=== PATIENT | female | born 1955 | race Hispanic/Latino ===

== ENCOUNTER 2019-04-27 14:15 | Emergency (ER) | payer MEDICARE, OTHER ==
--- OUTSIDE RECORDS SUMMARY | 2019-04-27 14:19 | XMS REPORT ---
:1955 Author Organization [employer] Care Team Providers Name Role Phone Yessy Parmar Provider Role Unavailable Allergies No Known Allergies Problems Problem Type Condition Code Onset Dates Condition Status Problem Stress incontinence of urine N39.3 Active Problem Vagina itching N89.8 Active Problem Other urinary incontinence N39.498 Active Problem Hypercholesterolemia E78.00 Active Problem Other chronic pain G89.29 Active Problem Essential hypertension I10 Active Problem Chronic kidney disease, unspecified N18.9 Active CKD stage Problem Depression screening Z13.31 Active Problem Type 2 diabetes mellitus with E11.21 Active diabetic nephropathy Problem Type 2 diabetes mellitus with E11.65 Active hyperglycemia Problem Diabetes mellitus type 2, E11.9 Active controlled Problem Chronic kidney disease, stage 3 N18.3 Active Problem Anxiety disorder F41.9 Active Problem Vascular dementia F01.50 Active Problem Hypertension I10 Active Problem Osteoarthritis of knees, bilateral M17.0 Active Medications No Known Medications Results No Known Results Summary Purpose [employer] Submission
--- OUTSIDE RECORDS SUMMARY | 2019-04-27 14:19 | XMS REPORT ---
[...] Osteoarthritis of knees, bilateral M17.0 Active Medications Medication Code Code Instructions Start End Date Status Dosage System Date Contour Next [facility] [id number] w/Device Apr 03, Active as directed Monitor 2018 Results No Known Results Summary Purpose [employer]ClinicalWorks Submission
[2019-04-27] MEDS ORDERED: DIPHENHYDRAMINE 25 MG TAB/CAP ONE (15:26)
[2019-04-27] MEDS ORDERED: FAMOTIDINE 20 MG TAB ONE (15:26)
--- NOTE | 2019-04-27 15:27 | ER ---
Nurse's Notes [facility] Name: Dyan Guevara Age: 63 yrs Sex: Female : 1955 Arrival Date: 04/27/2019 Time: 14:18 Bed 10 Private MD: Diagnosis: Urticaria Presentation: 04/27 14:34 Presenting complaint: Patient states: I noticed an itchy rash on my arms and legs this la1 morning. Transition of care: patient was not received from another setting of care. Onset: The symptoms/episode began/occurred this morning. Anaphylaxis evaluation, the patient reports or I have noted the following symptoms which indicate a significant risk of anaphylaxis: no signs or symptoms of anaphylaxis were noted. Onset of symptoms was April 27, 2019. Risk Assessment: Do you want to hurt yourself or someone else? Patient reports no desire to harm self or others. Initial Sepsis Screen: Does the patient meet any 2 criteria? No. Patient's initial sepsis screen is negative. Does the patient have a suspected source of infection? No. Patient's initial sepsis screen is negative. Care prior to arrival: None. 14:34 Method Of Arrival: Ambulatory la1 14:34 Acuity: DAVID 5 la1 Historical: - Allergies: 14:34 No Known Allergies; la1 - PMHx: 14:34 Arthritis; Diabetes - IDDM; GERD; High Cholesterol; Hypertension; la1 - Immunization history:: Adult Immunizations up to date. - Social history:: Smoking status: Patient uses tobacco products, denies chronic smoking, but will smoke occasionally. - Ebola Screening: : Patient denies travel to an Ebola-affected area in the 21 days before illness onset. Screenin:14 Abuse screen: Denies threats or abuse. Denies injuries from another. Nutritional ss screening: No deficits noted. Tuberculosis screening: Never had TB. Fall Risk None identified. Assessment: 15:14 General: Appears in no apparent distress. comfortable, Behavior is calm, cooperative. ss Pain: Denies pain. Neuro: Level of Consciousness is awake, alert, obeys commands, Oriented to person, place, time, situation. Cardiovascular: Capillary refill < 3 seconds is brisk in bilateral fingers. Respiratory: Airway is patent Respiratory effort is even, unlabored, Respiratory pattern is regular, symmetrical, Breath sounds are clear bilaterally. GI: Patient currently denies nausea. EENT: Oral mucosa is moist. Throat is clear. Derm: Skin is intact, is fragile, Skin is pink, warm \T\ dry. normal, Reports rash to bilateral arms that began this morning. Musculoskeletal: Circulation, motion, and sensation intact. Range of motion: intact in all extremities, Swelling absent. Vital Signs: 14:33 Pulse 85; Resp 16; Temp 97.3; Pulse Ox 96% on R/A; Weight 68.04 kg; Height 5 ft. 4 in. la1 (162.56 cm); 14:34 BP 104 / 58; la1 14:33 Body Mass Index 25.75 (68.04 kg, 162.56 cm) la1 ED Course: 14:18 Patient arrived in ED. as 14:34 Arm band placed on left wrist. la1 14:35 Triage completed. la1 15:14 [facility] Spring [facility]C [facility] kb 15:14 Nahid Rich MD is Attending Physician. kb 15:14 Patient has correct armband on for positive identification. Bed in low position. Call ss light in reach. 15:23 Ana Paula Mae, RN is Primary Nurse. ss 15:50 No provider procedures requiring assistance completed. Patient did not have IV access ss during this emergency room visit. Administered Medications: 15:27 Drug: Benadryl 25 mg Route: PO; ss 15:30 Follow up: Response: Medication administered at discharge. ss 15:27 Drug: Pepcid 20 mg Route: PO; ss 15:30 Follow up: Response: Medication administered at discharge. ss Outcome: 15:27 Discharge ordered by MD. kb 15:30 Patient left the ED. eb 15:30 Discharged to home ambulatory. ss 15:30 Condition: good 15:30 Discharge instructions given to patient, Instructed on discharge instructions, follow up and referral plans. medication usage, Demonstrated understanding of instructions, follow-up care, medications, Prescriptions given X 1. Signatures: Fina Spring FNP-C [employer]ATING [employer]OSSING UNIT OPERATOR-Mariana Naqvi as Ana Paula Mae, SIMI BELCHER Mirza Palomares RN RN [facility] Jolie Lopez
--- NOTE | 2019-04-27 15:28 | EDPHYS ---
Physician Documentation [facility] Name: Dyan Guevara Age: 63 yrs Sex: Female : 1955 Arrival Date: 04/27/2019 Time: 14:18 Bed 10 Private MD: ED Physician Nahid Rich HPI: 04/27 15:25 This 63 yrs old Female presents to ER via Ambulatory with complaints of Rash, kb Itching. 15:25 The patient's rash thought to be caused by an unknown cause. The rash is located on the kb right arm, left arm, right leg and left leg. The rash can be described as urticarial. Onset: The symptoms/episode began/occurred yesterday. Associated signs and symptoms: Pertinent positives: itching. Severity of symptoms: At their worst the symptoms were very mild mild in the emergency department the symptoms are unchanged. The patient has not experienced similar symptoms in the past. The patient has not recently seen a physician. Pt reports she was at someone's house last night and her arms started itching. This morning she had a rash to both forearms and her legs were itching as well. Did not take anything otc.. Historical: - Allergies: 14:34 No Known Allergies; la1 - PMHx: 14:34 Arthritis; Diabetes - IDDM; GERD; High Cholesterol; Hypertension; la1 - Immunization history:: Adult Immunizations up to date. - Social history:: Smoking status: Patient uses tobacco products, denies chronic smoking, but will smoke occasionally. - Ebola Screening: : Patient denies travel to an Ebola-affected area in the 21 days before illness onset. ROS: 15:22 Constitutional: Negative for fever, chills, and weight loss, ENT: Negative for injury, kb pain, and discharge, Neck: Negative for injury, pain, and swelling, Cardiovascular: Negative for chest pain, palpitations, and edema, Respiratory: Negative for shortness of breath, cough, wheezing, and pleuritic chest pain, Abdomen/GI: Negative for abdominal pain, nausea, vomiting, diarrhea, and constipation, Back: Negative for injury and pain, : Negative for injury, bleeding, discharge, and swelling, MS/Extremity: Negative for injury and deformity, Neuro: Negative for headache, weakness, numbness, tingling, and seizure. 15:22 Skin: Positive for rash, of the right arm, left arm, right leg and left leg. Exam: 15:22 Constitutional: This is a well developed, well nourished patient who is awake, alert, kb and in no acute distress. Head/Face: Normocephalic, atraumatic. Neck: Trachea midline, no thyromegaly or masses palpated, and no cervical lymphadenopathy. Supple, full range of motion without nuchal rigidity, or vertebral point tenderness. No Meningismus. Chest/axilla: Normal chest wall appearance and motion. Nontender with no deformity. No lesions are appreciated. Cardiovascular: Regular rate and rhythm with a normal S1 and S2. No gallops, murmurs, or rubs. Normal PMI, no JVD. No pulse deficits. Respiratory: Lungs have equal breath sounds bilaterally, clear to auscultation and percussion. No rales, rhonchi or wheezes noted. No increased work of breathing, no retractions or nasal flaring. Abdomen/GI: Soft, non-tender, with normal bowel sounds. No distension or tympany. No guarding or rebound. No evidence of tenderness throughout. Back: No spinal tenderness. No costovertebral tenderness. Full range of motion. MS/ Extremity: Pulses equal, no cyanosis. Neurovascular intact. Full, normal range of motion. Neuro: Awake and alert, GCS 15, oriented to person, place, time, and situation. Cranial nerves II-XII grossly intact. Motor strength 5/5 in all extremities. Sensory grossly intact. Cerebellar exam normal. Normal gait. 15:22 Skin: rash can be described as urticarial, consistent with urticaria, on the right arm, left arm, right leg and left leg. Vital Signs: 14:33 Pulse 85; Resp 16; Temp 97.3; Pulse Ox 96% on R/A; Weight 68.04 kg; Height 5 ft. 4 in. la1 (162.56 cm); 14:34 BP 104 / 58; la1 14:33 Body Mass Index 25.75 (68.04 kg, 162.56 cm) la1 MDM: 15:14 Patient medically screened. kb 15:21 Data reviewed: vital signs, nurses notes. Data interpreted: Pulse oximetry: on room air kb is 96 %. Interpretation: normal. Counseling: I had a detailed discussion with the patient and/or guardian regarding: the historical points, exam findings, and any diagnostic results supporting the discharge/admit diagnosis, the need for outpatient follow up, a family practitioner, to return to the emergency department if symptoms worsen or persist or if there are any questions or concerns that arise at home. Administered Medications: 15:27 Drug: Benadryl 25 mg Route: PO; 15:30 Follow up: Response: Medication administered at discharge. 15:27 Drug: Pepcid 20 mg Route: PO; 15:30 Follow up: Response: Medication administered at discharge. Disposition: 16:07 Co-signature as Attending Physician, Nahid Rich MD. rn Disposition: 04/27/19 15:27 Discharged to Home. Impression: Urticaria. - Condition is Stable. - Discharge Instructions: Hives, [id number]. - Prescriptions for Pepcid 20 mg Oral Tablet - take 1 tablet by ORAL route every 12 hours for 5 days; 10 tablet. - Medication Reconciliation Form, Thank You Letter, Antibiotic Education, Prescription Opioid Use form. - Follow up: Emergency Department; When: As needed; Reason: Worsening of condition. Follow up: Private Physician; When: 2 - 3 days; Reason: Recheck today's complaints, Continuance of care, Re-evaluation by your physician. Signatures: Fina Spring, BRAND AMBASSADOR-C BRAND AMBASSADOR-Ckb Nahid Rich MD MD rn Smirch, Shelby, RN RN ss Attema, Lee, RN RN la1 Botello, Elizabeth eb Corrections: (The following items were deleted from the chart) 15:30 15:27 04/27/2019 15:27 Discharged to Home. Impression: Urticaria. Condition is Stable. eb Forms are Medication Reconciliation Form, Thank You Letter, Antibiotic Education, Prescription Opioid Use. Follow up: Emergency Department; When: As needed; Reason: Worsening of condition. Follow up: Private Physician; When: 2 - 3 days; Reason: Recheck today's complaints, Continuance of care, Re-evaluation by your physician. kb
[2019-04-27 16:14] VITALS: TEMP 97.3; O2SAT 96
[2019-04-27 16:15] VITALS: BP 104/58
== END 2019-04-27 15:30 | disposition home or self-care (01) ==
LOC: ER 14:15
DX: L50.9 Urticaria, unspecified (principal); I10 Essential (primary) hypertension; Z72.0 Tobacco use
CPT/HCPCS: 99283

== ENCOUNTER 2021-09-04 20:26 | Emergency (ER) | payer OTHER ==
--- OUTSIDE RECORDS SUMMARY | 2021-09-04 20:30 | XMS REPORT | Continuity of Care Document ---
:1955 Author Organization [facility] t Address [address] [place] [address] Care Team Providers Name Role Phone Tiffanie Christine Attending Clinician Unavailable Claude Attending Clinician Unavailable Agata Attending Clinician Unavailable Problems This patient has no known problems. Allergies, Adverse Reactions, Alerts This patient has no known allergies or adverse reactions. Medications Ordered Filled Start Stop Current Ordering Indication Dosage Frequency Signature Comments Components Source Medication Medication Date Date Medication? Clinician (SIG) Name Name Augmentin Augmentin 2020- No Yessy [address] [facility] 01-16-19 [facility] Clinics Ketoconazol Ketoconazol 2020- No Yessy [address] [facility] e e 11-22-17 Millender applicatio Miranda es - 00:00: 00:00 n to [facility]oria 00 :00 affected l area(s) Outpati ent Clinics Penlac Penlac 2020- No Yessy [address] [facility] -18 08-17 Millender applicatio Miranda es - 00:00: 00:00 n to 1st [facility] 00 :00 toes of l both feet Outpati ent Clinics Contour Contour 2018- Yes Yessy as [facility] Next Next 0-28 Millender directed [facility] - Monitor Monitor 00:00: [facility] 00 l Outpati ent Clinics [place] 2018- Yes Yessy as [facility] 0-22 Millender directed [facility] - [facility]: [facility] Clinics Lancets Lancets 2018-06 Yes Yessy as [facility] 0-22 Millender directed [facility] - 00:00: (dispense [facility] 00 l[facility]ets [facility] l [facility] Blood Blood 2018-06 Yes Yessy as [facility] Glucose Glucose 0-22 Millender directed [facility] - Test Strip Test Strip 00:00: (DISPENSE [facility] 00 BLOOD l GLUCOSE [facility] TEST [facility] STRIPS OF Clinics RECORD) BD Pen BD Pen Yes Yessy USE [facility] Needle Needle 8-08 Millender DIRECTED Gail kes - Short U/F Short U/F 00:00: Mem oria 00 l [facility] ent Clinics Simvastatin Simvastatin Yes Yessy [address] [facility] Millender in the [facility] - evening Memoria l [facility] ent Clinics Hydrochloro Hydrochloro Yes Yessy [address] [facility] thiazide thiazide Millender Gail kes - Memoria l [facility] ent Clinics Namenda Namenda Yes Yessy 1 tab(s) [facility] Millender once a day Luke [facility] - [facility] l [facility] Clinics Lotrel Lotrel Yes Yessy 1 [facility] Clinics Toujeo Toujeo Yes Yessy as [facility] SoloStar SoloStar [facility] Jardiance Jardiance Yes Yessy [address] [facility]ics Memantine Memantine Yes Yessy TAKE [address] HCl HCl Millender TABLET BY [facility] - MOUTH ONCE Memoria A DAY l [facility] ent [facility] Myrbetriq Myrbetriq 2020- No Yessy [address] [facility] 03-15 Millender [facility] - 00:00 Memoria :00 l [facility] ent Clinics Procedures This patient has no known procedures. Encounters Start End Encounter Admission Attending Care Care Encounter Source Date/Time Date/Time Type Type Clinicians Facility Department ID 2021-07-02 Outpatient Christine, [facility] 13:[facility]:30 [place] [id number] [facility] 2021-07-02 Outpatient Christine, [facility] 13:14:11 [place] [id number] [facility] 2021-07-02 Outpatient [facility] 12:58:58 [place] [id number] [facility] 2021-07-02 Outpatient Christine, [facility] 12:57:18 [place] [id number] [facility] 2021-07-02 Outpatient Christine, [facility] 12:[facility]:10 [place] [id number] [facility] 2021-07-02 Outpatient Christine, [facility] 12:22:45 [place] [id number] [facility] 2021-07-02 Outpatient Sidney Arce [facility] [id number] [facility] 12:00:36 [id number] [facility] 2021-07-02 Outpatient Agata, [facility] 11:45:58 Yessy [id number] [facility] 2021-07-02 Outpatient Agata, [facility] 11:37:13 Yessy [id number] [facility] 2021-07-02 Outpatient Agata, [facility] 11:08:11 Yessy [id number] [facility] 2021-07-02 Outpatient Agata, [facility] 11:06:16 Yessy [id number] [facility] 2021-07-02 Outpatient Agata, [facility] 11:02:15 Yessy [id number] [facility] 2021-07-02 Outpatient Agata, [facility] [id number] [facility] 11:01:30 Yessy [id number] [facility] 2021-05-27 2021-05-27 ambulatory [facility] [id number] [facility] 2021-03-18 2021-03-18 Outpatient [facility] [id number] [facility] 2021-01-13 2021-01-13 Outpatient [facility] [id number] [facility] 2020-10-04 2020-10-04 Outpatient [facility] [id number] [facility] 2020-10-02 2020-10-02 Outpatient [facility] [id number] [facility] 2020-06-25 2020-06-25 Outpatient [facility] [id number] [facility] 2020-01-17 2020-01-17 [facility] [id number] [facility] 16:40:00 16:40:00 [facility] Medicine Medicine Outpati ent Clinics 2019-11-23 2019-11-23 [facility] [id number] [facility] 13:20:00 13:20:00 [facility] Medicine Medicine Outpati ent Clinics 2019-11-14 2019-11-14 [facility] [id number] [facility] 09:32:00 09:32:00 [facility] Medicine Medicine Outpati ent Clinics 2019-08-16 2019-08-16 [facility] [id number] [facility] 10:03:00 10:03:00 [facility] Medicine l Medicine Outpati ent Clinics 2019-07-24 2019-07-24 [facility] [id number] 11:45:00 11:45:00 [facility] Medicine Outpati ent Clinics 2019-07-18 2019-07-18 [facility] [id number] [facility] 08:18:00 08:18:00 [facility] Medicine Medicine Outpati ent Clinics 2019-07-13 2019-07-13 Outpatient Ana Best [id number] 15:55:00 15:55:00 t [facility] Medicine Outpati ent Clinics 2019-04-04 2019-04-04 Outpatient Ana Perezt [id number] 14:55:00 14:55:00 t [facility] Medicine Outpati ent Clinics 2019-04-03 2019-04-03 Outpatient Ana Best [id number] [facility] 11:30:00 11:30:00 t [facility] Medicine Outpati ent Clinics 2019-03-28 2019-03-28 Outpatient Ana Best [id number] [facility] 09:00:00 09:00:00 [facility] Results This patient has no known results.
--- NOTE | 2021-09-04 22:49 | ER ---
Nurse's Notes [facility] Name: Dyan Guevara Age: 66 yrs Sex: Female : 1955 Arrival Date: 09/04/2021 Time: 20:52 Bed 13 Private MD: Diagnosis: Presentation: 09/04 21:13 Chief complaint: Patient states: "All of the sudden around 6pm my stomach started ab2 hurting." Pt denies n/v/d. Pt c/o LLQ abdominal pain. Pt c/o urinary frequency. Coronavirus screen: Vaccine status:. 21:13 Method Of Arrival: Ambulatory ab2 21:14 Coronavirus screen: Vaccine status: Patient reports receiving the 2nd dose of the covid ab2 vaccine. Client denies travel out of the [place] in the last 14 days. At this time, the client does not indicate any symptoms associated with coronavirus-19. Ebola Screen: Patient negative for fever greater than or equal to 101.5 degrees Fahrenheit, and additional compatible Ebola Virus Disease symptoms Patient denies exposure to infectious person. Patient denies travel to an Ebola-affected area in the 21 days before illness onset. No symptoms or risks identified at this time. Initial Sepsis Screen: Does the patient meet any 2 criteria? No. Patient's initial sepsis screen is negative. Does the patient have a suspected source of infection? No. Patient's initial sepsis screen is negative. Risk Assessment: Do you want to hurt yourself or someone else? Patient reports no desire to harm self or others. Onset of symptoms is unknown. 21:14 Acuity: DAVID 3 ab2 Triage Assessment: 21:15 General: Appears in no apparent distress. uncomfortable, Behavior is calm, cooperative, ab2 appropriate for age. Pain: Complains of pain in left lower quadrant. Neuro: Level of Consciousness is awake, alert, obeys commands, Oriented to person, place, time, situation, Appropriate for age. Cardiovascular: No deficits noted. Denies chest pain, shortness of breath. Respiratory: No deficits noted. Airway is patent Respiratory effort is even, unlabored, Respiratory pattern is regular, symmetrical. GI: Reports upper abdominal pain, Patient currently denies diarrhea, nausea, vomiting. Historical: - Allergies: 21:14 No Known Allergies; ab2 - PMHx: 21:14 Arthritis; Diabetes - IDDM; GERD; High Cholesterol; Hypertension; ab2 - Immunization history:: Adult Immunizations up to date. - Social history:: Smoking status: Patient reports the use of cigarette tobacco products, smokes one-half pack cigarettes per day. Vital Signs: 21:14 BP 128 / 87; Pulse 81; Resp 18; Temp 98.3; Pulse Ox 98% on R/A; Weight 81.65 kg; Height ab2 5 ft. 4 in. (162.56 cm); Pain 10/10; 21:14 Body Mass Index 30.90 (81.65 kg, 162.56 cm) ab2 ED Course: 20:52 Patient arrived in ED. kc5 21:14 Triage completed. ab2 21:15 Arm band placed on left wrist. ab2 Administered Medications: No medications were administered Outcome: 22:48 Patient left the ED. tw5 Signatures: Alejandrina Diaz tw5 Bibi Vega kc5 Moshe Robles ab2
[2021-09-05 01:03] VITALS: BP 128/87; TEMP 98.3; O2SAT 98
== END 2021-09-04 22:48 | disposition left against medical advice (07) ==
LOC: ER 20:26
DX: Z53.21 Procedure and treatment not carried out due to patient leaving prior to being seen by health care provider (principal)
CPT/HCPCS: 99281

== ENCOUNTER 2022-02-05 15:37 | Inpatient (IN) | payer OTHER ==
--- OUTSIDE RECORDS SUMMARY | 2022-02-05 15:40 | XMS REPORT | Continuity of Care Document ---
:1955 Author Organization [facility] t Address [address] [place] [address] Care Team Providers Name Role Phone Celso Christine Attending Clinician Unavailable Sidney Arce Attending Clinician Unavailable Yessy Parmar Attending Clinician Unavailable Problems This patient has no known problems. Allergies, Adverse Reactions, Alerts This patient has no known allergies or adverse reactions. Medications Ordered Filled Start Stop Current Ordering Indication Dosage Frequency Signature Comments Components Source Medication Medication Date Date Medication? Clinician (SIG) Name Name Augmentin Augmentin 2020- No Yessy 1 tablet Common 01-16 [facility] 00:00: 00:00 - [facility] 00 :00 [facility] Ketoconazol Ketoconazol 2020- No Yessy 1 Common e e 11-22 Millender applicatio Spi rit 00:00: 00:00 n to - [facility] 00 :[address] area(s) [facility] Penlac Penlac 0 2020- No Yessy 1 Common 11-22-17 Millender applicatio Spi rit 00:00: 00:00 n to 1st - [facility] 00 :[address] both feet [facility] Contour Contour 2019- Yes Yessy as Common Next Next 0-28 Millender directed Spirit Monitor Monitor 00:00: - [facility] 00 [facility] Pen Newington Pen Newington 2019- Yes Yessy as Common 0-22 Millender directed [facility] 00:00: - [facility] 00 [facility] Lancets Lancets 2019- Yes Yessy as Common 0-22 Millender directed [facility] 00:00: (dispense - [facility] [address] record) [facility] Blood Blood 2018-06 Yes Yessy as Common Glucose Glucose 0-22 Millender directed [facility] Test Strip Test Strip 00:00: (DISPENSE - [facility] [address] GLUCOSE [facility] TEST Medical STRIPS OF Center RECORD) BD Pen BD Pen Yes Yessy USE Common Needle Needle 8-08 Millender DIRECTED Sp lis Short U/F Short U/F 00:00: - C HI 00 [facility] Simvastatin Simvastatin Yes Yessy 1 tablet Common [facility]ender in the Spirit evening [facility] Hydrochloro Hydrochloro Yes Yessy 1 tablet Common thiazide thiazide [facility] Sp lis [facility] Namenda Namenda Yes Yessy 1 tab(s) Comm on Millender once a day [facility] it [facility] Lotrel Lotrel Yes Yessy 1 capsule Commo n Millender [facility] Toujeo Toujeo Yes Yessy as Common SoloStar SoloStar Millender directed [facility] Jardiance Jardiance Yes Yessy 1 tablet Common Millender [facility] Memantine Memantine Yes Yessy TAKE 1 Co mmon HCl HCl Millender TABLET BY Spiri t MOUTH ONCE - [facility] A DAY [facility] Myrbetriq Myrbetriq 2020- No Yessy 1 tablet Common 03-15 [facility] 00:00 - [facility] :00 [facility] Procedures This patient has no known procedures. Encounters Start End Encounter Admission Attending Care Care Encounter Source Date/Time Date/Time Type Type Clinicians Facility Department ID 2021-07-02 Outpatient Christine, [facility] [id number] Common 13:35:30 Celso [id number] [facility] 2021-07-02 Outpatient Christine, [facility] [id number] Common 13:14:11 Celso [id number] [facility] 2021-07-02 Outpatient Christine, [facility] [id number] Common 12:58:58 Celso [id number] [facility] 2021-07-02 Outpatient Christine, STLMLC STLMLC [id number] Common 12:57:18 [facility] [id number] [facility] 2021-07-02 Outpatient Christine, STLMLC STLMLC [id number] Common 12:36:10 Celso [id number] [facility] 2021-07-02 Outpatient Christine, STLMLC STLMLC [id number] Common 12:22:45 [facility] [id number] [facility] 2021-07-02 Outpatient Arce, Kin STLMLC STLMLC [id number] Common 12:00:36 [id number] [facility] 2021-07-02 Outpatient Millender, STLMLC STLMLC [id number] Common 11:45:58 Yessy [id number] [facility] 2021-07-02 Outpatient Millender, STLMLC STLMLC [id number] Common 11:37:13 Yessy [id number] [facility] 2021-07-02 Outpatient Millender, STLMLC STLMLC [id number] Common 11:08:11 Yessy [id number] [facility] 2021-07-02 Outpatient Millender, STLMLC STLMLC [id number] Common 11:06:16 Yessy [id number] [facility] 2021-07-02 Outpatient Millender, STLMLC STLMLC [id number] Common 11:02:15 Yessy [id number] [facility] 2021-07-02 Outpatient Millender, STLMLC STLMLC [id number] Common 11:01:30 Yessy [id number] [facility] 2021-05-27 2021-05-27 ambulatory STLMLC STLMLC [id number] Common 00:00:00 00:00:00 [facility] 2021-03-18 2021-03-18 Outpatient STLMLC STLMLC [id number] Common 00:00:00 00:00:00 [facility] 2021-01-13 2021-01-13 Outpatient STLMLC STLMLC [id number] Common 00:00:00 00:00:00 [facility] 2020-10-04 2020-10-04 Outpatient STLMLC STLMLC [id number] Common 00:00:00 00:00:00 [facility] 2020-10-02 2020-10-02 Outpatient STLMLC STLMLC [id number] Common 00:00:00 00:00:00 [facility] 2020-06-25 2020-06-25 Outpatient STLMLC STLMLC [id number] Common 00:00:00 00:00:00 [facility] 2020-01-17 2020-01-17 [facility] [id number] Common 16:40:00 16:40:00 t [facility] [address] Road [facility] 2019-11-23 2019-11-23 [facility] [id number] Common 13:20:00 13:20:[address] [facility] 2019-11-14 2019-11-14 [facility] [id number] Common 09:32:00 09:32:[address] [facility] 2019-08-16 2019-08-16 [facility] [id number] Common 10:03:00 10:03:[address] [facility] 2019-07-24 2019-07-24 [facility] [id number] Common 11:45:00 11:45:[address] [facility] 2019-07-18 2019-07-18 [facility] [id number] Common 08:18:00 08:18:[address] [facility] 2019-07-13 2019-07-13 [facility] [id number] Common 15:55:00 15:55:[address] [facility] 2019-04-04 2019-04-04 [facility] [id number] Common 14:55:00 14:55:[address] [facility] 2019-04-03 2019-04-03 Outpatient Ana Best [id number] Common 11:30:00 11:30:00 [facility] it [facility] 2019-03-28 2019-03-28 Outpatient Ana Best [id number] Common 09:00:00 09:00:00 [facility] it [facility] Results This patient has no known results.
[2022-02-05 17:15] LABS: Hematocrit 42.5 % (36.0-45.0); MCV 81.5 fL (80-100); MPV 9.2 fL (7.6-11.3); RBC Red Blood Cell Count 5.21 M/uL (3.86-4.86)
[2022-02-05 17:16] LABS: Urine Mucus Slight /HPF (None Seen); Urine RBC <5 /HPF (None Seen)
[2022-02-05 17:24] LABS: Urine Blood Negative (Negative); Urine Glucose 3+ (Negative); Urine Protein Negative (Negative); Urine Specific Gravity 1.015 (1.005-1.030); Urine pH 5.5 (5.0-7.0)
[2022-02-05] MEDS ORDERED: FENTANYL CITR 100 MCG/2 ML ONE (17:26)
[2022-02-05 17:35] LABS: Albumin 3.7 g/dL (3.4-5.0); Bilirubin Total 0.3 mg/dL (0.2-1.0); Potassium 3.3 mmol/L (3.5-5.1); Protein, Total 7.9 g/dL (6.4-8.2)
[2022-02-05] MEDS ORDERED: INSULIN -REGULAR HUMAN 50 UNIT/0.5 ML ML ONE (18:36)
[2022-02-05] MEDS ORDERED: NA CHLORIDE 0.9% 500 ML ONE (18:36)
[2022-02-05] MEDS ORDERED: MORPHINE 4 MG/ML SYR ONE (18:36)
[2022-02-05] MEDS ORDERED: ONDANSETRON 4 MG/2 ML VIAL ONE (18:52)
--- NOTE | 2022-02-05 20:18 | RAD REPORT ---
EXAM DESCRIPTION: CT - Abdomen Pelvis Wo Contrast - 02/05/2022 8:06 pm CLINICAL HISTORY: Abdominal pain. periumbilical pain COMPARISON: No comparisons TECHNIQUE: CT imaging of the abdomen and pelvis was performed without contrast. Solid organ, bowel a nd vascular assessment is limited due to lack of IV and oral contrast. All CT scans are performed using dose optimization technique as appropriate and may include automated exposure control or mA/KV adjustment according to patient size. FINDINGS: The lower lung miranda are clear.Fluid is present distending the inferior esophagus with a moderate hiatal hernia. Cholecystectomy clips. The liver, spleen, pancreas, adrenal glands and kidneys are within normal limits for a limited non-co ntrast examination. Multiple mildly dilated small bowel loops are present in the central abdomen. This likely represents partial mechanical bowel obstruction. This appears to be related to a moderate sized incarcerated umb ilical hernia. No free air seen. The appendix is normal. 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 The mass measures approximately 12 x 9 cm. 6 cm solid-appearing mass in the left adnexa probably the pedunculated uterine fibroid.Trace pelvic f ree fluid. IMPRESSION: [id number] developing mechanical small-bowel obstruction suspected. This may be re lated to incarcerated umbilical hernia which contains small bowel loops. 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 A limited non-contrast examination was performed as detailed.
[2022-02-05] MEDS ORDERED: NA CHLORIDE 0.9% 100 ML ONE (21:07)
[2022-02-05] MEDS ORDERED: PIPERACIL/TAZO 3.375 GM VIAL IV ONE (21:08)
--- NOTE | 2022-02-05 21:27 | EDPHYS ---
Physician Documentation [facility] Name: Dyan Guevara Age: 66 yrs Sex: Female : 1955 Arrival Date: 02/05/2022 Time: 15:40 Bed 17 Private MD: ED Physician Darci Guan HPI: 02/05 16:05 This 66 yrs old Female presents to ER via Ambulatory with complaints of cp Abdominal Pain. 16:05 The patient presents with abdominal pain in the periumbilical area. Onset: The cp symptoms/episode began/occurred today, about 1000. The symptoms do not radiate. Associated signs and symptoms: Pertinent positives: nausea, Pertinent negatives: chest pain, constipation, diarrhea, fever, shortness of breath, vomiting. The symptoms are described as constant. Severity of pain: in the emergency department the pain is actually worse moderately. The patient has experienced similar episodes in the past, a few times, but today's symptoms are worse, lasting longer. Historical: - Allergies: 17:19 No Known Allergies; hb - PMHx: 16:01 Arthritis; Diabetes - IDDM; GERD; High Cholesterol; Hypertension; ph - Immunization history:: Adult Immunizations unknown. - Social history:: Smoking status: Patient reports the use of cigarette tobacco products, denies chronic smoking, but will smoke occasionally. ROS: 16:10 Constitutional: Negative for body aches, chills, fever, poor PO intake. cp 16:10 Eyes: Negative for injury, pain, redness, and discharge. cp 16:10 ENT: Negative for drainage from ear(s), ear pain, sore throat, difficulty swallowing, difficulty handling secretions. 16:10 Cardiovascular: Negative for chest pain, edema, palpitations. 16:10 Respiratory: Negative for cough, shortness of breath, wheezing. 16:10 Abdomen/GI: Positive for abdominal pain, nausea, Negative for vomiting, diarrhea, constipation, anorexia, black/tarry stool, rectal bleeding. 16:10 Back: Negative for radiated pain. 16:10 : Negative for urinary symptoms, vaginal bleeding, vaginal discharge. 16:10 Skin: Negative for cellulitis, rash. 16:10 Neuro: Negative for altered mental status, dizziness, headache, weakness. 16:10 All other systems are negative. Exam: 16:15 Constitutional: The patient appears in no acute distress, alert, awake, non-toxic, well cp developed, well nourished, in obvious pain, uncomfortable. 16:15 Head/Face: Normocephalic, atraumatic. cp 16:15 Eyes: Periorbital structures: appear normal, Conjunctiva: normal, no exudate, no injection, Sclera: no appreciated abnormality, Lids and lashes: appear normal, bilaterally. 16:15 ENT: External ear(s): are unremarkable, Nose: is normal, Mouth: Lips: moist, Oral mucosa: pink and intact, moist, Posterior pharynx: Airway: no evidence of obstruction, patent. 16:15 Neck: ROM/movement: is normal, is supple, without pain, no range of motions limitations. 16:15 Chest/axilla: Inspection: normal. 16:15 Cardiovascular: Rate: normal, Rhythm: regular. 16:15 Respiratory: the patient does not display signs of respiratory distress, Respirations: normal, no use of accessory muscles, no retractions, labored breathing, is not present. 16:15 Abdomen/GI: Inspection: abdomen appears normal, Bowel sounds: active, all quadrants, Palpation: soft, in all quadrants, moderate abdominal tenderness, in the umbilical area, rebound tenderness, is not appreciated, voluntary guarding, is elicited in the umbilical area, Hernia: noted in the umbilical area, tenderness, that is moderate, bowel sounds are appreciated on auscultation. 16:15 Back: CVA tenderness, is absent. 16:15 Skin: cellulitis, is not appreciated, no rash present. 16:15 Neuro: Orientation: to person, place \T\ time. Mentation: is normal, Motor: moves all fours, strength is normal, Sensation: is normal. Vital Signs: 15:58 BP 116 / 88; Pulse 85; Resp 24; Temp 98; Pulse Ox 99% ; Weight 72.57 kg; Height 5 ft. 3 ph in. (160.02 cm); Pain 10/10; 17:20 BP 128 / 88; Pulse 81; Resp 16; Pulse Ox 99% on R/A; Pain 8/10; hb 18:33 BP 124 / 80; Pulse 74; Resp 15; Pulse Ox 99% on R/A; Pain 7/10; hb 20:34 BP 117 / 54; Pulse 81; Resp 18; Pulse Ox 98% on R/A; Pain 2/10; tw5 15:58 Body Mass Index 28.34 (72.57 kg, 160.02 cm) ph MDM: 17:14 Patient medically screened. cp 20:45 Data reviewed: vital signs, nurses notes, lab test result(s), radiologic studies, CT cp scan, I have discussed the patient's presentation/case with the attending Emergency Department Physician;. 20:45 Response to treatment: the patient's symptoms have markedly improved after treatment. cp 20:53 Physician consultation: Cornelius Santizo MD was called at 20:53, was contacted at 20:53, regarding consult, patient's condition, recommends admission to hospitalist for continued monitoring, IV Zosyn and npo after midnight. Recheck labs in morning. 02/05 16:02 Order name: CBC with Diff; Complete Time: 17:45 02/05 16:02 Order name: CMP; Complete Time: 17:45 02/05 19:54 Interpretation: Normal except: NA 134; K 3.3; CL 97; GLUC 386; BUN 23; CRE 1.66; GFR cp 34; AST 13; GLOB 4.2; A/G 0.9. 02/05 16:02 Order name: Lipase; Complete Time: 17:45 02/05 16:02 Order name: Urine Microscopic Only; Complete Time: 17:23 02/05 17:23 Interpretation: Normal except: BYST Trace. 02/05 17:24 Order name: Urine Dipstick-Ancillary; Complete Time: 17:45 [facility] 02/06 00:26 Order name: SARS RAPID 02/06 02:09 Order name: Glucose, Ancillary Testing [facility] 02/06 02:34 Order name: SARS-COV-2 Antigen Rapid [facility] 02/06 03:31 Order name: CBC with Automated Diff [facility] 02/06 03:58 Order name: Comprehensive Metabolic Panel [facility] 02/06 03:58 Order name: Magnesium [facility] 02/06 07:58 Order name: Glucose, Ancillary Testing [facility] 02/06 12:28 Order name: Glucose, Ancillary Testing [facility] 02/05 16:02 Order name: IV Saline Lock; Complete Time: 17:07 02/05 16:02 Order name: Labs collected and sent; Complete Time: 17:07 02/05 16:02 Order name: Urine Dipstick-Ancillary (obtain specimen); Complete Time: 17:07 02/05 19:41 Order name: Misc. Order: abdominal binder; Complete Time: 20:17 cp 02/05 19:57 Order name: Abdomen ; Complete Time: 20:40 EDMS 02/06 07:55 Order name: EDMS Administered Medications: 17:19 Drug: fentaNYL (PF) 25 mcg Route: IVP; Site: left antecubital; 18:00 Follow up: Response: No adverse reaction 18:32 Drug: Insulin Regular Human 10 units {Co-Signature: ph (Silvana Avery RN).} Route: IVP; hb Site: left antecubital; 02/06 01:16 Follow up: Response: No adverse reaction [facility] 02/05 18:32 Drug: NS 0.9% 500 ml Route: IV; Rate: bolus; Site: left antecubital; 02/06 01:17 Follow up: Response: No adverse reaction; IV Status: Completed infusion; IV Intake: lg3 500ml 02/05 18:32 Drug: morphine 4 mg Route: IVP; Infused Over: 4 mins; Site: left antecubital; 02/06 01:16 Follow up: Response: No adverse reaction; Marked relief of symptoms [facility] 02/05 18:45 Drug: Zofran (Ondansetron) 4 mg Route: IVP; Site: left antecubital; 02/06 01:16 Follow up: Response: No adverse reaction; Marked relief of symptoms [facility] 02/05 21:06 Drug: Zosyn (piperacillin-tazobactam) 3.375 grams Route: IVPB; Infused Over: 60 mins; tw5 Site: left antecubital; 02/06 01:16 Follow up: Response: No adverse reaction; IV Status: Completed infusion; IV Intake: lg3 100ml Disposition Summary: 02/05/22 21:27 Hospitalization Ordered Hospitalization Status: Inpatient Admission cp Provider: Manuel Dyer cp Condition: Stable cp Problem: new cp Symptoms: have improved cp Bed/Room Type: Standard cp Location: Telemetry/MedSurg (Inpatient)(02/06/22 14:56) eb Room Assignment: 429(02/06/22 14:56) eb Diagnosis - Umbilical hernia without obstruction or gangrene cp Forms: - Medication Reconciliation Form cp - SBAR form cp Signatures: Dispatcher [employer] EDMS Ana Paula Mae RN RN Silvana Avery RN RN ph Michele Williamson PA PA Kristyn Brooks, SIMI RN Lisa Kendall, RN RN Jolie Lopez Tiffany tw5 Sheeba Lopez RN lg3 Silvana Avery RN ph Corrections: (The following items were deleted from the chart) 02/05 17:19 17:19 Allergies: Aspirin; hb hb 19:57 19:43 Abdomen Pelvis W Con+CT.RAD.BRZ ordered. EDMS EDMS 22:18 21:27 Telemetry/MedSurg (Inpatient) cp 22:18 21:27 cp 02/06 14:56 02/05 22:18 [facility] ER HOLD [facility] 02/06 14:56 02/05 22:18 ERHOLD- [facility] 02/06 14:56 14:56 Telemetry/MedSurg (Inpatient) eb 14:56 14:56 429 [facility]
--- NOTE | 2022-02-05 21:27 | ER ---
Nurse's Notes [facility] Name: Dyan Guevara Age: 66 yrs Sex: Female : 1955 Arrival Date: 02/05/2022 Time: 15:40 Bed 17 Private MD: Diagnosis: Umbilical hernia without obstruction or gangrene Presentation: 02/05 15:58 Chief complaint: Patient states: Having abdominal pain since around 1000 this morning, ph seems to travel around lower abdomen. Has had it before and used pepto bismol but that didn't work before. Coronavirus screen: Client denies travel out of the [place] in the last 14 days. At this time, the client does not indicate any symptoms associated with coronavirus-19. Ebola Screen: No symptoms or risks identified at this time. Initial Sepsis Screen: Does the patient meet any 2 criteria? No. Patient's initial sepsis screen is negative. Does the patient have a suspected source of infection? No. Patient's initial sepsis screen is negative. Risk Assessment: Do you want to hurt yourself or someone else? Patient reports no desire to harm self or others. Onset of symptoms was February 05, 2022. 15:58 Method Of Arrival: Ambulatory ph 15:58 Acuity: DAVID 3 ph Triage Assessment: 16:01 General: Appears uncomfortable, Behavior is calm, cooperative, appropriate for age. ph Pain: Complains of pain in right lower quadrant and left lower quadrant. GI: No deficits noted. Historical: - Allergies: 17:19 No Known Allergies; hb - PMHx: 16:01 Arthritis; Diabetes - IDDM; GERD; High Cholesterol; Hypertension; ph - Immunization history:: Adult Immunizations unknown. - Social history:: Smoking status: Patient reports the use of cigarette tobacco products, denies chronic smoking, but will smoke occasionally. Screenin:20 Abuse screen: Denies threats or abuse. Denies injuries from another. Nutritional hb screening: No deficits noted. Tuberculosis screening: No symptoms or risk factors identified. Fall Risk None identified. Assessment: 17:19 General: Appears in no apparent distress. uncomfortable, Behavior is calm, cooperative. hb Pain: Pain currently is 8 out of 10 on a pain scale. Neuro: Level of Consciousness is awake, alert, obeys commands, Oriented to person, place, time, situation. Cardiovascular: Patient's skin is warm and dry. Respiratory: Respiratory effort is even, unlabored, Respiratory pattern is regular, symmetrical. GI: Reports upper abdominal pain. : No signs and/or symptoms were reported regarding the genitourinary system. EENT: No signs and/or symptoms were reported regarding the EENT system. Derm: Skin is pink, warm \T\ dry. Musculoskeletal: No signs and/or symptoms reported regarding the musculoskeletal system. 18:33 Reassessment: Patient appears in no apparent distress at this time. Patient and/or hb family updated on plan of care and expected duration. Pain level reassessed. Patient is alert, oriented x 3, equal unlabored respirations, skin warm/dry/pink. 20:34 Reassessment: Patient appears in no apparent distress at this time. Reassessment: tw5 Patient states feeling better. Patient states symptoms have improved. Pain: Pain currently is 2 out of 10 on a pain scale. Vital Signs: 15:58 BP 116 / 88; Pulse 85; Resp 24; Temp 98; Pulse Ox 99% ; Weight 72.57 kg; Height 5 ft. 3 ph in. (160.02 cm); Pain 10/10; 17:20 BP 128 / 88; Pulse 81; Resp 16; Pulse Ox 99% on R/A; Pain 8/10; hb 18:33 BP 124 / 80; Pulse 74; Resp 15; Pulse Ox 99% on R/A; Pain 7/10; hb 20:34 BP 117 / 54; Pulse 81; Resp 18; Pulse Ox 98% on R/A; Pain 2/10; tw5 15:58 Body Mass Index 28.34 (72.57 kg, 160.02 cm) ph ED Course: 15:40 Patient arrived in ED. rg4 15:52 Michele Williamson PA is PHCP. cp 15:52 Darci Guan DO is Attending Physician. cp 16:01 Triage completed. ph 16:01 Arm band placed on right wrist. Patient placed in waiting room, Patient notified of ph wait time. 17:07 Initial lab(s) drawn, by me, sent to lab. Inserted saline lock: 20 gauge in left kj1 antecubital area, using aseptic technique. Blood collected. 17:21 Patient has correct armband on for positive identification. hb 18:33 Lisa Kendall, RN is Primary Nurse. hb 20:07 Abdomen In Process Unspecified. EDMS 20:17 Applied abdominal binder, PT tolerated well. ds4 20:34 Pulse ox on. NIBP on. Door closed. Noise minimized. Moved to private room. tw5 20:59 Primary Nurse role handed off by Lisa Kendall RN tw5 20:59 Alejandrina Diaz is Primary Nurse. tw5 21:25 Manuel Dyer MD is Hospitalizing Provider. 02/06 02:14 No provider procedures requiring assistance completed. Patient admitted, IV remains in lg3 place. intact, No redness/swelling at site. 02:16 SARS RAPID Sent. lg3 Administered Medications: 02/05 17:19 Drug: fentaNYL (PF) 25 mcg Route: IVP; Site: left antecubital; hb 18:00 Follow up: Response: No adverse reaction hb 18:32 Drug: Insulin Regular Human 10 units {Co-Signature: ph (Silvana Avery RN).} Route: IVP; Site: left antecubital; 02/06 01:16 Follow up: Response: No adverse reaction [facility] 02/05 18:32 Drug: NS 0.9% 500 ml Route: IV; Rate: bolus; Site: left antecubital; hb 02/06 01:17 Follow up: Response: No adverse reaction; IV Status: Completed infusion; IV Intake: lg3 500ml 02/05 18:32 Drug: morphine 4 mg Route: IVP; Infused Over: 4 mins; Site: left antecubital; hb 02/06 01:16 Follow up: Response: No adverse reaction; Marked relief of symptoms [facility] 02/05 18:45 Drug: Zofran (Ondansetron) 4 mg Route: IVP; Site: left antecubital; hb 02/06 01:16 Follow up: Response: No adverse reaction; Marked relief of symptoms [facility] 02/05 21:06 Drug: Zosyn (piperacillin-tazobactam) 3.375 grams Route: IVPB; Infused Over: 60 mins; 5 Site: left antecubital; 02/06 01:16 Follow up: Response: No adverse reaction; IV Status: Completed infusion; IV Intake: lg3 100ml Medication: 02/05 17:20 VIS not applicable for this client. hb Intake: 02/06 01:16 IV: 100ml; Total: 100ml. lg3 01:17 IV: 500ml; Total: 600ml. lg3 Outcome: 02/05 21:27 Decision to Hospitalize by Provider. cp 02/06 02:14 Admitted to ER Hold. Please see [facility] for further documentation. lg3 Condition: stable Instructed on the need for admit, Demonstrated understanding of instructions. 15:43 Patient left the ED. mb8 Signatures: Dispatcher [employer] EDMS Neel Sy ds4 Silvana Avery, RN RN ph Michele Williamson PA PA cp Lisa Kendall, RN RN hb Bettye Brooks rg4 Celeste Spring kj1 Sheeba Lopez RN RN lg3 Alejandrina Diaz tw5 Yazan Morel RN RN mb8 Silvana Avery RN ph Corrections: (The following items were deleted from the chart) 02/05 17:19 17:19 Allergies: Aspirin; hb hb
--- NOTE | 2022-02-05 22:18 | P.HP ---
Certification for Inpatient Patient admitted to: Inpatient With expected LOS: >2 Midnights Patient will require the following post-hospital care: None Practitioner: I am a practitioner with admitting privileges, knowledge of patient current condition, hospital course, and medical plan of care. Services: Services provided to patient in accordance with Admission requirements found in Title 42 Section 412.3 of the Code of Federal Regulations <Mirza Palomares - Last Filed: 02/05/22 22:09> Patient History Date of Service: 02/05/22 Reason for admission: SBO, hernia History of Present Illness: 66-year-old female with history of insulin-dependent diabetes, hypertension, hyperlipidemia, GERD presents emergency department for 1 day of abdominal pain. She was noted to have a umbilical hernia in the emergency department which was attempted to be reduced. Her labs were significant for white blood cell 11.8 sodium 134 potassium 3.3 creatinine 1.66 GFR 34 glucose 286 baseline creatinine around 1. 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 ED provider discussed case with general surgery who recommends patient be admitted, kept n.p.o. on antibiotics. - Past Medical/Surgical History -: DMII -: HTN -: HLD -: GERD -: appy Psychosocial/ Personal History: Pt is retired, lives at home with a friend - Family History Mother -: Diabetes - Social History Smoking Status: Current every day smoker Counseled patient to stop smoking for: less than [address]: Home <Mirza Palomares - Last Filed: 02/05/22 22:09> Date of Service: 02/06/22 <Manuel Dyer - Last Filed: 02/06/22 17:06> Allergies No Known Allergies Allergy (Verified 02/06/22 07:08) Review of Systems 10-point ROS is otherwise unremarkable Gastrointestinal: Nausea, Abdominal Pain <Mirza Palomares - Last Filed: 02/05/22 22:09> Physical Examination - Physical Exam General: Alert, In no apparent distress, Oriented x3 HEENT: Atraumatic, PERRLA, Mucous membr. moist/pink, EOMI, Sclerae nonicteric Neck: Supple, 2+ carotid pulse no bruit, No LAD, Without JVD or thyroid abnormality Respiratory: Clear to auscultation bilaterally, Normal air movement Cardiovascular: Regular rate/rhythm, Normal S1 S2 Gastrointestinal: Normal bowel sounds, No masses, No rebound, No guarding, Tenderness (mild epigastric tenderness) Musculoskeletal: No tenderness Integumentary: No rashes Neurological: Normal speech, Normal strength at 5/5 x4 extr, Normal tone, Normal affect - Studies Laboratory Data (last 24 hrs) 02/05/22 17:04: Sodium 134 L, Potassium 3.3 L, BUN 23 H, Creatinine 1.66 H, Glucose 386 H, Total Bilirubin 0.3, AST 13 L, ALT 18, Alkaline Phosphatase 97, Lipase 64 L 02/05/22 17:04: WBC 11.80 H, Hgb 13.8, Hct 42.5, Plt Count 339 <Mirza Palomares - Last Filed: 02/05/22 22:09> - Studies Laboratory Data (last 24 hrs) 02/05/22 17:04: Sodium 134 L, Potassium 3.3 L, BUN 23 H, Creatinine 1.66 H, Glucose 386 H, Total Bilirubin 0.3, AST 13 L, ALT 18, Alkaline Phosphatase 97, Lipase 64 L 02/05/22 17:04: WBC 11.80 H, Hgb 13.8, Hct 42.5, Plt Count 339 <Manuel Dyer - Last Filed: 02/06/22 17:06> Assessment and Plan - Plan Assessment: Small bowel obstruction likely secondary to incarcerated umbilical hernia Diabetes mellitus type 2insulin-dependent with hyperglycemia Large right adnexal mass 4 x 9 cm 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 NGT if patient has worsening N/V/distension. 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 No pelvic pain. Hypertension: Continue home meds when appropriate. Hyperlipidemia: Continue home meds when appropriate. GERD: IV PPI Discharge Plan: Home Plan to discharge in: 48 Hours - Advance Directives Does patient have a Living Will: No Does patient have a Durable POA for Healthcare: No - Code Status/Comfort Care Code Status Assessed: Yes (Full) Critical Care: No Time Spent Managing Pts Care (In Minutes): 70 <Mirza Palomares - Last Filed: 02/05/22 22:09> Physician Review: Patient Assessed, Agree with Above Assessment and Plan <Manuel Dyer - Last Filed: 02/06/22 17:06>
[2022-02-06] MEDS: Ringers Lactate 1,000 ML IV SCH ×3 (01:01→21:01)
[2022-02-06] MEDS ORDERED: PIPER TAZO 3.375 GM in NA CHLORIDE 0.9% 100 ML IV SCH (01:01)
[2022-02-06] MEDS ORDERED: SODIUM CHLORIDE 0.9% 10ML INJ IV PRN (01:01)
[2022-02-06] MEDS ORDERED: ONDANSETRON 4 MG/2 ML VIAL IV PRN (01:01)
[2022-02-06] MEDS ORDERED: Ringers Lactate 1,000 ML IV ONE ×2 (01:17→11:26)
[2022-02-06 01:26] VITALS: BMI 28.3
[2022-02-06 02:34] LABS: SARS-CoV-2 Antigen Rapid Res Negative (Negative)
[2022-02-06 03:27] LABS: Absolute Lymphocytes (CBC) 2.4 K/uL (0.7-4.9); Hematocrit 36.3 % (36.0-45.0); Lymphocytes % 18.7 % (15.3-44.8); MCV 79.9 fL (80-100); MPV 9.3 fL (7.6-11.3); RBC Red Blood Cell Count 4.54 M/uL (3.86-4.86)
[2022-02-06 03:43] LABS: Bilirubin Total 0.4 mg/dL (0.2-1.0); Magnesium 2.4 mg/dL (1.8-2.4); Potassium 3.2 mmol/L (3.5-5.1); Protein, Total 6.5 g/dL (6.4-8.2)
[2022-02-06] MEDS ORDERED: PIPERACIL/TAZO 3.375 GM VIAL IV ONE ×2 (04:52→13:00)
[2022-02-06] MEDS ORDERED: NA CHLORIDE 0.9% 100 ML ONE ×2 (04:52→13:00)
[2022-02-06] MEDS: PIPER TAZO 3.375 GM in NA CHLORIDE 0.9% 100 ML IV SCH ×3 (04:55→21:07)
[2022-02-06] MEDS: INSULIN -REGULAR HUMAN 50 UNIT/0.5 ML ML SQ SCH ×4 (07:30→21:00)
--- NOTE | 2022-02-06 07:54 | RAD REPORT ---
EXAM DESCRIPTION: US - Pelvis Complete - 02/06/2022 1:48 am CLINICAL HISTORY: Pelvic pain COMPARISON: CT abdomen February 05, 2022 FINDINGS: 13 centimeter right adnexal mass contains fat and fluid compatible with a dermoid. There i s blood flow within periphery. Left ovary normal in size and echotexture Left adnexal unremarkable Uterus measures 8.5 x 4 by 4 centimeters. Normal endometrial stripe IMPRESSION: 13 centimeter right adnexal dermoid
[2022-02-06] MEDS ORDERED: PANTOPRAZOLE 40 MG INJ ONE (07:59)
[2022-02-06] MEDS ORDERED: KCL 20 MEQ/100 mL IVPB 100 ML IV ONE ×2 (07:59→11:23)
[2022-02-06] MEDS: KCL 20 MEQ/100 mL IVPB 20 MEQ/100 ML BAG IV SCH ×2 (08:00→10:00)
[2022-02-06] MEDS: PANTOPRAZOLE 40 MG INJ IVP SCH (08:04)
[2022-02-06] MEDS ORDERED: MORPHINE 2 MG/ML SYR IV PRN (16:55)
--- NOTE | 2022-02-06 17:02 | P.PN ---
Subjective Date of Service: 02/06/22 Chief Complaint: SBO, hernia No acute events since admission. She reports persistent abdominal pain. She denies any nausea, vomiting. She denies flatus or bowel movement since admission. Review of Systems 10-point ROS is otherwise unremarkable Gastrointestinal: Abdominal Pain, Constipation Physical Examination - Vital Signs Temperature: 97.1 F Blood Pressure: 152/71 Pulse: 86 Respirations: 18 Pulse Ox (%): 93 - Physical Exam General: Alert, Oriented x3, Mild distress HEENT: Atraumatic, PERRLA, Mucous membr. moist/pink, EOMI, Sclerae nonicteric Neck: Supple, JVD not distended Respiratory: Clear to auscultation bilaterally, Normal air movement Cardiovascular: No edema, Regular rate/rhythm, Normal S1 S2, No gallops, No ru bs, No murmurs Gastrointestinal: Hypoactive, Non-distended, No rebound, No guarding, Other (reducible umbilical hernia noted), Tenderness (generalized) Musculoskeletal: No clubbing Integumentary: No rashes Neurological: Normal speech, Cranial nerves 3-12 intact, Normal affect - Studies Laboratory Data (last 24 hrs) 02/05/22 17:04: Sodium 134 L, Potassium 3.3 L, BUN 23 H, Creatinine 1.66 H, Glucose 386 H, Total Bilirubin 0.3, AST 13 L, ALT 18, Alkaline Phosphatase 97, Lipase 64 L 02/05/22 17:04: WBC 11.80 H, Hgb 13.8, Hct 42.5, Plt Count 339 Assessment And Plan - Plan # Mild-Moderate Mechanical Partial Small Bowel Obstruction secondary to Incarcerated Umbilical Hernia - General Surgery consulted and spoke with Dr. 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 Discharge Plan: Home Plan to discharge in: Greater than 2 days
--- NOTE | 2022-02-06 19:36 | CON ---
Date of Consultation: 02/06/2022 Brief History Of Present Illness: Patient is a 66-year-old female with history of diabetes, hyperten terri, hyperlipidemia, GERD, who presents to the hospital with 1 day worsening abdominal pain. She is noted to have an umbilical hernia for several years she states in the past for at least 1-2 years. She cannot recall the details exactly when it first emerged. However, over the course of the past da y or so, she notes worsening abdominal pain. As such, she came to the emergency room with the above- stated complaints. I spoke with Dr. Walsh, who states he was able to reduce the hernia and it was tender to palpation, but after reduction, they got a CT scan, which showed concern for possible deve loping mechanical small-bowel obstruction. As such, she is admitted to the hospitalist and I am aske d to see the patient regarding this. Patient states since being in the hospital, she still has some abdominal pain, but it improved from where it was initially, but continues to have some abdominal adrianne n. No nausea. No vomiting. She has not had a bowel movement for approximately 2 days and passed ve ry minimal amounts of gas today. She states that her pain continues to feel as if it is getting bett er. She feels rumbling in her abdomen, but no significant bowel function yet at this time. Past Medical History: Diabetes, hypertension, hyperlipidemia, GERD. Past Surgical History: Includes appendectomy. Social History: She is retired, lives at home. She has a positive 20+ pack-year history of tobacco use. She denies recreational drug use and states she rarely drinks. Review of Systems: 10-point review of systems other than HPI, she currently denies. Allergies: NO KNOWN DRUG ALLERGIES. Physical Examination: At the time of my examination. General: She is awake, alert, and oriented. Psychiatric: She is appropriate, conversive. HEENT: She is normocephalic. Her sclerae are anicteric. Mucous membranes are moist. Oropharynx is clear. Neck: Supple without JVD. Chest: Normal expansion and excursion. Cardiovascular: Regular rate and rhythm. Pulmonary: Congestion bilaterally. Abdomen: Soft with mild global tenderness to palpation. She has an umbilical hernia, which feels so mewhat reducible at this time without entrapment. No peritoneal signs at this time. No rebound. No guarding. Extremities: No clubbing, cyanosis, edema. Skin: Warm and dry. Laboratory Data: Revealed a white blood cell count of 12.8, hemoglobin is 12.2, hematocrit of 36.3, platelet count was 298. Her sodium 140, potassium 3.2, chloride 106, carbon dioxide 29, BUN 21, crea tinine 1.2, glucose was 170. Her magnesium was 2.4. Total bilirubin 0.4, AST 12, ALT 16, alkaline p hosphatase is 80. She had imaging performed, which included a CT of the abdomen and pelvis, which is officially read as [id number] developing mechanical small-bowel obstruction is suspected, may be related to incarcerated umbilical hernia, which contains small bowel loops, large right adnexal ma ss measuring 12 x 9 cm, likely representing an ovarian dermoid tumor. Assessment And Plan: This is a 66-year-old female who comes in with signs and symptoms of an umbilic al hernia causing a small-bowel obstruction. The hernia has been reduced by the ER staff and is curr ently not present during my examination. The patient has symptomatic improvement. As such, I recomm end serial abdominal exams. If the patient's symptoms do not improve, I have recommended a laparosco pic possible open ventral hernia repair during this admission; however, if she resolves without this, we will plan for surgical intervention as an outpatient based on the patient's recommendations and p references. I have explained the risks, benefits, and alternatives of the above stated plan includin g, but not limited to bleeding, infection, damage to surrounding tissue, need for further operative p rocedures, trouble with mesh, trouble with implanted device. We will also have her follow up with a professor criminal justice. I have explained that she needs to follow up with a professor criminal justice regarding her dermoid tumor and she has agreed to follow up with a professor criminal justice regarding this as an outpatient. Patient agrees to proceed as indicated. Thank you for this interesting consult. OSCAR/BRYSON Voice ID: [id number] Report ID: [id number]
[2022-02-06] MEDS ORDERED: KCL 20 MEQ/100 mL IVPB 20 MEQ/100 ML BAG IV SCH (21:00)
[2022-02-07] MEDS: Ringers Lactate 1,000 ML IV SCH ×2 (01:00→13:49)
[2022-02-07] MEDS: PIPER TAZO 3.375 GM in NA CHLORIDE 0.9% 100 ML IV SCH ×2 (05:43→13:49)
[2022-02-07 05:44] LABS: Absolute Lymphocytes (CBC) 2.3 K/uL (0.7-4.9); Hematocrit 37.4 % (36.0-45.0); Lymphocytes % 19.1 % (15.3-44.8); MCV 80.9 fL (80-100); MPV 9.9 fL (7.6-11.3); RBC Red Blood Cell Count 4.62 M/uL (3.86-4.86)
[2022-02-07 05:55] LABS: Albumin 2.7 g/dL (3.4-5.0); Bilirubin Total 0.5 mg/dL (0.2-1.0); Magnesium 2.2 mg/dL (1.8-2.4); Potassium 4.1 mmol/L (3.5-5.1); Protein, Total 6.2 g/dL (6.4-8.2)
[2022-02-07] MEDS: INSULIN -REGULAR HUMAN 50 UNIT/0.5 ML ML SQ SCH (07:30)
[2022-02-07] MEDS: PANTOPRAZOLE 40 MG INJ IVP SCH (09:03)
[2022-02-07 09:20] LABS: Platelet Estimate ADEQ; White Blood Cell Scan OK (OK)
[2022-02-07 09:21] LABS: Blood Morphology Comment NOT SEEN (NOT SEEN)
[2022-02-07 11:28] VITALS: O2SAT 96
[2022-02-07] MEDS ORDERED: INSULIN -REGULAR HUMAN 50 UNIT/0.5 ML ML SQ SCH ×2 (12:00→16:30)
[2022-02-07 12:42] VITALS: BP 122/66; TEMP 97.3
--- NOTE | 2022-02-07 16:31 | P.PN ---
Subjective Date of Service: 02/07/22 Chief Complaint: SBO, hernia Subjective: Improving (pain much improved, passing gas.) Physical Examination - Vital Signs Temperature: 97.3 F Blood Pressure: 122/66 Pulse: 77 Respirations: 16 Pulse Ox (%): 97 - Physical Exam General: Alert, In no apparent distress, Cooperative Gastrointestinal: Soft and benign, No tenderness, No masses, No rebound, No guarding Assessment And Plan - Current Problems (Diagnosis) (1) Small bowel obstruction Current Visit: Yes Status: Acute Plan: - continue medical management - serial exams - start clears today - ambulate with assist - will need umbilical hernia repair after discharge if non-operative management successful Physician Review: Patient Assessed, Agree with Above Assessment and Plan
--- NOTE | 2022-02-07 19:58 | P.DS ---
Admission Date: 02/05/22 Discharge Date: 02/07/22 Disposition: ROUTINE DISCHARGE Discharge Condition: GOOD Reason for Admission: SBO, hernia Consultations: General surgery-Dr. Santizo Procedures: CT abdomen pelvis without contrast 02/06/2020 FINDINGS: The lower lung miranda are clear.Fluid is present distending the inferior esophagus with a moderate hiatal hernia. Cholecystectomy clips. The liver, spleen, pancreas, adrenal glands and kidneys are within normal limits for a limited non-contrast examination. Multiple mildly dilated small bowel loops are present in the central abdomen. This likely represents partial mechanical bowel obstruction. This appears to be related to a moderate sized incarcerated umbilical hernia. No free air seen. The appendix is normal. There is a large fat, calcification and soft tissue containing mass in the right lower quadrant adnexal region probably representing a large right ovarian dermoid tumor. The mass measures approximately 12 x 9 cm. 6 cm solid-appearing mass in the left adnexa probably the pedunculated uterine fibroid.Trace pelvic free fluid. IMPRESSION: [id number] developing mechanical small-bowel obstruction suspected. This may be related to incarcerated umbilical hernia which contains small bowel loops. 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 A limited non-contrast examination was performed as detailed. Dictated By: Saran Tabares MD 02/05/222017 Signed By: Saran Tabares MD 02/05/222017 Pelvic ultrasound 02/07/2020 FINDINGS: 13 centimeter right adnexal mass contains fat and fluid compatible with a dermoid. There is blood flow within periphery. Left ovary normal in size and echotexture Left adnexal unremarkable Uterus measures 8.5 x 4 by 4 centimeters. 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 She was noted to have a umbilical hernia in the emergency department which was attempted to be reduced. Her labs were significant for white blood cell 11.8 sodium 134 potassium 3.3 creatinine 1.66 GFR 34 glucose 286 baseline creatinine around 1. 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 ED provider discussed case with general surgery who recommends patient be admitted, kept n.p.o. on antibiotics. Hospital Course: Patient was treated with conservative management for small bowel traction with suspected incarcerated umbilical hernia. She had improvement of her symptoms with decreased pain, no nausea or vomiting and began passing flatus. Patient tolerated a GI soft diet this evening she is ambulating without difficulty/assistance states she is feeling much better and deemed medically stable for discharge at this time. Case was discussed with general surgery prior to discharge who is comfortable with patient going home with close follow- up in his clinic in the next 2 to 3 days for further evaluation and management of her umbilical hernia. Patient given strict return precautions instructed on GI soft diet and holding her long-acting insulin until she returns to her normal diet. Patient and family verbalized understanding of plan of care. Vital Signs/Physical Exam: Temp Pulse Resp BP Pulse Ox 97.3 F 77 16 122/66 97 02/07/22 16:31 02/07/22 16:31 02/07/22 16:31 02/07/22 16:31 02/07/22 16:31 General: Alert, In no apparent distress, Oriented x3 HEENT: Atraumatic, PERRLA, EOMI Neck: Supple, JVD not distended Respiratory: Clear to auscultation bilaterally, Normal air movement Cardiovascular: Regular rate/rhythm, Normal S1 S2 Capillary refill: <2 Seconds Gastrointestinal: Normal bowel sounds, No tenderness, No masses, No rebound, No guarding Musculoskeletal: No tenderness Integumentary: No rashes Neurological: Normal speech, Normal tone, Normal affect Lymphatics: No axilla or inguinal lymphadenopathy Laboratory Data at Discharge: WBC 12.20 K/uL (4.3-10.9) H 02/07/22 04:56 Hgb 12.3 g/dL (12.0-15.0) 02/07/22 04:56 Hct 37.4 % (36.0-45.0) 02/07/22 04:56 Plt Count 293 K/uL (152-406) 02/07/22 04:56 Sodium 144 mmol/L (136-145) 02/07/22 04:56 Potassium 4.1 mmol/L (3.5-5.1) 02/07/22 04:56 BUN 13 mg/dL (7-18) 02/07/22 04:56 Creatinine 1.01 mg/dL (0.55-1.3) 02/07/22 04:56 Glucose 129 mg/dL (74-106) H 02/07/22 04:56 Magnesium 2.2 mg/dL (1.8-2.4) 02/07/22 04:56 Total Bilirubin 0.5 mg/dL (0.2-1.0) 02/07/22 04:56 AST 21 U/L (15-37) 02/07/22 04:56 ALT 14 U/L (12-78) 02/07/22 04:56 Alkaline Phosphatase 74 U/L (45-117) 02/07/22 04:56 Lipase 64 U/L (73-393) L 02/05/22 17:04 Physician Discharge Instructions: Please follow-up with Dr. Santizo in his office in the next 2 to 3 days for further evaluation of your hernia, return to emergency department if you develop worsening abdominal pain, nausea, vomiting or swelling. Diet: GI SOFT Activity: Ad dulce Followup: Freda Schreiber [Primary Care Provider] - Cornelius Santizo MD [ACTIVE - CAN ADMIT] - 2-3 Days Time spent managing pt's care (in minutes): 25
== END 2022-02-07 21:00 | disposition home or self-care (01) | DRG 395 ==
LOC: ER 15:37 → ERHOLD 21:50 → 4TH 02-06 15:31
PROVIDERS: ADMIT Internal Medicine; ATTEND Internal Medicine
DX: K42.0 Umbilical hernia with obstruction, without gangrene (principal); D11.9 Benign neoplasm of major salivary gland, unspecified; I10 Essential (primary) hypertension; E78.5 Hyperlipidemia, unspecified; D27.0 Benign neoplasm of right ovary; K21.9 Gastro-esophageal reflux disease without esophagitis; M19.90 Unspecified osteoarthritis, unspecified site; E11.65 Type 2 diabetes mellitus with hyperglycemia; F17.210 Nicotine dependence, cigarettes, uncomplicated; Z79.4 Long term (current) use of insulin; Z79.899 Other long term (current) drug therapy; Z20.822 Contact with and (suspected) exposure to COVID-19
CPT/HCPCS: 36415; 74176; 76856; 80053; 81003; 81015; 82947; 83036; 83690; 83735; 84132; 85025; 87811; 96361; 96365; 96366; 96375; 99285; C9113; J1815; J2270; J2405; J2543; J3010; J3480; J7040; J7120

== ENCOUNTER 2022-03-28 11:17 | Observation (INO) | payer OTHER ==
--- OUTSIDE RECORDS SUMMARY | 2022-03-28 11:22 | XMS REPORT | Continuity of Care Document ---
:1955 Author Organization [facility] t Address [address] [place] [address] Care Team Providers Name Role Phone Celso Christine Attending Clinician Unavailable Sidney Arce Attending Clinician Unavailable Yessy Parmar Attending Clinician Unavailable DARIEL PALACIOS Attending Clinician Unavailable Payers Payer Name Policy Type Policy Number Effective Date Expiration Date S teodoro JOE DUAL [id number] COMPLETE SNP [facility]-MEDICAID - [id number] MEDICAID [employer] MEDICARE 53 [id number] 2020 Common Sp lis 00:00:00 - [facility] MEDICARE MB [id number] [facility] NOVITAS [facility] MEDICARE MB [id number] [facility] NOVITAS [facility] HU[employer]NA MEDICARE C1 [id number] Common Sp lis - [facility] MEDICARE C1 [id number] Common Sp lis - [facility] Cigna-HealthSpr C1 [id number] Common Sp lis ing Medicare [facility] Problems Condition Condition Condition Status Onset Resolution Last Treating Co mments Source Name Details Category Date Date Treatment Clinician Date Chronic Stage 3a Problem Active Common kidney chronic Spirit disease kidney - [facility] stage 3A disease [facility] [id number] GERD Problem Active Common without Spirit esophagiti - CHI s [facility] Osteoarthr Osteoarthr Problem Active C ommon itis of itis of Spirit knee knees, - CHI bilateral [facility] Vascular Vascular Problem Active Commo n dementia dementia [facility] SI - Stress Problem Active Common Stress incontinen Spirit incontinen ce of - CHI ce urine [facility] Type II Diabetes Problem Active Common diabetes mellitus Spirit mellitus type 2, - [facility] well controlled [facility] [id number] Other Problem Active Common urinary Spirit incontinen - CHI ce [facility] [id number] Vaginal Problem Active Common itching [facility] [id number] Hyperchole Problem Active Com mon sterolemia [facility] [id number] Other Problem Active Common chronic Spirit pain - [facility] [id number] Type 2 Problem [place] [id number] diabetes Spirit mellitus - [facility] with [facility] [id number] Type 2 Problem Active Common diabetes Spirit mellitus - [facility] with [facility] nephropath [facility] [id number] Pain in Problem Active Common left knee [facility] [id number] Anal Problem Active Common itching [facility] [id number] Chronic Problem Active Commo n kidney Spirit disease, - [facility] unspecifie [facility] Anxiety Anxiety Problem Active Common disorder disorder [facility] [id number] OAB Problem Active Common (overactiv Spirit e bladder) [facility] [id number] Depression Problem Active Co mmon screening [facility] Chronic +5th digit Problem Active Comm on kidney eff Spirit disease 03/07/20* - [facility] stage 3 ronic kidney [facility] disease, Medical stage 3 Center [id number] Onychomyco Problem Active Co mmon sis [facility] [id number] Essential Problem Active Comm on hypertensi Spirit on [facility] Allergies, Adverse Reactions, Alerts This patient has no known allergies or adverse reactions. Social History Social Habit Start Date Stop Date Quantity Comments Source History of Tobacco Current Smoker Co mmon Spirit - CHI Use [facility] Sex Assigned At Com mon Spirit - [facility] Smoking Status Start Date Stop Date Source Current Smoker 2021-03-14 00:00:00 Common Spiri t - [facility] Medications Ordered Filled Start Stop Current Ordering Indication Dosage Frequency Signature Comments Components Source Medication Medication Date Date Medication? Clinician (SIG) Name Name Meloxicam Meloxicam 2020- No 1{table QD Meloxicam 7.5 MG 7.5 MG 10-02 t} 7.5 MG 00:00: 00:00 00 :00 Meloxicam Meloxicam 2020- No 1{table QD Meloxicam 7.5 MG 7.5 MG 10-02 t} 7.5 MG 00:00: 00:00 00 :00 Augmentin Augmentin 2020- No Yessy 1 tablet Common 01-16 Millender Spirit 00:00: 00:00 - CHI 00 :00 [facility] Ketoconazol Ketoconazol 2020- No Yessy 1 Common e e 11-22 Millender applicatio Spi rit 00:00: 00:00 n to - CHI 00 :[address] area(s) [facility] Penlac Penlac 2019- No Yessy 1 Common 11-22 Millender applicatio Spi rit 00:00: 00:00 n to 1st - CHI 00 :[address] both feet [facility] Contour Contour 2018- Yes Yessy as Common Next Next 0-28 Millender directed Spirit Monitor Monitor 00:00: - CHI 00 [facility] Contour Contour 2018- No Contour Next Next 0-28 Next Monitor Monitor 00:00: Monitor w/Device w/Device 00 w/Device Contour Contour 2018-06 No Contour Next Next 0-28 Next Monitor Monitor 00:00: Monitor w/Device w/Device 00 w/Device Contour Contour 2018- No Contour Next Next 0-28 Next Monitor Monitor 00:00: Monitor w/Device w/Device 00 w/Device Contour Contour 2018- No Contour Next Next 0-28 Next Monitor Monitor 00:00: Monitor w/Device w/Device 00 w/Device Contour Contour 2018- No Contour Next Next 0-28 Next Monitor Monitor 00:00: Monitor w/Device w/Device 00 w/Device Contour Contour 2018- No Contour Next Next 0-28 Next Monitor Monitor 00:00: Monitor w/Device w/Device 00 w/Device Pen Albion Pen Albion 2018- Yes Yessy as Common 0-22 Millender directed Spirit 00:00: - CHI [facility] Lancets Lancets 2019-1 Yes Yessy as Common 0-22 Millender directed Spirit 00:00: (dispense - CHI 00 lancets of record) [facility] Blood Blood 2018-06 Yes Yessy as Common Glucose Glucose 0-22 Millender directed Spirit Test Strip Test Strip 00:00: (DISPENSE - CHI [address] GLUCOSE [facility] TEST Medical STRIPS OF Center RECORD) Blood Blood 2018-06 No Blood Glucose Glucose 0-22 Glucose Test Strip Test Strip 00:00: Test Strip 00 Pen Albion Pen Albion 2018-06 No Pen 32G X 5 MM 32G X 5 MM 0-22 Albion 00:00: 32G X 5 MM 00 Lancets - Lancets - 2018-06 No Lancets - 0-22 00:00: 00 Lancets - Lancets - 2018-06 No Lancets - 0-22 00:00: 00 Blood Blood 2018-06 No Blood Glucose Glucose 0-22 Glucose Test Strip Test Strip 00:00: Test Strip 00 Pen Albion Pen Albion 2018-06 No Pen 32G X 5 MM 32G X 5 MM 0-22 Albion 00:00: 32G X 5 MM Lancets - Lancets 2018-06 No Lancets - 0-22 00:00: 00 Pen Albion Pen Albion 2018-06 No Pen 32G X 5 MM 32G X 5 MM 0-22 Albion 00:00: 32G X 5 MM 00 Blood Blood 2018-06 No Blood Glucose Glucose 0-22 Glucose Test Strip Test Strip 00:00: Test Strip 00 Blood Blood 2018-06 No Blood Glucose Glucose 0-22 Glucose Test Strip Test Strip 00:00: Test Strip Lancets - Lancets - 2018-06 No Lancets - 0-22 00:00: 00 Pen Albion Pen Albion 2018-06 No Pen 32G X 5 MM 32G X 5 MM 0-22 [place] 00:00: 32G X 5 MM 00 Pen Albion Pen Albion 2018-06 No Pen 32G X 5 MM 32G X 5 MM 0-22 [place] 00:00: 32G X 5 MM 00 Blood Blood 2018-06 No Blood Glucose Glucose 0-22 Glucose Test Strip Test Strip 00:00: Test Strip 00 Lancets - Lancets - 2018-06 No Lancets - 0-22 00:00: 00 Pen Albion Pen Albion 2018-06 No Pen 32G X 5 MM 32G X 5 MM 0-22 [place]ion 00:00: 32G X 5 MM 00 Blood Blood 2018- No Blood Glucose Glucose 0-22 Glucose Test Strip Test Strip 00:00: Test Strip 00 Lancets - Lancets - 2018- No Lancets - 0-22 00:00: 00 BD Pen BD Pen 2018- Yes Yessy USE Common Needle Needle 01-12 Millender DIRECTED Sp lis Short U/F Short U/F 00:00: - C HI 00 [facility] Simvastatin Simvastatin Yes Yessy 1 tablet Common Millender in the [facility] evening [facility] Hydrochloro Hydrochloro Yes Yessy 1 tablet Common thiazide thiazide Millender Sp lis [facility] Namenda Namenda Yes Yessy 1 tab(s) Comm on Millender once a day Spir it [facility] Lotrel Lotrel Yes Yessy 1 capsule Commo n Millender [facility] Toujeo Toujeo Yes Yessy as Common SoloStar SoloStar Millender directed [facility] Jardiance Jardiance Yes Yessy 1 tablet Common Millender [facility] Memantine Memantine Yes Yessy TAKE 1 Co mmon HCl HCl Millender TABLET BY Spiri t MOUTH ONCE - CHI A DAY [facility] BD Pen BD Pen No BD Pen Needle Needle Needle Short U/F Short U/F Short U/F 31G X 8 MM 31G X 8 MM 31G X 8 MM Lotrel Lotrel No 1{capsu QD Lotrel 10-40 MG 10-40 MG le} 10-40 MG Myrbetriq Myrbetriq No 1{table QD Myrbetriq 50 mg 50 mg t} 50 mg Lotrel Lotrel No 1{capsu QD Lotrel 10-40 MG 10-40 MG le} 10-40 MG hydroCHLORO hydroCHLORO No 1{table QD hydroCHLOR thiazide 25 thiazide 25 t} Othiazide MG MG 25 MG Meloxicam Meloxicam No 1{table QD Meloxicam 7.5 MG 7.5 MG t} 7.5 MG Simvastatin Simvastatin No 1{table QD Simvastati 10 MG 10 MG t_in_th n 10 MG e_eveni ng} BD Pen BD Pen No BD Pen Needle Needle Needle Short U/F Short U/F Short U/F 31G X 8 MM 31G X 8 MM 31G X 8 MM amLODIPine amLODIPine No amLODIPine Besy-Benaze Besy-Benaze Besy-Benaz pril HCl pril HCl epril HCl 10-40 MG 10-40 MG 10-40 MG Toujeo Toujeo No Touo SoloStar SoloStar SoloStar 300 UNIT/ML 300 UNIT/ML 300 UNIT/ML Jardiance Jardiance No 1{table QD Jardiance 25 MG 25 MG t} 25 MG Namenda 10 Namenda 10 No QD Namenda 10 Myrbetriq Myrbetriq No Myrbetriq 50 MG 50 MG 50 MG Myrbetriq Myrbetriq No 1{table QD Myrbetriq 50 mg 50 mg t} 50 mg Memantine Memantine No Memantine HCl 10 HCl 10 HCl 10 Lotrel Lotrel No Lotrel 10-40 MG 10-40 MG 10-40 MG Namenda 10 Namenda 10 No QD Namenda 10 Myrbetriq Myrbetriq No Myrbetriq 50 MG 50 MG 50 MG hydroCHLORO hydroCHLORO No 1{table QD hydroCHLOR thiazide 25 thiazide 25 t} Othiazide MG MG 25 MG Jardiance Jardiance No 1{table QD Jardiance 25 MG 25 MG t} 25 MG Toujeo Toujeo No SoloStar SoloStar SoloStar 300 UNIT/ML 300 UNIT/ML 300 UNIT/ML Pantoprazol Pantoprazol No Pantoprazo e Sodium 40 e Sodium 40 le Sodium MG MG 40 MG Memantine Memantine No Memantine HCl 10 HCl 10 HCl 10 Lotrel Lotrel No 1{capsu QD Lotrel 10-40 MG 10-40 MG le} 10-40 MG amLODIPine amLODIPine No amLODIPine Besy-Benaze Besy-Benaze Besy-Benaz pril HCl pril HCl epril HCl 10-40 MG 10-40 MG 10-40 MG Lotrel Lotrel No Lotrel 10-40 MG 10-40 MG 10-40 MG BD Pen BD Pen No BD Pen Needle Needle Needle Short U/F Short U/F Short U/F 31G X 8 MM 31G X 8 MM 31G X 8 MM Myrbetriq Myrbetriq No 1{table QD Myrbetriq 50 mg 50 mg t} 50 mg Simvastatin Simvastatin No 1{table QD Simvastati 10 MG 10 MG t_in_th n 10 MG e_eveni ng} Meloxicam Meloxicam No 1{table QD Meloxicam 7.5 MG 7.5 MG t} 7.5 MG amLODIPine amLODIPine No amLODIPine Besy-Benaze Besy-Benaze Besy-Benaz pril HCl pril HCl epril HCl 10-40 MG 10-40 MG 10-40 MG Namenda 10 Namenda 10 No QD Namenda 10 Toujeo Toujeo No Toujeo SoloStar SoloStar SoloStar 300 UNIT/ML 300 UNIT/ML 300 UNIT/ML Pantoprazol Pantoprazol No Pantoprazo e Sodium 40 e Sodium 40 le Sodium MG MG 40 MG hydroCHLORO hydroCHLORO No 1{table QD hydroCHLOR thiazide 25 thiazide 25 t} Othiazide MG MG 25 MG Myrbetriq Myrbetriq No Myrbetriq 50 MG 50 MG 50 MG Meloxicam Meloxicam No 1{table QD Meloxicam 7.5 MG 7.5 MG t} 7.5 MG Lotrel Lotrel No Lotrel 10-40 MG 10-40 MG 10-40 MG Memantine Memantine No Memantine HCl 10 HCl 10 HCl 10 BD Pen BD Pen No BD Pen Needle Needle Needle Short U/F Short U/F Short U/F 31G X 8 MM 31G X 8 MM 31G X 8 MM Simvastatin Simvastatin No 1{table QD Simvastati 10 MG 10 MG t_in_th n 10 MG e_eveni ng} Memantine Memantine No Memantine HCl 10 HCl 10 HCl 10 Lotrel Lotrel No 1{capsu QD Lotrel 10-40 MG 10-40 MG le} 10-40 MG Jardiance Jardiance No 1{table QD Jardiance 25 MG 25 MG t} 25 MG Hydrochloro Hydrochloro No 1{table QD Hydrochlor thiazide 25 thiazide 25 t} othiazide MG MG 25 MG Toujeo Toujeo No Toujeo SoloStar SoloStar SoloStar 300 UNIT/ML 300 UNIT/ML 300 UNIT/ML BD Pen BD Pen No BD Pen Needle Needle Needle Short U/F Short U/F Short U/F 31G X 8 MM 31G X 8 MM 31G X 8 MM Simvastatin Simvastatin No 1{table QD Simvastati 10 MG 10 MG t_in_th n 10 MG e_eveni ng} Namenda 10 Namenda 10 No QD Namenda 10 Memantine Memantine No Memantine HCl 10 HCl 10 HCl 10 Toujeo Toujeo No Too SoloStar SoloStar SoloStar 300 UNIT/ML 300 UNIT/ML 300 UNIT/ML Amlodipine Amlodipine No Amlodipine Besy-Benaze Besy-Benaze Besy-Benaz pril HCl pril HCl epril HCl 10-40 MG 10-40 MG 10-40 MG Hydrochloro Hydrochloro No 1{table QD Hydrochlor thiazide 25 thiazide 25 t} othiazide MG MG 25 MG Namenda 10 Namenda 10 No QD Namenda 10 Jardiance Jardiance No 1{table QD Jardiance 25 MG 25 MG t} 25 MG Simvastatin Simvastatin No 1{table QD Simvastati 10 MG 10 MG t_in_th n 10 MG e_eveni ng} BD Pen BD Pen No BD Pen Needle Needle Needle Short U/F Short U/F Short U/F 31G X 8 MM 31G X 8 MM 31G X 8 MM Lotrel Lotrel No 1{capsu QD Lotrel 10-40 MG 10-40 MG le} 10-40 MG Myrbetriq Myrbetriq No 1{table QD Myrbetriq 50 mg 50 mg t} 50 mg Memantine Memantine No Memantine HCl 10 HCl 10 HCl 10 No SoloStar SoloStar SoloStar 300 UNIT/ML 300 UNIT/ML 300 UNIT/ML Amlodipine Amlodipine No Amlodipine Besy-Benaze Besy-Benaze Besy-Benaz pril HCl pril HCl epril HCl 10-40 MG 10-40 MG 10-40 MG Hydrochloro Hydrochloro No 1{table QD Hydrochlor thiazide 25 thiazide 25 t} othiazide MG MG 25 MG Namenda 10 Namenda 10 No QD Namenda 10 Jardiance Jardiance No 1{table QD Jardiance 25 MG 25 MG t} 25 MG Simvastatin Simvastatin No 1{table QD Simvastati 10 MG 10 MG t_in_th n 10 MG e_eveni ng} Myrbetriq Myrbetriq No 1{table QD Myrbetriq 50 mg 50 mg 08-26 t} 50 mg 00:00 :00 Jardiance Jardiance 2021- No 1{table QD Jardiance 25 MG 25 MG 08-26 t} 25 MG 00:00 :00 Myrbetriq Myrbetriq 2020- No Yessy 1 tablet Common 08-19 Millender Spirit 00:00 - CHI :00 [facility] Myrbetriq Myrbetriq No 1{table QD Myrbetriq 50 mg 50 mg 08-19 t} 50 mg 00:00 :00 Immunizations Ordered Immunization Filled Immunization Date Status Commen ts Source Name Name [facility] 2021-03-18 Completed [facility]09: [facility] 2021-03-18 Completed [facility]:09:00 [facility] Vital Signs Vital Name Observation Time Observation Value Comments Source height 2021-03-18 10:20:00 62.50 [in_i] [facility] weight 2021-03-18 10:20:00 177.1 [lb_av] [facility] temperature 2021-03-18 10:20:00 97.3 [degF] [facility] bmi 2021-03-18 10:20:00 31.87 kg/m2 [facility] oximetry 2021-03-18 10:20:00 97 % [facility] respiratory rate 2021-03-18 10:20:00 18 /min Comm on [facility] blood pressure 2021-03-18 10:20:00 111 mm[Hg] Common [facility] - systolic [facility] blood pressure 2021-03-18 10:20:00 63 mm[Hg] [facility] - diastolic [facility] height 2021-01-13 11:40:00 62.50 [in_i] [facility] weight 2021-01-13 11:40:00 183.1 [lb_av] [facility] temperature 2021-01-13 11:40:00 97.6 [degF] Common S [facility] bmi 2021-01-13 11:40:00 32.95 kg/m2 Common S [facility] oximetry 2021-01-13 11:40:00 98 % [facility] respiratory rate 2021-01-13 11:40:00 17 /min Comm on [facility] blood pressure 2021-01-13 11:40:00 132 mm[Hg] Common [facility] - systolic [facility] blood pressure 2021-01-13 11:40:00 65 mm[Hg] Common [facility] - diastolic [facility] height 2020-10-02 15:00:00 62.50 [in_i] [facility] weight 2020-10-02 15:00:00 181.9 [lb_av] [facility] temperature 2020-10-02 15:00:00 97.2 [degF] Common [facility] bmi 2020-10-02 15:00:00 32.74 kg/m2 [facility] oximetry 2020-10-02 15:00:00 97 % [facility] respiratory rate 2020-10-02 15:00:00 17 /min Comm on [facility] blood pressure 2020-10-02 15:00:00 138 mm[Hg] Common [facility] systolic [facility] blood pressure 2020-10-02 15:00:00 70 mm[Hg] Common [facility] diastolic [facility] Procedures Procedure Date / Time Performing Clinician Source Performed AMB REF TO GEN INT 2022-03-25 09:22:12 [facility] PAP SMEAR - IMAGE GUIDED 2022-03-25 08:28:44 [employer] - NON MEDICARE Medicine HEMOGLOBIN A1C 2022-03-25 08:28:44 [facility] CBC W/AUTO DIFF WITH 2022-03-25 08:28:44 [facility] COMPREHENSIVE METABOLIC 2022-03-25 08:28:44 [facility] CANCER ANTIGEN 19-9 2022-03-25 08:28:44 [facility] Brittany baldwin [facility] CEA 2022-03-25 08:28:44 [facility] Medicine HPV HIGH RISK W 2022-03-25 08:08:00 [facility] GENOTYPE,TP Medicine Encounters Start End Encounter Admission Attending Care Care Encounter Source Date/Time Date/Time Type Type Clinicians Facility Department ID 2021-07-02 Outpatient Christine, STLMLC STLMLC [id number] Common 13:35:30 Celso [id number] [facility] 2021-07-02 Outpatient Christine, STLMLC STLMLC [id number] Common 13:14:11 Celso [id number] [facility] 2021-07-02 Outpatient Christine, STLMLC STLMLC [id number] Common 12:58:58 Celso [id number] [facility] 2021-07-02 Outpatient Christine, STLMLC STLMLC [id number] Common 12:57:18 Celso [id number] [facility] 2021-07-02 Outpatient Christine, STLMLC STLMLC [id number] Common 12:36:10 Celso [id number] [facility] 2021-07-02 Outpatient Christine, STLMLC STLMLC [id number] Common 12:22:45 Celso [id number] [facility] 2021-07-02 Outpatient Claude, Kin STLMLC STLMLC [id number] Common 12:00:36 [id number] [facility] 2021-07-02 Outpatient Millender, STLMLC STLMLC [id number] Common 11:45:58 Yessy [id number] [facility] 2021-07-02 Outpatient Millender, STLMLC STLMLC [id number] Common 11:37:13 Yessy [id number] [facility] 2021-07-02 Outpatient Millender, STLMLC STLMLC [id number] Common 11:08:11 Yessy [id number] [facility] 2021-07-02 Outpatient Millender, STLMLC STLMLC [id number] Common 11:06:16 Yessy [id number] [facility] 2021-07-02 Outpatient Agata, STLMLC STLMLC [id number] Common 11:02:15 Yessy [id number] [facility] 2021-07-02 Outpatient Agata, STLMLC STLMLC [id number] Common 11:01:30 Yessy [id number] [facility] 2022-03-25 2022-03-25 Outpatient MYRIAM PALACIOS [facility] [id number] [facility] 07:19:18 12:26:44 DARIEL Jean Medicin e 2021-05-27 2021-05-27 (TEL) STLMLC STLMLC [id number] Co mmon 00:00:00 00:00:00 [facility] 2021-03-18 2021-03-18 OFFICE STLMLC STLMLC [id number] Co mmon 00:00:00 00:00:00 VISIT Spirit ESTAB PT - CHI LEVEL 4 [facility] 2021-01-13 2021-01-13 OFFICE STLMLC STLMLC [id number] Co mmon 00:00:00 00:00:00 VISIT Spirit ESTAB PT - CHI LEVEL 4 [facility] 2020-10-04 2020-10-04 (TEL) STLMLC STLMLC [id number] Co mmon 00:00:00 00:00:00 [facility] 2020-10-02 2020-10-02 OFFICE STLMLC STLMLC [id number] Co mmon 00:00:00 00:00:00 VISIT Spirit ESTAB PT - CHI LEVEL 4 [facility] 2020-06-25 2020-06-25 (TEL) STLMLC STLMLC [id number] Co mmon 00:00:00 00:00:00 [facility] 2020-01-17 2020-01-17 [facility] [id number] Common 16:40:00 16:40:00 [facility] 2019-11-23 2019-11-23 [facility] [id number] Common 13:20:00 13:20:[address] [facility] 2019-11-14 2019-11-14 [facility] [id number] Common 09:32:00 09:32:[address] [facility] 2019-08-16 2019-08-16 [facility] [id number] Common 10:03:00 10:03:[address] [facility] 2019-07-24 2019-07-24 [facility] [id number] Common 11:45:00 11:45:[address] [facility] 2019-07-18 2019-07-18 [facility] [id number] Common 08:18:00 08:18:[address] [facility] 2019-07-13 2019-07-13 [facility] [id number] Common 15:55:00 15:55:[address] [facility] 2019-04-04 2019-04-04 [facility] [id number] Common 14:55:00 14:55:[address] [facility] 2019-04-03 2019-04-03 [facility] [id number] Common 11:30:00 11:30:[address] [facility] 2019-03-28 2019-03-28 [facility] [id number] Common 09:00:00 09:00:[address] [facility] Results This patient has no known results.
[2022-03-28] MEDS ORDERED: MORPHINE 4 MG/ML SYR ONE ×2 (11:52→13:17)
[2022-03-28] MEDS ORDERED: ONDANSETRON 4 MG/2 ML VIAL ONE (11:52)
[2022-03-28 12:16] LABS: Absolute Lymphocytes (CBC) 1.8 K/uL (0.7-4.9); Hematocrit 34.2 % (36.0-45.0); Lymphocytes % 12.4 % (15.3-44.8); MCV 79.3 fL (80-100); MPV 9.1 fL (7.6-11.3); RBC Red Blood Cell Count 4.31 M/uL (3.86-4.86)
[2022-03-28 12:33] LABS: Albumin 3.3 g/dL (3.4-5.0); Bilirubin Total 0.4 mg/dL (0.2-1.0); Potassium 3.8 mmol/L (3.5-5.1); Protein, Total 7.1 g/dL (6.4-8.2)
--- NOTE | 2022-03-28 12:51 | RAD REPORT ---
EXAM DESCRIPTION: CT - Abdomen Pelvis W Contrast - 03/28/2022 12:28 pm CLINICAL HISTORY: Abdominal pain COMPARISON: February 2022 TECHNIQUE: Computed axial tomography of the abdomen pelvis was obtained. 100 cc Isovue-300 was admin istered intravenously. Oral contrast was not requested which limits evaluation of bowel and appendix All CT scans are performed using dose optimization technique as appropriate and may include automated exposure control or mA/KV adjustment according to patient size. FINDINGS: The liver, spleen, pancreas, adrenal and kidneys appear unremarkable. An umbilical hernia contains fat a dilated loop of small bowel. Fluid is present within the herniated sac. The small bowel is narrowed as it enters and exits the hernia. This has the appearance of a johan sed loop obstruction. Mild dilatation of several proximal loops of jejunum 11.8 centimeter dermoid cyst right adnexa. 6.8 centimeter left adnexal mass Calcified uterine fibroids. No evidence of diverticulitis IMPRESSION: Closed-loop small bowel obstruction within an umbilical hernia 11.8 centimeter right adnexal dermoid cyst 6.8 centimeter left adnexal mass could represent an ovarian mass or subserosal fibroid
--- NOTE | 2022-03-28 13:23 | EDPHYS ---
Physician Documentation [facility] Name: Dyan Guevara Age: 66 yrs Sex: Female : 1955 Arrival Date: 03/28/2022 Time: 11:20 Bed 7 Private MD: ED Physician Nahid Rich HPI: 03/28 11:43 This 66 yrs old Female presents to ER via Ambulatory with complaints of rn Abdominal Pain - hernia. 11:43 The patient presents with abdominal pain in the periumbilical area. in the left lower rn quadrant. Onset: The symptoms/episode began/occurred 2 day(s) ago. The symptoms do not radiate. Associated signs and symptoms: Pertinent negatives: nausea and vomiting, blood in stools, chest pain, constipation, diarrhea, dysuria, fever, hematuria. The symptoms are described as achy, crampy. Modifying factors: The symptoms are alleviated by nothing, the symptoms are aggravated by touching the area. Severity of pain: At its worst the pain was moderate in the emergency department the pain is unchanged. The patient has experienced similar episodes in the past. The patient has not recently seen a physician. Pt reports abd pain, periumbilical pain and LLQ pain, no fever/vomiting/diarrhea. No blood in stool. No trauma. Has been having months of abd pain, worse over last 2 days. Reports schedule for hernia surgery in [place] in 2 weeks. . Historical: - Allergies: 11:38 No Known Allergies; ph - PMHx: 11:38 Arthritis; Diabetes - IDDM; GERD; High Cholesterol; Hypertension; ph - Immunization history:: Adult Immunizations up to date. - Social history:: Smoking status: Patient reports the use of cigarette tobacco products, denies chronic smoking, but will smoke occasionally. - Family history:: not pertinent. - Hospitalizations: : No recent hospitalization is reported. ROS: 11:43 Constitutional: Negative for fever, chills, and weight loss, Eyes: Negative for injury, rn pain, redness, and discharge, Neck: Negative for injury, pain, and swelling, Cardiovascular: Negative for chest pain, palpitations, and edema, Respiratory: Negative for shortness of breath, cough, wheezing, and pleuritic chest pain, Abdomen/GI: + abd pain Back: Negative for injury and pain, MS/Extremity: Negative for injury and deformity, Skin: Negative for injury, rash, and discoloration, Neuro: Negative for headache, weakness, numbness, tingling, and seizure. Exam: 11:43 Constitutional: This is a well developed, well nourished patient who is awake, alert, rn appears in pain Head/Face: Normocephalic, atraumatic. Cardiovascular: Regular rate and rhythm. No pulse deficits. Respiratory: No increased work of breathing, no retractions or nasal flaring. Abdomen/GI: soft, + umbilical hernia with mild tenderness, no peritoneal signs, non-distended Skin: Warm, dry MS/ Extremity: Pulses equal, no cyanosis. Neuro: Awake and alert, GCS 15 Vital Signs: 11:36 BP 143 / 112; Pulse 81; Resp 18; Temp 97.3; Pulse Ox 98% on R/A; Weight 77.11 kg; ph Height 5 ft. 5 in. (165.10 cm); 12:32 BP 145 / 71; Pulse 78; Resp 18; Pulse Ox 98% on R/A; ph 14:35 BP 145 / 78; Pulse 81; Resp 19; Pulse Ox 98% on R/A; ph 16:47 BP 139 / 78; Pulse 77; Resp 18; Temp 98.2; Pulse Ox 99% on R/A; ph 11:36 Body Mass Index 28.29 (77.11 kg, 165.10 cm) ph Procedures: 14:44 Performed umbilical hernia reduction. Placed in Trendelenburg position after 2 doses of rn morphine, constant upward pressure of herniated contents, with successful reduction of hernia and immediate improvement in pain/symptoms. . MDM: 11:21 Patient medically screened. rn 13:19 Differential diagnosis: non-specific abd pain, umbilical hernia, bowel obstruction. rn Data reviewed: vital signs, nurses notes, lab test result(s), radiologic studies, CT scan, and as a result, I will admit patient. Counseling: I had a detailed discussion with the patient and/or guardian regarding: the historical points, exam findings, and any diagnostic results supporting the discharge/admit diagnosis, lab results, radiology results, the need to transfer to another facility, for higher level of care. 03/28 11:25 Order name: CBC with Diff; Complete Time: 12:40 rn 03/28 11:25 Order name: CMP; Complete Time: 12:40 rn 03/28 11:25 Order name: Lipase; Complete Time: 12:40 rn 03/28 11:25 Order name: CT Abd/Pelvis - IV Contrast Only; Complete Time: 12:52 rn 03/28 13:30 Order name: SARS RAPID; Complete Time: 15:08 eb 03/28 11:25 Order name: IV Saline Lock; Complete Time: 11:33 rn 03/28 11:25 Order name: Labs collected and sent; Complete Time: 11:33 rn 03/28 12:01 Order name: Labs - recollect needed: recollect the blood hemolyzed; Complete Time: 12:11eb Administered Medications: 11:58 Drug: morphine 4 mg Route: IVP; Infused Over: 4 mins; Site: right antecubital; kc6 16:48 Follow up: Response: No adverse reaction ph 11:59 Drug: Zofran (Ondansetron) 4 mg Route: IVP; Site: right antecubital; kc6 16:48 Follow up: Response: No adverse reaction ph 13:20 Drug: morphine 4 mg Route: IVP; Infused Over: 4 mins; Site: right antecubital; ph 16:48 Follow up: Response: No adverse reaction ph Disposition Summary: 03/28/22 14:04 Hospitalization Ordered Hospitalization Status: Inpatient Admission rn Provider: Frederick De Guzman rn [facility] rn Condition: Stable(03/28/22 14:04) rn Problem: new(03/28/22 14:04) rn Symptoms: are unchanged(03/28/22 14:04) rn Bed/Room Type: Standard rn Room Assignment: 209(03/28/22 15:49) dw Diagnosis - Other and unspecified intestinal obstruction(03/28/22 14:04) rn - Incarcerated umbilical hernia rn Forms: - Medication Reconciliation Form rn - SBAR form rn Signatures: Dispatcher [employer] Maricarmen Yusuf RN RN dw Nieto, Roman, MD MD rn Hall, Patricia, RN RN ph Botello, Elizabeth eb Campbell, Kaitlyn, RN RN kc6 Corrections: (The following items were deleted from the chart) 14:03 13:22 rn rn 14:03 13:22 [facility] rn rn 14:03 13:22 Higher level of care rn rn 14:03 13:22 Stable rn rn 14:03 13:22 new rn rn 14:03 13:22 have improved rn rn 14: 13:22 Other and unspecified intestinal obstruction rn rn 14: 13:22 Umbilical Hernia rn rn 15:49 14:04 rn dw
--- NOTE | 2022-03-28 13:23 | ER ---
Nurse's Notes [facility] Name: Dyan Guevara Age: 66 yrs Sex: Female : 1955 Arrival Date: 03/28/2022 Time: 11:20 Bed 7 Private MD: Diagnosis: Other and unspecified intestinal obstruction;Incarcerated umbilical hernia Presentation: 03/28 11:36 Chief complaint: Patient states: Lower abdominal pain, reports hx of multiple hernias, ph has sx scheduled 04/13, states that pain has been bad for the last 2 days. Coronavirus screen: Vaccine status: Patient reports receiving the 2nd dose of the covid vaccine. Ebola Screen: No symptoms or risks identified at this time. Initial Sepsis Screen: Does the patient meet any 2 criteria? No. Patient's initial sepsis screen is negative. Does the patient have a suspected source of infection? No. Patient's initial sepsis screen is negative. Risk Assessment: Do you want to hurt yourself or someone else? Patient reports no desire to harm self or others. Onset of symptoms was March 28, 2022. 11:36 Method Of Arrival: Ambulatory ph 11:36 Acuity: DAVID 3 ph Triage Assessment: 11:39 General: Appears in no apparent distress. uncomfortable, Behavior is cooperative, ph appropriate for age, anxious. Pain: Complains of pain in umbilical area, right lower quadrant and left lower quadrant. Neuro: Level of Consciousness is awake, alert, obeys commands, Oriented to person, place, time, situation. Cardiovascular: Capillary refill < 3 seconds in bilateral fingers Patient's skin is warm and dry. Respiratory: Airway is patent Respiratory effort is even, unlabored. GI: Abdomen is round umbilical hernia noted. Musculoskeletal: Circulation, motion, and sensation intact. Range of motion: intact in all extremities. Historical: - Allergies: 11:38 No Known Allergies; ph - PMHx: 11:38 Arthritis; Diabetes - IDDM; GERD; High Cholesterol; Hypertension; ph - Immunization history:: Adult Immunizations up to date. - Social history:: Smoking status: Patient reports the use of cigarette tobacco products, denies chronic smoking, but will smoke occasionally. - Family history:: not pertinent. - Hospitalizations: : No recent hospitalization is reported. Screenin:38 Abuse screen: Denies threats or abuse. Denies injuries from another. Nutritional ph screening: No deficits noted. Tuberculosis screening: No symptoms or risk factors identified. Fall Risk None identified. Assessment: 12:32 Reassessment: Patient appears in no apparent distress at this time. Patient and/or ph family updated on plan of care and expected duration. Pain level reassessed. Patient is alert, oriented x 3, equal unlabored respirations, skin warm/dry/pink. Pt states that IV pain medication did not help and requesting additional pain meds. 14:34 Reassessment: Patient appears in no apparent distress at this time. Patient and/or ph family updated on plan of care and expected duration. Pain level reassessed. Patient is alert, oriented x 3, equal unlabored respirations, skin warm/dry/pink. Dr De Guzman at bedside to speak w/ pt. 16:47 Reassessment: Patient appears in no apparent distress at this time. Patient and/or ph family updated on plan of care and expected duration. Pain level reassessed. Patient is alert, oriented x 3, equal unlabored respirations, skin warm/dry/pink. Vital Signs: 11:36 BP 143 / 112; Pulse 81; Resp 18; Temp 97.3; Pulse Ox 98% on R/A; Weight 77.11 kg; ph Height 5 ft. 5 in. (165.10 cm); 12:32 BP 145 / 71; Pulse 78; Resp 18; Pulse Ox 98% on R/A; ph 14:35 BP 145 / 78; Pulse 81; Resp 19; Pulse Ox 98% on R/A; ph 16:47 BP 139 / 78; Pulse 77; Resp 18; Temp 98.2; Pulse Ox 99% on R/A; ph 11:36 Body Mass Index 28.29 (77.11 kg, 165.10 cm) ph ED Course: 11:20 Patient arrived in ED. as 11:21 Nahid Rich MD is Attending Physician. rn 11:36 Silvana Avery RN is Primary Nurse. ph 11:38 Triage completed. ph 11:39 Arm band placed on Patient placed in an exam room, on a stretcher. ph 11:40 Patient has correct armband on for positive identification. Bed in low position. Call ph light in reach. Side rails up X 1. Pulse ox on. NIBP on. Door closed. Noise minimized. 12:11 CBC with Diff Sent. zm 12:11 CMP Sent. zm 12:11 Lipase Sent. zm 12:29 CT Abd/Pelvis - IV Contrast Only In Process Unspecified. EDMS 13:31 initiated a transfer with KALPESH Hurt from the [facility]. eb 14:03 Frederick De Guzman is Hospitalizing Provider. rn 15:57 No provider procedures requiring assistance completed. Patient admitted, IV remains in ph place. Administered Medications: 11:58 Drug: morphine 4 mg Route: IVP; Infused Over: 4 mins; Site: right antecubital; kc6 16:48 Follow up: Response: No adverse reaction ph 11:59 Drug: Zofran (Ondansetron) 4 mg Route: IVP; Site: right antecubital; kc6 16:48 Follow up: Response: No adverse reaction ph 13:20 Drug: morphine 4 mg Route: IVP; Infused Over: 4 mins; Site: right antecubital; ph 16:48 Follow up: Response: No adverse reaction ph Medication: 11:39 VIS not applicable for this client. ph Outcome: 13:22 ER care complete, transfer ordered by . rn 14:04 Decision to Hospitalize by Provider. rn 16:47 Admitted to Med/surg accompanied by tech, family with patient, via wheelchair, Report ph called to SIMI Parra 16:47 Condition: good 16:48 Patient left the ED. ph Signatures: Dispatcher [employer] Mariana Ceron Roman, MD MD rn Hall, Patricia, RN RN ph Botello, Elizabeth eb Martinez, Zaina zm Campbell, Kaitlyn, RN RN kc6
[2022-03-28 13:55] LABS: SARS-CoV-2 Antigen Rapid Res Negative (Negative)
--- NOTE | 2022-03-28 16:50 | P.HP ---
Certification for Inpatient Patient admitted to: Observation With expected LOS: <2 Midnights Practitioner: I am a practitioner with admitting privileges, knowledge of patient current condition, hospital course, and medical plan of care. Services: Services provided to patient in accordance with Admission requirements found in Title 42 Section 412.3 of the Code of Federal Regulations Patient History Date of Service: 03/28/22 Reason for admission: Abdominal pain History of Present Illness: 66-year-old woman with a history of umbilical hernia presented to the emergency department due to sudden onset abdominal pain. No reported nausea or vomiting. CT abdomen and pelvis done in the ED demonstrated Closed-loop small bowel obstruction within an umbilical hernia, 11.8 centimeter right adnexal dermoid cyst, 6.8 centimeter left adnexal mass could represent an ovarian mass or subserosal fibroid. Patient is scheduled to have gynecological surgery plus repair of umbilical hernia at [facility] on April 12, 2022. Surgery-Dr. Santizo was informed who recommended manual reduction as possible, and emergent surgery if manual reduction fails. ED provider was able to manually reduce the hernia successfully. Patient's symptoms have improved. She is placed under observation for monitoring. Allergies No Known Allergies Allergy (Verified 02/06/22 07:08) - Past Medical/Surgical History -: DMII -: HTN -: HLD -: GERD -: appy Psychosocial/ Personal History: Pt is retired, lives at home with a friend - Family History Mother -: Diabetes - Social History Alcohol use: No CD- Drugs: No Caffeine use: Yes Review of Systems Other: She denied any constipation or diarrhea. She denied any fever. Except as documented, all other systems reviewed and negative. Physical Examination - Physical Exam General: Alert, In no apparent distress, Oriented x3 HEENT: Mucous membr. moist/pink Neck: Supple, JVD not distended Respiratory: Clear to auscultation bilaterally, Normal air movement Cardiovascular: No edema, Regular rate/rhythm, Normal S1 S2 Gastrointestinal: Normal bowel sounds, Soft and benign, Non-distended, No tenderness Musculoskeletal: No swelling, No tenderness Integumentary: No rashes, No cyanosis Neurological: Normal strength at 5/5 x4 extr, Cranial nerves 3-12 intact Lymphatics: No axilla or inguinal lymphadenopathy - Studies Laboratory Data (last 24 hrs) 03/28/22 12:09: Sodium 137, Potassium 3.8, BUN 15, Creatinine 1.09, Glucose 189 H, Total Bilirubin 0.4, AST 9 L, ALT 18, Alkaline Phosphatase 79, Lipase 61 L 03/28/22 12:09: WBC 14.20 H, Hgb 11.5 L, Hct 34.2 L, Plt Count 307 Assessment and Plan - Problems (Diagnosis) (1) Umbilical hernia Current Visit: Yes Status: Acute (2) Pelvic neoplasm Current Visit: Yes Status: Acute (3) Small bowel obstruction Current Visit: No Status: Acute - Plan Placed under observation on the medical floor. Supportive measures with IV hydration. Serial abdominal examination. Keep n.p.o. Surgery consult-Dr. Santizo already saw patient. Repeat KUB in a.m. Dr. Santizo recommend discharge in a.m. if KUB shows normal bowel pattern. - Advance Directives Does patient have a Living Will: No Does patient have a Durable POA for Healthcare: No
[2022-03-28] MEDS ORDERED: ONDANSETRON 4 MG/2 ML VIAL IV PRN (16:58)
[2022-03-28] MEDS ORDERED: MORPHINE 2 MG/ML SYR IV PRN (17:11)
[2022-03-28] MEDS: D5.45NS W/KCL 20MEQ 1,000 ML IV SCH (17:16)
[2022-03-28 17:30] VITALS: BMI 28.5
[2022-03-28] MEDS ORDERED: GLUCAGON 1 MG/VIAL IM PRN (17:36)
[2022-03-28] MEDS ORDERED: D50W 25 GM/50 ML SYRINGE IV PRN (17:36)
[2022-03-28] MEDS ORDERED: PANTOPRAZOLE 40 MG INJ IVP ONE (19:28)
[2022-03-28] MEDS: INSULIN -REGULAR HUMAN 50 UNIT/0.5 ML ML SQ SCH (22:02)
[2022-03-29 03:09] LABS: Absolute Lymphocytes (CBC) 1.6 K/uL (0.7-4.9); Hematocrit 31.7 % (36.0-45.0); Lymphocytes % 16.9 % (15.3-44.8); MCV 79.9 fL (80-100); MPV 9.1 fL (7.6-11.3); RBC Red Blood Cell Count 3.97 M/uL (3.86-4.86)
[2022-03-29 03:23] LABS: Magnesium 2.5 mg/dL (1.8-2.4); Phosphorus 3.8 mg/dL (2.5-4.9); Potassium 3.5 mmol/L (3.5-5.1)
[2022-03-29] MEDS: D5.45NS W/KCL 20MEQ 1,000 ML IV SCH (03:42)
[2022-03-29] MEDS ORDERED: NA CHLORIDE 0.9% 250 ML ONE (05:38)
[2022-03-29] MEDS ORDERED: KCL 20 MEQ/100 mL IVPB 20 MEQ/100 ML BAG IV SCH (06:30)
[2022-03-29] MEDS: INSULIN -REGULAR HUMAN 50 UNIT/0.5 ML ML SQ SCH (07:30)
--- NOTE | 2022-03-29 07:40 | RAD REPORT ---
EXAM DESCRIPTION: RAD - Abdomen 1 View (KUB) - 03/29/2022 6:33 am CLINICAL HISTORY: Follow up bowel obstruction COMPARISON: Abdomen Pelvis W Contrast dated 03/28/2022; Abdomen Pelvis Wo Contrast dated ; Pelvis Complete dated 02/06/2022 FINDINGS: Nonobstructive bowel gas pattern. No acute osseous abnormality.Visualized lungs are unrema rkable.No abnormal calcifications. Ovoid structure in the right lower quadrant consistent with the pa tient's suspected dermoid. IMPRESSION: Nonobstructive bowel gas pattern.
[2022-03-29 08:12] VITALS: O2SAT 98
[2022-03-29 08:30] VITALS: TEMP 96.8
[2022-03-29] MEDS ORDERED: HOME MED 1 EA UNK (Simvastatin [Zocor] 10 MG Tablet) PO SCH (09:00)
[2022-03-29] MEDS ORDERED: hydroCHLOROthiazide 25 MG TAB PO SCH (09:00)
[2022-03-29] MEDS ORDERED: HOME MED 1 EA UNK (Empagliflozin [Jardiance] 25 MG Tablet) PO SCH (09:00)
[2022-03-29] MEDS ORDERED: PANTOPRAZOLE 40MG TABLET PO SCH (09:00)
[2022-03-29] MEDS ORDERED: HOME MED 1 EA UNK (Mirabegron [Myrbetriq] 50 MG Tab.Er.24h) PO SCH (09:00)
[2022-03-29 09:36] VITALS: BP 119/67
--- NOTE | 2022-03-29 11:07 | P.DS ---
Admission Date: 03/28/22 Discharge Date: 03/29/22 Reason for Admission: Abdominal pain - Problems (1) Umbilical hernia Current Visit: Yes Status: Acute (2) Pelvic neoplasm Current Visit: Yes Status: Acute (3) Small bowel obstruction Current Visit: No Status: Acute Brief History of Present Illness: 66-year-old woman with a history of umbilical hernia presented to the emergency department due to sudden onset abdominal pain. No reported nausea or vomiting. CT abdomen and pelvis done in the ED demonstrated Closed-loop small bowel obstruction within an umbilical hernia, 11.8 centimeter right adnexal dermoid cyst, 6.8 centimeter left adnexal mass could represent an ovarian mass or subserosal fibroid. Patient is scheduled to have gynecological surgery plus repair of umbilical hernia at [facility] on April 12, 2022. Surgery-Dr. Santizo was informed who recommended manual reduction as possible, and emergent surgery if manual reduction fails. ED provider was able to manually reduce the hernia successfully. Patient's symptoms have improved. She is placed under observation for monitoring. Hospital Course: Patient placed under observation on the medical floor and kept NPO. She was asymptomatic. Repeat imaging-KUB the following morning demonstrated normal bowel gas pattern, no obstruction. She was seen in consultation by surgery-Dr. Santizo who recommended medical management. Patient was started on a diet which she tolerated. Bowel obstruction resolved, patient is currently asymptomatic and deemed stable for discharge. Vital Signs/Physical Exam: Temp Pulse Resp BP Pulse Ox 96.8 F 75 18 119/67 98 03/29/22 08:00 03/29/22 09:35 03/29/22 08:00 03/29/22 09:35 03/29/22 08:00 General: Alert, In no apparent distress, Oriented x3 HEENT: Mucous membr. moist/pink, Sclerae nonicteric Neck: Supple, JVD not distended Respiratory: Clear to auscultation bilaterally, Normal air movement Cardiovascular: Regular rate/rhythm, Normal S1 S2, No murmurs Gastrointestinal: Normal bowel sounds, Soft and benign, Non-distended, No tenderness Musculoskeletal: No swelling Integumentary: No rashes, No cyanosis Neurological: Normal strength at 5/5 x4 extr, Cranial nerves 3-12 intact Laboratory Data at Discharge: WBC 9.50 K/uL (4.3-10.9) 10/23/22 02:42 Hgb 10.6 g/dL (12.0-15.0) L 03/29/22 02:42 Hct 31.7 % (36.0-45.0) L 03/29/22 02:42 Plt Count 296 K/uL (152-406) 03/29/22 02:42 Sodium 139 mmol/L (136-145) 03/29/22 02:42 Potassium 3.5 mmol/L (3.5-5.1) 03/29/22 02:42 BUN 18 mg/dL (7-18) 03/29/22 02:42 Creatinine 1.23 mg/dL (0.55-1.3) 03/29/22 02:42 Glucose 146 mg/dL (74-106) H 03/29/22 02:42 Phosphorus 3.8 mg/dL (2.5-4.9) 03/29/22 02:42 Magnesium 2.5 mg/dL (1.8-2.4) H 03/29/22 02:42 Total Bilirubin 0.4 mg/dL (0.2-1.0) 03/28/22 12:09 AST 9 U/L (15-37) L 03/28/22 12:09 ALT 18 U/L (12-78) 03/28/22 12:09 Alkaline Phosphatase 79 U/L (45-117) 03/28/22 12:09 Lipase 61 U/L (73-393) L 03/28/22 12:09 Home Medications: Empagliflozin [Jardiance] 25 mg PO DAILY 03/28/22 Insulin Glargine,Hum.rec.anlog [Toujeo Solostar] 32 unit SQ DAILY 03/28/22 Mirabegron [Myrbetriq] 50 mg PO DAILY 03/28/22 Pantoprazole [Protonix Tab] 40 mg PO DAILY 03/28/22 Simvastatin [Zocor] 10 mg PO DAILY 03/28/22 hydroCHLOROthiazide [Hydrochlorothiazide*] 25 mg PO DAILY 03/28/22 Followup: Cornelius Santizo MD [ACTIVE - CAN ADMIT] - OOT,OOT [Primary Care Provider] - 1-2 Weeks (call to schedule an appointment)
--- NOTE | 2022-03-29 11:33 | P.PN ---
Subjective Date of Service: 03/29/22 Chief Complaint: Abdominal pain Subjective: Improving (Patient is pain free, tolerating regular diet, passing gas, no bloating, no nausea.) Physical Examination - Vital Signs Temperature: 96.8 F Blood Pressure: 119/67 Pulse: 75 Respirations: 18 Pulse Ox (%): 98 - Physical Exam General: Alert, In no apparent distress, Cooperative Respiratory: Clear to auscultation bilaterally, Normal air movement Cardiovascular: Regular rate/rhythm Gastrointestinal: Soft and benign, Non-distended, No tenderness, No masses, No rebound, No guarding, Other (Ventral umbilical hernia noted - no contents) - Studies Laboratory Data (last 24 hrs) 03/28/22 12:09: Sodium 137, Potassium 3.8, BUN 15, Creatinine 1.09, Glucose 189 H, Total Bilirubin 0.4, AST 9 L, ALT 18, Alkaline Phosphatase 79, Lipase 61 L 03/28/22 12:09: WBC 14.20 H, Hgb 11.5 L, Hct 34.2 L, Plt Count 307 Assessment And Plan - Current Problems (Diagnosis) (1) Small bowel obstruction Current Visit: No Status: Acute Plan: - abdominal binder - follow up with surgical team @ [facility] for upcoming surgery - medical management per Dr. Gab hutchison to [facility] from surgical standpoint
--- NOTE | 2022-03-29 18:40 | CON ---
Date of Consultation: 03/28/2022 Brief History Of Present Illness: The patient is a 66-year-old female with a history of multiple tanmay tral abdominal hernias including umbilical hernia. She has had episodes where by she had a loop of b owel go in through the hernia and cause a partial and complete bowel obstruction. This was treated n onoperatively with manual reduction before in the past. She ultimately also was noted to have a larg e pelvic/possible ovarian mass on imaging. 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 She saw Dr. Fletcher, whom I spoke to regarding her care as an outpatient who ultimately referred her for [facility]/Onc surgery as some of her tumor markers came back as elevated. She ultimately was [facility], but had not gotten her surgery as of yet and had an episode of recurrence with bowel contents pushing through her umbilical hernia causing na usea, vomiting, abdominal pain, obstipation. Once again, she came to the emergency room with the abo ve-stated complaints. The patient was seen in the ER by Dr. Rich. I recommended attempted reductio n of the hernia once again and informing her surgical team at [facility] of her status. If we we re able to reduce the hernia, I had recommended transfer as she has had multiple recurrent episodes o f bowel obstruction through this hernia and as such, I recommended a timely repair of this hernia. S he ultimately was denied transfer, I am uncertain of why. As such, I have spoken to the patient rega rding possible surgical options. We will attempt manual reduction in the ER. If she is successful, we will admit the patient for observation and if she tolerates, we will advance her diet and ultimate ly attempt to discharge her to follow up with her surgeon. However, should she fail nonoperative man agement at this point, I have instructed her that I would likely do a simple primary repair in antici pation for her upcoming gynecologic surgery and as such, they can perform definitive hernia repair at that time beyond my simple primary repair, which I would likely not use a synthetic mesh. Perhaps c onsideration for biologic mesh would be entertained at this point as well. The patient agreed to pro ceed as indicated. Past Medical History: Significant for diabetes, hypertension, hyperlipidemia, GERD, and multiple bow el obstructions caused by ventral umbilical hernia. Past Surgical History: Includes appendectomy. Family History: She has a family history of diabetes. Social History: She denies smoking, alcohol, or recreational drug use. Review of Systems: Ten-point review of systems other than HPI, currently denies. Allergies: NO KNOWN DRUG ALLERGIES. Physical Examination: General: At the time of my examination, she is awake, alert, and oriented. Psychiatric: She is appropriate, conversive. HEENT: She is normocephalic. Her sclerae were anicteric. Her mucous membranes are moist. Orophary nx is clear. Neck: Supple without JVD. Chest: Normal expansion an excursion. Cardiovascular: Regular rate and rhythm. Pulmonary: Clear to auscultation bilaterally. Abdomen: Soft with positive reducible ventral hernia at the umbilical position. No gross peritoniti s at this point. Extremities: No clubbing, cyanosis, edema. Skin: Warm and dry. Laboratory Data: Revealed a white blood cell count of 14.2, hemoglobin 10.5, hematocrit of 34.2, buster telet count is 307, neutrophils are 83%. Her sodium 137, potassium 3.8, chloride 102, carbon dioxide is 26, BUN 15, creatinine 1.09, glucose is 189, AST 9, ALT 18, alkaline phosphatase 79, lipase is 61 . She had imaging performed including abdomen and pelvis a CT scan on 03/28, officially read as clos ed-loop small bowel obstruction with umbilical hernia, 11.8 cm right adnexal dermoid cyst, 6.8 cm lef t adnexal mass could represent ovarian mass or subserosal fibroid. Assessment And Plan: This is a 66-year-old female known to me from previous bowel obstructions with known umbilical hernia and pelvic mass as described, possible malignancy. 1.IV fluid hydration. 2.Pain control. 3.I currently will head to the operating room due to an urgent procedure which was previously arrang ed. Dr. Rich, the ER physician will attempt to reduce the patient's hernia in its entirety. If suc cessful, I will come back and re-evaluate the patient. If her hernia is reducible in fact, and she h as a significant symptomatic improvement, we will admit the patient. However, if not, I have discuss ed the operative intervention, which would be an open ventral umbilical hernia repair, possibly with mesh, most likely primary repair versus possible biologic mesh repair depending on the intraoperative findings. However, as stated again, we will try nonoperative management. The patient agrees to pro ceed as indicated. Thank you for this interesting consult. AURELIANO Voice ID: [id number] Report ID: [id number]
[2022-03-29] MEDS ORDERED: ATORVASTATIN 10 MG TAB PO SCH (21:00)
== END 2022-03-29 12:14 | disposition home or self-care (01) ==
LOC: ER 11:17 → ERHOLD 15:04 → 2ND 16:05
PROVIDERS: ADMIT Internal Medicine; ATTEND Internal Medicine
DX: K42.0 Umbilical hernia with obstruction, without gangrene (principal); K56.601 Complete intestinal obstruction, unspecified as to cause; R19.04 Left lower quadrant abdominal swelling, mass and lump; F17.210 Nicotine dependence, cigarettes, uncomplicated; E11.9 Type 2 diabetes mellitus without complications; K21.9 Gastro-esophageal reflux disease without esophagitis; I10 Essential (primary) hypertension; E78.00 Pure hypercholesterolemia, unspecified; Z20.822 Contact with and (suspected) exposure to COVID-19
CPT/HCPCS: 85025 ×2; 80048; 36415; 83735; 84100; 82565; 82947 ×3; 83690; 80053; 74177; 74018; 94760 ×2; 96375; 96374; 99285; 87811; Q9967; J1815; C9113; J3480; J2270; J7050; J2405; G0378 ×3

== ENCOUNTER 2023-01-14 09:31 | Emergency (ER) | payer OTHER ==
--- OUTSIDE RECORDS SUMMARY | 2023-01-14 09:41 | XMS REPORT | Continuity of Care Document ---
:1955 Author Organization [facility] t Address [address] [facility] [address] [place] [address] Care Team Providers Name Role Phone SOFY KIM Primary Care Physician Unavailable Celso Christine Attending Clinician Unavailable Sidney Arce Attending Clinician Unavailable Yessy Parmar Attending Clinician Unavailable RADIOLOGY Attending Clinician Unavailable Radiology Attending Clinician Unavailable Dariel Palacios MD Attending Clinician [phone] DARIEL PALACIOS Attending Clinician Unavailable Kenzie Alford CRNA Attending Clinician [phone] Jina Castillo MD Attending Clinician [phone] SOFY KIM Admitting Clinician Unavailable DARIEL PALACIOS Admitting Clinician Unavailable Payers Payer Name Policy Type Policy Number Effective Date Expiration Date S ource CIGNA TOTAL [id number] 2022 CARE MEDICARE 00:00:00 HMO DSNP [place]ICAID [place] [id number] 2022 [place] 00:[place] MEDICARE 53 [id number] 2020 Common Sp lis 00:00:00 - [facility] MEDICARE MB [id number] [facility] NOVITAS [facility] MEDICARE MB [id number] [facility] NOVITAS [facility] HUMANA MEDICARE C1 [id number] Common Sp lis - [facility] HUMANA MEDICARE C1 [id number] Common Sp lis [facility] Cigna-HealthSpr C1 [id number] Common Sp lis ing Medicare - [facility] Problems Condition Condition Condition Status Onset Resolution Last Treating Co mments Source Name Details Category Date Date Treatment Clinician Date Adnexal Adnexal Disease Active 2021-06 [facility] mass mass 06-13 [facility] 00:00: [address] Teratoma Teratoma Disease Active 2014-06 Unive rs of pelvis of pelvis 06-12 ity of 00:00: [place] 00 [facility] Branch Closed Closed Disease Active 2014-06 Univers fracture fracture 1-03 ity of of right of right 00:00: [place] humerus humerus 00 [facility] Closed Closed Disease Active 2014-06 Univers fracture fracture 1-03 ity of of right of right 00:00: [place] ulna ulna 00 [facility] Closed Closed Disease Active 2014-06 Univers fracture fracture 1-03 ity of of lateral of lateral [place] malleolus malleolus 00 Medi gopi of right of right Branch ankle ankle Closed Closed Disease Active 2014-06 Univers fracture fracture 1-03 [place] of of rib of of rib [place] 00 [place] d[place] C7 C7 Disease Active 2014-06 Univers cervical cervical 0-30 ity of fracture fracture 00:00: [place] 00 Medical Branch Chronic Stage 3a Problem Active Common kidney chronic Spirit disease kidney [facility] stage 3A disease [facility] [id number] GERD Problem Active Common without Spirit esophagiti - [facility] Osteoarthr Osteoarthr Problem Active C ommon itis of itis of Spirit knee knees, - [facility]I bilateral [facility] Vascular Vascular Problem Active Commo n dementia dementia [facility] SI - Stress Problem Active Common Stress incontinen Spirit incontinen ce of - CHI ce urine [facility] Type II Diabetes Problem Active Common diabetes mellitus Spirit mellitus type 2, - [facility] well controlled [facility] [id number] Other Problem Active Common urinary Spirit incontinen - [facility]I ce [facility] [id number] Vaginal Problem Active Common itching [facility] [id number] Hyperchole Problem Active Com mon sterolemia [facility] [id number] Other Problem Active Common chronic Spirit pain - [facility] [id number] Type 2 Problem [place] 27561 diabetes Spirit mellitus - [facility] with [facility] [id number] Type 2 Problem Active Common diabetes Spirit mellitus - [facility] with [facility] nephropath Medica l y [place] [id number] Pain in Problem Active Common left knee [facility] [id number] Anal Problem Active Common itching [facility] [id number] Chronic Problem Active Commo n kidney Spirit disease, - [facility] unspecifie [facility] Anxiety Anxiety Problem Active Common disorder disorder [facility] [id number] OAB Problem Active Common (overactiv Spirit e bladder) [facility] [id number] Depression Problem Active Co mmon screening [facility] Chronic +5th digit Problem Active Comm on kidney eff Spirit disease 03/07/20* - [facility] stage 3 ronic kidney [facility] disease, Medical stage 3 Center [id number] Onychomyco Problem Active Co mmon sis [facility] [id number] Essential Problem Active Comm on hypertensi Spirit on [facility] Allergies, Adverse Reactions, Alerts Allergy Allergy Status Severity Reaction(s) Onset Inactive Treating Comm ents Source Name Type Date Date Clinician NO KNOWN Allergy Active [facility] NO KNOWN Drug Active [facility] [place] [facility] ALLERGIE Class ity of S [facility] Social History Social Habit Start Date Stop Date Quantity Comments Source History [facility] Alcohol Frequency Medical Center History [facility] Alcohol Std Medical Cente r Drinks History [facility] Alcohol Binge Medical [address] [facility] History of Cigarette Smoker [facility] uk tobacco use Medical Cente r Exposure to 2022-06-202022-06-30 Not sure [facility] SARS-CoV-2 00:00:00 10:13:00 [facility] (event) Branch Alcohol intake 2022-04-14 2022-04-14 Current [facility]00 alcohol (finding) Medical Center Cigarettes smoked 2022-04-08 2022-04-[address] [facility] current (pack per 00:00:00 00:00:00 Medical Center day) - Reported Cigarette 2022-04-08 2022-04-[address] [facility] pack-years 00:00:00 00:00:00 [facility] Tobacco use and 2022-04-08 2022-04-08 Smokeless tobacco [facility] exposure 00:00:00 00:00:00 non-user [facility] Alcohol Comment 2022-04-08 2022-04-[address] [facility] 00:00:00 00:00:00 [facility] Sex Assigned At [address] [facility] 00:00:00 00:00:00 [facility] Smoking Status Start Date Stop Date Source Current every day smoker 2022-04-08 00:00:[address] [facility] [address] [facility] Medications Ordered Filled Start Stop Current Ordering Indication Dosage Frequency Signature Comments Components Source Medication Medication Date Date Medication? Clinician (SIG) Name Name marcieifloz 2021-06 Yes 25mg QD Take [address] in 06-13 by mouth [facility]ukes (Jardiance) 19:26: daily. Medi gopi 25 mg 34 Center tablet hydroCHLORO 2021-06 Yes 25mg QD Take [address] thiazide -07 by mouth Lukes (HYDRODIURI 19:26: daily. Medi gopi L) 25 MG 34 Center tablet insulin 2021-06 Yes 300U Inject [address] glargine,hu -07 Units [facility] m.rec.anlog 19:26: [facility] Medical (TOUJEO 34 usly. Center SOLOSTAR U-300 INSULIN SUBQ) simvastatin 2021-06 Yes 10mg QD Take [address] (ZOCOR) 10 -07 by mouth Lukes MG tablet 19:26: nightly. Medi gopi 34 Center pantoprazol 2021-06 Yes 40mg QD Take [address] e 1-07 by mouth [facility]ukes (PROTONIX) 19:26: daily. Medic al 40 MG 34 Center tablet aspirin 81 2021-06 Yes 81mg QD Take [address] MG EC 1-07 by mouth [facility]ukes tablet 19:26: daily. [place] [address] Center empaglifloz 2021-06 Yes 25mg QD Take [address] in 1-07 by mouth [facility] (Jardiance) 19:26: daily. Medi gopi 25 mg 34 Center tablet hydroCHLORO 2021-06 Yes 25mg QD Take [address] thiazide 1-07 by mouth Lukes (HYDRODIURI 19:26: daily. Medi gopi L) 25 MG 34 Center tablet insulin 2021-06 Yes 300U Inject [address] glargine,hu 1-07 Units [facility] m.rec.anlog 19:26: [facility] (TOUJEO 34 usly. Center SOLOSTAR U-300 INSULIN SUBQ) simvastatin 2021-06 Yes 10mg QD Take [address] (ZOCOR) 10 1-07 by mouth Lukes MG tablet 19:26: nightly. [facility] gopi 34 Center pantoprazol 2021-06 Yes 40mg QD Take [address] e 1-07 by mouth [facility]ukes (PROTONIX) 19:26: daily. Medic al 40 MG 34 Center tablet aspirin 81 2021-06 Yes 81mg QD Take [address] MG EC 1-07 by mouth [facility]ukes tablet 19:26: daily. [address] empaglifloz 2021-06 Yes 25mg QD Take [address] in 1-07 by mouth [facility]ukes (Jardiance) 19:26: daily. Medi gopi 25 mg 34 Center tablet hydroCHLORO 2021-06 Yes 25mg QD Take [address] thiazide 1-07 by mouth Lukes (HYDRODIURI 19:26: daily. Medi gopi L) 25 MG 34 Center tablet insulin 2021-06 Yes 300U Inject [address] glargine,hu 1-07 Units [facility]ukes m.rec.anlog 19:26: [facility] (TOUJEO 34 usly. Center SOLOSTAR U-300 INSULIN SUBQ) simvastatin 2021-06 Yes 10mg QD Take [address] (ZOCOR) 10 1-07 by mouth Lukes MG tablet 19:26: nightly. Medi gopi 34 Center pantoprazol 2021-06 Yes 40mg QD Take [address] e 1-07 by mouth [facility]ukes (PROTONIX) 19:26: daily. Medic al 40 MG 34 Center tablet aspirin 81 2021-06 Yes 81mg QD Take [address] MG EC 1-07 by mouth [facility]ukes tablet 19:26: daily. [address] empaglifloz 2021-06 Yes 25mg QD Take [address] in 1-07 by mouth [facility]ukes (Jardiance) 19:26: daily. Medi gopi 25 mg 34 Center tablet hydroCHLORO 2021-06 Yes 25mg QD Take [address] thiazide 1-07 by mouth Lukes (HYDRODIURI 19:26: daily. Medi gopi L) 25 MG 34 Center tablet insulin 2021-06 Yes 300U Inject [address] glargine,hu 1-07 Units [facility]ukes m.rec.anlog 19:26: [facility] (TOUJEO 34 usly. Center SOLOSTAR U-300 INSULIN SUBQ) simvastatin 2021-06 Yes 10mg QD Take [address] (ZOCOR) 10 1-07 by mouth Lukes MG tablet 19:26: nightly. [facility] 34 Center pantoprazol 2021-06 Yes 40mg QD Take [address] e 1-07 by mouth [facility]ukes (PROTONIX) 19:26: daily. Medic al 40 MG 34 Center tablet aspirin 81 2021-06 Yes 81mg QD Take [address] MG EC 1-07 by mouth [facility]ukes tablet 19:26: daily. [address] empaglifloz 2021-06 Yes 25mg QD Take [address] in 1-07 by mouth [facility]ukes (Jardiance) 19:26: daily. Medi gopi 25 mg 34 Center tablet hydroCHLORO 2021-06 Yes 25mg QD Take [address] thiazide 1-07 by mouth Lukes (HYDRODIURI 19:26: daily. Medi gopi L) 25 MG 34 Center tablet insulin 2021-06 Yes 300U Inject [address] glargine,hu 1-07 Units [facility]ukes m.rec.anlog 19:26: [facility] (TOUJEO 34 usly. Center SOLOSTAR U-300 INSULIN SUBQ) simvastatin 2021-06 Yes 10mg QD Take [address] (ZOCOR) 10 1-07 by mouth Lukes MG tablet 19:26: nightly. [address] pantoprazol 2021-06 Yes 40mg QD Take [address] e 1-07 by mouth [facility]ukes (PROTONIX) 19:26: daily. Medic al 40 MG 34 Center tablet aspirin 81 2021-06 Yes 81mg QD Take [address] MG EC -07 by mouth Lukes tablet 19:26: daily. [address] empaglifloz 2021-06 Yes 25mg QD Take [address] in 07 by mouth [facility]ukes (Jardiance) 19:26: daily. [facility] [place] 25 mg 34 Center tablet hydroCHLORO 2021-06 Yes 25mg QD Take [address] thiazide 07 by mouth Lukes (HYDRODIURI 19:26: daily. [facility] L) 25 MG 34 Center tablet insulin 2021-06 Yes 300U Inject [address] glargine,hu -07 [facility] 19:26: [facility] (TOUJEO 34 us. [place] SOLOSTAR U-300 INSULIN SUBQ) simvastatin 2021-06 Yes 10mg QD Take [address] (ZOCOR) 10 -07 by mouth Lukes MG tablet 19:26: nightly. [address] pantoprazol 2021-06 Yes 40mg QD Take [address] e 1-07 by mouth [facility]ukes (PROTONIX) 19:26: daily. Medic al 40 MG 34 Center tablet aspirin 81 2021-06 Yes 81mg QD Take [address] MG EC -07 by mouth Lukes tablet 19:26: daily. [address] ibuprofen 2021-06- No 600mg Take [address] (ADVIL,MOTR 06-1317 tablet Lukes IN) 600 MG 00:00: 23:59 (600 mg Med ical tablet 00 :00 total) by Center mouth every 6 (six) hours for 10 days. HYDROcodone 2021-06 No 1{tbl} Take [address] -acetaminop 06-1317 tablet by Gail connor reynaga (NORCO 00:00: 23:59 mouth Medic al 5-325) 00 :00 every 6 Center 5-325 mg (six) per tablet hours as needed for Pain for up to 10 days. Max Daily Amount: 4 tablets ibuprofen 2021-06- No 600mg Take [address] (ADVIL,MOTR 06-13 tablet Lukes IN) 600 MG 00:00: 23:59 (600 mg Med ical tablet 00 :00 total) by Center mouth every 6 (six) hours for 10 days. HYDROcodone 2021-06- No 1{tbl} Take [address] -acetaminop -12 15-17 tablet by Gail reynaga (NORCO 00:00: 23:59 mouth Medic al 5-325) 00 :00 every 6 Center 5-325 mg (six) per tablet hours as needed for Pain for up to 10 days. Max Daily Amount: 4 tablets ibuprofen 2021-06- No 600mg Take [address] (ADVIL,MOTR 06-13 tablet Lukes IN) 600 MG 00:00: 23:59 (600 mg Med ical tablet 00 :00 total) by Center mouth every 6 (six) hours for 10 days. HYDROcodone 2021-06- No 1{tbl} Take [address] -acetaminop 06-13 tablet by Gail reynaga (NORCO 00:00: 23:59 mouth Medic al 5-325) 00 :00 every 6 Center 5-325 mg (six) per tablet hours as needed for Pain for up to 10 days. Max Daily Amount: 4 tablets ibuprofen 2021-06- No 600mg Take [address] (ADVIL,MOTR 06-13 tablet Lukes IN) 600 MG 00:00: 23:59 (600 mg Med ical tablet 00 :00 total) by Center mouth every 6 (six) hours for 10 days. HYDROcodone 2021-06- No 1{tbl} Take [address] -acetaminop 06-13-17 tablet by Gail reynaga (NORCO 00:00: 23:59 mouth Medic al 5-325) 00 :00 every 6 Center 5-325 mg (six) per tablet hours as needed for Pain for up to 10 days. Max Daily Amount: 4 tablets ibuprofen 2021-06- No 600mg Take [address] (ADVIL,MOTR 06-13 tablet Lukes IN) 600 MG 00:00: 23:59 (600 mg Med ical tablet 00 :00 total) by Center mouth every 6 (six) hours for 10 days. HYDROcodone 2021-06- No 1{tbl} Take [address] -acetaminop 06-13 tablet by Gail reynaga (NORCO 00:00: 23:59 mouth Medic al 5-325) 00 :00 every 6 Center 5-325 mg (six) per tablet hours as needed for Pain for up to 10 days. Max Daily Amount: 4 tablets ibuprofen 2021-06- No 600mg Take [address] (ADVIL,MOTR 06-13 tablet Lukes IN) 600 MG 00:00: 23:59 (600 mg Med ical tablet 00 :00 total) by Center mouth every 6 (six) hours for 10 days. HYDROcodone 2021-06- No 1{tbl} Take [address] -acetaminop 06-13 tablet by Gail reynaga (NORCO 00:00: 23:59 mouth Medic al 5-325) 00 :00 every 6 Center 5-325 mg (six) per tablet hours as needed for Pain for up to 10 days. Max Daily Amount: 4 tablets acetaminoph 2021-06- No 650mg Take [address] en 06-13 tablets [facility]ukes (TYLENOL) 00:00: 00:00 (650 mg Medi gopi 325 MG 00 :00 total) by Center tablet mouth every 6 (six) hours as needed for Pain for up to 10 days. acetaminoph 2021-06- No 650mg Take [address] en 06-13 tablets Lukes (TYLENOL) 00:00: 00:00 (650 mg Medi gopi 325 MG 00 :00 total) by Center tablet mouth every 6 (six) hours as needed for Pain for up to 10 days. acetaminoph 2021-06- No 650mg Take [address] en 06-13 tablets [facility]ukes (TYLENOL) 00:00: 00:00 (650 mg Medi gopi 325 MG 00 :00 total) by Center tablet mouth every 6 (six) hours as needed for Pain for up to 10 days. acetaminoph 2021-06- No 650mg Take [address] en 06-13 tablets Lukes (TYLENOL) 00:00: 00:00 (650 mg Medi gopi 325 MG 00 :00 total) by Center tablet mouth every 6 (six) hours as needed for Pain for up to 10 days. acetaminoph 2021-06- No 650mg Take [address] en 06-13 tablets [facility]ukes (TYLENOL) 00:00: 00:00 (650 mg Medi gopi 325 MG 00 :00 total) by Center tablet mouth every 6 (six) hours as needed for Pain for up to 10 days. acetaminoph 2021-06- No 650mg Take [address] en 06-13 tablets Lukes (TYLENOL) 00:00: 00:00 (650 mg Medi gopi 325 MG 00 :00 total) by Center tablet mouth every 6 (six) hours as needed for Pain for up to 10 days. aspirin 81 2021-06 Yes 81mg QD Take [address] MG EC 06-08 by mouth Lukes tablet 10:28: daily. [place] [address] Center empaglifloz 2021-06 Yes 25mg QD Take [address] in 06-08 by mouth [facility]ukes (Jardiance) 10:22: daily. Medi gopi 25 mg 28 Center tablet hydroCHLORO 2021-06 Yes 25mg QD Take [address] thiazide 06-08 by mouth Lukes (HYDRODIURI 10:22: daily. Medi gopi L) 25 MG 28 Center tablet insulin 2021-06 Yes 300U Inject [address] glargine,hu - Units Lukes m.rec.anlog 10:22: [facility] (TOUJEO 28 usly. Center SOLOSTAR U-300 INSULIN SUBQ) simvastatin 2021-06 Yes 10mg QD Take [address] (ZOCOR) 10 06-08 by mouth Lukes MG tablet 10:22: nightly. Medi gopi 28 Center pantoprazol 2021-06 Yes 40mg QD Take [address] e 06-08 by mouth [facility]ukes (PROTONIX) 10:22: daily. Medic al 40 MG 28 Center tablet Meloxicam Meloxicam 2020- No 1{table QD Meloxicam 7.5 MG 7.5 MG 10-02 t} 7.5 MG 00:00: 00:00 00 :00 Meloxicam Meloxicam 2020- No 1{table QD Meloxicam 7.5 MG 7.5 MG 10-02- t} 7.5 MG 00:00: 00:00 00 :00 Augmentin Augmentin 2019- No Yessy 1 tablet Common 01-16 [facility] 00:00: 00:00 - [facility]I 00 :[address] [facility] Ketoconazol Ketoconazol 2020- No Yessy 1 Common e e 11-22 [place] applicatio Spi rit 00:00: 00:00 n to - CHI 00 :[address] area(s) [facility] [place] Pen[place] 2019- No Yessy 1 Common 11-22 [place] applicatio Spi rit 00:00: 00:00 n to - 00 :[address] both feet [facility] Contour Contour 2018-06 Yes Yessy as Common Next Next 0-28 [facility] directed Spirit Monitor Monitor 00:00: - CHI [address] [facility] Contour Contour 2018-06 No Contour Next Next [...] 00:00: Monitor w/Device w/Device 00 w/Device Pen [place] Pen [place] 2018-06 Yes Yessy as Common 0-22 [facility] directed Spirit 00:00: - [facility]I [address] [facility] Lancets Lancets 2018-06 Yes Yessy as Common 0-22 [facility] directed Spirit 00:00: (dispense - CHI lancets of St record) [facility] Blood Blood 2018-1 Yes Yessy as Common Glucose Glucose 0-22 [facility] directed Spirit Test Strip Test Strip 00:00: (DISPENSE - [facility]I [address] GLUCOSE [facility] TEST Medical STRIPS OF Center RECORD) Blood Blood 2018-06 No Blood Glucose Glucose 0-22 Glucose Test Strip Test Strip 00:00: Test Strip 00 Pen [place] Pen [place] 2018-06 No Pen 32G X 5 MM 32G X 5 MM 0-22 [place] 00:00: 32G X 5 MM 00 Lancets - Lancets - 2018-06 No Lancets - 0-22 00:00: 00 Lancets - Lancets - 2018-06 No Lancets - 0-22 00:00: 00 Blood Blood 2018-06 No Blood Glucose Glucose 0-22 Glucose Test Strip Test Strip 00:00: Test Strip 00 Pen [place] Pen [place] 2018-06 No Pen 32G X 5 MM 32G X 5 MM 0-22 [place] 00:00: 32G X 5 MM 00 Lancets - Lancets - 2018-06 No Lancets - 0-22 00:00: 00 Pen [place] Pen [place] 2018-06 No Pen 32G X 5 MM 32G X 5 MM 0-22 [place] 00:00: 32G X 5 MM 00 Blood Blood 2018-06 No Blood Glucose Glucose 0-22 Glucose Test Strip Test Strip 00:00: Test Strip 00 Blood Blood 2018-06 No Blood Glucose Glucose 0-22 Glucose Test Strip Test Strip 00:00: Test Strip 00 Lancets - Lancets 2018-06 No Lancets - 0-22 00:00: 00 Pen [place] Pen [place] 2018-06 No Pen 32G X 5 MM 32G X 5 MM 0-22 [place] 00:00: 32G X 5 MM 00 Pen [place] Pen [place] 2018-06 No Pen 32G X 5 MM 32G X 5 MM 0-22 [place] 00:00: 32G X 5 MM 00 Blood Blood 2018-06 No Blood Glucose Glucose 0-22 Glucose Test Strip Test Strip 00:00: Test Strip 00 Lancets - Lancets - 2018-06 No Lancets - 0-22 00:00: 00 Pen [place] Pen [place] 2018-06 No Pen 32G X 5 MM 32G X 5 MM 0-22 [place] 00:00: 32G X 5 MM 00 Blood Blood 2018-06 No Blood Glucose Glucose 0-22 Glucose Test Strip Test Strip 00:00: Test Strip 00 Lancets - Lancets - 2018-06 No Lancets - 0-22 00:00: 00 BD Pen BD Pen 2018-0 Yes Yessy USE Common Needle Needle 01-12 [place] DIRECTED Sp lis Short U/F Short U/F 00:00: - C HI [address] [facility] acetaminoph 2014-06 Yes [id number] 1{tbl} Take 1 Tab Univers en-codeine 2-02 by mouth ity o f (TYLENOL 00:00: every 4 [place] #4) 300-60 00 (four) Medical mg tablet hours as Branch needed for Pain. cyclobenzap 2014-06 Yes [id number] 10mg Take 1 Tab Univers rine 2-02 by mouth 3 ity of (FLEXERIL) 00:00: (three[place] 10 mg 00 times Medical tablet daily. Branch acetaminoph 2014-06 Yes [id number] 1{tbl} Take 1 Tab Univers en-codeine 2-02 by mouth ity o f (TYLENOL 00:00: every 4 [place] #4) 300-60 00 (four) Medical mg tablet hours as Branch needed for Pain. cyclobenzap 2014-06 Yes [id number] 10mg Take 1 Tab Univers rine 2-02 by mouth 3 ity of (FLEXERIL) 00:00: (three[place] 10 mg 00 times Medical tablet daily. Branch acetaminoph 2014-06 Yes [id number] 1{tbl} Take 1 Tab Univers en-codeine 2-02 by mouth ity o f (TYLENOL 00:00: every 4 [place] #4) 300-60 00 (four) Medical mg tablet hours as Branch needed for Pain. cyclobenzap 2014-06 Yes [id number] 10mg Take 1 Tab Univers rine 2-02 by mouth 3 ity of (FLEXERIL) 00:00: (three[place] 10 mg 00 times Medical tablet daily. Branch acetaminoph 2014-06 Yes [id number] 1{tbl} Take 1 Tab Univers en-codeine 2-02 by mouth ity o f (TYLENOL 00:00: every 4 [place] #4) 300-60 00 (four) Medical mg tablet hours as Branch needed for Pain. cyclobenzap 2014-06 Yes [id number] 10mg Take 1 Tab Univers rine 2-02 by mouth 3 ity of (FLEXERIL) 00:00: (three[place] 10 mg 00 times Medical tablet daily. Branch methocarbam 2014-06 Yes [id number] 500mg Take 1 Tab Univers ol 1-11 by mouth 4 ity of (ROBAXIN) 00:00: (four) [place] 500 mg 00 times Medical tablet daily. Branch traMADOL 2014-06 Yes [id number] 50mg Take 1 Tab Univers (ULTRAM) 50 1-11 by mouth ity of mg tablet 00:00: every 6 [place] 00 (six) Medical hours as Branch needed for Pain (scale 4-6). methocarbam 2014-06 Yes [id number] 500mg Take 1 Tab Univers ol 1-11 by mouth 4 ity of (ROBAXIN) 00:00: (four) [place] 500 mg 00 times Medical tablet daily. Branch traMADOL 2014-06 Yes [id number] 50mg Take 1 Tab Univers (ULTRAM) 50 1-11 by mouth ity of mg tablet 00:00: every 6 [place] 00 (six) Medical hours as Branch needed for Pain (scale 4-6). methocarbam 2014-06 Yes [id number] 500mg Take 1 Tab Univers ol 1-11 by mouth 4 ity of (ROBAXIN) 00:00: (four) [place] 500 mg 00 times Medical tablet daily. Branch traMADOL 2014-06 Yes [id number] 50mg Take 1 Tab Univers (ULTRAM) 50 1-11 by mouth ity of mg tablet 00:00: every 6 [place] 00 (six) Medical hours as Branch needed for Pain (scale 4-6). methocarbam 2014-06 Yes [id number] 500mg Take 1 Tab Univers ol 1-11 by mouth 4 ity of (ROBAXIN) 00:00: (four) [place] 500 mg 00 times Medical tablet daily. Branch traMADOL 2014-06 Yes [id number] 50mg Take 1 Tab Univers (ULTRAM) 50 1-11 by mouth ity of mg tablet 00:00: every 6 [place] 00 (six) Medical hours as Branch needed for Pain (scale 4-6). acetaminoph 2014-06 Yes 1{tbl} Take 1 Tab Univers en-codeine 1-05 by mouth ity o f (TYLENOL 00:00: every 4 [place] #3) 300-30 00 (four) Medical mg tablet hours as Branch needed for Pain (scale 1-3). ibuprofen 2014-06 Yes 800mg Take 1 Tab U nivers (MOTRIN) 1-05 by mouth ity of 800 mg 00:00: every 6 [place] tablet 00 (six) Medical hours as Branch needed for Pain (scale 1-3) or Pain (scale 4-6). cyclobenzap 2014-06 Yes 5mg Take 1 Tab Univers rine 1-05 by mouth 3 ity of (FLEXERIL) 00:00: (three[place] 5 mg tablet 00 times Medical daily. Branch acetaminoph 2014-06 Yes 1{tbl} Take 1 Tab Univers en-codeine 1-05 by mouth ity o f (TYLENOL 00:00: every 4 [place] #3) 300-30 00 (four) Medical mg tablet hours as Branch needed for Pain (scale 1-3). ibuprofen 2014-06 Yes 800mg Take 1 Tab U nivers (MOTRIN) 1-05 by mouth ity of 800 mg 00:00: every 6 [place] tablet 00 (six) Medical hours as Branch needed for Pain (scale 1-3) or Pain (scale 4-6). cyclobenzap 2014-06 Yes 5mg Take 1 Tab Univers rine 1-05 by mouth 3 ity of (FLEXERIL) 00:00: (three[place] 5 mg tablet 00 times Medical daily. Branch acetaminoph 2014-06 Yes 1{tbl} Take 1 Tab Univers en-codeine 1-05 by mouth ity o f (TYLENOL 00:00: every 4 [place] #3) 300-30 00 (four) Medical mg tablet hours as Branch needed for Pain (scale 1-3). ibuprofen 2014-06 Yes 800mg Take 1 Tab U nivers (MOTRIN) 1-05 by mouth ity of 800 mg 00:00: every 6 [place] tablet 00 (six) Medical hours as Branch needed for Pain (scale 1-3) or Pain (scale 4-6). cyclobenzap 2014-06 Yes 5mg Take 1 Tab Univers rine 1-05 by mouth 3 ity of (FLEXERIL) 00:00: (three[place] 5 mg tablet 00 times Medical daily. Branch acetaminoph 2014-06 Yes 1{tbl} Take 1 Tab Univers en-codeine 1-05 by mouth ity o f (TYLENOL 00:00: every 4 [place] #3) 300-30 00 (four) Medical mg tablet hours as Branch needed for Pain (scale 1-3). ibuprofen 2014-06 Yes 800mg Take 1 Tab U nivers (MOTRIN) 1-05 by mouth ity of 800 mg 00:00: every 6 [place] tablet 00 (six) Medical hours as Branch needed for Pain (scale 1-3) or Pain (scale 4-6). cyclobenzap 2014-06 Yes 5mg Take 1 Tab Univers rine 1-05 by mouth 3 ity of (FLEXERIL) 00:00: ([place] 5 [place] tablet 00 times Medical daily. Branch Simvastatin Simvastatin Yes Yessy 1 tablet Common [facility] in the [facility] evening [facility] Hydrochloro Hydrochloro Yes Yessy 1 tablet Common thiazide thiazide [facility] Sp lis [facility] Namenda Namenda Yes Yessy 1 tab(s) Comm on Millender once a day Spir [facility] Lotrel Lotrel Yes Yessy 1 capsule Commo n Millender [facility] Toujeo Toujeo Yes Yessy as Common SoloStar SoloStar Millender directed [facility] Jardiance Jardiance Yes Yessy 1 tablet Common Millender [facility] Memantine Memantine Yes Yessy TAKE 1 Co mmon HCl HCl [facility] TABLET BY Spiri t MOUTH ONCE - CHI A DAY [facility] BD Pen BD Pen No BD Pen [...] 10-40 MG 10-40 MG Toujeo Toujeo No Toujeo SoloStar SoloStar [...] MG t} 25 MG Toujeo Toujeo No Touo SoloStar SoloStar [...] HCl 10 HCl 10 Toujeo Toujeo No Toujeo SoloStar SoloStar [...] HCl 10 HCl 10 Toujeo Toujeo No Toujeo SoloStar SoloStar [...] n 10 MG e_eveni ng} Myrbetriq Myrbetriq 2021- No 1{table QD Myrbetriq 50 mg 50 mg 08-26 t} 50 mg 00:00 :00 Jardiance Jardiance 2021- No 1{table QD Jardiance 25 MG 25 MG 08-26 t} 25 MG 00:00 :00 Myrbetriq Myrbetriq 2020- No Yessy 1 tablet Common 08-19 [facility] 00:00 - [facility] :[address] [facility] Myrbetriq Myrbetriq 2020- No 1{table QD Myrbetriq 50 mg 50 mg 08-19 t} 50 mg 00:00 :00 Immunizations Ordered Filled Immunization Date Status Comments Sourc e Immunization Name Name Serge Valentine 2021-03-18 [facility]pleted [facility]:09[facility]00 [facility] Serge Valentine 2021-03-18 Completed [facility] - 11:09:00 [facility] Pneumococcal 2015-04-11 Completed University o f Polysaccharide, 00:00:00 [place] [facility] ical PPSV23 (PNEUMOVAX) Branch Influenza Virus 2015-04-11 Completed Universit y of Vaccine Quad IM 3+ 00:00:00 [facility] Pneumococcal 2015-04-11 Completed University o f Polysaccharide, 00:00:00 [place] Med ical PPSV23 (PNEUMOVAX) Branch Influenza Virus 2015-04-11 Completed Universit y of Vaccine Quad IM 3+ 00:00:00 [facility] Pneumococcal 2015-04-11 Completed University o f Polysaccharide, 00:00:00 [place] [facility] ical PPSV23 (PNEUMOVAX) Branch Influenza Virus 2015-04-11 Completed Universit y of Vaccine Quad IM 3+ 00:00:00 [facility] Pneumococcal 2015-04-11 Completed University o f Polysaccharide, 00:00:00 [place] Med ical PPSV23 (PNEUMOVAX) Branch Influenza Virus 2015-04-11 Completed Universit y of Vaccine Quad IM 3+ 00:00:00 [facility] Vital Signs Vital Name Observation Time Observation Value Comments Source HEIGHT 2022-04-13 09:00:00 165.1 cm WEIGHT 2022-04-13 09:00:00 79.2 kg HEIGHT 2022-04-08 10:31:00 165.1 cm WEIGHT 2022-04-08 10:31:00 77.111 kg HEIGHT 2022-04-13 09:00:00 165.1 cm WEIGHT 2022-04-13 09:00:00 79.2 kg HEIGHT 2022-04-08 10:31:00 165.1 cm WEIGHT 2022-04-08 10:31:00 77.111 kg HEIGHT 2022-04-13 09:00:00 165.1 cm WEIGHT 2022-04-13 09:00:00 79.2 kg HEIGHT 2022-04-08 10:31:00 165.1 cm WEIGHT 2022-04-08 10:31:00 77.111 kg height 2021-03-18 10:20:00 62.50 [in_i] [facility] weight 2021-03-18 10:20:00 177.1 [lb_av] [facility] temperature 2021-03-18 10:20:00 97.3 [degF] [facility] bmi 2021-03-18 10:20:00 31.87 kg/m2 [facility] oximetry 2021-03-18 10:20:00 97 % [facility] respiratory rate 2021-03-18 10:20:00 18 /min Comm on [facility] blood pressure 2021-03-18 10:20:00 111 mm[Hg] [facility] - systolic [facility] blood pressure 2021-03-18 10:20:00 63 mm[Hg] [facility] - diastolic [facility] height 2021-01-13 11:40:00 62.50 [in_i] [facility] weight 2021-01-13 11:40:00 183.1 [lb_av] [facility] temperature 2021-01-13 11:40:00 97.6 [degF] [facility] bmi 2021-01-13 11:40:00 32.95 kg/m2 [facility] oximetry 2021-01-13 11:40:00 98 % Common [facility] respiratory rate 2021-01-13 11:40:00 17 /min Comm on [facility] blood pressure 2021-01-13 11:40:00 132 mm[Hg] Common [facility] - systolic [facility] blood pressure 2021-01-13 11:40:00 65 mm[Hg] Common [facility] - diastolic [facility] height 2020-10-02 15:00:00 62.50 [in_i] Common [facility] weight 2020-10-02 15:00:00 181.9 [lb_av] [facility] temperature 2020-10-02 15:00:00 97.2 [degF] [facility] bmi 2020-10-02 15:00:00 32.74 kg/m2 [facility] oximetry 2020-10-02 15:00:00 97 % [facility] respiratory rate 2020-10-02 15:00:00 17 /min Comm on [facility] blood pressure 2020-10-02 15:00:00 138 mm[Hg] [facility] - systolic [facility] blood pressure 2020-10-02 15:00:00 70 mm[Hg] Common [facility] - diastolic [facility] Systolic blood 2022-04-13 18:00:00 148 mm[Hg] [facility] Diastolic blood 2022-04-13 18:00:00 72 mm[Hg] [facility] Heart rate 2022-04-13 18:00:00 81 /min [facility] Body temperature 2022-04-13 18:00:00 36.33 Ita [facility] Respiratory rate 2022-04-13 18:00:00 17 /min [facility] Oxygen saturation in 2022-04-13 18:00:00 97 /min [facility] Arterial blood by Medical Ce nter Pulse oximetry Body height 2022-04-13 09:00:00 165.1 cm [facility] Body weight 2022-04-13 09:00:00 79.2 kg [facility] BMI 2022-04-13 09:00:00 29.06 kg/m2 [facility] Body height 2022-04-08 10:31:00 165.1 cm [facility] Body weight 2022-04-08 10:31:00 77.111 kg [facility] BMI 2022-04-08 10:31:00 28.29 kg/m2 [facility] Procedures Procedure Date / Time Performing Clinician Source Performed DEXA AXIAL (HIP AND 2022-07-06 15:01:00 Requisition, Paper [facility] SPINE) Medical Branch ASSIGNMENT OF BENEFITS 2022-07-02 19:39:05 Doctor Unassigned, No [facility] CONSENT/REFUSAL FOR 2022-07-02 19:38:45 Doctor Unassigned, No [facility]3] XR KNEE 3 VW BILATERAL 2022-06-30 16:48:04 Sofy Kim [facility] NOTICE OF PRIVACY 2022-06-30 16:12:00 Doctor Unassigned, No [facility] PRACTICES [facility] [place] CONSENT/REFUSAL FOR 2022-06-30 16:10:43 Doctor Unassigned, No [facility] Name Medical Branch ASSIGNMENT OF BENEFITS 2022-06-30 16:10:20 Doctor Unassigned, No [facility] POCT-GLUCOSE METER 2022-04-13 14:50:[address] [facility] TISSUE EXAM 2022-04-13 13:10:00 Dariel Palacios [facility] CYTOLOGY 2022-04-13 12:43:00 Dariel Palacios [facility] CYTOLOGY REQUEST 2022-04-13 12:43:00 Dariel Palacios [facility] HYSTERECTOMY,TOTAL,LAPA 2022-04-13 11:55:00 Dariel Palacios [facility], [facility] ROSCOPIC,WITH [facility] SALPINGO-OOPHERECTOMY,F OR UTERUS 250 GRAMS OR LESS HERNIORRHAPHY, 2022-04-13 11:55:00 Dariel Palacios [facility] UMBILICAL [facility] EXCISION, MASS, 2022-04-13 11:55:00 Dariel Palacios [facility] INTRA-ABDOMINAL [facility] HYSTERECTOMY, TOTAL, 2022-04-13 11:16:00 Dariel Palacios [facility] LAPAROSCOPIC, WITH [facility] SALPINGO-OOPHORECTOMY, FOR UTERUS 250 GRAMS OR LESS HERNIORRHAPHY, 2022-04-13 11:16:00 Dariel Palacios [facility] UMBILICAL [facility] HYSTERECTOMY,TOTAL,LAPA 2022-04-13 10:20:00 Dariel Palacios I [facility] ROSCOPIC,WITH [facility] SALPINGO-OOPHERECTOMY,F OR UTERUS 250 GRAMS OR LESS HERNIORRHAPHY, 2022-04-13 10:20:00 Dariel Palacios [facility] EXCISION, MASS, 2022-04-13 10:20:00 Dariel Palacios [facility] INTRA-ABDOMINAL [facility] ABORH, MANUAL 2022-04-13 09:53:00 Olivia Suresh [facility] POCT-GLUCOSE METER 2022-04-13 09:03:00 [facility]anne [facility] CBC W/PLT COUNT & AUTO 2022-04-13 09:01:00 [facility] DIFFERENTIAL [facility] HC LAB HIV-1 AG 2022-04-13 09:01:00 Reji Kelly [facility] W/HIV-1&2 AB Center TYPE AND SCREEN, 2022-04-13 09:[facility] CBC W/PLT COUNT & AUTO 2022-04-13 09:01[facility] Plan of Care Planned Activity Planned Date Details Comments Source Future Scheduled 2023-02-05 Influenza Vaccine (#1) [facility] 00:[facility]00 [code = Influenza Vaccine Me dical Center (#1)] Future Scheduled 2022-08-06 MEDICARE ANNUAL WELLNESS [facility] Test 00:00:00 (YEAR 2 or FIRST YEAR if Med ical Center no IPPE) [code = MEDICARE ANNUAL WELLNESS (YEAR 2 or FIRST YEAR if no IPPE)] Future Scheduled 2022-06-[address] [facility] Test 00:00:00 (12+) [code = DEPRESSION Med ical Center SCREENING (12+)] Future Scheduled 2022-06-07 FALLS RISK SCREENING [facility] Test 00:00:00 [code = FALLS RISK Medical C enter SCREENING] Future Scheduled 2022-02-05 INFLUENZA VACCINE (#1) [facility] 00:00:00 [code = INFLUENZA VACCINE Me dical Center (#1)] Future Scheduled 2022-02-05 INFLUENZA VACCINE (#1) [facility] 00:00:00 [code = INFLUENZA VACCINE Me dical Center (#1)] Future Scheduled 2022-02-05 INFLUENZA VACCINE (#1) [facility] 00:00:00 [code = INFLUENZA VACCINE Me dical Center (#1)] Future Scheduled 2022-02-05 INFLUENZA VACCINE (#1) [facility] 00:00:00 [code = INFLUENZA VACCINE Me dical Center (#1)] Future Scheduled 2022-02-05 INFLUENZA VACCINE (#1) [facility] 00:00:00 [code = INFLUENZA VACCINE Me dical Center (#1)] Future Scheduled 2022-02-05 INFLUENZA VACCINE (#1) [facility] 00:00:00 [code = INFLUENZA VACCINE Me dical Center (#1)] Future Scheduled 2022-02-05 INFLUENZA VACCINE (#1) [facility] 00:00:00 [code = INFLUENZA VACCINE Me dical Center (#1)] Future Scheduled 2021-08-05 Medicare IPPE (WELCOME TO [facility] Test 00:00:00 MEDICARE) [code = Medical Ce nter Medicare IPPE (WELCOME TO MEDICARE)] Future Scheduled 2021-08-05 Medicare IPPE (WELCOME TO [facility] Test 00:00:00 MEDICARE) [code = Medical Ce nter Medicare IPPE (WELCOME TO MEDICARE)] Future Scheduled 2021-08-05 Medicare IPPE (WELCOME TO [facility] Test 00:00:00 MEDICARE) [code = Medical Ce nter Medicare IPPE (WELCOME TO MEDICARE)] Future Scheduled 2021-08-05 Medicare IPPE (WELCOME TO [facility] Test 00:00:00 MEDICARE) [code = Medical Ce nter Medicare IPPE (WELCOME TO MEDICARE)] Future Scheduled 2021-08-05 Medicare IPPE (WELCOME TO [facility] Test 00:00:00 MEDICARE) [code = Medical Ce nter Medicare IPPE (WELCOME TO MEDICARE)] Future Scheduled 2021-08-05 Medicare IPPE (WELCOME TO [facility] Test 00:00:00 MEDICARE) [code = Medical Ce nter Medicare IPPE (WELCOME TO MEDICARE)] Future Scheduled 2021-06-[address] [facility] Test 00:00:00 (12+) [code = DEPRESSION Med ical Center SCREENING (12+)] Future Scheduled 2021-06-[address] [facility] Test 00:00:00 (12+) [code = DEPRESSION Med ical Center SCREENING (12+)] Future Scheduled 2021-06-[address] [facility] Test 00:00:00 (12+) [code = DEPRESSION Med ical Center SCREENING (12+)] Future Scheduled 2021-06-[address] [facility] Test 00:00:00 (12+) [code = DEPRESSION Med ical Center SCREENING (12+)] Future Scheduled 2021-06-[address] [facility] Test 00:00:00 (12+) [code = DEPRESSION Med ical Center SCREENING (12+)] Future Scheduled 2021-06-07 FALLS RISK SCREENING [facility] 00:00:00 [code = FALLS RISK Medical C enter SCREENING] Future Scheduled 2021-06-[address] [facility] Test 00:00:00 (12+) [code = DEPRESSION Med ical Center SCREENING (12+)] Future Scheduled 2021-06-07 FALLS RISK SCREENING [facility] Test 00:00:00 [code = FALLS RISK Medical C enter SCREENING] Future Scheduled 2021-06-[address] [facility] Test 00:00:00 (12+) [code = DEPRESSION Med ical Center SCREENING (12+)] Future Scheduled 2007 SHINGLES VACCINES ([address] [facility] Test 00:00:00 2) [code = SHINGLES Medical Center VACCINES (1 of 2)] Future Scheduled 2007 SHINGLES VACCINES ([address] [facility] Test 00:00:00 2) [code = SHINGLES Medical Center VACCINES (1 of 2)] Future Scheduled 2007 SHINGLES VACCINES ([address] [facility] Test 00:00:00 2) [code = SHINGLES Medical Center VACCINES (1 of 2)] Future Scheduled 2007 SHINGLES VACCINES ([address] [facility] 00:00:00 2) [code = SHINGLES Medical Center VACCINES (1 of 2)] Future Scheduled 2007 SHINGLES VACCINES ([address] [facility] 00:00:00 2) [code = SHINGLES Medical Center VACCINES (1 of 2)] Future Scheduled 2007 SHINGLES VACCINES ([address] [facility] Test 00:00:00 2) [code = SHINGLES Medical Center VACCINES (1 of 2)] Future Scheduled 2007 SHINGLES VACCINES ([address] [facility] Test 00:00:00 2) [code = SHINGLES Medical Center VACCINES (1 of 2)] Future Scheduled 2007 SHINGLES VACCINES ([address] [facility] 00:00:00 2) [code = SHINGLES Medical Center VACCINES (1 of 2)] Future Scheduled 2002 Lipid panel (procedure) [facility] 00:00:00 [code = [id number]] Medical Ce nter Future Scheduled 2002 Lipid panel (procedure) [facility] 00:00:00 [code = [id number]] Medical Ce nter Future Scheduled 2002 Lipid panel (procedure) [facility] 00:00:00 [code = 80348466] Medical Ce nter Future Scheduled 2002 Lipid panel (procedure) [facility] Test 00:00:00 [code = 65809521] Medical Ce nter Future Scheduled 2002 Lipid panel (procedure) [facility] 00:00:00 [code = 25574997] Medical Ce nter Future Scheduled 2002 Lipid panel (procedure) [facility] Test 00:00:00 [code = 61562694] Medical Ce nter Future Scheduled 2002 Lipid panel (procedure) [facility] 00:00:00 [code = 39591502] Medical Ce nter Future Scheduled 2002 Lipid panel (procedure) [facility] 00:00:00 [code = 80307688] Medical Ce nter Future Scheduled 1978 Screening for malignant [facility] Test 00:00:00 neoplasm of cervix Medical C enter (procedure) [code = 639145254] Future Scheduled 1978 Screening for malignant [facility] Test 00:00:00 neoplasm of cervix Medical C enter (procedure) [code = 531575467] Future Scheduled 1978 Screening for malignant [facility] Test 00:00:00 neoplasm of cervix Medical C enter (procedure) [code = 107148732] Future Scheduled 1978 Screening for malignant [facility] Test 00:00:00 neoplasm of cervix Medical C enter (procedure) [code = 099645733] Future Scheduled 1978 Screening for malignant [facility] Test 00:00:00 neoplasm of cervix Medical C enter (procedure) [code = 898442100] Future Scheduled 1978 Screening for malignant [facility] Test 00:00:00 neoplasm of cervix Medical C enter (procedure) [code = 748737434] Future Scheduled 1978 Screening for malignant [facility] Test 00:00:00 neoplasm of cervix Medical C enter (procedure) [code = 615005299] Future Scheduled 1978 Screening for malignant [facility] Test 00:00:00 neoplasm of cervix Medical C enter (procedure) [code = 311436772] Future Scheduled 1976 DTAP/TDAP/TD VACCINES ([address] [facility] Test 00:00:00 - Tdap) [code = Medical Cent er DTAP/TDAP/TD VACCINES (1 - Tdap)] Future Scheduled 1976 DTAP/TDAP/TD VACCINES ([address] [facility] 00:00:00 - Tdap) [code = Medical Cent er DTAP/TDAP/TD VACCINES (1 - Tdap)] Future Scheduled 1976 DTAP/TDAP/TD VACCINES ([address] [facility] 00:00:00 - Tdap) [code = Medical Cent er DTAP/TDAP/TD VACCINES (1 - Tdap)] Future Scheduled 1976 DTAP/TDAP/TD VACCINES ([address] [facility] 00:00:00 - Tdap) [code = Medical Cent er DTAP/TDAP/TD VACCINES (1 - Tdap)] Future Scheduled 1976 DTAP/TDAP/TD VACCINES ([address] [facility] 00:00:00 - Tdap) [code = Medical Cent er DTAP/TDAP/TD VACCINES (1 - Tdap)] Future Scheduled 1976 DTAP/TDAP/TD VACCINES ([address] [facility] 00:00:00 - Tdap) [code = Medical Cent er DTAP/TDAP/TD VACCINES (1 - Tdap)] Future Scheduled 1976 DTAP/TDAP/TD VACCINES ([address] [facility] 00:00:00 - Tdap) [code = Medical Cent er DTAP/TDAP/TD VACCINES (1 - Tdap)] Future Scheduled 1976 DTAP/TDAP/TD VACCINES ([address] [facility] 00:00:00 - Tdap) [code = Medical Cent er DTAP/TDAP/TD VACCINES (1 - Tdap)] Future Scheduled 1975 HEPATITIS C [facility]CRE[facility]ING [facility] 00:00:00 [code = HEPATITIS C Medical Center SCREENING] Future Scheduled 1975 HEPATITIS C [facility] 00:00:00 [code = HEPATITIS C Medical Center SCREENING] Future Scheduled 1975 HEPATITIS C [facility]ING [facility] 00:00:00 [code = HEPATITIS C Medical Center SCREENING] Future Scheduled 1975 HEPATITIS C [facility]ING [facility] 00:00:00 [code = HEPATITIS C Medical Center SCREENING] Future Scheduled 1975 HEPATITIS C [facility]CRE[facility]ING [facility] 00:00:00 [code = HEPATITIS C Medical Center SCREENING] Future Scheduled 1975 HEPATITIS C [facility]ING [facility] 00:00:00 [code = HEPATITIS C Medical Center SCREENING] Future Scheduled 1975 HEPATITIS C [facility] 00:00:00 [code = HEPATITIS C Medical Center SCREENING] Future Scheduled 1975 HEPATITIS C [facility]ING [facility] 00:00:00 [code = HEPATITIS C Medical Center SCREENING] Future Scheduled [address] Human [address] [facility] 00:00:00 virus screening Medical Cent er (procedure) [code = 476025918] Future Scheduled [address] [facility] Test 00:00:00 Counseling and Screening [facility] (12+) [code = Tobacco Cessation Counseling and Screening (12+)] Future Scheduled [address] [facility] Test 00:00:00 Counseling and Screening Med [facility] (12+) [code = Tobacco Cessation Counseling and Screening (12+)] Future Scheduled [address] [facility] Test 00:00:00 Counseling and Screening [facility] (12+) [code = Tobacco Cessation Counseling and Screening (12+)] Future Scheduled [address] [facility] Test 00:00:00 Counseling and Screening [facility] (12+) [code = Tobacco Cessation Counseling and Screening (12+)] Future Scheduled 1963 PNEUMOCOCCAL VACCINE 0-[address] [facility] Test 00:00:00 YRS (1 - PCV) [code = Medica l Center PNEUMOCOCCAL VACCINE 0-64 YRS (1 - PCV)] Future Scheduled 1963 PNEUMOCOCCAL VACCINE 0-[address] [facility] Test 00:00:00 YRS (1 - PCV) [code = Medica l Center PNEUMOCOCCAL VACCINE 0-64 YRS (1 - PCV)] Future Scheduled 1963 PNEUMOCOCCAL VACCINE 0-[address] [facility] Test 00:00:00 YRS (1 - PCV) [code = Medica l Center PNEUMOCOCCAL VACCINE 0-64 YRS (1 - PCV)] Future Scheduled 1963 PNEUMOCOCCAL 65+ YRS (1 - [facility] 00:00:00 PCV) [code = PNEUMOCOCCAL Me dical Center 65+ YRS (1 - PCV)] Future Scheduled 1963 PNEUMOCOCCAL 65+ YRS (1 - [facility] 00:00:00 PCV) [code = PNEUMOCOCCAL Me dical Center 65+ YRS (1 - PCV)] Future Scheduled 1963 PNEUMOCOCCAL VACCINE 0-[address] [facility] Test 00:00:00 YRS (1 - PCV) [code = Medica l Center PNEUMOCOCCAL VACCINE 0-64 YRS (1 - PCV)] Future Scheduled 1963 PNEUMOCOCCAL 65+ YRS (1 - [facility] 00:00:00 PCV) [code = PNEUMOCOCCAL Me dical Center 65+ YRS (1 - PCV)] Future Scheduled 1957 COVID-19 VACCINE (#1) [facility] 00:00:00 [code = COVID-19 VACCINE Med ical Center (#1)] Future Scheduled 1957 COVID-19 VACCINE (#1) [facility] 00:00:00 [code = COVID-19 VACCINE Med ical Center (#1)] Future Scheduled 1957 COVID-19 VACCINE (#1) [facility] 00:00:00 [code = COVID-19 VACCINE Med ical Center (#1)] Future Scheduled 1957 COVID-19 VACCINE (#1) [facility] 00:00:00 [code = COVID-19 VACCINE Med ical Center (#1)] Future Scheduled 1957 COVID-19 VACCINE (#1) [facility] 00:00:00 [code = COVID-19 VACCINE Med ical Center (#1)] Future Scheduled 1957 COVID-19 VACCINE (#1) [facility] 00:00:00 [code = COVID-19 VACCINE Med ical Center (#1)] Future Scheduled 1957 COVID-19 VACCINE (#1) [facility] 00:00:00 [code = COVID-19 VACCINE Med ical Center (#1)] Future Scheduled 1957 COVID-19 VACCINE (#1) [facility] 00:00:00 [code = COVID-19 VACCINE Med ical Center (#1)] Future Scheduled 1957 Screening for malignant [facility] 00:00:00 neoplasm of colon Medical Ce nter (procedure) [code = [id number]] Future Scheduled 1957 Screening for malignant [facility] 00:00:00 neoplasm of breast Medical C enter (procedure) [code = 477325190] Future Scheduled 1957 CT Colonography (combo) [facility] 00:00:00 [code = CT Colonography [facility] (combo)] Future Scheduled 1957 Screening for malignant [facility] 00:00:00 neoplasm of colon Medical Ce nter (procedure) [code = 295055087] Future Scheduled 1957 Screening for malignant [facility] 00:00:00 neoplasm of colon Medical Ce nter (procedure) [code = 310619250] Future Scheduled 1957 Screening for malignant [facility] 00:00:00 neoplasm of colon Medical Ce nter (procedure) [code = 421494367] Future Scheduled 1957 Screening for malignant [facility] Test 00:00:00 neoplasm of colon Medical Ce nter (procedure) [code = 598015010] Future Scheduled 1957 Sigmoidoscopy [code = [facility] 1957 Screening for malignant [facility] 00:00:00 neoplasm of colon Medical Ce nter (procedure) [code = 929789502] Future Scheduled 1957 Sigmoidoscopy [code = [facility] S[facility]oscopy] [facility] Future [facility] 1957 Screening for malignant [facility] 00:00:00 neoplasm of breast Medical C enter (procedure) [code = 634224257] Future Scheduled 1957 CT Colonography (combo) [facility] 00:00:00 [code = CT Colonography [facility] (combo)] Future Scheduled 1957 Screening for malignant [facility] 00:00:00 neoplasm of colon Medical Ce nter (procedure) [code = 527646281] Future Scheduled 1957 Screening for malignant [facility] 00:00:00 neoplasm of colon Medical Ce nter (procedure) [code = 382355443] Future Scheduled 1957 Screening for malignant [facility] 00:00:00 neoplasm of colon Medical Ce nter (procedure) [code = 110150006] Future Scheduled 1957 Screening for malignant [facility] 00:00:00 neoplasm of colon Medical Ce nter (procedure) [code = 705371434] Future Scheduled 1957 Sigmoidoscopy [code = [facility] S[facility]oscopy] [facility] Future Scheduled 1957 Screening for malignant [facility] 00:00:00 neoplasm of breast Medical C enter (procedure) [code = 004527253] Future Scheduled 1957 CT Colonography (combo) [facility] 00:00:00 [code = CT Colonography [facility] (combo)] Future Scheduled 1957 Screening for malignant [facility] 00:00:00 neoplasm of colon Medical Ce nter (procedure) [code = 141075563] Future Scheduled 1957 Screening for malignant [facility] 00:00:00 neoplasm of colon Medical Ce nter (procedure) [code = 313298236] Future Scheduled 1957 Screening for malignant [facility] 00:00:00 neoplasm of colon Medical Ce nter (procedure) [code = 390628921] Future Scheduled 1957 Screening for malignant [facility] 00:00:00 neoplasm of colon Medical Ce nter (procedure) [code = 155107943] Future Scheduled 1957 Sigmoidoscopy [facility]code = [facility]] [facility] r Future Scheduled 1957 Screening for malignant [facility] 00:00:00 neoplasm of breast Medical C enter (procedure) [code = 220071115] Future Scheduled 1957 CT Colonography (combo) [facility] 00:00:00 [code = CT Colonography [facility] (combo)] Future Scheduled 1957 Screening for malignant [facility] 00:00:00 neoplasm of colon Medical Ce nter (procedure) [code = 228761209] Future Scheduled 1957 Screening for malignant [facility] 00:00:00 neoplasm of colon Medical Ce nter (procedure) [code = 348878619] Future Scheduled 1957 DXA SCAN [code = DXA [facility] 00:00:00 SCAN] [facility] Future Scheduled 1957 Screening for malignant [facility] 00:00:00 neoplasm of colon Medical Ce nter (procedure) [code = 007670341] Future Scheduled 1957 Screening for malignant [facility] 00:00:00 neoplasm of colon Medical Ce nter (procedure) [code = 816362487] Future Scheduled 1957 Sigmoidoscopy [facility]code = [facility]] [facility] Future Scheduled 1957 Screening for malignant [facility] 00:00:00 neoplasm of breast Medical C enter (procedure) [code = 556346106] Future Scheduled 1957 CT Colonography (combo) [facility] 00:00:00 [code = CT Colonography [facility] (combo)] Future Scheduled 1957 Screening for malignant [facility] 00:00:00 neoplasm of colon Medical Ce nter (procedure) [code = 359776855] Future Scheduled 1957 Screening for malignant [facility] 00:00:00 neoplasm of colon Medical Ce nter (procedure) [code = 384653324] Future Scheduled 1957 DXA SCAN [code = DXA [facility] 00:00:00 SCAN] [facility] Future Scheduled 1957 Screening for malignant [facility] 00:00:00 neoplasm of colon Medical Ce nter (procedure) [code = 041299631] Future Scheduled 1957 Screening for malignant [facility] 00:00:00 neoplasm of colon Medical Ce nter (procedure) [code = 812383395] Future Scheduled 1957 Sigmoidoscopy [code = [facility] S[facility]oidoscopy] [facility] Future Scheduled 1957 Screening for malignant [facility] 00:00:00 neoplasm of breast Medical C enter (procedure) [code = 819206042] Future Scheduled 1957 CT Colonography (combo) [facility] 00:00:00 [code = CT Colonography [facility] (combo)] Future Scheduled 1957 Screening for malignant [facility] 00:00:00 neoplasm of colon Medical Ce nter (procedure) [code = 140176480] Future Scheduled 1957 Screening for malignant [facility] 00:00:00 neoplasm of colon Medical Ce nter (procedure) [code = 916724177] Future Scheduled 1957 Screening for malignant [facility] 00:00:00 neoplasm of colon Medical Ce nter (procedure) [code = 454138638] Future Scheduled 1957 Screening for malignant [facility] 00:00:00 neoplasm of colon Medical Ce nter (procedure) [code = 396421474] Future Scheduled 1957 Sigmoidoscopy [code = [facility] 00:[facility] S[facility]oidoscopy] [facility] Future Scheduled 1957 Screening for malignant [facility] 00:00:00 neoplasm of breast Medical C enter (procedure) [code = 389350604] Future Scheduled 1957 CT Colonography (combo) [facility] 00:00:00 [code = CT Colonography [facility] (combo)] Future Scheduled 1957 Screening for malignant [facility] 00:00:00 neoplasm of colon Medical Ce nter (procedure) [code = 998294889] Future Scheduled 1957 Screening for malignant [facility] 00:00:00 neoplasm of colon Medical Ce nter (procedure) [code = 757100425] Future Scheduled 1957 Screening for malignant [facility] 00:00:00 neoplasm of breast Medical C enter (procedure) [code = 821869307] Future Scheduled 1957 CT Colonography (combo) [facility] 00:00:00 [code = CT Colonography [facility] (combo)] Future Scheduled 1957 Screening for malignant [facility] 00:00:00 neoplasm of colon Medical Ce nter (procedure) [code = 546797947] Future Scheduled 1957 Screening for malignant [facility] 00:00:00 neoplasm of colon Medical Ce nter (procedure) [code = 826176450] Future Scheduled 1957 DXA SCAN [code = DXA [facility] 00:00:00 SCAN] [facility] Future Scheduled 1957 Screening for malignant [facility] 00:00:00 neoplasm of colon Medical Ce nter (procedure) [code = 822147495] Future Scheduled 1957 Screening for malignant [facility] 00:00:00 neoplasm of colon Medical Ce nter (procedure) [code = 595232610] Future Scheduled 1957 Sigmoidoscopy [code [facility] Start End Encounter Admission Attending Care Care Encounter Source Date/Time Date/Time Type Type Clinicians Facility Department ID 2022-12-24 Outpatient Christine, STLMLC STLMLC [id number] Common 10:43:01 Celso 32292 [facility] 2022-12-03 Outpatient Christine, STLMLC STLMLC [id number] Common 16:23:00 Celso 16194 [facility] 2021-07-02 Outpatient Christine, STLMLC STLMLC [id number] Common 13:35:30 Celso 96426 [facility] 2021-07-02 Outpatient Christine, STLMLC STLMLC [id number] Common 13:14:11 Celso 24445 [facility] 2021-07-02 Outpatient Christine, STLMLC STLMLC [id number] Common 12:58:58 Celso 39585 [facility] 2021-07-02 Outpatient Christine, STLMLC STLMLC [id number] Common 12:57:18 Celso 66118 [facility] 2021-07-02 Outpatient Christine, STLMLC STLMLC [id number] Common 12:36:10 Celso 46631 [facility] 2021-07-02 Outpatient Christine, STLMLC STLMLC [id number] Common 12:22:45 Celso 63738 [facility] 2021-07-02 Outpatient Arce, Kin STLMLC STLMLC [id number] Common 12:00:36 49445 [facility] 2021-07-02 Outpatient Millender, STLMLC STLMLC [id number] Common 11:45:58 Yessy 57246 [facility] 2021-07-02 Outpatient Millender, STLMLC STLMLC [id number] Common 11:37:13 Yessy 76163 [facility] 2021-07-02 Outpatient Millender, STLMLC STLMLC [id number] Common 11:08:11 Yessy 67743 [facility] 2021-07-02 Outpatient Millender, STLMLC STLMLC [id number] Common 11:06:16 Yessy 36322 [facility] 2021-07-02 Outpatient Millender, STLMLC STLMLC [id number] Common 11:02:15 Yessy 59893 [facility] 2021-07-02 Outpatient Millender, STLMLC STLMLC [id number] Common 11:01:30 Yessy 09112 [facility] 2022-07-08 2022-07-08 Outpatient R RADIOLOGY [facility] [id number] Univers 00:00:00 00:00:00 ity of [facility] 2022-07-06 2022-07-06 Outpatient R RADIOLOGY [facility] [id number] Univers 08:14:04 23:59:00 ity of [facility] 2022-07-06 2022-07-06 [facility] Radiology [facility] [id number] Univers 08:14:04 23:59:00 Encounter [place] [id number] ity of [place] [id number] [facility] [id number] [address] 2022-07-02 2022-07-02 Outpatient R RADIOLOGY [facility] [id number] Univers 13:40:04 23:59:00 ity of [facility] 2022-07-02 2022-07-02 Hospital Radiology [facility] [id number] Univers 13:40:04 23:59:00 Encounter [place] [id number] [facility] [id number] [facility] [id number] [address] 2022-06-30 2022-06-30 Hospital Radiology [facility] [id number] Univers 10:13:46 23:59:00 Encounter [place] [id number] [facility]7[facility] [id number] [facility] [address] 2022-06-30 2022-06-30 [facility] Radiology [facility] [id number] Univers 09:49:45 10:12:00 Encounter [facility] [id number] ity of [place] 4.2.7.2.686 Massimo as JAIR?BLEA [id number] [facility] [address] MEDICAL OFFICE BUILDING 2022-06-30 2022-06-30 Outpatient R RADIOLOGY [facility] [id number] Univers 09:49:45 10:12:00 ity of [facility] 2022-05-13 2022-05-13 [facility] [id number] [id number] [facility] 00:[facility]00 Encounter [facility] 2022-04-13 2022-04-13 [facility] [id number] 07:43:00 18:50:00 Encounter [facility] 2022-04-13 2022-04-13 [facility] [id number] SLE 07:43:00 18:50:00 [place] 2022-04-13 2022-04-13 [facility] [id number] [id number] 07:43:00 18:50:00 Encounter [facility] 2022-04-13 2022-04-13 Anesthesia Kenzie Alford [facility] [id number] [facility] 11:31[facility] 14:33[facility]00 [facility]22-[facility] 2022-04-13 Anesthesia Kenzie Alford [facility] [id number] [facility] 11:31[facility] 14:33[facility]00 [facility] 2022-04-13 2022-04-13 Surgery Suzanne, [facility] [id number] 11:20:00 13:50:00 [facility] 2022-04-13 2022-04-13 Surgery Suzanne, [facility] [id number] 11:20:00 13:50:00 [facility] 2022-04-08 2022-04-08 Outpatient EL SUZANNE, [facility] SLE [id number] SLE 00:00:00 00:00:00 [place] 2022-04-08 2022-04-08 Travel [facility] [id number] [facility] 00:[facility]00 00:00:00 [facility] 2022-04-08 2022-04-08 Travel [facility] [id number] [facility] 00:[facility] 00:00:00 [facility] 2022-03-25 2022-03-25 Historical Suzanne, [facility] [id number] 00:[facility]00 00:00:00 Encounter [facility] 2021-05-27 2021-05-27 (TEL) STLMLC STLMLC [id number] Co mmon 00:00:00 00:00:00 [facility] 2021-03-18 2021-03-18 OFFICE STLMLC STLMLC [id number] Co mmon 00:00:00 00:00:00 VISIT [facility] - [facility] L[facility] [address] [facility] 2021-01-13 2021-01-13 OFFICE STLMLC STLMLC [id number] Co mmon 00:00:00 00:00:00 VISIT [facility] - [facility] [address] [facility] 2020-10-04 2020-10-04 (TEL) STLMLC STLMLC [id number] Co mmon 00:00:00 00:00:00 [facility] 2020-10-02 2020-10-02 OFFICE STLMLC STLMLC [id number] Co mmon 00:00:00 00:00:00 VISIT [facility] PT - [facility] L[facility] [address] [facility] 2020-06-25 2020-06-25 (TEL) STLMLC STLMLC [id number] Co mmon 00:00:00 00:00:00 [facility] 2020-01-17 2020-01-17 [facility] [id number] Common 16:40:00 16:40:[address] [facility] 2019-11-23 2019-11-23 Outpatient [facility] [id number] Common 13:20:00 13:20:[address] [facility] 2019-11-14 2019-11-14 Outpatient [facility] [id number] Common 09:32:00 09:32:[address] [facility] 2019-08-16 2019-08-16 Outpatient [facility] [id number] Common 10:03:00 10:03:[address] [facility] 2019-07-24 2019-07-24 Outpatient [facility] [id number] Common 11:45:00 11:45:[address] [facility] 2019-07-18 2019-07-18 Out[facility] [id number] Common 08:18:00 08:18:[address] [facility] 2019-07-13 2019-07-13 Outpatient [facility] [id number] Common 15:55:00 15:55:[address] [facility] 2019-04-04 2019-04-04 Out[facility] [id number] Common 14:55:00 14:55:[address] [facility] 2019-04-03 2019-04-03 Out[facility] [id number] Common 11:30:00 11:30:[address] [facility] 2019-03-28 2019-03-28 Outpatient [facility] [id number] Common 09:00:00 09:00:00 [facility] [address] [facility] Family [facility] Results Test Description Test Time Test Comments Results Result Comments Source Tissue Exam 2022-04-22 08:37:37 Test Item Value Reference Range Interpretation Comme nts Case Report (test code = 104) Surgical Pathology Report Case: [id number] Authorizing Provider: Dariel Palacios, Collected: 04/13/2022 01:10 PM Ordering Location: [facility] Received: 04/13/2022 01:25 PM SERVICES Pathologist: Delia Doshi MD Specimens: A) - Uterus w/Left Fallopian Tube, Ovary, & Cervix, LEFT FALLOPIAN TUBE AND OVARY - FOR FROZEN B) - RT Fallopian Tube & Ovary C) - Hernia Sac, Umbilical DIAGNOSIS (test code = 3220) h6jluACiKHFnq8kkJWRumWRgNbWbWaJlWwXdVh p cdWMxIHtccnRmMVxlcGljOTYwMlxhbnNpXHNwbH OpQ0YmcybrNZrwAX3gBX3pnJnfzXFewVYuMNFlO oXcd6yrr572bBJgm1niWYMTiqnvmUf2jPveB12p i7F9FvcfE9ltAGJeFXwvSSJkTSkayWRoMKznheU pBcO2OMjfOZZtOaC8NHFqtCBlDWQ6mYdgCRIfjk qqCrU5LAotHQHwbxizIUv6RCmjBMDbiIY2JZVkl DZvB9PvZPXxDK4yhun5SAA3FIlbDGKcGqI3BSOi eHOeEIYucAkoENcpv102SUB6XuNnUHGiuxUpfFe zrF9kNzWoNYmwQpNbB3baVyRgnURiQD0rRAGNLg TQQNTFDEPPYIxxUQywIwAkZ4fnHcGckOUwGOTXD ZZSRXqCV8XHFA6qBZSZZKHXSvVoM8IMSzjjWJoW D2QWJgPXCF5NSTNKMxDdWHIMRTMKMLlKFE9JSl6 UK0ROZ6ADR3NTTCz9AFTmvlusZpGjF3eyLvXybK MzoHLxUVYWVPXNGoClD89NXTDBOjDjjFCmZGJlN js1PPRhAEBADfSMOWwYZOAXEnNEOOOVSlqDPGdv GBHxrMIuNAJcWoUoQUNIEA5KTLLSNNOIUHSHJAz QWQBzcsa5JQOzhLAqCZ0jXFESJn1RSM6AGVVjqZ GhHYUqUlz3HLBeLLLSBKrALJpTWOJRKLocIJPum FBeDJLzLrNsMNOAKmNLSRKZLIZBVXIEWKKTXB6O ABTIBt3NFSkhPOVhRRHdZMSixLWwIVEPLeFIGBj djHUxIYBnXil1PSSoPJUYWvMOJNcOUAAIY8RJTM HAZXDAZ3cSR1uHVYVTKZ4UZBhiVQFhKBMbVRQmj OXeWT6JJUZZVmEeoCOhXCJgTsv5QDCkKTVTDCHI O9FQAATTAHAcjQQyBOQcIIBuDMUnCcYMZBbII3C COF0rCBDCZTnqZBFjagb0LDUxlQQcMW8bFu8gC8 gMWckEHZKXTmErNZXDRY5QE0zOWkPNQKBKB7Lbx LGsJBFlprZzV0VzFVRwG6WuIBAiJQJmfrPTEtTQ ADlAM3HPWK9jWCJOJYLZMrUpR5NLNykmHIHFN4b EAGUGHJzODZ0VQi6WM0QRE7SJI8TWZLo4IIZwtg x6EUUmF3SXTgv4KHUwujr2PWCicVAdNQ6zYCVGB MSDKMEGB8FDNiDGPSJOOF8ANLlcKBHvaZEoDVVA DVkUFFtZQgSPIGVSBzjfIGTwkWl8VaOeVrj0WkO kaKdtXqXpRLAqVPldmVIxpPT1UuFnBJ3UQJMAJ3 0RMpzPLX7XJYFJUFcNRR6EQTShZ6rSCwpFKNMaz ylrBPNgNTCbVUnguLYfrNJ4OQrmTNRfSv9dVAUU OsgKSJWMLasxBwTDZIrBPgtqDKXnhWNsRF9yLM3 MDH1RMhpBIezTAMTPSoVVCUPHVL6BURGZQHNCHV XzZHNREcUPI6CUEpQbQ5qHBBFGBURASXTjM5EHV CWaqm76PCQ4NkVhn9V8QZD8HLUrFZUak1fpLLEx zCOrQnHjIuSrTaHpExuytBBdKHQxEeUer7gae28 3lOVjb0dgSLEjKyI6bNRlLAVwlMWtZ728DCWpQW ozj0rvo8MzLMOxiAEie8T0IAMTllrdvHl2lBsjF 43ny1Y0IvhfD2nfEBRfWKYmJ5OnCO4dKGKvZmx7 TMP5GYQ2APMrTDZlT2DbEJ4hPGBzeYMpGIf6c7r dzFbaOZDhNIM9f2mmXFvrmmVbDS9ekb9qmHe4u1 ilidXuMTPfOMZzwLKFPQYpF4NsgDtrFv2spBt5y MnmXudpQKM4Wkq7YK7vue53xxg6cGobCIYffery BqC8QYhqUTImddnjFFu3YZihUEFbrAA4LXOxkTW bV0GvUUFcNN4nkhm7BSL5AGbmBVOiHmW7HAEyiW VhKQNoiSbiGAlji528UND8AkGhNA2jR7Sii5B2d Q7csOHsNRJjsMVcOrGdVICwxv4tpZLrWCwjv2Ac BJR8hmQ5dUQfrRQzQBGhAnB5ZVypZP7kat54BLD wJML7rb1koCQxnXfbndXceDOyTJaoF3NxDCZgt6 10ZWCoC4NxSITgn6I3fiKoQiAmNBExiVN1yoK1W ULnEK9vdvrlz3qkVZzzMFjlOQGnpaM2toY0VJPt rAIsN1RjmX7eAOMyBB0sihdrg7daTMA2NBjgVVC uVTX4YeRnSCDhz1Ypebq8NjVsx9QgjFAmCBkxR5 8gf684KGIvvoOqT5hekRMihixzeQFyosnaPTtex sF6VDJjFOvnldlcVUBoKJngC9fkAmQuHVKoaUto YYwhh4XhHDGcJAJeCsQfrDBsQTDtNwo8YULmdRB aBIFyPcGlW1ekztguZnLKQUQmi3ugJ5qilCSXwY RsV2DnDFocyaFvOTvpAYzzDVSpCGT9WR80XRhbH HBhcn19 CPT Code(s) (test code = 3357) w7jceBUzKDOrsHL3DbVcEPGbp7rex8IexATz cGF fMJrjbUYxmiBayo85jYL6fW39YH2hMPJiJmE9PH IvqyU9Fln7MOLfATTlhRZhW903o9hks5onloQiy MQ2dLkeNROdvezmPpF8JVdkUUJjbjlvIVk1DGhp RDWgsXQ6ZCPvmGPfD8LhMDPvQF3ugnu6INC9HNb xSXGbByT1FJThyCUbIABaiSeeSRlhw966JWI7Lc EkSCCfnrSzxGwgqC8aWbLuAUO4YDYhRVN7OKmnR ByjYhgktSV5ROn4MpN5OHfgVqS9OZRiNoZ3QRof YXJ9 SPECIMEN SOURCE (test code = 3377) p6eclCDdQJLdyRG1QuDiMCVcw1koi3Ci dHBncGF vBVresVGnicNwsr40bAA4mB33OY7gOTBmVdP7RE CebtR7Ynn6EBWuXRTtqXAwO634c9hzk4vypiRih UG5sWisGXLhgpyhLoN0TJulIBCvyujfEAk7SCqg RWSgxSB9GILfnDJcC7NbSTMvJJ2itzw0TYN9ZVr fIVPiNmK1XGHcjZMzGIOezXekWGivl263ZHR0Wl TwEVLageZjeHvggB6fUxYdWWXQQaIPbOHixIXnX NLalsXyoJxolAFlvKIwBMyku2AeIE7qwXUdYGFj hnJod2ByesnisIMxSLBmZSJxF5e9FWJvyQrqvRm terG4oUWxGAGaTIFhouWqxXchGSFxPn8jAM0xhR cfR8XhOSrnif9eYSDeFKHvdKTjwQ== GROSS DESCRIPTION (test code = p3ghgMZtMWPjeQU5YkRqPEAyq5jvs9WssMNe [facility] [id number]) jOFvukMVanbQtdo95cKJ4yU39ZA7hCWVcReA9WT DblkC0Gjx3GWTqQCBopCOsV988r1pgq6dsnxZjf UG3vFghVLAcuxjsOjF5PHrnNXRihftfXBa4RYir HVRweXA0WHUniPRvZ8YrQYPgWN1rtzp4CDK4HKq dHXAiKwO6GRPqwCBtMZIfqGydTAhxc737HVO8Ch BaJPOnbjG0YYprVQMaJ9KuU0OkFXcoRHU7GLRpI VJmDBOyJIKkEXXyXKpjoaD9n0iyLXYdeGNzTYE3 WLgrgIQkJNJvPVGgUAzqUzNBDhWaOkU6MtixEtg 4EzX8EPy6FGHAWnZtGxUlYxH0CZh9EDktLDk0YY e5CVeRCoX9NnycOHP6MzIcKLRzDWDuIUu0OIDjI JphaIVlZMIiIARsYZmkKYwaS80uiWjrwJ0uIaKb HPSEZxXQvMPttNPvex7MRPQ1IPCjmEzwcPerolE BcLBeMZSYfzJtlXleIxRNEAM4lSqoFQOrolzcqh ItRSFbL3OsfwWsTQArMPZgJGMtBLGjQFGgyAQkE PzdjUdnmVovBEPvhEwgaiKfmN2wj8YnSQKcq41j DyZ8DCG0zlA9dSGxFObbJvVkTcIoaE1dvDEaTJP 8XqGjBL5mUP77KAP4LbYpdoXql11dv8KiLTYnPo ZyBQG4CZJ5gzQuTBMzpWZjoifeVVO6ZUwxbQY3C aNrZ15vQI4fRNrkiYvijyC7IZPkIzBgKZvwJKR8 dGFjaGVkIGNlcnZpeCBtZWFzdXJlcyAzLjUgeCA lInXxoQUeSrXyA71vSWWIsWYuYSE3QECxIIFpSb VxuO0bwDAdVJA7PyHdbPYjb8YuNXSjEx11NNYzR JmhYIruyph3dVTbclZzSD41UCPlIPzrVGFaBA8i jGEoOHUtPRJ7aKMcKZJ0FYInWDQys7KyvfwohCB yu9TuMPZdEEK8SWEjjEC6JZUmIQUxVCZ1IBjjyX HrDYA1NPwqVXCrdFNnIISxUXEkjnAkiTFuuzVbt xkeRTRkhQChMA0wDDg0ytSnhTGiyr7alRPbkYJx ECIjPu3tTPTrjbpwzCCsDDD7lP3yamXyMlI2hZS vp0FwqxqfFVJgZMZpmtHkyEPodPStVWVzUKSxoy 13hNt8QINjdSVwx3LbKuQ6fVNqYAJqcyMqjqAab oWfAsA6PYqpc0xqQIpfF44fr1NzmNcetz4fFSwe XGIvhQjydHnchmZ6uNVfPAZziTJfpxFzbZ6wBH5 bqxitMexyOiAoKVItGRIxaKNhPOcbF5zgvPTnSH WgqAYzcsakJT02ONPqQJyjRHVsUY8fpBMfBYogU OijUE36fSSvYDQnLTszeeRqbZhxCRYYsJGgdNPu cnCuMOX9hPDbpuLciGpoTDMpJARzfjEirQi4uAj rEvAyIIDxFCJ4aJErCO85kZTdtRiyNTBgnb65sF w0RWVrd5M1gTKyd1y3xOD0nK6xtTYdRBN4uRGao BJxXDUrfowxkeGzI9evDeZoxq3bNDPfC08sxF4j HfDfrMCdgcNytJCkIHEfxj7kVCPjSFY1aRQhsME bqUKfCbb2ZJz8JFAbxM3ejnQ7MEYhVABrYZTzKA 2mKVIbtUEwBEFrrnr9wYQyPUSqlOQqrbotYg92J EztQPExyE5mTKJbZNBkphTvzBA8erdmgKL8cRfk l89gw5YdjgKzF8IyPTHqh00xVY1zEFPhGCFvCgT ctX8wGIUfIDAzXM2uIQDbaBEmAMFodDqdGZ8kNV X6aquqTkJoRAhpJN0cIUygFY64KOMaWTvmTRzcU E76pPJcZXPqNQCQNCMbRLZekkWiaYf1NNNmHUT7 bX2lgqWlelTmg2TfbTd0yOJiAGPoSOMkrOetl7W nFFDveubbfZ7aLWsdahMyo4PxIwmkhU7aEEPkcV T4UIZ8uIHlduCsGRB1tdEsK8Iwt5Rtl7OihtzoY MoahrRqLga2TVplVZ82UXBmo0Lst2FcWeWcBINf RlF2uMBpzGQlaqOkRyhakQ2xVHBxQQIkNsPVt3Y 9AKBeh7Yui5WsRyMrOVDnMyH6oJIroEIjEKZkfp gskX5fHLXhD8Nwm57lZ77zJSxhdCbhRHCME6KpW zHDDWBkHIRykdDprAg6LIJcMGR5mN0wLRHkx53g b8RfkytsVQHethGBZj9SXXP7GVCxDZr1rY3oMSl no4GunYcybfVpJxVkiVTrhfKiuC3grGZtNKTiVC 7EACM0DNlrZkAhOtRsiX1hiNBsQVL6QkHcWG20i DKdcCoiv9IesCi4lSAcCPmAGAFsIbeyXsPkPUre EH3uZI0bJTuuPiTpMjZaeZ9ebSByWZU0KgEkViu wwD4mSMCxOOzaOILtQBT4BsDgELL6r1IhOU73bI EatZpqz5GuxJu8cWAeAoemqA5hSIIgKf1BIlV3H NWqtLDoxD2wZIQjOK1owP6tZAXctVQwCDD8Bo1z jWPqUFYuayTwnkTfaYEjbx4hKTQ3uUPlpO3aOSQ zJOqrRgProN8xZMYqz95aHFubaIwnMQ96XMBpk6 PiN2Lsdua1XZzlWNIhZP6pKLSgZxrxZW9yp91su BDtmX3jf5z9tNDwrDOlF6xxTWCwn6m5nSjiQBU3 XcRFjTClEDBnh9AbXF0dVRPhKMwhrIJpSNZwYN0 WGlC4HJCvSM3mYBIkbXWnWAAcxYepKLVtfPtbOJ c8QLV6Qj5ibCYdZB9ulKgwQVCKLxT9IVImkMJge 6HvxGW2zFLxBTVnA2Pfp07xAdNibAOuwuJiCU26 ehLtHT7sLENeKC4xlQkrYFDPSgTlKIKkRaUUk5O 8JLWuc0NlGF6nx991u24ycBZpxH4sa3BzwZf3sW MnTIXsjThfAWa9EQKxb92tm1NiFTAlk7JlaY4if S7hNKIso9ExUZcerypkq8u2gOXfs5N3DVHun9Uk L1Nzsek5UKewFLKsTC3izAsoUTPYUnTrEAVgOkY MHWFmCTEmezDqlZn6VDHqZMA9aB2iGBBpl41anV ufiZU3oledySXol8A4fRGoDVfqcqGseNjjDJYCB dCroRfjTEzjrF8tp6byeYocx1XroHCwETkcRNHu pNXlNFaamH4lQkYja6rkhKg6NOielsA4EBKyzl2 5PRaxJEIwC5RtA4ArBGbzFCX0YCUnWvDvLWYxWI 4CSsWtQHK4KtJ6UNvdKIg2XEr3GX0WRbIcLCUbQ Au8EaPdWYIoJIo6UGcbJA7OXQCtFYUqARTxGdM5 NTExMSBcXHQgMiBcXGZsIFxcZiBBcmlhbCBcXG5 jfVxmczIwIEIuIFJUIEZhbGxvcGlhbiBUdWJlIC PdY9GnmmdcHEWbdjzjbpGnVCSiZ9RpjfCiVQMkO XQkLKWwlkAgiyDrRL6rTZUtcMy9TCAigt1pzeSp g00epJr5UKVma91xUR8jZCbuOtEmRZMiw5h6dZJ 2fLYvmWO5oEJgrCRuejCugn8mmMxsmnAaAbKjnM 4ieHQxZDF0ZaWwCIIlL5g0WxAetqTht03ua8SrM CBvZiBhbiBvdmFyeSBtZWFzdXJpbmcgMTIgeCAx XhI7ACIcWOEruYTvepRdb5JtF4tyndhhKpzwGMs pDONXpBWoWJX1fPAhuVLuHLfkVQMsUqAbyE7xnT FuPWG3AxGwmZRmm0EzoK2oMREmTLI4PYByMIWva K1wPLGgQOMueSLgxU4cquSfsqVdnrzgPCLmzUNy NJ7rOWSuBCPaeTNxvb9woLMwtDDsCMAnFOGmVGN etALzBZKnfG3pngI9NIWnLSXheM5mjW7rmXmfeh IceKE3GAnihVdwJ1B7rO20loDyBNRgjgqppLLle vOzK3Rjp7NjjMKyEVSiyXdxyPEzrSEcuMYkus0s DYQnbOUsMLXcSNQrITNqSKNuZbYil1KmyBMbMJR aOCI3vRezE2TngBBep2AbeF2iAQBsBEMmjMVjyy BtkIEuVFfuYO45oQRfYREpPLIYefZla0vlHMIdr jAdytKodtStTCCniUoszcdgZRufcyNfH4VeC7Hj VROkSCFjCNXaJhNcLPncSHDoqNmpmHcdnjR9bMR mONFjnTKqliCwnR6fBN1quqgsZutfWiEJQVCaIE XwvrOmcXq8TFUmOWU5pU7gowQvsgLyn7ZyaVj1o JOuGMNzZFLxqJabb3UjCOcisfGbNpOePzF0UBUq Z7w2OOFlbIbrbPygtaB4mEVoJIJhgRieHWl5JHZ 7Uv4aoPBcAHSsHpDfIwalNtBvPGooJZ5zAD5vOF OnvCduyMyyqcL7fJUjDK8fnGYgTWM1PDPwODajQ 1yqdXotDE53SMY1PZM7Jo4fiEXbRRUyexJdgcPv pmChFS53RTYprxSsq2YsyZbyovFuXHEaSX9yRBJ 8zE3hHQ2kDKAji7HvReqsJFKrhqChoIDyIRQknA CtlTB0TQQaWR74fKMwtJnhSTR2QQEhNBQgAWqhm EDyO0S4pQ0rXYrjMJAbnDXoIO9QJMsrzB5lw0kn gEqln2DwgHNuEDikPRRxjABxXAlhxY8pBoQpt6z zfZc8VZespiY9CXCgkg41ZTayKFWiY1TdJ4IhDA mpFYX3EXCaZpQxGVKrLC4GPqFeQQH1XtG9YHsaL Qx7LFu1OV7JSxJfNKSdSZu0ELO8JTQsFWi3NXiw UI7VLBHmHKEiRdToHJC5HCLbLCVdMSFfAjKcMEP jXRiqFaDStdaumQOwYZ1kdMywqnKmKHIiNHytuz 9lZDEVSLEtVOJpUgalnOIarL8ytEBxQTJjYwKzO wAiJVp1IVVqJfExm3ucHB7jJKwmKfPnMEAhb0h9 dYE3dMHykUF7dPGcbOCxhiXxaz2yvEkntgYwaLT yubxkvPCjEEOiLZskYBKimGFfu6PzEV3pSILldC ifP6DbLY4mNZHdQkCkIQXkdW9dWYJ0hYMleCKhj TQbc1ClzG8oZOHafDWgZQchGaRolEKpssIeDuM1 ZPGkiMYeUfNlZ76oSUPfTHCaqFYla3WbvFQ7zCM iVVHcR3Mhv45hEWDoOKYgyRRiyFK6FDUshD0pA5 Qsv1A4uQWzNDFhLCPzIIWECe1haDwiEIOJYGK8r J4aSXRvPMW8CPultjDuYsP8VRKivFYlo1UlnGR2 yTEbEAMjV6Qai32xTPUru45bmBMlR9UwLGEmRYL wAridyA6pUAPnKoOQORAbNIXluhTncXq8CELqIU B0hB7qZIEpq04vs79pmGudlpTpxOOuYS7osInxX ErbyT0bES8AJFgrXKHmV4IvW7GwntV9g5jrcAok i1UkqETiKZ8hsRLafF== INTRAOPERATIVE CONSULTATION (test code = k0blzDScLDYnx RB6OmZgTIXay9psi5AwiOIjxNW [id number]) fQXualJUhvlAqpb58jST9qJ16EM7qEGHfVgJ2JJ LfsyF4Nmc5ELBuEXRvxZJsF135w3cxh3blwlQmi PI4gIibDSGzjwlcEpV4YWitDUNepkhqDYx1JBvg FEXlmLY9MISemSQbC4MaIWXwMF7xbwj7BHL0CNf xMFSgWdN7RNNqsCMpKCUalCjmIZeaj887POK3Kr RpETJuskZ6EFywJOHhX7HkA1RbKVhaCZV5TEGcL UBmBGPgKBDqPKQlZTvlywC0j7iwKCWozBJhZUP0 WIwowOMjVHKbSZAyEYijNwCVWmLwKyZ6NsetVqx 2WgE2YVv2HFPWXsLeMsYsApW9CJn5SPzhOCf4OI b8RTgECcS3AiwgZBErSTXiIEYvQICoKRp0RYLnL IprkUHiKBBhDHSzGYonUQeqY56vuWnfhB6xZpZs PQQNJgMDpTTjnGCgtf4AINK4XMYwgBlouFenqfQ XlCNsHOTNfmUeyCzqWwAMJRS8xSfySMWiesxrgk IwIFVURVJVUyBXSVRIIENFUlZJWCwgTEVGVCBGQ IxCD4ZVGR0hFTFNKXIKQtDaN9FJMhheUUiLD2WG LgKZKY9MDTILEOWRHPPENBWHUcsLFU3MDUvOGhF QVC5BMQdzvVfdKYFrYcRLPAerOGRVRKGPVsZEAG 5CZCsZQTfUIZLVHLprOTCAHT1MPbcfiV8jUFgyk tLqTwVqu0B9BLEzUiqkSMSlSU4pgavlxqBavmD1 qnSYIjBnZvTry14iNPMhAg8lIXJwYHA0ZYO0HGM jHZ2ra0soaIkhh3RwdQUjKNwaLDBajEGfWLfgaN 9iDiXdb7yavDf9DJykstK6AFBugw44IXsmUHSdO 9DiG2LcYMupDYW6NBQtYiPcWMDfGC0XEgFkRBK2 UwP5SUurLWc1HQq4OV3EQoKdUXMkCXt7UdPjYFS vDRf8HKkkDX2OHSPhIUY4DPy0PrJ4OZXkIXLaXT HcBqOzXOMnFWjyVqWRvpmveZBqHH9xzOmikpMrP ZUkNZBRJWPgfVfcqFskrsFIhSXmYFCpI3Wtubyy UQAllmdcbvHwMGKBO8gREYUPWYeNTChSBePQPBS UAZGMZWCWVjUVADgaC5LZPScHV49oX73UST3QLX XLZ43JGbbzyN9uZV1FLu2ZWpJIKIOGRB1ERZjJT jSMQbbOEAKLHfOVY5OJKrCiB1nEPATWINYAD2rE DAYEP9UzXIhexgMfJb6aJlGAJhDZJDTFFeDNYm1 UIV1mcAilIAgsmA4hWWZpbP1kuSOrUOE7FTDqLd TCHBPeyP2jFG2ooN0nJ0OfWxDgBR1gDQLjKcjaA nTtSjOvdVShIdZdQSFPQqhqLZYwB0HfD2HsjmC5 z4dfrFwyl9WkaTIyMS6anPXwoS== MICROSCOPIC DESCRIPTION (test code = q0oezVYjUVWfyUK0IsImTWZlj5jkd3 [facility] [place] lRWtbaYWeahIcgf63vBT9sC64IU6uJCCfMdC9IW ZpzdU4Pmg6MSGnZLHojSCbO810s4psp9uteqQnq HM8wUhuLTPdcenpMwE8CBdaSBTwexdoRRm9BWad KPYmnMS1OBHdwSBtQ7ImZTPiMZ6lvmy0IVM9ZVg kFJQiDzL6SABlyFIbSGGghBkuOOgtk124JKZ7Iv StGKFizkOtpPkrcR8zMjDxCDZXSDD2PZChimZjr u3yKE4tkSNskO== [facility] [id number] 08:37:37 Test Item Value Reference Range Interpretation Comments Case Report (test code Surgical Pathology = 104) Report Case: [id number] Authorizing Provider: Dariel Palacios, Collected: 04/13/2022 01:10 PM Ordering Location: [facility] Received: 04/13/2022 01:25 PM SERVICES Pathologist: Delia Doshi MD Specimens: A) - Uterus w/Left Fallopian Tube, Ovary, & Cervix, LEFT FALLOPIAN TUBE AND OVARY - FOR FROZEN B) - RT Fallopian Tube & Ovary C) - Hernia Sac, Umbilical DIAGNOSIS (test code = [id number] 3220) FuZzEwMzNcZnRuYmpcdWMx IHtccnRmMVxlcGljOTYwMl rlsqMrVVComMAjW9Epckoe QJopKU6nCJ8cdKgrfNMohZ QdMYUfJvChg9smp278dGHg k9tfFEKVipmiqLk1jVnfQ7 0xt1O1QrvmS0bfZAWpNTjh ZWVuMFxibHVlMDtccmVkMj H5MSnnZNAxTnN4ZKXnmZLb QLP4gCtqOGStvsjjFeA7XO jiSPSznsjlCTk1TCuwHSNh lLZ6HXBmzRKpA1WaDKShGZ 5kgpp8NPY4AZihYPZvIyB8 NDBcaGVhZGVyeTcyMFxmb2 58MGY3OxNfYDFszfOtnHre lC7xYuWoGBibOaSjR2ubOi HyfITyEU7kZYQOEoFCBKUH DRBYSXdxCXdrAfUjL1tfGz BrbHLbPAKPKLLLUMqXM9WZ EG6cFPUAQQACZbHsG5BWDi uwETqKK8AADtHALC9KXKBF JxJlBZNOPLBBRRiMJY4FVt 5JI6MHR3FNA2FZDXy7GYYy btazAxOaR9mfQrVzfISnlC FxIJZPPUKGBeMeA84CPMDH UmKncRWsWZDwTvf9PMGcEW BJTkFDVElWRSBFTkRPTUVU UklVTVxwYXJcdGFiXHRhYi EkBYTSAD5DNCXSKASGOVWN JWyOPIZpxxg4GVImcMOaRY 6oKTIPDn1YHQ9XEEWikXTi KTVxYxn6TJWgHPXXPTaEPR lPTUFUQVxwYXJcdGFiXHRh YiAtIFVOUkVNQVJLQUJMRS YGVAGTKQ5KHYVTPi7JCXdf YXIgICAgICBcdGFiIENFUl ESHZbhzLLrYLHhIhb6LTYj NAGEMiDVFWxVJUQCT5NIBK EHKSHMS0jAM1yMYPIZNL1R RVxwYXIgICAgICBcdGFiIE 5TVWDOFlJjzLVmCACgMff6 JGVmKRRQNMTXI5VRCZAFYF FccGFyICAgICAgXHRhYiBG NKhUY3CSTY7iWHQKQYreVD Ejghd0ISGxmIGeJV5eEf3n A3pACwmSGQAKSeTmSOJYHR 9LW8oCUaAQKBQKX4FquXXx MQBukgLlP4MsJSCgA4RuTP PgUCGwsfGUHuNJYEbDW4XC RF6jAQIAXRDVGsTiB0ILDl mcGJRIK2lZPLGEDNmQDL7N Ld4FY8UNY2WXB5HJQBa2CQ Lggii9LYRxL3MSCai9HRUu ptu2DQGgpPZrMG7hWVTWQZ RIDMNTM4HOTiYNMNLDHB8B QVxwYXJcdGFiIEZBTExPUE lBTiBUVUJFOlxwYXJcbGk3 NnMfKgd3QgFghHluDhObAW NqQLsfjVSnnFM6DvLcDM2R QAHRJ91IUeoJWN5JOUCOIO aHWK2YQNHoM5iJOoeSUCGs clxwYXJkXGNmMFxjaGNicG L4MKrjLGJrHi6oGLOVSvhU IFNBQywgUkVQQUlSOlxwYX IeaLLsWV3bQU4RPU0NQtgH EksKLTZWRoEBZQUANR4RAW VVRHLBMDQkLQIUEjLKI8ZK NkSzU7zRNABFGCXDBBFmL9 MWHTSgpi70JIC3TxLdv4E4 CXS6KHNxMHTfn0jeWWNbaE FuZzEwMzNcZnRuYmpcdWMx ZJGeGjTqv5jea714kQCxk9 koLKVcKgA6oLIcAKItyRJv O969DBGhGBand9mrt5MqAZ PvrNUuq7Y1FHXHtjwanGf8 zTqiU05nf8C4BpgeV8rmHC FlLRPfW4VjMO5gULJsWel9 AMK8LKT2PQJdUBCdO3IjNS 0sAVOghKLcOUz5b1emzThi YOJuTJF1o6tjKPxqtbTpOQ 8wrb0ffQe4i2cterKoWJGw OVGcdJHYEWHvD0NcdTwkTl 4cbWt6kGmcUhslPSS0Hit8 TO9nra73lhi3cWmrHSXxgn qbHdQ0DZouEUIloimdWSm9 KHzrNKZafKJ2SWWjjWWaG4 UsYUJfBP9oqvo6ERE3XMrq HJQnCeG8VZFedPPtFGMvcT bfHJdpy633TGJ3EwBvBI2y M4Ivz6J2hC8ijJIjHZVmjG ZdHeWhTINmlr1iyBLeXAeq f4HwPBN8zrU0qFOazULeQW RnElW5HDpnIR0bib47UNVg YBY7hg2fkGIqaQvvkvPddE WgSVuuP7IeQZOeq958JBYb K1ViYRCof1K4rkFrRgVwDI VboHL1qlX0UOXoBR1zplge a8frDLriAXatWETzlaW8on R2WZUifRKlU7UhmG4dHDMp KB5bbitci7fjASE9FFyxXL RwHQQ1VsImQFHxt1Rndfu0 QvXdf0QhjOEzQAouU97ro4 07NCUoeaFnI6olzRPumwti hAZosrgvAGpqtiH1LPHlOS gybxefRUGoVYbsV1vdLaKx CAHlmIfiNNrlx8IuMCSqSF CxRyNgmBCwKAFhDeh5FQOg nZMuSFCjWdYtC3nzbpplTn RFNOFqt9zfC0ypnXSZjFWa Z8AlYDbrdlSgTKnkILelXP EnIKT9QN33EUieHLTklm20 CPT Code(s) (test code j9ltcQDbNTVceGM8EcIyTQ = 3357) Lvw6ybv6HkpOEndSFzTUpy zOVvslKkxs05fZS5yB85SW 4yIKOlTjK2HCTqghU6Xok0 YIVaRQAfuQJtP632v9cgq3 xnbhNgsTD4aJnyFHTpfovq AzD2FEtbBEHvzrurOBf5QW egJZOdpTA8YEAdzHOjR7Ly TNQqUA4pzys7HDX9JJszUS BiFcJ5TUGpwTZtBPRigIyf VLysn017UHP2LwQyKKBpdq FhcOsgqZ7cSoVyGWE9VFFv WMS6RQniVCzdCwdzqGN5HY s8PkV6OEhqCeA5QRNcCpT0 MVxwYXJ9 SPECIMEN SOURCE (test b5fhkYEnJXCpzGV6SsBqSM code = 3377) Apg0hor9WlyEBeoNEcKUfr kOJkenRnpb50zLK6gH86VI 4oFKZlJlU0QMTspcS6Kyk0 HVWaJYBnnTRbK895y0mxj2 ubfhAlmHX8gSwdRSIpojds QmK8YOfbEIFesgdiGLb9HK ptSYDdhXC3PSFibXUzP7Vj NCVtUD9qpxm6STZ1PJtcGO XaUjJ4BTSczTSzVBBpsBhh KScge880JPF1YrDtRFXytb IatYuygS5iTyKbMGVKYcVJ dGVydXMsIGNlcnZpeCwgbG DvkUEaBArqz5UkAT8suGUq UBYrdnRlk8FbntjpfESsWO JvWXPkE0v8HFKxvVmzeXfm ljY8uVBqDTPeHTCrydVcgM upAHDaTm0pYU7qyJykF6Mu WFszjz9mKBRaVCHsrCEeyF == GROSS DESCRIPTION (test q7qihSRyRRXgwJT0EfEcKD code = [phone]) Lxn7lyh3VygMRwfAJnLOij hWUvwuQuwt22aHQ6uS03EC 1pENOzOlG8TBWvhuG1Vmr5 JKSmPHCioLLdV470r0jnt7 xswjYpnLA6bWcwKRJtyyle OwG7SGcxQXTdmeokVAk9AP erUYVblVS2BVLxrXXsD4Yt XSTgTS4enwh8JSA2DZdwNC LuAtB4TIRiaIWkOVFwvImw OLdfq622HXY6XzDcFDMugi V8UDtgUCTxP2FvD2TyNFgt GVS1ZQOgEKXsTNYiUCXjFV KhBFsujyN9j8thEMYqkBCm GFN0LNqbbAQaKUMdBOTfZO taJwJFHwEcGmC0JibuIvu7 AjX1GAb5XWMVKqIfRzQgKe T4LVx1IMxkBVx9WBq7XHhK RyA6UvihRXW2BkPrVLFqMC OnQSj0UGSbCPcpdPXzXWHx TELlDBgxIFdlD30ysExibD 5cZnMyMCBBLiBVdGVydXMg tf1UEXR2TNKixIdlmQsgwl BUdWJlLCBPdmFyeSwgJiBD VAQ1zGrbPJIdxjbqyxTzNR MpA7RuasEbFROwTRGyMRHu ZCBsYWJlbGVkIHdpdGggdG jmBBNwvAejsdSngK5us2Mm HIFyj52aXlM5CVP0fmC1wK UnJZboIcCzNmIuzZ7jwLFw WKJ5LePdIX1eKK41MLH1Dj GzcoIjt60ui6WrZENxIaHu FHK5EDG9ucJvTRPtoMEgyw hmUZE7PEjqlKN9LuOsF10j MV1tIRrhrOtmcfQ1PVXzYz TbIEmuNLZ5dGAzwEJlSWLx cnZpeCBtZWFzdXJlcyAzLj TraZZlDfLtnMShPoRtJ95m JEBYrQYfDZU7KKNdJXDkEy TqhJ1ymMQdCES6ZiHjpBAl b4YzCVTqVr06YPUeGBytTQ idvpx2jAKeldYnNW73JNOi KMlbNRKzHG3lzBNcUGAjBS J9jXMpZCQ4SZNlNBTih3Ps rezvyMOpa4FdWRUkVTA7IU UctXM8XOKwJHRnTAY0BZwx rKLbCLZ2WFxhVVXxkCKdNN RoZSBvdmFyeSBpcyBpbmtl HGHiyNXaWN8gPCe7enVyhJ Dxtv5vzIBdqNKaDZSzAe7i OTDrmzgzpOPgELB2tQ8knq KtDnH2pSNbo4EtxhdrEQCc ZSBvdmFyeSBhcHBlYXJzIH Zlti81vLe9VKJolTCfy7Tp OhY1vJOaMTPmwrGuotYaom MkQbE0ICzub3gwJWftL14c v2RswWskzg5iQEhtGIJyvX jdrVjyvhG2fOPeVLOczCGy dwUgfH9gSQ9tciqaRckgAw BpWTBfTXVxpGZrIIvoQ1yh dIHoIXItrOKvdzbnUG43SP YxCFphPGLiKT9wxKCqSShf KKcqZX42nQGlKJPsJAzpem VcbGluZSBUaGUgdXRlcnVz MPZ7bOHsfsVapKafAPUkHS MnnkYmwWj2fVheEgLiGVBn DYJ3mGUxWY52nSLgyEvoFU Iajk57lJb5SVVjn6O9mFMc q7e8qRP6kU5wvDMfHHZ9nW IfzMCmPGKkdkqrtsApU7mt BmUhvm1cNCQkQ97xfG4oYp LnhNXvqpJnsHPiPFWyfn1v EDVoRQC1aUBfwFKocEKwSb c5TPv2BMNwuL6cwoV3CXEc JIEdDHApDL0iJFJszHMiIG Ohegg1iVGoQXBtqGSzfuqi Pr93XSioFSXrqV3zRKFeSJ IwpaCqjEF9sycgnSV7qDqe y40vj8DkbdHbR5LgWTJgw6 6dTC5uVOFvBYPzNeAqiJ7w FJCrMKZwDA5hFLQoqRBwTO OrhWiaGO0tYIX4ejniOpCb IWezCO7eOPjrKD02FPZjEC zgIIcmJA24vQRoSBKpIIAE OIKsJYClisRulMg7VQLzPA K6zA7ymrIwphFun1UnmDb9 wUDmXOVeUYVmiQbsx0IgPJ DzlfyytS9sHBelegZef6Ca BbowpQ2aHBRemEF9YQB9hR FacnUzPRC2bbNfS1Xfy3Bm j0KygbwlMWyesuOhKkg7BZ evFO73VNLqd5Vwo5SaTmHw LYVgZhZ1uOGwgPDuzcHaGy hdrE7zAINlRPKtBrLOz1K7 DFRqo5Knm5TuMiHfIFPjJm E1aWMgpTFdKGCbzyccoS5p LFJvM9Fqh31tH15mLAmvfL lxNRLMW9VrHrCWXEEkVACf nkCknZz1VPEjGYO2oI4oHR Oib17nz2FwybmtATQtolSB Ba8ROIU3KEIhOSa4mL3qHQ vrn4AblDwaaqJmKwWfcWHe vqKzuZ2aaHApUVKrKP7TNL B7CGuqGcJvFzEocR2ysUDt JOC2CcRtYS79fQZavWrzi1 CesRw3hHKvJWxSJASsXitp ClNiDAcmJR8rKN5dZXfsKv TkNoKuoJ0ssMCuIOX6OrEl OgvwpF8vXJZeAGyzGVFuWO T3SgVbUAZ8g1PzWE58kFAt zUvnv4QzrIc4dQDtJlcdaF 4rUHNlEu7EYwT9UQDfySSd kK2yOKCjGO5soG7hREJcwD IrMFF4Tk8deAUzIEOmlbJn esYppRCxpk9mPBD8fOIoyG 7fFDQxZSmtIfKxzJ7aIBHl i60vIPniuYdiIL81YJPpp1 TeU5Txuep1PNnoJSTuFC6y KMWoCnvqJY6ib76xlTZfiS 1hw1x0cYUhaNUhP5mnOIWr c2h2lQzhZJA7BhOGtSXwOG Gra4ZcDT3cTYZiQGotsWVw GFMsHC3ZPgS2RXNrFR1yFJ RyaWFsIHBvbHlwIGVudGly OIf7TRN9Gz2wmNGmBV5yuF viAKFFQnU2ETZnyOUjm5Eu uBJ8hCJvPAPmM1Qus73kTa OuxCZobcMdTQ63xfUfDR0t MYLkEA2dxCmyATFNNbJeBK UaDyKOu8P5FEBlu1IkGU9g r585s17nlVQnaZ7ih8YdbS a7fMQrCTGojNjnLRd7HYFf k74in3EoYIKsj0AjwL9sqR 6xQHPuy7IyEWgejqbuw6a8 jXGxm4H8EVJsp7CoK7Uoql n1QLfaCTEjAV9kcSqaMIVZ MzEtQTMyOiBSZXByZXNlbn HemCt4TZRoVAO2rG0cBTKa e52hsTjrbPI6sartbFAeu9 I4pSQbTAjghhAnkEbrXXBD OeBnfNadMEedfH9en5mzaM lhm3CplOZgNQytXUEkjVTe IXcoqZ0xMbEzz1opkRd1UK gjrqS3WGLddh55JXchVIAb Y0MuB9DeSBpyORQ1GUYyVw KfGJHmVF3EGkDwSAM2YeD1 AOomCRv3ULi4MY4SLySoVM UqRHv7ZpXkXAPhTBz8AEzd ZQ4YRAZpLKOjAOBvVrL1QJ ExMSBcXHQgMiBcXGZsIFxc OhOBybdpuMWzOR3nsLamjm IwIEIuIFJUIEZhbGxvcGlh jsOJpLExVNLnP1JtkybeID FiboddbeCfEDIiU6IchdPi IGZyZXNoIGZvciBpbnRyYW 2wXZIgeAm8XTXhar8zhsBf b29paYm0ARVym68eJD4dGF bzFyUiDVSgk0c0tZU4wLWf wTI8uSKefNLaoqJinm7ibD wmfvBwEoVlhW0kcDPkWPW7 HyJpCCDrR9f1DmPjtpRyn7 8jh6RaZJIcRpHyasDbclOk eSBtZWFzdXJpbmcgMTIgeC JbCxY5DFHeQSLsvKVqfpHu k6OwC3zvqgtxZkfpSKqcFV OLuJIcSVW0nIVbvQLlKCcx KLDqMcBswQ4swDXuBVH4Jd PfrEZqv7ElwG6lDVXbEHW9 WERrCFVmaV0vUHLlIALzxB JzfP7hfgSsoqAcpvfsPBFf fFXeIS6vZKSuUQAeeAEuci 5hbCBzdXJmYWNlIGFuZCBv pWYwUOVhbF6pivJ8CXDiFS XefD4gaB6inBdklaHdpKQ0 PMeozJzzV9E5mL39avSiNC RrrliatGDdygAjH1Mqy6Hq eSBpZGVudGlmaWFibGUgaG Jyop3uDSJzlFCcGRLqPTTr SSPoRXDlNvXpc1BhkHNbRO OoNVA7lTskH6ErkLYqc4Rx bQ2xHKWoEDUvtZOgowJiwU OxNEilYO45aHPyIQVyLZDS kjScz2jhHXZaimEvzlFtff BwYXBpbGxhcnkgZXhjcmVz F9QtA4HoABZuGQIjUMYaHm AgVGhlIGZhbGxvcGlhbiB0 hFYcZJZmwDJskmXklX6pWN 1hcmthYmxlLiBSZXByZXNl vsGjyQm2GZCgUUT8gA0xdg IiesDwi3MtrPe8xKUkPVQl YPGklArkc9IjURlylsQnHl RlGkN3JLPyS8l7YHLlhHlh cCmsvsL2hCVgNPBfdQryUX e7PBP3My6saGDiSBXmHmMo JhsgExCmLJqbRP5tGD2yRO HmnRyzxEcadnA0yOLrXW0w zCYtDLO6HSQuCHufA3eyzM hgLY81ANG9SEI8If5wdCBg GURymrRtyzZgtbKnQX36JP VzspZci3GaqBrakaYdGUSt CG8uDQL7fW6nHI8jZFNya7 NpYmxlIGNhcnRpbGFnZSBz gUSrrRJ7VHInHR83pRHnsW qmJFY9JNBbPAKzZMarhMPe S7N5eH3tMNnzDWEynBAtGA 0AVJwptB7ef2vvgNklq1Kj dGVuZFxwYXJccGFyZFxzbC 6vEzGlm2dmzUf6KYtbebL1 NJSeha06OAvsXSFfO2MjL2 YlFCdqSLF9HKOmDuOwEZEu OS6YVjKzVQB2QuA1ACudRD w0PFr4LY8FWdCkADNeSPh3 MJO9HYSiENs5VLolPS6SBD YlXCIzDoKsSGG8FNMaYIFc XHQgMiBcXGZsIFxcZiBBcm tvcPDlVO1hdBmfxmEkNITs QUxxma6kQXICCARaMNLyTk kurSYloL0kaFNqYRNnRsCb WkSdULc0XNQpCkBqk9ezCX 4uKIblQrZaBACqa7c9fVD0 mLXctTC1lPHngJIavuDmgd 1hdGlvbiAiaGVybmlhbCBz IGBbQRlkYEWqfBNdx7HdZG 1mOXScqTxmK6WtEA1rJSDq ZzGgGACdyL5jSWA8mFWbdQ InaKIyh2GuhB5sQAYxdMQu UWhiLlIyzLPetaTuOxC3EH YbaDOdCiNaB36oBLLiQMCi kKZvs3GhfHH9zXOgSMCgV3 Qok85dKTUgYFPumFAasHG5 PDEkgV0fD6Ecy3A4dFXqIN GjSFJpVECTGc6gaKbhKCRK KBE8dS4nVBTeNFS7WHrmvb DgOtY2BTTqeQVyf8JdiYN8 tMViRDQlN2Xfy87iCDUdl6 7pyJSbV5LeRBBaBCAzLygc oM5zFKMvAqMTHHRzCHShhu CgkPo9BJInQES0dZ9rSDVx s44ah26xcOcwtgGicJEuDL 6asLpwVLtpjQ3cFL0GZNgi EGZpL8YjE8EcqfN0r0gtpW oif5AybSDeJR7jfUZemZ== INTRAOPERATIVE t5phdZQaUSOrmMM0IpFpGY CONSULTATION (test code Cig4yoz9XrzKGsoPNiRMhk = [id number]) kSYccnNdlz40tPH8hU94FQ 6mKVRnRxA3XLGzfvM4Fay4 TYXrZNJavKFxC201y9afm9 dkagDgrKN9mNmgKMXfefsm EdU0GXihFYVyraouWZh3NJ gtVCZgsDH4TOHbwQVnS4He BJTyCP8lton1RTY4YBxpYY QfYhP0WQWnvCEqIIGfrYqo SZkxz554YFJ3RuJmCBTubd M3QZbhZZEiJ8TmH1QaVMhj ASH0JQJsENKwKMHsIFTlQW FqGXrxraP7y6hkWVKxxVJs XDT7RPlcmWSoRAQbGRTuKD lvXzCVJcXwEeK5EduhUxu2 YrU9NVj2CUDZPgFxCvRyPd C5MBq7PHxvVEe0UFx2APlU BoK2LpigZKXeIVMjTHAjKC VeDTo2HAUqNKvgoPBvTWPq TEFkHAynELttP76rfZovtV 5cZnMyMCBBLiBVdGVydXMg uz4NVKV1GLHinDqqoHbwbf BUdWJlLCBPdmFyeSwgJiBD MEP2aDxwILEbpbtcocTaTX VURVJVUyBXSVRIIENFUlZJ GZtfNFJZMCWTRAlQU1HGNZ 5uBTLJMIPSVtKaM0BRShma IAnGT4CKMbOAIC5ZJSPTWE WUGWDXGVXSNueDSZ5YDNoL LdXLPB6OBVmueSroRISyUi XVJFsgLXNWYWTBLaIJZL6Q UElORExFIENFTEwgTEVTSU 2JCaffgP4cCSjsnuKoYmJv u6T4ARJxGwznUKTeJK9vae rxuaBdokP6spHLEwFjNxRd b81sSFMsZr5mAOSwKVO2MO Y1AQFdEG0yt9idaRdln6Fd dGVuZFxwYXJccGFyZFxzbC 0sUpGkm7rdiBw0SFdjqdN2 XERpxr09JJetLDKqS5IiW1 HyNWteAVQ1EOEiAjDcPNZq XD5WIaCeMQU7IuZ0YYbhXS e8OPn4IL2UUxNrMQFhSRo9 AyTuQBKmDTl5MLndQJ2NHB ObIMY1IFs0XgC0ZFYbLZEc XHQgMiBcXGZsIFxcZiBBcm lteYLgNS0qeWcldmHyRINr IFJUIEZhbGxvcGlhbiBUdW WeFMLxD6YlzyswKUJkiuaq vnBoDTVOA4sOTNRHCTmRTN lBTiBUVUJFIEFORCBPVkFS CQzfX4NUFHsVE17wK06FHB 5VLKLOF44RXffgrK6gBH8L Yx4FYbRXHWXKJR0BZHpEVa ECMttXIRZLUbYBU3UXNuJz O7tEXLGOQHGJF5mBHUIMA1 KxQOuvfbEtVw2cRpTFTyFM ORTXPeDFIy4BYV4gpHkfYV mqgO8xNIXffV9skEGdEDK8 IDAzEaTZLQYhqQ5cPM5hrX 5xK3QsGoSvCY7uNLZtKhwp MjAyMiBhdCAxOjQwIFBNLn yuVGBcP2DyA2LhppP5n8uh bKwhr2GnzLMlLC2fwFHmgI == MICROSCOPIC DESCRIPTION c2oicAMhPAVqbBM2KdOqOC (test code = 3371) Ipp1rww8CnxOLiwQZqAUsh tCBeciSiky48lNQ9cV61ZC 9tEIDcRwS7TJDxdeE1Iwv8 KBRwOTZmgBLhZ739j8cce8 uwlnVuyKR8hTvxOGEgdfiu MdC1JMytXNNbslidODx4AU avPUPnrZY9DTDjwPRxX2Hj SUYlJM7mhvf4SYC3IUvqYL WjTmT4FKRnwXWmHWNuvJhw SPruy467SCM5PjYoMRTxzz FchWfyeH1fFkPiBBDLUQA8 SFRrxtBbbq3eRM4gsNXxpJ == [facility] [id number] 08:37:37 Test Item Value Reference Range Interpretation Comments Case Report (test code Surgical Pathology = 104) Report Case: [id number] Authorizing Provider: Dariel Ahsan Suzanne, Collected: 04/13/2022 01:10 PM Ordering Location: [facility] Received: 04/13/2022 01:25 PM SERVICES Pathologist: Delia Doshi MD Specimens: A) - Uterus w/Left Fallopian Tube, Ovary, & Cervix, LEFT FALLOPIAN TUBE AND OVARY - FOR FROZEN B) - RT Fallopian Tube & Ovary C) - Hernia Sac, Umbilical DIAGNOSIS (test code = [id number] 3220) FuZzEwMzNcZnRuYmpcdWMx IHtccnRmMVxlcGljOTYwMl fjwqPoCOSaqRJgZ3Ehbytp UEdwNQ5vZG9lzZlrrTFctF SxCHVtNxOqf1zez777oYHc i7doOMQCkbyozTf5dTjuA0 5td0T7CzabM4qaBSWaWTkh ZWVuMFxibHVlMDtccmVkMj K7XBxjBFOvXqE8YRHudHXm UZX8oUyhOTHijrzxRcW7LV uyYGPfxresOSw5ZOtwWNZp nIU3SNBzbJRfY6OjXVCvOI 1imul7DJB7UAdtMSEzNmH0 NDBcaGVhZGVyeTcyMFxmb2 48GOC3TdJhCWOjeuJztIkv mF8tPsCgAAioOaJaX8pfFl UktGXjTX9iRZMCGaVLUYVA KZBKVQphMJklHeYaI8teLa WehLZcOTOPYKXOUNiHR3GI OT5fJAQJBRYLLaZlY2PHHl ptSIeXL5PIDwNDPL2MQWQH RcDoWPFKKKCJDTjBDM2POh 2QK2NKG7VPS1BLRJo9NNMx mmmhAsGiR3qvSoVpwIJidE QoFIGPCYSBLcVqY71MHNSK RySblDQzUYJhCpw6RSHdQX BJTkFDVElWRSBFTkRPTUVU UklVTVxwYXJcdGFiXHRhYi OrYFNLXS0TSZMZPKQTWXNP QVaMGVQiehr0AEAsuXLfDS 3gKKBQXu3TKV5SCVYwoFYg IXAuRva3ZKGhZKYLAObTQB lPTUFUQVxwYXJcdGFiXHRh YiAtIFVOUkVNQVJLQUJMRS AZKJNDHP2HCTAMCh5SYHrq YXIgICAgICBcdGFiIENFUl EPGZeluBUjFVRtXwf1KAVd VPRDNgDWWQoTRZELB2ELOD HSMNODC7rOM4lAZRSOXJ5K RVxwYXIgICAgICBcdGFiIE 6ZHMOPRuCrhZUwESAmFwt1 QVWpOHIMPUOKX9MELETKEU FccGFyICAgICAgXHRhYiBG GVmVJ0ZRPK3gOPZBZQraRG Aknbs7ODLhdKCcJP7qHt2d K0cPYvtZSAWDMrIxJJECPF 4MW2yIUqMCDGISK8MxcYQu KICytnLzC9OzQIOhN8WsTN ThLPJscfTPWeXQVTnUD1JJ BM2bNFJJMPQDGsDqV4WXKg ywKSHMN8wWLEKQVPvRJR3U Mp3TM6EUP1DOK2LRCDe8UP Fspor7FKBnG2KORqi3CDPx onm1UYEntUPtZD7tWGCKHT TGUSIJZ0ESUnWPDOKWBH2G QVxwYXJcdGFiIEZBTExPUE lBTiBUVUJFOlxwYXJcbGk3 EuFxSqw7PkPnrXofBsLwFC IpCSqtgOMvaZD9ZsScJK2S IRKDJ33DFszFNN5ZIKYFTU nVNK1CUPRgO7bMHucYHOIr clxwYXJkXGNmMFxjaGNicG E6HYdeNZWiBm5gMSRUEphU IFNBQywgUkVQQUlSOlxwYX NazGOlAT3gRA6RZC2QLzsM VieGRTZPXpYBXJJWKJ3BZR TIZQCIOEIuPFFQVcMRL0UW TeEtR3aRGIUUWGMZSVFhM0 YORDXmko15FNX0NjTtn5K1 VRL5GWBmXMWvo2aoNXDxzY FuZzEwMzNcZnRuYmpcdWMx XNUeFiNzo3xbx665fZRvs5 nlYJHlUtR1nQMaZCRxlJBy Y261YUVwPMetz7xsm2BsYC UjoLMbg8B1NGCFxqeruPh6 cZcvL38qw1J1ZqzrE7iaBM ZdOYVbR9ItCI5pHAEzLyt1 FXP3OFP3HAGqNARiA8WpUN 8eBZGfdDKnHDo1e1kpoEss YNMvFVQ6a2wtQGdddyTeOX 8tle3puAk2f3vfdoVvXIUt AZIvsVOUDGIrF0TkkDeoGf 1uoNy7hJtvYybqLWG5Att8 SL0ikt61tzz6sUviKZBnpe hrVvZ8ZBdaPBYicseuAIm7 CHqvFKHvxIG7HPOxeBGaH4 GbGEVkDF3gzrn1QWJ1RTpn QDIwNqT5KUGrvONmBWJmuC mdZVsll798SGA7JrTyVA7k G2Ohm1K4jT7mlLFaJLQtmT LbXuDlNNMgjq2sjCPkDJac x9FmNQZ2abU8qZXraLKeLC ZiRiJ3UZdtHP8wig75NFZg JMP9nv3acCLqzZrzqnQbkL OgRDmgB8EqLSJqz052PKGm H1UoOMDpz1Z9wfZwVoJyHF YjaSL4xuO7ZESoEL7gcyps n2tsPHlvOUeoYCUxrqI3oq F3TAMfsSXuT2PneH7zBTCo YU6rpgiud9skTID7OMigGY TrACI8QjQhDKMpv4Pdwbb8 IjMqn4VthXXxPCkgW48rm0 30IOCvudGiA7pudIIfkjvs mMHonczfRZclsaZ6QDSpEJ ucjfgmENZiFNvfU0mjIaQc JXLjvAchWNyzr5VcPLRyLE OvRiXysIGiIKZkJsp4QWVs nLOqSEAkMwZqU5oqyiyuLm SNDOVit8rzG1mpjCUFaXYk R2LqDZvpsqZvBFtzWEdeJD UbDFW5JR76GZyxSWYvhr31 CPT Code(s) (test code m0wudUQiLRKtsCX1ZvRrVI = 3357) Mcv0pvj2SigNLbsWMsPYej bPAycqQptf10nCR6vI55WC 3dEIMaLxH1VJTdehH3Nxh1 YWJcRILpzFDbK827l8mwr6 fufoYfeWR1dQxaUYSapqvc SiV3XCtxZUBwbhruZAk4NU jgRKNeoGQ5TAPanSNzM2Ch NCAwAB3lxab1UIG1SIncXD DfNdP2RJNegJJbPJLrbOfo SMsrz146VHX7RfCeCBFtis GhuJlleE3tDjIuGRP4UIGe THT5YSmeKYbnKvxbdEM9BC a9XkH7MUxzQlP4YGMiZpR0 MVxwYXJ9 SPECIMEN SOURCE (test c0uqeIGbXYTneUJ0EgRqEC code = 3377) Wfb7dne0SobBPpmRBgHLeu rCZybcCzxk21kNC4oC69LP 1aTVVpOtT1PKXwukF9Axx0 ISBqRULtzSWlX005m2asy6 xcopPrgBP6gWquRNKtvcan WzK7DOlaJJDjbmgoVYr3NY esZIGcgNV2MNFjzYNwX2Qo IIEaFA5vzwa1XJU1EQsvCJ IiKgW4HXTdfSYnAYOszHud VBfsg779RNI7ZnTuPTGgpr TyxDcktC3gNmWfSOQDCuVH dGVydXMsIGNlcnZpeCwgbG JuhIJqQZddy7XbIL5rmAFi XGSjskVcu5DuuyifyPOpXF FuEMUcS5b7SBNqnWvduOsj hoM4nVCgVNFbPKUakjGdmW lnSSDhSf1iGT1buGjvC1Gn TCjzto0fMXTpLUQygTOmhI == GROSS DESCRIPTION (test i0tanODeKYImgUY4YfNqCX code = [id number]) Pup4nfe9HzpQXsfSQeBMhp vWUtsfHrvo59qQT9tX85HS 1xPAWrBiO1TMNsdpD5Brv1 FIQyOMLiyMZrS168l7pfd2 zzjhZwkBK9qFzfYFRbyopp OuE4OQlaZOGcychcVUw2LF doCQZwhIY6IGWqaARxK5Uu THJhZD2rxlv0SXB9TGrcIS TyObL9ZQJldCFqHGUhwXrg XBbzm694FIK3HcYtAIBngh W0ZIndCNTiY8DdB6PiJPno KZI8BRPmZNGqVQYaWCXnVW HfYEancxN6d9pnXPVlnUQk AOL1GPserLArXNChBBQbKU wkRaSJSuHjJlM6FvtvExg1 ZaI8WQb7RAQHJkBcFoLkOj K7AVf7DPstTOl2FDc4BOyD BtP2FphySBC5VwVeRRHxYZ GdUNn9GCVbRNmykLDyCPSh QMMmLDesMVkaO16bfFmcjV 5cZnMyMCBBLiBVdGVydXMg lw9ZHAO5DSIgfUenzZymlx BUdWJlLCBPdmFyeSwgJiBD ZFL7aNjqUYWmpgvbpoVzLV GaT0OqroRnCWYzVNLsVRMa ZCBsYWJlbGVkIHdpdGggdG jjCRHojLcvhbOdfC9ly4Qy DKMww55wSzW3KNB4hqN4oC NsPZxyIjLnBvMosV9yxKEz TJK6DaRnXP8qNX07UFG9Rt HfcdQhe63cp0TaVWIkXiCu WCL9NXI2npMvTBIogABvzk zlRHH7HIaexNW5EnCbX65t ON3wPGotnQxhbrL6UKKiGr KxWWtiECP8bIEijOYrVBKy cnZpeCBtZWFzdXJlcyAzLj KbcAUxLcPrmGKgZnHxZ46h LGHGuHUmIWB3PXPvPBKbTj XecV8rfLFnAXU3SgNxeLNn k3TgWFPlLj60KWBcSYxgEP xsaac5iBDiacWoJE26HZOt QGseFVPtMR5owEQbWXMaZJ I4sLCsYTP7UKYzCUIvd4Mw lzpovGOom6IbUKLkIYR9LF ZroSE9HIQoAYHpZTN1BMyc zCBoAWX4MEkaOPQwzARxTP RoZSBvdmFyeSBpcyBpbmtl CIPapFAgGU7iLNz7snMzyP Ljpp9koXLalOWiHBSoIx3j WFJjdruahEBkXUB7yF0wgg ZfGpW2vPMvi3YwleciEBEw ZSBvdmFyeSBhcHBlYXJzIH Hzwv41mMg2RKBtbRLfb8Ek ClT0pGZiHULppbGgwhUgny BiWcO3SWuqn8toYMflB60y g7UrzAyitw8yVQlbJCXjdU xmrMrupcI3tDGsBWCmyOQt frGnrY2nRN5zpsycWqicUw HxTRZfWCSgzBYgMHzyZ8zk dDBiDOWeyGSfvqbjYX83FP JwLKnxKMDnPU5llSCyOGma STmzVZ50aMRwGAWsAMqrlj VcbGluZSBUaGUgdXRlcnVz YXQ2tFSdocRzpSpsAOSpAS KhuuVhsHb0wTaqEqXlYDMe YMX3bLCdIY25fPPblDcgGV Uvnp55cLc3CFZnh5O9lCZv e3p4oHG6gS8aeZCiBXM5aM AdvADjXMAqosrxxfUrA2iy IaJzda8cHLFoZ58peJ1gGt IxvDImsnXpjSHyQTCfoc4g QCDrRMN3zQYglIRabCWmFk n9IZe0HXXbjU6bnnA2MYIp QGCsEYLgBC7eVKSmkKLpRM Wiyib9qVAiGEJjtWAkuamh Yf32JFzhTBPbxU9zKDSbNX EzrkLyxWS6bgnhjIJ8rNop v62ub9OiktVcO4GmHCHwo3 2bGB1cACRyCFJuAyOciS1w MWHhOCGkHR8oWPIcgGGkPC GdtBohDE3aFDR0qfnuUxPl WXesNO0yPJubCL13FZKhBX lcRPqqWE61mLYjQTCgHVJO IZIsLOOhvoEnaQo4QPFtNG I5kM6bgeVkauSfd9KxeUr3 gHDcWCSuQKOqxCiya2MiGO RllttwdS1gFPrxsnAny0Gj NwttqH6lXLLboSA9RCI7oJ VjjtShKVQ8rdJxK6Jwb1Wf g1CwvogvRXugyrGvAsa5HR ypRA18COIjz9Bsq2YzXxOv YGYeLmS7qSPwdQReirQkXb trlU2kWEStAQPbYvWIb6Y4 CPYqv7Hqn8LaSwNzLYVdMe S6dZLksNIiGKFenvdhyK3k BLXsA2Pup59tR62uLTgedJ anHWOWJ8EhHhAXBHJlUSKc gyBluFj7SLArUSO2lB8sBL Uoy51te7DxhbeyAFEgerNN Bt1BGXN0FFAfROg9jM4zTT bqv0YcuVtudbUcBjVykPSi cwEgrL8euVGqPCQoLG9FKG U3PNohYqRlUoCpgA0wvKDx FAL2HmZqMH84iMSsdNvxs2 DwtYu1dIXmUEjLKHPpSjed ChDgIQhyDK7eRP3uHGlsHv RcFqIumR3lpSTeZAD2LfXa FxqhbR2wLWGvNPefYZUvXH G0JlYfLJD3r4HeNX85cGFu oZveg6QkdZo7kEZwEuircC 1xCZRdOy7ULaT1ZMKuaTJq mO4lTUAyUU5lwD4ySMQybR HwYXP4Br0fvBYwLLJcdwWr cjHseWWqtk5vZCC8dHEneO 7wFTVhJXvmEtDqjC8kAGEf o86jAGahrVplDU46CMZhe2 JfE7Nbwls4NZbjDJWmCG7n CCJrXmpeDM2rc25zdGKmbP 1bu5r2lVZmiJTcQ3owCCXz e2t1xBlaTOE3UgCOuPKcHR Dwr1UqMX2fQRKvPNwxnWMo BGXtIB4NFxU5YZTtTL6dNI RyaWFsIHBvbHlwIGVudGly NBr8LNP1Xy2ocYQtCX1wqC ryARUMKoX7ASIdhEUjl7Fu mDG7mQFaXDSyV7Nsg11cMz BpxEOchvZlMP44xnXhRX5y TIExMF7ejAcpQMOUBiMkSK FuHnTAj8C2PFFyy3FfQX8g m943e79lhTNzqO9nb2GztQ p1wJCrVNSufDbqKYr1QYDu i02qy4XpLPQkl8IweW1rdF 6mQXDuu2BwNWocllchf2f5 lLBzn1Q4UVEzk1IiD6Ugwt p5AQpqYWGcDZ9zuCmfTWKF MzEtQTMyOiBSZXByZXNlbn WqvZz9IZTlTSY2fH5jSKNd c31oyTkihPD8cesvxLHbi6 Q3cSLhMPldsmMxzVhnFLTK OmIvwVufEDqjkS8zt9hzlN clz0LgyEOoZLhiUZJyhLZs CPhktE2eHrJew5pkhOp7YI elhqL1CVHfkp29MBmfNVQe K0CrS5UjKObcUOC3IRXqLu StCOWhDF6VPaQfFPD0PxY0 THlzHQu4KVe1HR0TMbPmQC NxOQv5GyAhBAGvNNr7DJxu VQ5AUJIxOTMjVWCnFtI0XY ExMSBcXHQgMiBcXGZsIFxc DqEAadjwbSSdSO5yxQugeo IwIEIuIFJUIEZhbGxvcGlh vaYQjNKcSZBvZ4RvdvflCU BlchlahxBxSOVlI2BjmqJt IGZyZXNoIGZvciBpbnRyYW 5dSMIdzWi7KPUtkq5zknJt s49lbCk9DWLoz40tBE3nSH umCkKfWDDmz7c8tIL9zHCa wWG5wHJefHOjrlJafz5sdX izlxKrCyHwmL8kvNIqITY3 JwCmCXDeR4u5IbIinsQwf4 9dv6MoPAHuBdCoulZoyqHm eSBtZWFzdXJpbmcgMTIgeC IbScS9KBStTMHvkHOgyiGl c5OkX0svopfuNkhwOHdlFO CKaWCpLMS4qVHxlUMnXMon JWIgOeOwiP3tiXWgMIU1Nu GidGFfv6YfnE9oAJAyRBX1 WBDcBKInuA4tVVXpGCDadM NaxH1qkuMomsCreewnOTQe dJPnRM0qNIRsOMNslCWhgb 5hbCBzdXJmYWNlIGFuZCBv mYEhCBNxnP3dtlV3GMOxXN YcnP8vuM1qqVwvqfLrjHO2 KWdmfQnsU9D2bE97vgDoAL HluxpzeTHthmDxR8Dpc4Og eSBpZGVudGlmaWFibGUgaG Bfed9lALSeuZRyJUGhXYTw NNRhXPDxFtRvk3CxdAYvLD YsGTN3hCvfL6TfiCDro5Cc uE8bZGUhNHCnkASmwvEyjJ TrDIbfWE55eOBeNYBgOMAZ bwMeq2vaBDYktqWrjaHngz BwYXBpbGxhcnkgZXhjcmVz G9EwB0AdPFIzCEPuCUEzEk AgVGhlIGZhbGxvcGlhbiB0 nOVdBGGusJKgujXqhM2sXU 1hcmthYmxlLiBSZXByZXNl urQdiDq7PFBvLCE8fZ9bhr UlajSph6CnnBx9zUImHMXs SWZkfAkhm2QzAIscdpItXy WxUoJ3DMZcV9u4FAHspLeg yWdlijB7eHHdBZGxcZcvFT b2VUM1Vj7neVRpYGIeDrGf AkibNdMdMGycGF9dCV5iKT QpcStelQeoqgQ0dEBrBC5v mEQeEXB7UHIyLWqyT9xmvV skWC70HRK5PDB9Fk3etMFe SRLybnUudwLshbMzPU58KC IfjuKlh7KtbRvkrhPkHRAo PN7dDHZ8yN7oME6hIYOrl9 NpYmxlIGNhcnRpbGFnZSBz xSHcwUK2WGEvGW37iOKzyR lvKSF8JULaERGsLGbdpKNu F9Z2nC4oPOjqLHRfqDVsBL 4CBWgbiC7oz2umuOyiv9Ns dGVuZFxwYXJccGFyZFxzbC 0mInEws9pltPl8IXfzfjM1 CDGdce17FImyFQIrJ5UyR9 RpZQykGDD1NXIaZjCnIWSw TC9PCfIrSXE3XpF8LIsaBG o2UEd2QS6WErXvVHIsKLc3 JQA5BVLbMGs0QCshJM4XHD NmOCRkKuGcEXO9CHZqRJYe XHQgMiBcXGZsIFxcZiBBcm wxtARfVO5ilNhcegOkKICo XUnrjz1iOUMJARSrSNLiOr vjcSDrfE2xiNGeHDVaXyEh AvAzLFl5ICJfGoTin6gfPU 2yWQgiGfIvVGJji4b9tHE5 oJRycEM2tSJafTSnreIphe 1hdGlvbiAiaGVybmlhbCBz FAPnAFwgJDHoaHUan7MfMN 6yLBHmdTkxN2AyHD2qPDPs AjCiIGKswL5gKRZ5nDDqwK ZwoEMqm9TudQ3jURSqsQIm TUyeTtPsbFMzfdFjXoJ0IN FhiCEjVpDjN34lLOGuOABa rCMlg6FcmWQ6oKMyXCOqN4 Kse41aOQXrADWmoGQngRH1 QTZygE0cE1Vyd3L9bVYkAZ HwKAJjBYIRQj1yoFogMENL RED5hQ6wFIMhTBO7AHjlcc KqPlH9CNVdvIQao8VadHQ7 wZKvYZZgC0Lnl44xVKFbk5 2xdQSwY4PiQRHzPBZpYttp mE2tAAGbBkJWCSJqCIUvfj ZkqXz7ETArTKW9sA6qHBJf k05ly21kkQueqkKrlFTkNA 4lzOwcKVwjdM1jVC4OKRmy OHBcY9EdU5UfhbR0k8tvyE ygd3XbpGFoFC1osXYkfT== INTRAOPERATIVE o0gmoQJaABYxoVO5RaSaZC CONSULTATION (test code Jdd5swt7SgxTJydNYuDCka = [id number]) yBSuhiNcdz17pDX6iS11NH 3gFMYlDiN1BZCvxhL4Tmi8 RVDeOFSidMBjO504q2bze8 udtsStmML4qVsjAWGbrncg VdY2QWnnYQQjsnqkHUc0GK rfLWOdeOC5QSBopINoP4Pn GLCfGV3fwko7MLS8IVvkNT PbLnZ2WXHceSQvWJWdnNrl WCmuk692CWT6VzHhMNQsec N9HUzmCLVkV8YhW2BkZVzu XSI3YPMtFXSgESYcCFJiUU RkHEiwfhA8w3wfXOFukZLy EFN7QYhlhMCvLRSvGGSgXN asQdFVDcCpRpV1QnyqFbt9 MwG1ZJa0IHZTUhLvWeEfGn V7CRi0YVgpVIv6CUb5ABwW WwF6EeymLPWkGTUmFLJoWQ YuFLx8WKGeXSyflLKxALCz PIOwZLvkVTmbW95nmQuobL 5cZnMyMCBBLiBVdGVydXMg oo9XMUW7WWGsjWkisPpyar BUdWJlLCBPdmFyeSwgJiBD PAE8qPcnZCKpxlenxhXwNJ VURVJVUyBXSVRIIENFUlZJ NFhqLJXWLNYOVLaJV1DBHJ 4tKLBSYYBEZpDlF7DADqfc VEkQA4OUPfDTBN2XXWGJIT CAKGJGTZRARarSWH6EWRuM VdWSIW6GVImmhZneOTCpRw XHQFpvACNWTMQTEmMJHS7F UElORExFIENFTEwgTEVTSU 3IFlupvE7qEZwdxyEdIiRt z8D5BRKjSuxkGJPvDD3uij rmxmZmtqR1xpETWxVcOeMw e26yKGSmCd7nFEUjSVO0FL G7AYAmBC3xk4gkbBjyd2Kk dGVuZFxwYXJccGFyZFxzbC 9zElKhl2kbiBr4ZKvrbuM8 KELlpe41COndDZGzP6LzQ8 QdWEunSWS5YLIxYkTvDUYh AO7VEdBwOQD5EmU2NNfvIU m2TRp1JZ5DTvFtGMQeUZh5 SgHvJKJcSHd0WLrpCU9YSL KaZSP3DJe8KeX4UPPaDDEr XHQgMiBcXGZsIFxcZiBBcm fauSTxNH0kzBxydbDqESJb IFJUIEZhbGxvcGlhbiBUdW FpDGGbL7NuxpxnNKYjwysr ypKoDPWMM7wSRIGKJRtECE lBTiBUVUJFIEFORCBPVkFS RWarM8QGIGeWK52fR91XCO 6FJZOEO87VZytocE7pIP4J Lm5EJrGMHKHLBV8DEMvOQu TNFyvGFROOZmCEO1MIMlOo I1fOOLPMIPLQO3yLFGTHV5 MgGFewrgYfAc0rUkASOaYC IFKPPuQRDl7ZGT6jkImxLF xifT4kLUFyyC8zyXOrHDZ6 FKPwHbDNCYMpcW4eCD2hmY 5rS9NfPwAhLO5mYYTeIwfn MjAyMiBhdCAxOjQwIFBNLn dnWOXmJ0VzJ4XbvpT6c0ez yUoey2LtlKSaZN6rpZEagI == MICROSCOPIC DESCRIPTION f6pajYZyBDKftJD0XhBaGT (test code = 3371) Lcs0muh7UxyDPcpWBuNMkh sWWestOooz23uEQ5dW16EV 4vGZKjFaK3FZUvepP3Nda0 PTInOYRypPAxC202e3mgz7 uqqxVhzIL5dEmbGSRkinpc LmB1AQmsKEDnvysjXXx6IH baUTExxWE8NTEkhKPlR8Et TZYvNO1qoat6DAL4JZbaUC XvZxA5RKObmOHzLAUbhSkw KGpwy758EXG8ZpRfXPIlao GirGobhD6fNuXpYKROEXC7 AROezvEmph6bUC1xqCDntU == [id number] 08:37:37 Test Item Value Reference Range Interpretation Comments Case Report (test code Surgical Pathology = 104) Report Case: [id number] Authorizing Provider: Dariel Palacios, Collected: 04/13/2022 01:10 PM Ordering Location: [facility] Received: 04/13/2022 01:25 PM SERVICES Pathologist: Delia Doshi MD Specimens: A) - Uterus w/Left Fallopian Tube, Ovary, & Cervix, LEFT FALLOPIAN TUBE AND OVARY - FOR FROZEN B) - RT Fallopian Tube & Ovary C) - Hernia Sac, Umbilical DIAGNOSIS (test code = b3qmgCJdAVMkw4wiQSOacK 3220) FuZzEwMzNcZnRuYmpcdWMx IHtccnRmMVxlcGljOTYwMl qkjoQzZPFlrSXpZ6Myhxfg TPflGK5oTQ1ckLsvsMFfaV QbBCXfFfErt2ksz699rHYn h7jhKWGJaxevuGt8xPunM4 0pv0A7XuqsR3jdQXQwPEby ZWVuMFxibHVlMDtccmVkMj T5DPtrDDJfEqC7APZekZCl OLF1eUsfZYOxxzwjJvC7US oiWNZotdngTXl9HGuxCSBr nNY6ZYCdhOWvH0XaBZZfFE 0zsdn4HOB5ZLsfVRYxDoB2 NDBcaGVhZGVyeTcyMFxmb2 70BGA6ZbOuSXFrijHouDjs nK0qMoXbDZvoOeWiW3tvGh MdzMNiMP7rVVDOIsWPXNVB SXCZVUqzBTgxEwUvZ3zxQr DdeVCnSICIGUEDIMjEP6XO BM7kJMDDESIONfJhT7QBJg dyXArXO9RBVqSKMN5SFQIA ElQuZYTOZPNULHnLAI1JBe 2OS2GOQ3IMM6DXCRb9MMJq suyrRaPhD9zzCcVmnVKevT RlWWNKBBNXRlHhK21GKZVH BkRzlCZhSEGdLil6OTCpGM BJTkFDVElWRSBFTkRPTUVU UklVTVxwYXJcdGFiXHRhYi SpFRSVQH4TGGXSURJQQTUH MJiTCWCxssy6ZFOwmHYeAG 5tNXWTJq1OUU7OALQqhGZl SYRcVlq5WDGuDGDNMXfSKW lPTUFUQVxwYXJcdGFiXHRh YiAtIFVOUkVNQVJLQUJMRS PJUGSRIG6OINLVTd2MIIgg YXIgICAgICBcdGFiIENFUl HCDKwlhOUiGNGkQjh8QYNu FBIHMsHAYQwGCXBWH4JSOF ULDBVMM2oVW0mTIDYZDD0J RVxwYXIgICAgICBcdGFiIE 0GVKDLJpBnyQIlCJBuEho0 BABxQSOSEOWLJ9TIYWAIUA FccGFyICAgICAgXHRhYiBG SEgXG3AVGF6oEAEPVWecFR Xkuen0OVFabTNlYN5qPf2a P1hXQuaATQZCTpYcZNHGDX 8KN1tHPpGGVSKCK6BcjNFm CJDlqpIrT1EwBEWmF1LpTC QaSAYgjlKZWmLEUEtKZ2GE JO2rRSRHPQAFRiWbJ0UZRz icURTPY7kHWLENGQwJIX1D Fc9QK2RTU0QMC5FMJPe8NK Deyem5SAWrM9EYRsb4NUWq mrk3EIWliSMlGN0rFPCJJZ NGTFRGX6BINbYWLDWBTN3H QVxwYXJcdGFiIEZBTExPUE lBTiBUVUJFOlxwYXJcbGk3 VxOnWyi2XgYjxRvkQnMaWV RdLUhhjEPgfHD2MrOpSL9E WAUPE46BHifUBG9WYTFBAB nTSQ8ZDERxB0nNDwfHTPFz clxwYXJkXGNmMFxjaGNicG V3OMrqGKFxUl7aNNZAEczJ IFNBQywgUkVQQUlSOlxwYX TlkCMfAV9rXJ2HBJ8IUwcX ZstWEEYLIrCGHZCEVD4EGC SWMOLTIJGlNRKBTeOCG9JJ YhByI4oFPIJMJBNTVVXcB0 CCNFYbtj18MPL3PqLib9E0 ISF2TIJhVLKji7feSMGjzN FuZzEwMzNcZnRuYmpcdWMx YNEaSnMwt7lee193sKFek3 jdGOFqXyG8mMIgTJSsjIEs J130BHVxCSrzk0vuk3IaLT WmiCYma7C5GSDFcsxtqHf4 jWvyO18bf3Z4PehhH5tkQA MjFIPaD9YlTG3wBAVmSjw7 EKH6JMC3TSRbUFScE4XzUP 5yCAOejOCsIPq7b7luyNdx DMAqASV1m0pyGZitxgVzUR 3ulb3udWr6l5jkzfLeDFDy MSXdxLXFLARiS5RurKpuTk 4xkZg5fGupGcxoNHZ0Zna4 OO9ivo67dvu6hAifCZCzlg nvEsV5YYrbKOXqgjvjFGp6 MRkfUGEfwLT6CKWzwVNpV1 DoJDNgLM3lnic4YFC5YJtr FMYyArG0PNLpgWJtTQBhoB yePQccv817RGG8AwYvOL5c V0Igp1I6dF0btEDgBMJhaS WeRgQmOKXnjm7zdVAtBFlj l3LyCIB6lbD7sUFuqDHuUC TxEeJ7QTixKK5dkp05SQHy XLM1fy8aqREdoCvsevRmzW QmSLnvP4ClTUQwt366FPUd J3KsVBIcf9G4qxKkOyTpYA WxdHU2aeO3UUJkKT5apxfb s7alLEgcJAhrDSHbwuN3jb U6OACzjQZcA3AzsA4vQOEg RW7fdohfe4daJBL8XGmxYM HeENS9YnNnNXDrl7Tcorj9 JtNqz5OgpIPxTXnjH10zu6 30EHMthuUiX9vynPRczvmc wEBfbofnNEshjmC2AVKmNW mwqrbaOEQdQLupB8ofUcAf XMEopWhsIEojf0ZnYATsCX GyVaDdiEJuIFTiPjd3LVNs lZQyVUXuKeFjJ6pwrhzvRl USTCBip3ynR4fmoHDHfRPa D5XhRMzrcwCkHBpsCMmfMP JjLWO7GT70FJvqUBCncw42 CPT Code(s) (test code w3grlHEfPCRnnIR8ZqPgUX = 3352) Ahq6sdj8IyaWUazYTuRIyl jYFtytTvjn18vLQ0gQ39HM 0mABDhGkW6KZDbarO5Lvf7 DHMoPVOxsVWcK769e8dea6 vbedAhdCS8fSvkJRViehhf BbH0XUalZYTelodiCCm8VV cuLYVqsPB3JQJdmCWtF8Ho YWQqPF4fwzx3XXS8JWcsGY JlWwW9QAGhjYZrYDPnxWzj YZwza890PFH7XoHmUIIenh AlzEbpgA9oTcEmQGR8RTQt JXG9XApnJDayVdxrsRQ2ZL x7McG6NZppHcM8CTXiMkI7 MVxwYXJ9 SPECIMEN SOURCE (test l3mdfJBjRHGgeOI6JpPyAN code = 3377) Ata5szg8PqwYWopKUeMTnb bCSmnfEcnv97aXN7rI98AF 9zPZTgYhQ6BQOklzS2Oie0 RPOqNLRddAMqT270m5xii0 mphbViyKN4uLdfZAThvvpp TfQ7TStrZSEieksvBQt0DU eaZDNrgGP3DUMluXCeL4Ut YRGhHQ3xcqt5LYH0GNadNX CqMoZ3UHYoeXGoSIEklQyy WUpse359TGU2OeUtPZYhke VtkBljsM5aSmCwVMGFZnQT dGVydXMsIGNlcnZpeCwgbG EmtJTeHVhgw4GdAC4wwNZm NKJeorCxz1WxvnrxpBYsRO DsNCOmX1x0GVEidOrplBfn znN7nOQiRLCgYDZlweNewE whLGSjOb5bMS2byQppT4Ed LFcuqg3nTXFoDROngCJvjB == GROSS DESCRIPTION (test p1bgwZRwSPMttMI7QvTiUD code = [id number]) Tgk5pzk5BhzZKdnXVnYGwq eUGcnmOqzy61iGJ9hS29KY 6bHFCzZkD5OUZwprO1Hca8 GWQaVSFuwJKqC734l2sor3 qmlaRxeNX9lObiCYJssidm YyE6GVysQLPjqrwaXKa6ND tdRVQkbRT4TVDnoDSyT2Vy TZSxXY8bokx6ECP3QKnvBA OcLiJ4BFVfpOFaDGRjpNei MPglc956XOM6OcWnTPRbtd Y9FAlpWDUnL9FpJ3VpMWzn ENJ1CSHpQWOaLSNoZNYsJO YkWPhtuzA4i6pjBGOiqFIu AZW2WTfsnKUfOFOwUVGpVE ykPjKSWrXmLcH4SiqiAms3 OpD8POk0KDEEPqQcDaKyZf T2BHm3RRjgBSr8JEm3GNuE MnL5UszmRMU1VxPoIRDxFI IyYEk8GWDvAAxlhYRrUOKc JVThLPpeABjhG40hoYaysU 5cZnMyMCBBLiBVdGVydXMg xk1GKXM5MWWxiQjsqThmzz BUdWJlLCBPdmFyeSwgJiBD SWL0eNatOHFgsycfydLtRZ WfC3VoniQfXLLdGPYpITEz ZCBsYWJlbGVkIHdpdGggdG peDIZkcLclpbFrxM7ij0Pg WPKdz06lPqG1HCQ4wsX0rK HkJKlfGhVnAlPwrS6gxCLg XNQ1KuTqTJ0zXU34BBS9Ys YavwIzy63gu2HsXILtBrAm HML3EDR4xaFpOPXtnOHurc dmJQC7UUuoxYR8UsNsW56x TG5rNNvtxWsfatW6ZVFiYo XlYLllVTQ9qNRjtXRlLHJw cnZpeCBtZWFzdXJlcyAzLj OxmAHvAdNtcKTiHaAmL53h PXGJeXAjFNG6SFHkNQTcUl JnkZ7kmGTmOMT7HmXxzUIs e6AsTAEyGl03XEDxRDskJT ebsdu6wKKojzLyAR11YIPx HNtjHIDxPR3cuREaZTLjQD D9nPYtPHO5ACNgZPDqa8Tv vyydgQXdd9TaICKlLEU0OM RwrHV2PMLuAHExVUD5ZUxg aPBlTVF8EDsuVGMpzBKaQM RoZSBvdmFyeSBpcyBpbmtl ZUZxiUUrZW7vFSr0uaNzzL Mjuc5hzRQdoXQeACChQp0o SFKvxccjkKJzRYN2gS9lzo FyArY3lQNvg8IqvjcoEQEo ZSBvdmFyeSBhcHBlYXJzIH Rgwh54cWr1PUGzpFPtz3Mx EmH6rYPyNKVajmMsupPiqv SlKoS3NCdsm7nnJXowD97f s0ZlhBwfxj3iXOzhQUTisQ gmrEwqxhG7gOUtXAQhwKXc gwXcwP3vEJ6skklpCeipPb WpCYYgGKJtqGHuGNznH9dn bEHyRMSmwBUbmwjqDA16HB AvBCcyHSXdWM5pzJVxLEts OXilRQ75jADtBYLsKTjxii VcbGluZSBUaGUgdXRlcnVz TFC9xLFteaStzFosTNTqWJ XsomVonLq0eXuiJwZuVTJo PFI1lFFyOV24xKVroXthKI Qvjk50qFx1KBSlj1M1yUAe x6i8aTL3mB5zuYSyNPW1nW KujAVgRLKnardwehGzY9cb PjBsim0jUOXbH84ejA6cSo HgrGYfrxVgoSFjGEEarx3b SJEmXST9iVDkzFKcdNVvGq p3XPu2AXRvzE2gpvG8BUQh PSRqRVRyCA4xRROqtMEcRB Sivxv6yOLvJOGxvVSaclmf Ai48GInxRDZrwB1aXDWxLA ZbvhUacAG2jaqulAU1iPqc y14in5RplrWaS4JiQOZve6 7jPM6pYMVzCWUbUvTayO4s HAFkLVGbUS6mKYUcxEYdPO NvwSbbYD3bNOX1hujiHuUm TFstYK1hAAthOS46HWWdTQ sbZIeaMJ55kWNfKCLuESWY WRXyGIQpxaCwvSi6VLGsWZ X5bY1hvwIushWrm5FlqUl9 gPUyJZJsVZEmgYzbh3DpNI SgivohsT7dFYlztjYhn5Tb PzsxkB9sSNZdySO1HBR7dG NrqaWoIMM0qcIfY8Oso9Xe p1JhfppxJDixomMxScu7OP xxRQ22VDPcg7Wyi7CkPkCe FJXjEyI5eICwuWLkmoIuYb sfsU3cWTYnVPSeIgZAx5S3 XJFjl1Gcu7LtZgFoQSLdXk Z5pDIstMViVBWbeowoaS1n UTNzW0Iwf93tC12uOOkmzO yeNXYFX0MwEpJJRVIqOXSy noGxqIw5SAMpHEZ0yT0sRN Hkn53oi0OjcqwbEVAdqgJT Sb4MKFA3BWLiDVw9yD0vOJ vwp3KlyFqjdeGyDvApfRNv vtEryI6ozSYrRMOvYU6LZG L7NWdvJoYtQhUshH6ppNDj LFL9PhIlXN87lXVqaHhsh4 VddTx0aHMrVTdAKJArCnmh BeFxKMvvVQ1oRG2gLHmkAu RbOcUkvH4dcSYxITN9GtNm UptjpD8pQARwIQdqILRbLZ H2HcAtVMW1j8WpKP23zKFe yLizp1ZozDn4gRLcDdnhkV 5uWMVaRd4PXvN2UUVhyCRv yF7jMOWyON6zfZ9bFVEqwA DiWHA2Dv9dyGMwDKChvePx grEjkZNlmb4cQPV0gTWlqX 1eDGUpTVxpQcRyuA6jRKHl o38xBKjbgMimTG67LQQwk4 CxX1Ubxnm4FGqyJZKuCQ7k JZNfPibnMW4gp44srWWbqQ 9hn6t1yLQgyPOeI0bdSVDb e5y4oEjkLNV0DoEThXKgQV Cgi2WxKZ0yVJAbYAvjdXKb HZLkRD5VVhE3EIWcZH9nHJ RyaWFsIHBvbHlwIGVudGly WFx4MMQ8Nn9lvBOqXC2wjW avWVLDUpC3PPJkfXAlh0Jq mPD8tOAiATIpG8Nyj89hYt DekGQejjIjUJ93ubCyRM7k GHTyEQ5sqYeyNYCXPlAxKG MsKgRGi6O7DYQmy3QyGX3t a481h73mzYMqaK9gk2LuwJ w4uZOkHZHrgWrsZHr1UJVk r89yx1RdNPLok6LlsY2ubM 6fFHKhk1KfIOrkfmsxz3t0 iTHnf9Q7NBXsh1DbZ5Rhur t7OJacVGRlBG5atXrcKEOX MzEtQTMyOiBSZXByZXNlbn HcoWs1ZJDjKTD1vL4oAJDn y12vhLprfUZ5lfcqkPBcp7 O1fAXuRRlctoJdvXzgUHVR EyAzlZefJKnfkN5pu7kkhR rgs8VpmTIuUAihNBMsaVZm VClufX4kUqKks0ccsAe8NV fmhcU7PLRnsy93FNdbUPNw Z9NkK3MmKYvrUJI0MBWiTn WoDXMxJR3CElLcZZC6OxT2 HOpaAYh6FDd8OV1DYnQjSG XbKLc7AyCoZIHfYCq9WVcb ZH6CQUDnCRMlXGJmLnU9GY ExMSBcXHQgMiBcXGZsIFxc BuBSgkxcsNKvIN1hqObqoc IwIEIuIFJUIEZhbGxvcGlh iwJVwUEeISYvJ2FfogviXO LeyofmruTbVRCaA6DnuqJy IGZyZXNoIGZvciBpbnRyYW 2vPNRrjUq8KSXyca3arfTy o49rsXn6JHAub15hRN1dWY ydArKgKKAdr8c4zRV9dQGf uFS9mOVwpGTkofSxgp4eqI jpdxUuGxAonS9yyKHhTHW0 IwQtHHSzX4t7RdNirqMyp5 2kl4StWBZgJiIdoyWqtmZm eSBtZWFzdXJpbmcgMTIgeC LrKhI3KOOhTGHnkMIhfhPn r4JjP0tmxidmCzfzMRhaHK WAhSRuIAE5eCJlkBItVMiw XIBsVkUbbV8kkZDvXOP7Jq AqsJSzd0NylH4jMSQiAPZ0 AWJgKBCxhH2vEUJpJPMkgA NtzA8nbeJkhsWbbpyaCDYm yEUuFG6kOCIuVZKjyZTspq 5hbCBzdXJmYWNlIGFuZCBv eFLqNWAouN0nrgU7GKXfSX NmoV9ixS9ibWdmkjSopWC2 NZmrjYgfD7H8vD87lgDyWJ BjqsmdrHNetdXeW1Ukk7Bs eSBpZGVudGlmaWFibGUgaG Qfei0mLWRkzNBoORYvPKSi UGKsFYTcDgCxf3OcgZHmNE WuDZR1fZumM8ClvJOpp2Wr wO1fRTPdDWVdiDXzjcNjlX RvJGjxDV21iZHfHORvCSHJ wrKoz7vaJXWrgpHynhUyzw BwYXBpbGxhcnkgZXhjcmVz R6McM8TaLHCeKVDhJBMxCx AgVGhlIGZhbGxvcGlhbiB0 mRVoGQYenFPrekJjgH6dAM 1hcmthYmxlLiBSZXByZXNl ipQdoXx6BQYaMRO8sK9trv EhfcAyx1BunBp5sZDkXOMu MKRsiCpzu1JgJIncaiCyIp RaBcL2OGOfY3h9PAZbcCki bZxaooE6hRQdHWCnqWwdPO m4LTS9Eh7wgZOlTWWoPeRv HimgBvRdIGdvWR8tFH5dCQ KasRtsfDjttdV1yHXkBL2f mFVnZBO0KYWiNLysH7jecJ aiKL20GZV6KOL3Ok5fxBLc BZUbttYotrLgvhQkXS96QL MtwdYib3NxvFsiirKaPQYs TA5eAMJ0kC9mAM4uWQUtx0 NpYmxlIGNhcnRpbGFnZSBz yBKjmHM3IPFvRO11lYPjnB qnPIA9OPTjXQWqGSepwZRk R7B4lI0kYBkwWAEugRSmUK 5WBVadsV3ag8crmBuca8Ak dGVuZFxwYXJccGFyZFxzbC 4eFlQux6lcmBf5RAbkzvP6 VBVhpi71RDrrLZZbY5ThX1 ZnIMytREZ7BECfEbWuYASs RX3LHkNhOOR8RfG0EBsqBG r0KLp9VH9OQbJiHULjTTf9 MKJ9OCDyORj1BQkdEB4MDC HnSLIkNnLmQQF5MUCsAAEb XHQgMiBcXGZsIFxcZiBBcm hvaVZhVH8yoReociKjBHZo LIlcbf0oKYWGPZMyRPTaHp shsOKohR5kcBFmZOWeEmVb DdClWXj5SQRoNyAyv6zcZC 9oEYthUdIeVJLht7x2oBC5 cJRvyPH7jPLibKTlnfNwef 1hdGlvbiAiaGVybmlhbCBz RIUoXRzgBVJyeITjt4UgMF 5aFTNmmIumL3OyOM3dLQGh FoTzGHTrjC8eVRU3tKSzyG BorNTfq2MpaQ3rLKIsmUNe DQbmVcKlbJImobQqGaE1KX DoqSBfYkMbM22kSCVcUFIt jVXjm8IjcMK2xXYsPTNcY9 Yvf79lFCVkDMBhwUHpkFV0 PEFsmJ6uI1Gcq1W9yXRbWI VvFUCoUIAXYq4fjOefULFS FOB9aC9hCWPrQSB5BQlzub RuLxD6EUGtpUFac2KaeFR9 rUMaDGTiT2Kua91uSXLsh2 1zzLXqD0OkDRQpGAQwNvrr kS2eNIAvDbNYUDLnABMqoa YxrNp6FAOdKLA2xB7ePEQf r47sh80seIkiedAcnOJiTK 9fvXcfZQznoK6yTJ5KTUzv DGZwF7KbQ5ZmuyT3b8vypX jtr3GsvKMdZT7blAJmkA== INTRAOPERATIVE m8pyjBDeCGOvpNF0CeVjDB CONSULTATION (test code Tmv6wbb8PqeKCszIRhJWua = [id number]) aOXnlaVcrh46gEF1lV31SQ 9bMREqFvT5GVZkdrX9Gch7 EPLjGIOkqLZiJ400y6rjq7 ktuiZbeEZ6dJooYFFhjyhn OwH4ABybVDKqxthcMWq3IL cnEXDzwIO9RKHcoDTyR7Zz EXDxVJ7tlfh2HCF6AEbmRJ XnPsX5TFUmzDPvANFdoIkt EMrzx249KVP3OcJqCDCbri J3LYxeMGVpN9ErU5OyUYth MFR3WMNvHBAzYPKtQXXdCK LuQRvrotO7f3yhEKXndSWb CLU9JHuakKGnOGJoMGYoSO itUvPAFgTsQcF2SmfmYjb1 ReQ8IZg5CLKWGfJrDiAxSc K5MQr3UMyuMKd1UEt2TFpJ GlL6XhfsMOGsEWHcGFYtSG EcEOs3PDLfNWilwAVxPLVx JNBeSYhbBVbvY33akXwfhQ 5cZnMyMCBBLiBVdGVydXMg hk9KTUN0HVHpcDfdiPkmiz BUdWJlLCBPdmFyeSwgJiBD NAP4bYhqIIGdtbbmtkEsUS VURVJVUyBXSVRIIENFUlZJ SAxeWLVIOFMSCViAE1HZJD 4dMPZWUGKCBaGcL6CDApsy CWvGY2HVVzQGEI0BNLENHB TEIRSCASDEAhpNNS1JKJyB SnHXQL4UXXahcEubFOEiBp XYOWxhYAXWNHAKEkOXWB3B UElORExFIENFTEwgTEVTSU 6WRzmtjT5pFQornmPhGeXt s9F1JVSpCnbfYTGzXL8gru mlglKbokT4htNQLcMsCpEp x45hTQVqHl4wKEVyFPR5WG K7RXBwOO1df9gzyPwow6Sa dGVuZFxwYXJccGFyZFxzbC 0xLaRmj1cciIg0MJkvpkA9 EAAunk06WAwcTUJjQ5NhA0 PtOYmhJVH4AHFfZiQpUROt PX8AXqLsGEU8CxC6OOeqMH y0LMh0XY2ONrGjYFBhHRb1 HgOyEDSoIAd8ZPeoIR6XSS GmBFG4OJe1GxS6VXNzQLDo XHQgMiBcXGZsIFxcZiBBcm vdyHMsZU8jzRkeidQoJPPe IFJUIEZhbGxvcGlhbiBUdW ZuVPDeX5RvhlnyXRCtkbxj egZuULAQO3tMCGCPFMxIHH lBTiBUVUJFIEFORCBPVkFS BWokS4CJMOxVR85jU19CHV 7QFDXFW91TVtqpsO0rMX8R Ft9VUyGKVTPVSW1LLOfNMf WJHupGNVPDUtXPV2NQFnRb P9lTZBMMCMFDN1bKZIJLK3 ZmTPouamYzWw5fYlFWCdXV GPZZThVLKw9NTJ7raDllAR fhyD2qDOAidT2rcZRuOHO1 MCPiVtOJANNibZ8bHO1jdG 1lK9PlWhHqGW5lQSHnSwjb MjAyMiBhdCAxOjQwIFBNLn fzCZIpK4AtQ2UrmgG4g1co aIaip6RpnLKuEF4cnZHvnJ == MICROSCOPIC DESCRIPTION i9xqyYUwWFOgbTI2LqIoTZ (test code = 3371) Hej1gvb6RrvYDbwJZwTBdg kBYzknXplj20lQD3dT19UY 2wJKGoXnD1CWWlxwG3Etb7 QXHpXUAppFTnE191i2ozv6 znmsPxuXC0pCgcGOCkiksq AmY9BEojVVDeavekJUl0IW hrBIIcvFH6CVVwwYOuA3Pd QFQtEE2akur4CLK0TWvpIE LmFiR6FKFhpNEvDLMasVgn FCrdj706SJT8AjMuXJUugf YiiVczmS5eImCxVMORFAW0 ZDBqzxYous2nGQ4alOBbgF == [id number] 08:37:37Surgical Pathology Report Case: [id number] Authorizing Provider: Dariel Jerezles, Collected: 04/13/2022 01:10 PM Ordering Location: [facility] Received: 04/13/2022 01:25 PM SERVICES Pathologist: Delia Doshi MD Specimens: A) - Uterus w/Left Fallopian Tube, Ovary, & Cervix, LEFT FALLOPIAN TUBE AND OVARY - FOR FROZEN B) - RT Fallopian Tube & Ovary C) - Hernia Sac, Umbilical A. UTERUS, CERVIX, LEFT FALLOPIAN TUBE AND OVARY, HYSTERECTOMY AND LEFT SALPINGO-OOPHORECTOMY: UTERINE CORPUS: - INACTIVE ENDOMETRIUM - ENDOMETRIAL POLYP - ADENOMYOSIS - LEIOMYOMATA - UNREMARKABLE UTERINE SEROSA CERVIX: - NO SIGNIFICANT PATHOLOGIC CHANGE OVARY: - FIBROTHECOMA FALLOPIAN TUBE: - NO SIGNIFICANT PATHOLOGIC CHANGEB. FALLOPIAN TUBE AND OVARY, RIGHT, SALPINGO-OOPHORECTOMY: OVARY:- MATURE CYSTIC TERATOMA FALLOPIAN TUBE:- NO SIGNIFICANT PATHOLOGIC CHANGEC. HERNIA SAC, REPAIR: - UNREMARKABLE FIBROADIPOSE TISSUE, CONSISTENT WITH HERNIA SAC Signing Pathologist Direct Phone Line: [phone] x1; [phone] x1; [phone] x2; [phone] x1A. Uterus, cervix, left fallopian tube and ovaryB. Right fallopian tube and ovaryC. Umbilical hernia sacA. Uterus w/Left Fallopian Tube, Ovary, & Cervix.Received fresh and labeled with the patient information "uterus with left fallopian tube and ovary" is composed of a uterus measuring 8 x 7 x 4.5 cm and weighs 99 g. The attached cervix measures 3.5 x 3.5 x 3.5 cm. The attached fallopian tube measures 3.5 cm in length and 0.5 cm in diameter and the attached ovary measures 9 x6 x 5 cm and weighs 114 g. The ovary is inked blue on its external surface.On serial sections of theovary, the ovary appears ahumada-white fibrotic with few areas of yellow discoloration. The fallopian tube appears unremarkable. A paratubal cyst measuring 0.5 cm in diameter is identified.The uterus externally appears multilobulated with multiple ahumada-white nodule with whorled cut surfaces, ranging from 1cm to 2 cm in diameter. The uterus is bivalved to reveal an endometrial cavity measuring 3.5 x 1 cm.The endometrial thickness ranges from 0.2 to 0.3 cm. An endometrial polyp measuring 2 x 1.2 x 0.5 cmis identified. Bottling Attendant sections are submitted as follows.Ink code:Blue: External surface of ovary.Blue: Anterior surface of the uterus.Black: Posterior surface of uterus.Section code:FSA1: Bottling Attendant section from ovary.A2-A10: Additional sections from ovary.A11-A14: Left fallopian tube entirely submitted ([id number] end of left fallopian tube).A15: Paratubal cyst entirely submitted.A16-A20: Anterior endomyometrium submitted entirely from superior to inferior along with anterior cervix in A20. (A17: Endometrium with attached polyp, A19: Subserosal nodule)A21-A24: Endometrial polyp entirely submitted.A25: Bottling Attendant section from intramural nodule.A26- A30: Posterior endomyometrium submitted entirely from superior to inferior along with posterior cervix in A30.A31-A32: Representativesection from myometrial nodulesNJDB. RT Fallopian Tube & Ovary.Received fresh for intraoperative gross consultation and labeled with the patient information "fallopian tube, right" is composed of an ovary measuring 12 x 12 x 3.5 cm and weighing 271 g. Also attached is a fallopian tube measuring 3.5 x 0.5 cm. The specimen is inked blue on the external surface and opened to reveal a unilocular cystwith grumous material and grossly identifiable hair. A hardened area of possible cartilage measuring0.5 cm is also identified. No solid areas or papillary excrescences are seen. The fallopian tube appears unremarkable. Bottling Attendant sections are submitted as follows.B1-B3: Right fallopian tube entirely submitted (B1-fimbrial end of fallopian tube).B4-B30: Cystic ovary submitted and financial representative se ctions (F29-gepharp of possible cartilage submitted entirely after decalcification)[facility]. Hernia Sac,Umbilical.Received fresh and labeled with the patient information "hernial sac" is composed of 2 pieces of fibroadipose tissue measuring 6 x 3 x 3 cm and 3 x 2 x 1.5 cm. 2 financial representative sections are riggs bmitted in cassettes C1 and C2.Section code:C1: Bottling Attendant sections from larger piece.C2: Bottling Attendant section from smaller piece.NJDA. Uterus w/Left Fallopian Tube, Ovary, & Cervix.UTERUS WITH CERVIX, LEFT FALLOPIAN TUBE AND OVARY, HYSTERECTOMY WITH SALPINGO-OOPHORECTOMY:-FSA1: LEFT OVARY-SPINDLE CELL LESION.Reported by Dr. Wagner to OR #22 on 04/13/2022 at 1:45 PM.B. RT Fallopian Tube & Ovary.RIGHT FALLOPIAN TUBE AND OVARY, SALPINGO-OOPHORECTOMY:-GROSS EXAMINATION ONLY-CONSISTENT WITH DERMOID CYST.NO FROZEN PERFORMED.Reported by Dr. Wagner to OR #22 on 04/13/2022 at 1:40 PM.A-C:Performed.[id number] 13:12:05 Test Item Value Reference Range Interpretation Comments Case Report (test code Medical Cytology Report = 104) Case: [id number] Authorizing Provider: Dariel Palacios, Collected: 04/13/2022 12:43 PM Ordering Location: [facility] Received: 04/13/2022 02:42 PM SERVICES Pathologist: Magda Wagner MD Specimen: Pelvic DIAGNOSTIC CATEGORY NEGATIVE FOR MALIGNANCY (test code = 2754) DIAGNOSIS (test code = x1deyKYbJMOiz7meKNDtkEY 3220) uZzEwMzNcZnRuYmpcdWMxIH tccnRmMVxlcGljOTYwMlxhb bFiBBZzzBTwE6UdvtgdBQuj AG9tKH3mhGgxuUFjvYThOVJ iOlOeu2qoy940mAGhf1pmPP TZlhmdwCj6uOunV80gf3N1N xhoR77seZOdNOV5YSYvXWLf jRUlOFRdJJN6KZFjwTRyP1a sNPIiCQ3fyhviIAykPPvsWP HkiDN6BHJugPCrK7ZiDSQvW IxoIPGmjud3SqAxWq2ttHMs eTcyMFxwYXJkXHBsYWluXGZ yYuBcCZCJTmyLLRyGR1gUBv pRTQfBBTXUR0PLGeXfTpdvN RKwcJUyPY8HLGreqIx3VEPu l3OmzKHmdWzdLV9zjPfwuW6 kOO4TbX5rfd93wjEqYIOrkD hlbGlhbCBjZWxscywgYSBmZ PapfkS9zWEhzSqcaYHuMI5i CCr9hHXxg3X4oYZnLCYwMAD lbnRccGFyfXtccnRmMVxzc3 JeFWlgQITfMK0joZxxKYLbK N6hJMSkJ6qlvR3ymnu0KzQh BBUqLgL5DYVaxoW4Fmu1RXK dWQmtu9ckh7QvQJRvFXg4nQ juOtOpAMXkk4pkvzVlLbRkQ MOpTVJwTUEwuOZmQ446z1cq g7nsmdMjpTW0EPFcQXX2OLh opcQbrgU7EGhsyGAmCfL0FG tlirLwMHflwkWomwVeLhk1N UOuD516SJH2uYezz8jaHCJ0 OOEdPOOkIpIiUo6dlWKpB03 9SFUiLGCVRWFqzKo0LIPixz NjsfIkbRQHz158O288n4xqC ORwnzWmiUnAazakt0fbQ432 XHBhcGVydzEyMjQwXHBhcGV miCV2VIIkXH9fvdbrEMgnGL onBSMrunT2WHOdfOWzC9WbL IWhWN6tbsfrNYL8URvrTLGx BKB1YsUfCVZlf2Hkbpm8IkS pqn5pok27YMZ8t8ThrJzcAI H8MNI5TwRiYh9woWFgMYQlP X8dNsDukPIkXVDekb20xBnn HHjbGVJ2MMSwltCpv6Zhd8u kNiTmxyLeT0doC4HwKTAtYB RzKTWoXcIoqeSuc7Ude3Ulv IXdhMh9z3ntPIIhLIWepOol t2ozXVN7TMFquJIdI6cljU2 sPYWfIP9orbmjc3khFLswOR hvQLPbpGY4hrW3GJUqoYQsZ 6UaqK4vFRXbFMbgKAClrfa0 TiXfLe0qdEYeoErkAJtcLuw wYWdlXHBnbmNvbnRccGduZG VjXHBsYWluXHBsYWluXGYwX GZzMjRccWxcbGFuZzEwMzNc aGljaFxmMVxkYmNoXGYxXGx mA4ghUqMrTkYzXjg9HABfnJ OjXSEvHtn3EFWjiTVjPBTGu JawhW3yTZAbnWgdtD7zkQA9 MZWbtzSymHBLkV8xJHDJrQ8 uDrO6ODRgLkg5OEC3BeBxnQ FyfX0= COMMENT (test code = b9ddrPNlKBOpxBU6EsCrEXX 3358) si2npu3GzrQZerLNeBTcdeV HlijBrzv89pTK7iO88EP9iN RDrHnH1LCMlwxH5Ows1LHEy UYAotMXaM791z1zkk5tyiqP tqJL1tZodIEGfgifwNgN1PI lrOSDuuuswHTz2RPdbTJQuo PE2GIKmrOZbC5BkPCLbOZ8r klx6YHH6MByrIATrZoY7BWX tdIZzIHTvzNwsFUsfl834SF K7ZsQaBEVmxbLnaVxepC0sQ nMyMFxwYXIgUGxlYXNlIHNl AGQclXIheYWjoZFhSEZwq0l aV1jfY6NuHOHCGrXsEKG8Zd RccGFyfQ== CPT Code(s) (test code u7bggVAnZPCihDS4PmLnVNR = 3356) lo8ket2ZkuXFapPUfZCbakL KmhlJqsb05uVI9cH39CF6lE IMsFcR4GJXgruS1Yna3SZHx FOQbcNKeK766x7bnm1fcmxL ydRG0wAffUIYtnrylAyO3JN hnDMLsqzmqFEo4VQxuRQDwj QD4QWZnySTbO5ZpBUBzML3l iva8CAE1UTnaCDLtLeA0TUW rsEFlBAOqwIfkPCpcz453EP Q0SzRlEQFkjtDngRixoL9sJ nAtPUD8ZQQuKIboWHL8 CLINICAL DATA (test c8cajBUdNMXcyFQ4KzUzEKA code = 3355) kq5mcw1DguYGhzNYwRXfjjV MdbuWgwy25wQP3qH94PO9yT HHlHlZ5MQVcbuQ9Gyf3HVTw SWSrdGErV080g3vrn0iapqA joUH9pKtpDKUxofhuGxX5DT qdQGDsdbriEMi8MSmbLYZxk KY7AQDndVTkA4AwKQVnXA3j ekj7AUF8UNuvSNEuEmO2XFF itVLlOVQoqGecDRqqc675FO T8KwRfNMSneaIofHcbrN6vA tCkBLJ6JBY8Op1cPFCzR5Gl qMs2WZKxMTQng2OkxNDCXVV chm3uS96wtMEioApfaEDaCT W8d611XEVjkCejeUDdKNknf 2EyrFowI33koZausgVpmU3k bEpafuTlOJN2hN2oFU9nXNX xlVD0MEZfwNNyDIp0mZZjuE Ysv9JzKXoaRkSmnVDxtjOpN uQezRlvAJkoup0tMMPwRWCd gtZqBHR2vJ5fVBL1aLIfsWa jYWwgaGVybmlhIHJlcGFpci T9mWInADS0dLPlBHKcYlB0F JAxK78zHrNDjQPlOxRIwFzo eMUiBFehK15oxKpyaOAfUP0 kkHJbNA7yd3BnHR5fJFFbCa lsaWNhbCBoZXJuaWEuXHBhc n0= SPECIMEN SOURCE (test b4wguFSoDPFavUB8BiSoNQD code = 3377) zd5kdl8AkrDLlcWXgGEpkpS HuegBnsy96hOK2eF13NV1uP MSrUxW1EIJgvzC3Whj4GRQn PCAufTKnU481l4nta2pmztB slSH0zIleTNYowkrjAcJ3UV qwNJDvjokvQBj8EFbzUZLop CY4KBRumMQjB8HyTKSoLX5p yra6VDW4TCouSMEiDgT9GNS aiWEdZNDbbXnsXVupj819NE N3UlOzQSSrgjJxzIjyyB3kH yJzFLHZCFjLWMDuY7KVOMrR M8YpzAZntS== GROSS DESCRIPTION u7fdmWJbMCSzlQDNIGEsQ7p (test code = lhkLvWFCufXFgN7TnqauoXJ [id number]) yhEE4aBS1omBbvfGKynKWkT E2NFCOsYmGsYIDorAMpqdPk GeGfRRFhxZSrjDE4LTJmKO6 tkvjeCJfwCFmqPMOaxoH1GS UroASjV9RxWYLlHT4cgjhyW CR1CHufoD6mbpTBXeizLh6b dHRibHtcZjFcZmNoYXJzZXQ tSRXecCceJVQnQLx1kU8DUu mnRBA0KPNPRwakHXGpDR7Do 9udDZSqzYLxFKT7RQpjvVBb ZOZfZTGhKSd1NJIhJCazuDZ aBV5uuBgzYysufEakc1XjkR BcXGlkIDUxMDAyIFxcZGIgI Y2JJyIvMCT1MiD1FVThUOm4 ZHm8NG3UXsXxACZbNIf3JHP 2TKVbUHl4FCisQG3JYCMzTK GlDjEhRiB5XWZoSDQcOOHmO iBcXGYgQXJpYWwgXFxmbCBc CB8fqVszlXBvbqDZSzWRILh 2aWMuXHBhciANClxlcGljTm VzdERvYzEgDQpcbHRycGFyX GxpbjBccmluMCANClxsdHJj dMnjpeNpUXKpG8GtecVrTMy oEV7qTCCdv29mzHPpqIAsMR sgcHJlcGFyZWQgNCBjeXRvc 4LaojOgNPgaaTzcqS4lKBGk W11eg7AXs8LkSDUhYMqia2x rgPkhb6JlvNArUKxbVBIruO NaUTfwbN4lIdYyw0lelJm2F PvkhlK3EBAvxf7UVapxlV7p PqZcz1mhrPz8RXVRSjuzmsW 3i8awrWayi0NssRNgYO2TGe 0= MICROSCOPIC q1beyHRuYBRoxFC0UzJqLVT DESCRIPTION (test code uw0rtg1QkvNHlzLBjIChxwY = 3371) SoiwThsf74fIS5qQ41AY0cJ JWhHsJ9QGUbheG4Vlh3QHAb KKJhrZToJ914r1ypg1oidcI ujUK5jEmnTWXzpqzvXiC2MS xuPLYsuxtuGAe2PVlvFVLyc FD3RFEpqWFsR8WsQXRbDG7d ton3DDF4XLcbNFLaXpM9DEO xqQTnKVZgxTtxFDbhd226SW D6LhGzRAQxrqOfhHsawA7kI fXiSVLTEOIir3TnBAVaKPck YXJ9 STATEMENT OF ADEQUACY Satisfactory (test code = 2757) Gross assessment was [facility] performed at ([facility], code = 2777) Department of Pathology, [address] [place] [id number], Technical component [facility] was performed at ([facility], code = 2778) Department of Pathology, [address] [place] [id number], Professional component [facility] was performed at ([facility], code = 2779) Department of Pathology, [address] [place] [id number], [facility] 13:12:05 Test Item Value Reference Range Interpretation Comments Case Report (test code Medical Cytology Report = 104) Case: [id number] Authorizing Provider: Dariel Palacios, Collected: 04/13/2022 12:43 PM Ordering Location: [facility] Received: 04/13/2022 02:42 PM SERVICES Pathologist: Magda Wagner MD Specimen: Pelvic DIAGNOSTIC CATEGORY NEGATIVE FOR MALIGNANCY (test code = 2754) DIAGNOSIS (test code = f4ijqFZeYBEjo9drLITsaZA 3220) uZzEwMzNcZnRuYmpcdWMxIH tccnRmMVxlcGljOTYwMlxhb eNiYGHfiVLwJ5MlvspyWGlm WR4tDE7uiExmwQRwvQCnIQK pAxFfx4tdw569mOStn4pkPT UKnvtmdCl4iZduL26pg5T2H pemT27koVQkXGP8CZDsPKSg sUZsTMLyIRN2XHLijDZuS8x wXLQgCR3qpoexESugTEzqTK WcbUZ4GOKhjSTkQ7WyMYLoA QmaNYYcukf4PrRlYp6ltYRo eTcyMFxwYXJkXHBsYWluXGZ rXkIlAFNDDybCJQySI8ePNp vQZPeKNJOGL3JTQrRkBhcaC EWgjMNyBC6NRVjfmSt3DOYd w5AfmRLxwHvmZG9ssXlyhG9 dEQ5KcD9rhe88dzCpTVCqzT hlbGlhbCBjZWxscywgYSBmZ KmimrY6bJVxuOezoWGbHY4x DZy7eLYem3M8uGHqTXLnOMM lbnRccGFyfXtccnRmMVxzc3 RtYRpvNDLvFP6yiKklSCJeI V4gKHPoR6dlfT6bvpf2MhPr IQUxAtB0ABBkegC6Qqq5UYW pQCwnr6mfx2ZnTBRyARg1rM ybHhKpGJKsc9zkcgDdZlRpA RCgGXCpAXZtrDAvF408d8up r6dtrcZzfSF9ABOzEFB8USp mjaYewjI3GLhprHWjEsX5QJ nhljVlOIblheFnjpGvFfq1N LTgL953PWX6xYivl2bjSSV2 RVOdVIGxDhJxZl3sfCNkL20 8UCIxOFGQIYMmiUl3RMHlpc VxssJtvMXBk625W847h5gmM FXfksNqsVaAsmaao8qsV087 XHBhcGVydzEyMjQwXHBhcGV flXA9LYDiZR2phdogLVxsEV qwHFWqurR6YOIfyAAyJ2UcR AZbIP5lsibsSYM1VUoaWKTu WVD9VkEsXQCfg5Difwj4ZkW mdk4eul30CNJ5h1PzlWfvGP Z6JQQ4TbPgCb1ciNXoAESlJ X3pMeRrjJNgOKTojx03sVfa ZQcmPDP4AGLqonAjg8Rcy1l zDnNfddGqL6ekF0SdMXKzVK ZdKLOtHfHifjGuu8Rhw4Cva YIpmXv1y7ftPUMnWCRusCwa r2hnYCE9WSHwaDQcE4jeqR0 bVISmJP7qwnxsa5ptFIxbAK wbZBLzjME5cqJ2ADBncFZmN 0NoxM1pEXSbPMqfDLUgkvd9 OgYcWx9uhSFvyZyzNOtgWjv wYWdlXHBnbmNvbnRccGduZG VjXHBsYWluXHBsYWluXGYwX GZzMjRccWxcbGFuZzEwMzNc aGljaFxmMVxkYmNoXGYxXGx hO5hfDjYjMuObDnb6JZZfqN DbDQCaJtq3RFBglGJdBRBIo YutaI5zWSUulTnweC1ozHP3 YHQvffCycXROzX0yHFGReK5 qSgH2BCJzOjj4TIB8YmIivP FyfX0= COMMENT (test code = t4oubCKfLDHbdIQ5VwPhBUE 335) hx1avy7TvsARmfCMvKMgclB FjfgVyel54mKS1pO70TE0rE LJyChK2ISAaywP7Mro8JVWm NPZhuRLbF135i9cks8tbqoI stNW0zJfiMSXznohmPjK6WT soMXKxvpqvKRe7APmkGLIbx BI0IAMajHYsM6DuOAHvFS7l pps0IGC8MMnqEUWbUhM4KDD plUFjNAVpdLowAQdjv376AV U9GrLyYUOiubZivXkcdY3tW nMyMFxwYXIgUGxlYXNlIHNl JIErdLUpySTtbKWrKWXwe8h kL0xnC3WyUIODAsErZAX3Fz RccGFyfQ== CPT Code(s) (test code b7zlyZTmIKBquVB7MyNoZMO = 0470) ts2prq9UerNSicGIoLOqgkF FbtbQfpq72iRJ6sW67RO1kQ BWrGaP4XKWzvnI4Yqs3BNJt FWWpsSWyK067s1fta2odyuR ycCF7dYixURZbfaelQtT3CO tbMSDakprbFGf7TFxpFCXld NQ0QDXbyCDdJ9ZqPXUoST2g lmx1GXG1DZuxCIViTuI3YGS ofUHnKSVrjPhqPDwzw588FP A4FdRsBWIjykEdqLnkqL0kM bYqTPU0NIHuLIoySKI3 CLINICAL DATA (test e1soeYArKHWblRS5GeGyXSO code = 3355) ae6qhp1KjqHGzcVVrBEycmN ZpshDref34kHA8zR33SE0nS RGgIoC9NQGjrkP3Otg5UMUo APRkwAJnV548l5wol6ixlhF nmQN2mFzcYFUtiurzHcN8ZN ufINFopokiTZp0EVlcNWCac SU4FIKkvLQlY2WqNYLyBH1h dma0XWX2UHmyZJLuXmQ4EDO ijFKrAYVaxHztMVzbl466OM N4AbRuEXKtkjZcmKufoJ3iP hFlZFL0ZCA8Zi2eDJMgB3Mi nPw5CAKoXXMlw4KftRWRWUU gsf7oO59yeTQdlHwvuDAjMI L9c128YUSuvRyxdDOpBOozr 5YbwLrnD70kgErmreKyoI6b xDtttiOrWBW6yQ5mWO3qRKE pfMH3TYRniLLfOGv8fTQyuQ Arr4TsCNwcAlHzeMWisiTqP oSowIghIWpzkz3lCLQfFWJu odVoHKU7jM8dEEV5jMQldIo jYWwgaGVybmlhIHJlcGFpci U9fDLrOZO8uFEtYJZaTkD6E QVgL47cKoUEqECgViUMtBsi iENoVTieI80wiBtyuUTyQU1 czVVrOJ7nv7LiPC2iLYRjWt lsaWNhbCBoZXJuaWEuXHBhc n0= SPECIMEN SOURCE (test b8hyuEKdENTcfXK4DpYvAID code = 8607) fw0kze6HonTDjvJNpJAltwS OehlJrte30tEJ7uT82HI0dT UFlLcY6NJGevkH4Clb7GCCc IABooMJqQ649z2gsc9ahxtB ygXL2nJccNHNbqjbpIrV7IG ubHTJdicljPZg9GKmqJUJhg UN7BEVsyGPhI8EvUSRoXY1g qyn5ZMN5OJekGPNrXkT2KKA kvAJmELMpsHsdNWvod786PF Q2QjRqTCQlhdLvnUwflR8jG sXhZEATHGuREEIfA3MZCHeP Q7AqzOUpmR== GROSS DESCRIPTION b4xtcGPtYMBfgBWNBXKxA3d (test code = ekbRcXHMnlRYfX0UjzuzsEC [id number]) xaLI8mFG5ptRlltBJrgOJuG O4SYFKsQnTnMEBppFFwibDd TbJlWJXtqYMmtVN7XSBuPW9 wxoqfUPniEMbgQMVrsbQ7MV SdgSYvC2DeNNVaFB7munxhZ YO9JPesdB4vtnYWChkpMu1y dHRibHtcZjFcZmNoYXJzZXQ cPIZpgYzcMRYwGQb5vU3GNz bzYFK6UHCZMfsnKZQwQL3Rc 1wlUZSaaBHrZFY7XPnipGCs EQTrVVCiGOu6WQGdYNpspKK dXR8faHjbNfmhsIwxb4NivO BcXGlkIDUxMDAyIFxcZGIgI L2BGkQtOOH4WnB1WYTwAZc3 DSc4GP8SBfPlKIUqOBv7ZMZ 6THEjTIe2UXldKY3UGTPmZA ZxGkYsTyV8BIMrANGlGSWeW iBcXGYgQXJpYWwgXFxmbCBc CO2kjPjvtTWpmuGBGqIFTSe 2aWMuXHBhciANClxlcGljTm VzdERvYzEgDQpcbHRycGFyX GxpbjBccmluMCANClxsdHJj oBmpklMsPMFhG5VuqtXvMRz lJS5fFZUib69umKVuaZZvKR sgcHJlcGFyZWQgNCBjeXRvc 5LitxDgHDoviHnspD5pGBXj V52wv8FPv8OwGOGxRWglv0g vrKiim4GcmJZzXZkyFPAgqZ PsQKavxC7uLhUsb7kgtPw0P FvaqkN2JDUnmd2MWwxddL1s FhRkc2bvzQv8MXQANbzopyS 8h6gmqCrxu2XdpGSuAH3VNc 0= MICROSCOPIC h7jtdPDgIIEwxAZ9ZqGcLWA DESCRIPTION (test code sv9kgo1PduKYhtZBgGGpioN = 3371) InvjBpgr91zBV0sA83KH9oD VMmEaK5VJKvroF5Ueu1FKOl LCXvuBJxY026i9ysf2lpetD puLX7sTzkDHXvclpuImI3IQ xyINXvqxolGDv1WSviXUEaw BS2WBVvhKMwO2YmQJFsKC4x hjk1VCT2AQckWLItDjC3DCU jmABtMNDgvTptYKpco298ZW N9XzNdFGKtavDyqKxujM2xI dYdLUVCYIZnf7RrWTNkADyj YXJ9 STATEMENT OF ADEQUACY Satisfactory (test code = 2757) Gross assessment was [facility] performed at ([facility], code = 2777) Department of Pathology, [address] [place] [id number], Technical component [facility] was performed at ([facility], code = 2778) Department of Pathology, [address] [place] [address], Professional component [facility] was performed at ([facility], code = 2779) Department of Pathology, [address] [place] [address], [facility] 13:12:05 Test Item Value Reference Range Interpretation Comments Case Report (test code Medical Cytology Report = 104) Case: [id number] Authorizing Provider: Dariel Palacios, Collected: 04/13/2022 12:43 PM MD Ordering Location: [facility] Received: 04/13/2022 02:42 PM SERVICES Pathologist: Magda Wagner MD Specimen: Pelvic DIAGNOSTIC CATEGORY NEGATIVE FOR MALIGNANCY (test code = 2754) DIAGNOSIS (test code = k0ddgRLfCUQbu8lsJISeiDV 3220) uZzEwMzNcZnRuYmpcdWMxIH tccnRmMVxlcGljOTYwMlxhb xDmEBYtyRJcS5GcpzzyLFhc YT0qPZ5arHmvyRRjbIGeJSV kFzBsd5azm820wIQhf5yrAK DStjtjpWa0bLmnM94nh9Z3B fsmL41qvUBsYHE1LVJpUKEb dQZcXWKiVLH8XOVshPQwH8r xLVBnKI9hhtylWKzvMGynML YmcUM7YKLliPWdG3VrMNAmY OeyFGGvhyt0QtGmHj0rlGQu eTcyMFxwYXJkXHBsYWluXGZ sOrRzSLORYiuMUBcPD1zBPi qCMFnXLAPBA1ISTyEgNhqnB FTqgTTkNN2ZVZljgPl3DNZl x2MktMXupHhaOB8qhQyqtB6 wPN4HtK4eak80voIrNPFrmZ hlbGlhbCBjZWxscywgYSBmZ FwdnwD4uIKldLsxwEJcPD4p JWr2oHEeo9C3sJSmQIJqRQG lbnRccGFyfXtccnRmMVxzc3 NuLZzvHMXcYG1liOyqULJlR E8nFDFeT6ahiS9agge5MdWb IBBfGzJ0YSFrxuR6Yci4GVS fKDaic7amv9BwWUQzUXv5tZ rlQpYrZALcp5dfpzHmVlZaD YQfIWBjUKDiiVBdI454z1co x6kpjaLuuHN1IDOnQGH0PWm ghpGhpuM5GAtooBWkZkV4FS vgpdHwLWytopHelvGrElp0Z YTxB710JWN2fLdak8ssRSE9 DSAgRAUtRmCsLb9pzVMyC30 3AICcCSXJTFLnoGw3NVUoci GbtoOllMKPx402T457m5owK OMnfjCphHuTypjbq5auR899 XHBhcGVydzEyMjQwXHBhcGV qqFY4VUFeJC2uqqqcFZauCT coBEVrzqB7SZEbiVGfJ9EkA RAcSZ0rxfjrXED9YPvyAKLz DSW0PsUqPBOtf1Soqjt8BqU ptg5epo29GRV7x5VgfGscSM C5TNT0CkXkCa4bjXCxNTPjT D0cPvTttHUpTWGkdw45gKyc LYbmZGA0DZQzbuVxu8Scg9i gEnOtmxWxI6pbD8SfJTSaQO BnOMQrMsVxddEju0Ele6Nfk RJdgWb6f4bxYLCfEYOsfAtd b3bcREQ2FLDcwTIhE9ivaV7 jAGYeTJ3otegpf1kmBHlgHB ixLWQksUK4guJ7WXCfkZQqF 7NpfO9vOAAnJGbiROJlvdz9 ClBfHu5piRIuuWwjVPuyBls wYWdlXHBnbmNvbnRccGduZG VjXHBsYWluXHBsYWluXGYwX GZzMjRccWxcbGFuZzEwMzNc aGljaFxmMVxkYmNoXGYxXGx wL0zqBkCmQuVwSdz6PPHphL WtBVBtAej6XNMkjKPbAVGMi GgzmO2sSHHzwVdytO2lcKA4 EZPakkSlrBETeH2bEAFMiL2 tEjE5PFMoOgp0MXI9LcPgtM FyfX0= COMMENT (test code = v6ymrAQkQCMetZV1SwTmLMZ 3359) pu5yyb8RcmPCnkLUuIOlmdB ZwtsFkya12iVM1oX80WA8jT WFbGpU6ETRagfJ6Qku6VYAx UBVujLTqN606x9kdo5yfcuP lnLJ7vAnoASMvtdbiCjM7BH hdRFGdrzroSLw1RWckGJBsf EY6EDBdrHBfS3BlSGMcXA7e mxv6TVQ8XJtnQZEkUnW8RUS kgGDvBLGgsGloKBcvc420TW L0NlWoZDQasfMxuYgurS4oZ nMyMFxwYXIgUGxlYXNlIHNl NHMvuHDkrASkdEWpOJCad6y gS9iwD8YyTUEBTgExCUW7Wn RccGFyfQ== CPT Code(s) (test code b6kmuKEaOLCbdEL6UdJkCSC = 3357) bn3rjm0RqhPKrmOYyVOkfhO YfenAhvu22tCK0rS41QE4iP KEvSbQ1EGYtrfX8Qra8RMLa LORvsWAhY349j1raj3kvijJ xwYG0zAiaPOLvywcxGhJ9AM awLSThsjymPFk8SUytFMLwm OL7HHSanGRgL9FrSTCbMX5z fav1PEP2EJbzZYObVdS8MZO wnBTcNLVhxFhdATgeu821MA Q0LaFuGQDapwZzfOcmdD1tT rXwBUJ5GZKvUMnoYLO9 CLINICAL DATA (test p3wimNHsGODjrIT8BuTtZKK code = 3355) lg9gny3ZepVAkaPKdKCvxqX DqteEbob97wCN2tD08ID9hS FRsHjD8AIOyqlZ1Owe1RLBp NDCfiTNfZ780p9qfk6ezqrS jwLM0jEnvKKSmcqejGpN8IY slJSQiacdwFGc2FHsyRFSih CL6BRFbhCNxY7GeOXDbUT3y lrh6SJF5ZNbcQUGzYpM5NAX kuALfXFEobRijXGcch930OV D8RdAhDIHbrwUckFoguF4vY uShEXH8WHS1Rk6jZWTkS3Gn bKj3TUXeBNPja0XagKTRUZN mti2uY64rsCMcpTjtpLTnVJ M8v646JMYhaUizpTJlGLfbd 8MvmYtuP81acTsnfqJmmQ5c mDpcaiJaLEO5lI8cIK9sLEZ fuQO9UGPwiQYiZVd6uGWwqX Tjp0QnOKluQgZccIUbizWuC bKnjBebNRrsio2bLQHnEIQw lpIqUHQ3mG7qKOK0qIFegFx jYWwgaGVybmlhIHJlcGFpci Z9fWUzGDC5zCYbZIKyWfM3R CQtT47uUaQVtQYoGdNVsOry eVItWJzeV39mtQutiVJeER9 mpVSqWX7zb4KcPQ7oPCTjVi lsaWNhbCBoZXJuaWEuXHBhc n0= SPECIMEN SOURCE (test z2mmqYRlEKLeyUK2YuBbLRC code = 3377) nw0bao1KmyCHmkBUtGNhkcP RgzlOqmf70zUY1aH32AW3bU JFvGhE9ZNObuoC8Nvm3EYSg TWFkeRSyO920w2hrs2miqiT lqCG6gJhbZQHyqhmtOwQ3LE xkQJJzpveyUVj9DRmpINJmp PR9ACJazYWvD4QaCRIeJO5e lfv4EKI2FRvaXDSmEoT6MQB juLDhNMTnwGtcMFirf625GH R5VzDdTAEphqZwuUldiB1zF vAkDCSUYGtLHRMeH4AFXFqI O1FcsZMalD== GROSS DESCRIPTION h7otdOXkTWLksRWRTEQwR7f (test code = uksJeYGZkpJMkQ4UaanesHS [id number]) blWT9bYM1njIzgcOHhcYXaD N4FXBUiChWwYAJnfIIibjTv TlUuLFWouWIvbAW0PHSfTI5 irlwvHYkyKRtkNXVznlA9WP BxrNZfA4NbZJCdEL8cgdkeQ KF7EJuywW8wrgKYUmbkYh5e dHRibHtcZjFcZmNoYXJzZXQ bLRFkvJewNDCpTDa6uZ4ZSd tiAKH9DPRMAmaqGOYtOC6Kv 2jlKGYwfEVbTUJ4EOkypHOf RONbQKLoSId5MWZiTPaizCH cYC7sfGdlNypflWcwt1LxoN BcXGlkIDUxMDAyIFxcZGIgI A2ZLgJgTWK8DkQ0HQRsCKi8 IAi7RL0BPkQsTAUcUSe0EPH 0JAWkTFw5WUiiES1PWCFlHO CtOaLrGhX8EHBqPXXgFHLnF iBcXGYgQXJpYWwgXFxmbCBc BP2thAteyVVycsDLVuDOGCu 2aWMuXHBhciANClxlcGljTm VzdERvYzEgDQpcbHRycGFyX GxpbjBccmluMCANClxsdHJj wIkcttTcJLSuB6GxchXaSZs xIO5vMSPzz74muEZbfOAxSG sgcHJlcGFyZWQgNCBjeXRvc 5AtafTlQHbbgJdfsJ9tNVVe V82yz8KEd1DcDANfQGecn7e qhQsom1BupKSoWYpgQSCmvL UqYAluhX6yKmKyl9vpxTi9K SxrbxN2KAEpjq7UAnupmJ6z DqNph9xfiEr2SQHNSjbseoL 3u3wunYbgg8SmgAEnIH4WTu 0= MICROSCOPIC j4vjyZRzRTNueGK8ZtWeBYJ DESCRIPTION (test code pi7gey7YbqXZaqIOeVGwsgI = 3371) WvrxEjjm76sAM5jH82UK4lE UOfRlE9ISTercV4Wpr3PVZg SDWvaOGhA195i8vwv4hzeaX jbQD1iJwvMQYepcrmTbL4HH iqJLOvusslZLi3XYijPUCwv DD7BUItbMHrP8NvRWSvWE1o etj3AOH1FSrtKQMdIuN3BHF ltMFaUJTxiMexTDeli905QI W8PvTaIEJkcoWzmSbduY4tP sHtIPJIROMrw2DwXZTpMJbl YXJ9 STATEMENT OF ADEQUACY Satisfactory (test code = 2757) Gross assessment was [facility] performed at ([facility], code = 2777) Department of Pathology, [address] [place] [address], Technical component [facility] was performed at ([facility], code = 2778) Department of Pathology, [address] [place], [place] [id number], Professional component [facility] was performed at ([facility], code = 2779) Department of Pathology, [address] [place] [address], [facility] 13:12:05 Test Item Value Reference Range Interpretation Comments Case Report (test code Medical Cytology Report = 104) Case: [id number] Authorizing Provider: Dariel Palacios, Collected: 04/13/2022 12:43 PM Ordering Location: [facility] Received: 04/13/2022 02:42 PM SERVICES Pathologist: Magda Wagner MD Specimen: Pelvic DIAGNOSTIC CATEGORY NEGATIVE FOR MALIGNANCY (test code = 2754) DIAGNOSIS (test code = w2shgQHeQBMps2hlVZZlrCK 3220) uZzEwMzNcZnRuYmpcdWMxIH tccnRmMVxlcGljOTYwMlxhb mAkJHFsaBUeZ8NlylbcZKhx AU8bSB5pzTdzdIQijUWaVPL vKtOzr6ucq461xYWll9ciOF EXyujglLv2nXfzZ54tr2X4H ygkK96njFTdVON3NZDiJYXi uLUlCLUlENV6XYVahQNwJ1o dLVVoBB8drqlkMZjrYCzlFG QtyFJ0CRJlgVUiM0GuUQAsU TfwXXAbhpb1ZuCwCl1hiUDt eTcyMFxwYXJkXHBsYWluXGZ cWfJcTFOXFbsNKIlTX3nCBq vULFuGUYTFJ2OIKaZdEqmfE PXpmUWhXE4BDNmnvLd0BRYl l6XzsHWvpComWC1ayGcmyB3 hOQ9IzO2hbt50qxAbTUDjeZ hlbGlhbCBjZWxscywgYSBmZ XjijkZ9oCHnbEvqwQWsZI1a NHz9uKFcv8M6cZWvNRLsVER lbnRccGFyfXtccnRmMVxzc3 VhVTeoMJPiBV8peAgiFLXjE K0zJSUbC7tojL9qadc2LjGo RAUeQpT0AHVibtE4Yxv1BGZ kAHrwk9obo6HoWMByJAa4oA cvXoVlLZUim7kbjvSnLgQqP SXqBIBcHISxqLVbI231t8zu w4jrlcWzgYK7CRMoSBH5VQu sfpReovO7BKaqfRVrQqY8LD qngvNfPEjssaIrnkXdPjs8E HKmD091JWY9hVckw5mbNWP8 IWJfQBRtWuAtZk5qhOAhO26 5RJRrZCSUKSRubNo0PBIpcy KhyzDgiZEFh844L423c1laB SZuziXaqZkHdraae2uwE871 XHBhcGVydzEyMjQwXHBhcGV pwRX6YLPmOD6ufyqsQNaiOG nsVIRscnX7LXBmkSGlW0XsI TIoXJ6bwjwpYCP3MLjkWHPd YBK0TyWsTZPru8Fsrjn6XuA sok0tpz41XLA2w6QwbZfoTQ J5RUT3ZoMgLb8fpUNhUQUiU W9uKjKywAMdFVTdxw78yPyl MYypNKK4VUTkuhUym4Jbb5u oTbWprfViT3qzZ5NaIDYgRJ JlKBVlFkPumhQot8Psf2Seb LZtlRc1k4ibWLQtMQLcoFoe w4ecJYT8IJDjuBEsG4qyoZ9 tWUTuLL6ihxjsh5rkOScbTW ksWLQgrIX6kgJ7PKBnvEFlU 2YxbK3lVPQkBAwcZEDdodk5 SzBbIe4uvUXvdNglXRnxGka wYWdlXHBnbmNvbnRccGduZG VjXHBsYWluXHBsYWluXGYwX GZzMjRccWxcbGFuZzEwMzNc aGljaFxmMVxkYmNoXGYxXGx jR7bkIiWnSxWeGbv9ZUCiiH YiDYWgRqr8OGVjpNWwFYEQi XqpoR2bBMTuiCzohI3uvDO1 NSDpfiSknGZKmG1zGLGVfX1 aExB9HSYaXja1KMN3OtIzyN FyfX0= COMMENT (test code = v0dviBAdPCFomKA8JxPuYRC 3358) fk2uvz2ThaIQgpANnFUagcN QkteKnvx18fGA8kF14WT9eY PPaCmI5ZXZytuP3Vmb0ZMJu QRFdgSSiO260j8sat2liauR ubZH4vAyeDEHxgobdGqJ1TV kyQDXgboyzDAf1KXebIWZcl KK2NYDaaHTgA9UfEKOqRY7m rdl9TVQ4GGysVSRoDuG7SSV eiNLjJLKrzPopNIica139PS N3ViJzMKWoqyYytGyxhG8iP nMyMFxwYXIgUGxlYXNlIHNl FYVedSQgwWBovZIuRUQko6t fP0trQ4XdENVGIoTzARQ9Gv RccGFyfQ== CPT Code(s) (test code e4xyuOApJBRzmNW9HmFnXRD = 3357) vf5ssc2UnvHGejTSbHBjmeE SvavJdrr41fOS0pY05XL1eG OTlQuR3FBXjbgO4Dbv1CQSb MYOuuCCbG370h9pin7pepiY dxVQ7fNqwSDTjqygsFuZ9MB qePPSrvureKEc2PNeuLZMrx WV5DGQgkDQaD4FrUNYyFA9z yol3CKS5ZMdvBCHfJlR0VEH cgUFlGGKfgOewCHesr641NV C7DdZhLCUtmkFvxJlwhM4oN pVzCRI6VALhNTjcYKU2 CLINICAL DATA (test a0aqiTWgSUClnRY8KyEpEKJ code = 3355) rv3mzh5ErpUCbkKTdFKwwcL XtytNieh85qTI0tM33TE5uU HMrIxG1VLYswdH9Psa9XWJo LOLamKKsJ342w1lqo6odadP gzCB2bHnxBAZmdopaHrQ3TO mqIHFpzocsZDs5DMlbJGZqz OG9WQBnyQSaP5AhEMIsEP7h ogb5BML9WAapNMAdAyI8XLM ugXVuWQOexMawQPius000OR O4QaMtRHOpdiQklJoabO2pV iSnZAY1VLQ6Fb0hOYPcJ4Co zOx4KLSzOVMul0LbnPCTHOH auj0oN57ztOXxfDolmMTxMA I7q028YXIduUwtpKHtDUapa 9YwzSumX94pvNgvprSegM2m uZssktPzMCB5fH7bWR1iWJO ybPF2QYEloSDqKYs1wDPwkJ Ujs4JlEPfiDaGjwHSleiQiV sYpuBrgXQiqqv6hZESrSZTy sxSbILG2nS9kRYK5xRGhrCo jYWwgaGVybmlhIHJlcGFpci V6vCNaUUN3lLQvHKAbCcN9P OMaV03aOaWDpDPuOhPQwUoj hPAlVJrbD78xmPzzdTLcWL0 adHNdDP1wh8ZfFS0tNNWxCt lsaWNhbCBoZXJuaWEuXHBhc n0= SPECIMEN SOURCE (test a2cpjHVuGLCfaMW1XpSeQEW code = 3377) dt1nfz0UapZGobVLhJNdyzG DdetKvqf56uDK3vJ42PG3gE BFtZpU4MLCumkI6Jhe6PPOo KTNofSGtQ155z6kxz8bargK ijVJ1tJgyCYYbffvsQhK1JS jnVIJadcerZDl0CHpfDXIwe ZY0BTQsrHEnR5CyZVLhMJ6q gij7AYN8TBkgQXLlKyO6DHL ssJNnTJPukSkfERimh000VM G5IfDfNNMiypGblPwrdE3mX mFkGADPPZkVGVRyL1BXHXdF Q7SmmUCrpB== GROSS DESCRIPTION j3ctuXHtTZXcsVRHEMBmB7y (test code = dbaKfXDXupSXxF4SeaojaLA [id number]) dqXP6oSV1zgZqmrSOhkKPyN Y5NHKGhCoSrJKHkvLJirbSz DuEuFEWtpZXnsYZ4EEOpBW5 kltejWZjvIVofVWMxolW9AT MynJKiA8AuDBXrOT7ibvgqH CR0BDqcgO5qlcBGBpceNx4a dHRibHtcZjFcZmNoYXJzZXQ wVVHgeNdsHGIoTTs2nW8JOw avDJU3PFZJAmppETAsRG8Xp 8bzBSYtyZBxBUF2RVkasCTl NWZxUMLfQGd4HIAcWPkxwCM rDS1qqSodOdegsVifw5XwnK BcXGlkIDUxMDAyIFxcZGIgI X5IDzGjVDL2OxN9QFLyVMj4 NYd7IG7GKhTxNTUePNo1QKX 1NRGfELx3FRhlLQ5CTXVmUH RgCoRfHrT2BSPeXURtIEZcY iBcXGYgQXJpYWwgXFxmbCBc WJ1ipHdtiWVifgBTPdTZEBq 2aWMuXHBhciANClxlcGljTm VzdERvYzEgDQpcbHRycGFyX GxpbjBccmluMCANClxsdHJj pJkfvdHbGGPoQ8KcphOnSSk lNF0nXUYka94qnHSfqXTyTC sgcHJlcGFyZWQgNCBjeXRvc 2VtolYkTCmmeHlnlX2iZNRe U91zb4ZCx2QvNZNcULuui0t atVtom7IfuZCfLOdsVDNeuK XoZAxagB5fIiTkg9hyhJd6P XfdtxT6BDKaxn4ZPnnjeR1h BrArk4ebtIe4OAXZKyuogpY 9n8fcbCilx6MjmZPlCD7XXi 0= MICROSCOPIC g8jwgQOyAKZeuUM4HdRvSHH DESCRIPTION (test code dl5yki9FkkRNcgJEbVZcesD = 3371) QdvqUbae27gEH9mY01CQ7dB IXgXwH3TBZtvhW8Epm7XHKw GQKjyNVdB900z3ysr9wvueN gmAK6rWcwNMLgsxplZlO2II vvATRujlksJSb7VIxpVNLoq ZJ9GYGrdSMoD0KxUIKbBS6a rwr5ZDD7XGuvBNUwPdF4QVV hdUGhIFFmhNvqLVivb545MX O8YcMkPLKeytTdrQkcxN3eH kIlOAADHZKed5NqLCTkYBlr YXJ9 STATEMENT OF ADEQUACY Satisfactory (test code = 2757) Gross assessment was [facility] performed at ([facility], code = 2777) Department of Pathology, [address] [place] [id number], Technical component [facility] was performed at ([facility], code = 2778) Department of Pathology, [address] [place] [address], Professional component [facility] was performed at ([facility], code = 2779) Department of Pathology, [address] [place] [address], [facility] 13:12:05 Test Item Value Reference Range Interpretation Comments Case Report (test code Medical Cytology Report = 104) Case: [id number] Authorizing Provider: Dariel Palacios, Collected: 04/13/2022 12:43 PM Ordering Location: [facility] Received: 04/13/2022 02:42 PM SERVICES Pathologist: Magda Wagner MD Specimen: Pelvic DIAGNOSTIC CATEGORY NEGATIVE FOR MALIGNANCY (test code = 2754) DIAGNOSIS (test code = l4fbmBZrRZSqs6pcBHDwkYU 3220) uZzEwMzNcZnRuYmpcdWMxIH tccnRmMVxlcGljOTYwMlxhb jEcMDNwbZHoK4HyqwxsXIpq FA9rFM6fcEvakRNztIJzDRA jLdBck8zxz277lHNmr4fcXX FRdsgvjPn0mPtnE86ls7D8G ipfL67tbQTyFBJ0XKRnWMVf cOSqTWEdQVX0ICZhoGPhR3j gPURlBL8bgkpwOTivQPmiGA BakMJ6UHOhyKQqX2LkYAXfG QslFYQdhnz5KpGyJm6zzRFe eTcyMFxwYXJkXHBsYWluXGZ fFrMoEPXVNxgTLUgUK4jTNt cVXJtYQSHKE0DNYeVuEombA NZtjLXnJT7BOFwtfNu9IDGl n9AlyIYbkUsdXJ0zmWpkfG7 kFC3HuV1epm49juWpPWAqwH hlbGlhbCBjZWxscywgYSBmZ LwwmnM7xWEcfBcnwKMbLU3t WEz6iUDrx5F3gSOmJTNqNVL lbnRccGFyfXtccnRmMVxzc3 AmWKesUJDwAS4mwBqwPSUqI L8bFRUeD0dqwT0swpp1XqVu TYQgAmF7HDLgdeE3Uhh9JUW pLBvkc7ewl5TtIVDuXPo0nN tuXzDcHESee4trtfNuVmSmY XFwZWXxLHYttEKsL481n1uq j9apuhDohAV3VKQvHXQ1XVv pdhCjybX5UKokoUOeJlI0BZ uevpMxHAgkdgTnyjVuUgb2Y ZZwB598QLU5rIzzw0dkGDY8 ZEJjGGKrVqTbWe9wyVImV32 1OYXeWDJZKVLjcIz1NLImfc XyftJwvXYLh632Y583s4fhK OAgagKdeJzBooqhu8tmL294 XHBhcGVydzEyMjQwXHBhcGV mlGC6JASeTR1tylguANwaEI sbGJFcweX9UZPmeVRwK3DmL DNlRK4stfzkPNV9MBlnFFVp QVE9ZvWsQTQdy1Tpxxb0WnA dmj8een25GFT2r4LicCbxKA X5LUQ2YvDaOp8axETxTODfU O5wNsBgnVMaIORhpd10yQhb SJdjZSE4DNKvycUxs0Uzh5g jPrHlaiUoW7tjH2OqIKYkNP IeHWGtFvHtztZac3Ouu0Xva JHrbZn6k4azQEZkZEPvmUis a0fpOLP9XKLxgIWuD0bknO5 mNNXsDL2rvqaoy3pbXCejMZ wxXFQduQP4ucN6ZFAplRKaR 4FacK3rBQMdCKrlKTBtiiz8 NiTjCb7prIRpqCckYKcjRqm wYWdlXHBnbmNvbnRccGduZG VjXHBsYWluXHBsYWluXGYwX GZzMjRccWxcbGFuZzEwMzNc aGljaFxmMVxkYmNoXGYxXGx sP7koShVkBeJkJfv1SVEizM AjAOObLgt3MUIubYEdLULWs PfgpS6fHXXijXbjiS5qbXZ1 SXXvxwAriUMHfD8nROAGjZ5 kHpP3DJWgJfh7EHD6PtQznS FyfX0= COMMENT (test code = r2pxqNQlHTZfeJN5JuVhKNC 8391) oi4maj0PxzQHppNVpVAqneM PtmqUrcc91oOL9qZ52TC8vY QPzNlR7FLOuhnM3Ren2WBIn WPRsbZYgG773f8zsp5widmC lbTY6bGhqDZOpizblSoW8JZ dqVSMhrgabYPt7SKnkGBVee SI7BQZqkYKbQ7CbYZYkNS0i phl4QOY6NAomUYIyPvV4AGE chMGpCJKuxYogJTsal651AS A9VlItRXFimjLraVitaM9zI nMyMFxwYXIgUGxlYXNlIHNl VIJieFHfeEDtsQMoGOFnj6u fV0rmH3GhPWBGBgFmTRK2Fo RccGFyfQ== CPT Code(s) (test code t9aqyEOgPTYdgMW5ZaEvYUR = 3357) ga4qcj9GgvJKvtSZfOZvmjD LzbuZdcy65nZI2aE34XM8mV NQqDkX4ZABunbB7Axl0FAAm ZKJwyJHyL224y6xgw8gjrdE vlCT5gHlzYXBqfzczLgM4OI bjGXBhhyxzXNg6FVwlYWLlf CM4RFZdqWZsQ8VjQJScIG2b faz4YAB5RWkiUFBoKeZ0QHP deWHcKQFghSnkYWaks578UX L5LsQqPQHxfqYoxEaklU3eQ cVqHWM1WEShNYksTXY6 CLINICAL DATA (test m2talPBqDUQxcGL6XsNjQFW code = 3355) qp8wiu2SffGGgqNZmNBlupK UakpQquk20zOP1tH52NW1yK BTbCpZ5MYLgwqP3Sut3ILCk AMZhkUZrI427u0gej8qbjaA qjHT5aIkdOEWulumdYtX9WH wiMLPuzaakYCe9QDzhDJHoc QN0HEKyhCZtX8MhEUOzJR9g vgl2UXR5LDonEJXoGwO3PMD xaRTfAXEmnKpxQUnlu258FT R6GeEhQIFabhFohPyhmA4vC nHxFUG6HCT5Gv2rBRQtS9Zn cKy6CCXwMKTyl4BpoJNKRUR eig9gN83ziCQnkAbgkOLfJB Y4c420ZBTkhZhnrRCeQRvhv 8EwlRyyT53dcGxbabKhbP2h jWjfcjUpMPZ6gA7ePD1iAKR dyUA0WGMsdUVaJYs7wPHcfL Ikz4RiKSphYzKfsJOpdhBpY xQkpGfcWIttva8nVAIgLXQb kxYdIHN7fU0zCVD4bPZknEr jYWwgaGVybmlhIHJlcGFpci Y0mFNvKFF6kAPsVOQkAxV0X DIiP77lDpNXoFUxYbAFkZdt dIPcEFlxU11laVlnrGMuJG3 hwCKnIH6db9NgYM0oSEGwKo lsaWNhbCBoZXJuaWEuXHBhc n0= SPECIMEN SOURCE (test x3ezrNStXQLdrKG4MeOdWCO code = 3377) gr9jvi6LtaLEmqPZvCHuwmO VjtbUuav63oLS4iH43OL3zA TGmSuF8VZKwnqR0Ajr9WHPz DENpwPIyZ960t9wsd5kawzO kpMG0yXopVIOzkwzoMvK2VQ djMGUaxuiaLXg1SYskQIVvu GJ6WYQnuMCsO8JlAVGsTK9c nhm7FDT0VFsoWRZsIdP4FSP ziRZzYHNeuBmhGQnmr219AB V4LvZrVCDarfTmkPzmoG1dP tZxOXKWOLxUIUOdY1FRWOqB Q7RtvOFjwL== GROSS DESCRIPTION m6wzrTQfTVOqpLOLOFCdP5m (test code = whaOrBCUevHTeD8MlfzipJE [id number]) ryQG8iXI9uhZyyzDOinQUdC U3HHHPkKyKaLJShaJXxjfJz KvEwVQYpoAIykWR5DNEiUP1 mpytzAMssNJzuUSHhkgS4VW GqzPJsC2PsYEUfNJ3hchnwF SK7CWowdU1tlxWPJwguUp8y dHRibHtcZjFcZmNoYXJzZXQ jTNNfyYrySDAhZYz5rC3WGt roUQP9ZQBHYzdpTOIaOI2Ho 7dqMCHwwBLoJPX8ILzvgNFm CSJfFLCvBUo9HGHeJHtulQO cNR9dxDnmZnfleVxjy4GklE BcXGlkIDUxMDAyIFxcZGIgI O3MMgLbBVC8HwJ2BEIjSCx9 QWp4RI3BHeQlGDNeGNo4YJV 0KLHvOVx6GDulNT1NYWJyDC IvXgPiUvU0LMTaLKPeLOQyX iBcXGYgQXJpYWwgXFxmbCBc PO3xhKdvcLRdlbACJoYDQYu 2aWMuXHBhciANClxlcGljTm VzdERvYzEgDQpcbHRycGFyX GxpbjBccmluMCANClxsdHJj pQwghqZrSDIhE9MvhyEiRYl lWP3uQSAcq49avULzpGRfVX sgcHJlcGFyZWQgNCBjeXRvc 3WaeoZqWBmrbJrmhA6kLXLk D65eq3VPv6TzHWPxEXjfh5j pgEqwi2HofFJpTWahMNTppF LsOAxuiU3wSuVdi4svcVy3M NeybnM1GDShad9MJnksyM7z YvCha1acmEi0ZWCMAvnqccC 4m2xdbGfou3QojNHaLM2FSc 0= MICROSCOPIC n5cpuSWzXXCunZQ4VxXtJYZ DESCRIPTION (test code dh7xuh7WefRUonEHzFJmsuA = 3371) WstzThnq18kHW2wB19PI7qT AQzOiW9JPIrhsE8Qjs8UEAn LBAxdUTkG462s6ydw2qghxY fhWV9aCgmHMJuhczcUoA5RC wgILXwqzmjWKl9PMxyXJUzq XJ8RPDpfYUvI9BcBERsSY9x prd5ZGS4YNonHKXiAvL6WZN vaCQqWWLkfUiqSUyuh656DO A4TmEaXBJfshVmjWprnO6qU lAzCASALTGcb6OcZWUnRIsu YXJ9 STATEMENT OF ADEQUACY Satisfactory (test code = 2757) Gross assessment was [facility] performed at ([facility], code = 2777) Department of Pathology, [address] [place] [id number], Technical component [facility] was performed at ([facility], code = 2778) Department of Pathology, [address] [place] [id number], Professional component [facility] was performed at ([facility], code = 2779) Department of Pathology, [address] [place] [id number], [facility] 13:12:05 Test Item Value Reference Range Interpretation Comments Case Report (test code Medical Cytology Report = 104) Case: [id number] Authorizing Provider: Dariel Palacios, Collected: 04/13/2022 12:43 PM Ordering Location: [facility] Received: 04/13/2022 02:42 PM SERVICES Pathologist: Magda Wagner MD Specimen: Pelvic DIAGNOSTIC CATEGORY NEGATIVE FOR MALIGNANCY (test code = 2754) DIAGNOSIS (test code = u7lokOPzHAXvx2rjFTSzkBL 3220) uZzEwMzNcZnRuYmpcdWMxIH tccnRmMVxlcGljOTYwMlxhb xJsGVHmmOLzC1GumtcoHEex LP2rGN5xgSucwSNzfUZhGAY oYlDxz9fmj937eAUdv9rjHJ OQueemtSi6aAutE67nn7G0N rptK75vlPNhYGT8VLIoVAKc yNTmCZVyYZW7UXDloIQiM0f iDEXlBK6pkqmdAIbrMWzyES CpbKW1WZKjoXMaR7ZbHUDuR CplJLQdwaa0RePeIp4okFBj eTcyMFxwYXJkXHBsYWluXGZ zTzNwGEMLTjuXNNdLK2cSRj tFYZeDIFVKH5HTVlXcUvvjG LIobDWuOT6KDRhndKg4EPVi c8EogDXwdDxgGH0haJrgbA7 rVG3FpM9aup37pdNdMXXmsE hlbGlhbCBjZWxscywgYSBmZ WvpbtN9iTFebNntgBXzWF8j VXa4zRFhj7X2yCJfZEIaCEQ lbnRccGFyfXtccnRmMVxzc3 MxXEitSVDeOU3fvEedJBHlZ J9oBPHmD5hvoH2mgav4XkMm PCFdZxH9ZIVvqxZ4Ask4WZM qHBrlb8pxm8MnOOYnRPg3pS dfPeYfRPCqc8qrxpCoEqUnI JWjVVMsQMEuvLOnU720b2gw i8qdxqIymPN2MFRrVCL1LPe hdsJkrdB3ZKhdbXOxCmE1UK fkydUuCRqrifCjsqXhUpk7A TDfT009YFX4rXuap3xqPQQ6 VRRwHAKfIxIaHu7lbUOuR09 0OLBrMPYHDTAdsJe2BBAjnb NcemPgmLZAj677J790b9cyP ZQsgxXckTbBawlwx1lxO389 XHBhcGVydzEyMjQwXHBhcGV hfEM2PSZgRR9gxtnuUQwlNV xbZJHsucY6YBHmpQQeK4IwY GQtRA3kscviOBT2TCidPYLd NCW0YmEaCCIok1Ttcxf2BxV jlq9zky47BUE2f1DsuRzjVU O7QFR5HxSwQg3uaZRgHJAfS W2fGjPpxJRzMSQjdo50bRht DQtpJUM1RUAjvvPoo5Wvn7a dOvMbicOhM3rkZ2EnESAnWX GhOTRfJmGaleAai3Ind8Crh TBpxRz9v2nfKYWoFNNzrVdt e7fxYUV8MZVgqAFcH1ssbZ5 uXQAuNL4nebxfb5zqHTdlRS ozNEHbwXZ0dbW6KJGkkEKrM 3LnyX7nKTPfBNpuMENwmoy1 AsPjFl8dqIYezSiwZHdjPnt wYWdlXHBnbmNvbnRccGduZG VjXHBsYWluXHBsYWluXGYwX GZzMjRccWxcbGFuZzEwMzNc aGljaFxmMVxkYmNoXGYxXGx sJ0nzYuLzLjMoHxf0RMKryM SaIEBqTwl0YTEkrRFoDRCBa NerfR8eBYOgcPziwH7arQA1 VWMociBrsQSMcR1hSOYAtX4 sKsI8LUUyMeg8SIG0SfOcqD FyfX0= COMMENT (test code = u2dzjAOmHOQhmKR5EkVtJCI 3353) dk5cot7GusVIkyGVeWBtofC ImofKudu85uNE7wS72SE8nQ KCxXfK1KNDnrwA4Knx4FNWj EHVetDZyA452x0ymd5yjadY ptHL0pYdrCLZvbuegKcT0WS fwNLHvcsjwOYe4DWoqTOHvv LI7EXWywJLzH1JlQKUeBO2n dlk5CBZ7QBdaXAQtMeH7QHW khOXqRJRwfHleKTcms583AM C5RhHmKCNlaiRleKmywD0oJ nMyMFxwYXIgUGxlYXNlIHNl FGYunNPkgEFhlUHsIVCdz9r cH2nzP8FhMZYBFrXgKGU8Gc RccGFyfQ== CPT Code(s) (test code k4snrOEjONVhyGM6KxXsTRP = 3355) zh9wnj9UpiSLrlGNxGSgerY UhdkFwni05cLQ5tA30FB3oF EDrEjP3NSTimkS2Tsv2QWJi IRYgeBErT750a8joe7tmjcD cuHT2yUttPUWwlveyAyC2GI snMQSbajlcROs4ZQqdVRKlj SM9YRTrnBQfQ4IvVLPzQV8q ozn9RSJ0BVdyHXZzQyI3LAH tdCNtSYFqyPsqQWgzp021CK D8DqPtSVTrthRjwUkzwM3cK jKhDQG0CYSlFXqaKKB9 CLINICAL DATA (test i9erwVMyAKCqyXQ8MdDlOHN code = 3350) rj7ape8EocXTpgFOcPLojjT TmxtGdgk35aCI5bD19KQ4aF XFeFmV6VGFgtsR2Bzu7DZBq JPVspQBbH190j4vqm5ygmmH uhHL2eWehDXWkiaqpEoY9YU xbNOKetlruQXu4SRzkELOaf QS6SZWipGWfI7PpLDPwLQ2x dqa1NHP4MMllIQVtDzV6YCW biGLhPRRiuKeeCAxps580OY Y3CcWkMENqiuOefLgjiM2mD dIxKNR4GTJ2Qj3cPKWgD4Er fXa0OKDuCNXmm2FueMMMJNQ qds0mB00rtIDytOckoJTnEB Y2q840UJHlmAnojQNrKBhld 0SntJwzT08dvPofiwVhsY9e gNgyxkMfYFO6zL5zOD4uIWU jqXK5ZTDywKVeUCs5sTBtyE Xkp8OkFFxsBxKwiVTgpxQzB xTsqVytUPigay4tQVMiTHPc kbQtHWZ1aN6eMLO7wBLmiEl jYWwgaGVybmlhIHJlcGFpci K1aIImIDM3bDUgFOOmMqW9D MYoL21sBfOMpTWoSeJXoPei sSGqFVpnA61fiUpwtJXcSH5 qrPDxEP1zo0IhDP9gQYWjMe lsaWNhbCBoZXJuaWEuXHBhc n0= SPECIMEN SOURCE (test y1pycGZuRANynPP5HkXbBHP code = 3377) iw9ckc1TywTEjgETuIAlldW IfifSuno20iLA9xK00XI6eP ZMuDkN4WRXzmiK0Lqy9BAYy UYUshENsZ454f8zts6pahvI kwXI4iNqwZRZdvqecKbI7PM dnPEWpfcapCYd0GXidRKBzc RA0NFVvyQPqF4CxTNLpZF1u dlk0JHB1SCoxRIUwYrK4QBX owFZyAOUixDvtTJguc135HM P9JsQqLTCjpkOyfLmmqD9yW gGvFCQJGVcIWJUaS1KMVIbI E1JloGYsyW== GROSS DESCRIPTION n8oynFJsGVCptJNFQWUiU8f (test code = fjuXeUUChzEZgZ4SfwowdBP [id number]) xsJZ0oGM1oiSzcgWHdfKAhZ F3FPCTyOwAlZELztAVhexHq DeNlUAIsrMYzmKS1VDKkWZ7 khwgvQYevCBgvJFXtfdB2LL FggPVwR8DwTKQsJM1xydohL XG6ZLctiJ8apcSOQrcaJc2b dHRibHtcZjFcZmNoYXJzZXQ qGLWkcVnyDORqEDa3xS2AMy rfAVF1ENJLOuzlJRFxFY6Dp 1oyBBEdjRMgIBY6VAahrINa VNWsAOJrEAi0IRAfPXjowGJ uFO3bsHsgIlhouAzxk3KcaV BcXGlkIDUxMDAyIFxcZGIgI T7KFrJwNVV0TsZ1EUNxACb4 GCq6LB8ZBxEnEUOhWZg5XBV 7RUJrJEv2OBnfYG7YUXWkGZ SyJxRjCzB7UQSpVKMeVDCfM iBcXGYgQXJpYWwgXFxmbCBc ET5zfPsdwFWfvsJIGvWRNVf 2aWMuXHBhciANClxlcGljTm VzdERvYzEgDQpcbHRycGFyX GxpbjBccmluMCANClxsdHJj sVqfdmNmZPWhW6FlcoMpUSn xZW1dLXYgz88umYHssGRpRL sgcHJlcGFyZWQgNCBjeXRvc 0ZwdhEaINmylMqchU4qWWEr H91fm1PKz4NsXLUzRHrlm2s igOfdk8XydUTgHYttZQTxiE YcVMyxbO8vLgJjb5jjqEe9E NuwdlN3YQBzxj0SNkwmgH3d VcOsf3ixmHf7GMNUTloruzF 7y3zulMddj4DgzNGmJZ0XRw 0= MICROSCOPIC q5istLOoAEAjzOL7WxJgASY DESCRIPTION (test code mk3wbp9PecMWraINuBXjdxT = 3371) KpmwUfoa88pYY2mQ77KI2wF TGcBhC6KIJvfmX8Uic6GYXc IMIltHQqG663o5eyr9ccyuW fcFZ7xFjiDLCpohjdPtQ8VG osWBIhiksxWTn0YAhtZBIjy BN5OLJqfAQzY4NpSLQqVS6a lns3JDP7QZnhOIKqWoE8HEE ffTXoGLMyqVcpMCenv447IX N4VxChEYJfnuMotHmrdC0bY vFkGGHLJZYsr0RnTCCgCIcz YXJ9 STATEMENT OF ADEQUACY Satisfactory (test code = 2757) Gross assessment was [facility] performed at ([facility], code = 2777) Department of Pathology, [address] [place] [address], [place], [place] [address], Technical component [facility]. ke's was performed at ([facility], code = 2778) Department of Pathology, [address] [place] [address], Professional component [facility]. ke's was performed at ([facility], code = 2779) Department of Pathology, [address] [place] [address], [facility] 13:12:05Medical Cytology Report Case: [id number] Authorizing Provider: Dariel Palacios, Collected: 1 06/13/2021 12:43 PM Ordering Location: [facility] Received: 04/13/2022 02:42 PM SERVICES Pathologist: Magda Wagner MD Specimen: Pelvic NEGATIVE FOR MALIGNANCY PELVIC WASHINGS (CYTOSPINS):-Negative for malignancy-Numerous mesothelial cells, a few neutrophils and lymphocytes present Signing Pathologist Direct Phone Line: [phone] signed by Magda Wagner MD on 04/14/2022t 1:12 PMPlease see surgical pathology case [id number] y.o. recently underwent Laparoscopic hy sterectomy, bilateral salpingoophorectomy, resection of bilateral pelvic masses (13 cm and 7 cm), hernia sac resection, umbilical hernia repair with suture (3 x 3 cm). Hx of Bilateral complex adnexal mass and Umbilical hernia.PELVIC WASHINGSA. Pelvic.Received 80 ml bloody fluid; prepared 4 cytospins Performed. [facility] of [facility]ology, [address] [place] [address], [facility] of [facility]ology, [address] [place] [address], [facility], Department of Pathology, [address] [place] [address], [id number] 16:01:45 Test Item Value Reference Range Interpretation Comments Cytology (test code = See Separate Report 2629) [facility] 16:01:45 Test Item Value Reference Range Interpretation Comments Cytology (test code = See Separate Report 2629) [facility]2022-[facility]-07 16:01:45 Test Item Value Reference Range Interpretation Comments Cytology (test code = See Separate Report 2629) [facility]2022-[facility]-07 16:01:45 Test Item Value Reference Range Interpretation Comments Cytology (test code = See Separate Report 2629) [facility] 16:01:45 Test Item Value Reference Range Interpretation Comments Cytology (test code = See Separate Report 2629) [facility]2022-11-07 16:01:45 Test Item Value Reference Range Interpretation Comments Cytology (test code = See Separate Report 2629) [facility] [id number] 16:01:45 Test Item Value Reference Range Interpretation Comments CYTOLOGY RESULT POINTER See Separate Report (BEAKER) (test code = 2629) POC-Glucose [id number] 15:02:27 Test Item Value Reference Range Interpretation Comments POC-Glucose Meter (test 155 mg/dL 70-110 H : TE STED AT [facility] code = 1538) [address] [place] [address], [facility] 30: Building Drafting Officer/Techni chelle ID = [id number] for RejiCori zapien que Lab Interpretation (test Abnormal code = 00646-9) [facility] [id number] 15:02:27 Test Item Value Reference Range Interpretation Comments POC-Glucose Meter (test 155 mg/dL 70-110 H : [facility] code = 1538[facility] [address] [place] [address], 770 30: Building Drafting Officer/Techni chelle ID = [id number] for Reji, SyMoni que Lab Interpretation (test Abnormal code = 66558-1) [facility] [id number] 15:02:27 Test Item Value Reference Range Interpretation Comments POC-Glucose Meter (test 155 mg/dL 70-110 H : TE STED AT [facility] code = 1538) [address] [place] [address], 770 30: Building Drafting Officer/Techni chelle ID = [id number] for Reji Cori que Lab Interpretation (test Abnormal code = 72131-0) [facility]-Glucose [id number] 15:02:27 Test Item Value Reference Range Interpretation Comments POC-Glucose Meter (test 155 mg/dL 70-110 H : TE STED AT [facility] code = 1538) [address] [facility], 770 30: Building Drafting Officer/Techni chelle ID = [id number] for Cori Mendoza que Lab Interpretation (test Abnormal code = 91074-1) [facility]-Glucose [id number] 15:02:27 Test Item Value Reference Range Interpretation Comments POC-Glucose Meter (test 155 mg/dL 70-110 H : TE STED AT [facility] code = 1538) [address] [facility], 770 30: Building Drafting Officer/Techni chelle ID = [id number] for Reji, Cori lopez Lab Interpretation (test Abnormal code = 59963-1) [facility]-Glucose [id number] 15:02:27 Test Item Value Reference Range Interpretation Comments POC-Glucose Meter (test 155 mg/dL 70-110 H : TE STED AT [facility] code = 1538) [address] [facility], 770 30: Building Drafting Officer/Techni chelle ID = [id number] for Cori Mendoza Lab Interpretation (test Abnormal code = 04099-3) [facility]-GLUCOSE [id number] 15:02:27 Test Item Value Reference Range Interpretation Comments POC-GLUCOSE METER 155 mg/dL 70-110 H : TESTED A T [facility] 6720 ([facility]) (test code [facility], = 1538) [address]: Building Drafting Officer/Techni chelle ID = [id number] for Norberto rupaliJasbir walsh HIV-1 ANTIGEN WITH HIV-1/2 [id number] 11:50:19 Test Item Value Reference Range Interpretation Comments HIV-1 ANTIGEN WITH HIV 1\\T\\2 Nonreactive Nonreactive ANTIBODY (2) ([facility]) (test code = 2586) Building Drafting Officer ID - ADMINCBC W/PLT COUNT & AUTO [id number] 09:35:26 Test Item Value Reference Range Interpretation Comments WHITE BLOOD CELL COUNT ([facility]) 8.4 K/ L 3.5-10.5 (test code = 775) RED BLOOD CELL COUNT (BEAKER) 4.04 M/ L 3.93-5.22 (test code = 761) HEMOGLOBIN (BEAKER) (test code = 10.8 GM/DL 11.2-15.7 L 410) HEMATOCRIT (BEAKER) (test code = 31.7 % 34.1-44.9 L 411) MEAN CORPUSCULAR VOLUME (BEAKER) 79 fL 79-95 (test code = 753) MEAN CORPUSCULAR HEMOGLOBIN 26.7 pg 25.6-32.2 (BEAKER) (test code = 751) MEAN CORPUSCULAR HEMOGLOBIN CONC 34.1 GM/DL 32.2-35.5 (BEAKER) (test code = 752) RED CELL DISTRIBUTION WIDTH 16.7 % 11.7-14.4 H (BEAKER) (test code = 412) PLATELET COUNT (BEAKER) (test 347 K/CU MM 150-450 code = 756) MEAN PLATELET VOLUME (BEAKER) 11.9 fL 9.4-12.3 (test code = 754) NUCLEATED RED BLOOD CELLS 0 /100 WBC 0-0 (BEAKER) (test code = 413) NEUTROPHILS RELATIVE PERCENT 66 % (BEAKER) (test code = 429) LYMPHOCYTES RELATIVE PERCENT 24 % (BEAKER) (test code = 430) MONOCYTES RELATIVE PERCENT 7 % (BEAKER) (test code = 431) EOSINOPHILS RELATIVE PERCENT 3 % (BEAKER) (test code = 432) BASOPHILS RELATIVE PERCENT 0 % (BEAKER) (test code = 437) NEUTROPHILS ABSOLUTE COUNT 5.53 K/ L 1.56-6.13 (BEAKER) (test code = 670) LYMPHOCYTES ABSOLUTE COUNT 2.04 K/ L 1.18-3.74 (BEAKER) (test code = 414) MONOCYTES ABSOLUTE COUNT (BEAKER) 0.55 K/ L 0.24-0.36 H (test code = 415) EOSINOPHILS ABSOLUTE COUNT 0.23 K/ L 0.04-0.36 (BEAKER) (test code = 416) BASOPHILS ABSOLUTE COUNT (BEAKER) 0.03 K/ L 0.01-0.08 (test code = 417) IMMATURE GRANULOCYTES-RELATIVE 0.20 % 0.00-1.00 PERCENT (BEAKER) (test code = 2801) POCT-GLUCOSE [id number] 09:15:34 Test Item Value Reference Range Interpretation Comments POC-GLUCOSE METER 164 mg/dL 70-110 H : TESTED A T [facility] 6720 ([facility]) (test code = ZANA BLOOM, 1538) 20782: Building Drafting Officer/Techni chelle ID = [id number] for Katina Pereira
--- NOTE | 2023-01-14 11:38 | EDPHYS ---
Physician Documentation [facility] Name: Dyan Guevara Age: 67 yrs Sex: Female : 1955 Arrival Date: 01/14/2023 Time: 09:31 Bed 9 Private MD: Sofy Saxena ED Physician Brad Christine HPI: 01/14 12:00 This 67 yrs old Female presents to ER via Ambulatory with complaints of Fall snw Injury. 12:00 Details of fall: The patient fell from an upright position, while walking. Onset: The snw symptoms/episode began/occurred suddenly, yesterday. Associated injuries: The patient sustained bilateral knees. Severity of symptoms: At their worst the symptoms were moderate. The patient has experienced similar episodes in the past. The patient has not recently seen a physician. Historical: - Allergies: 10: No Known Allergies; bp - PMHx: 10: Arthritis; Diabetes - IDDM; GERD; High Cholesterol; Hypertension; bp - Immunization history:: Adult Immunizations up to date. - Social history:: Smoking status: Patient denies any tobacco usage or history of. ROS: 11:57 Constitutional: Negative for fever, chills, and weight loss, Eyes: Negative for injury, snw pain, redness, and discharge, ENT: Negative for injury, pain, and discharge, Neck: Negative for injury, pain, and swelling, Cardiovascular: Negative for chest pain, palpitations, and edema, Respiratory: Negative for shortness of breath, cough, wheezing, and pleuritic chest pain, Abdomen/GI: Negative for abdominal pain, nausea, vomiting, diarrhea, and constipation, Back: Negative for injury and pain, : Negative for injury, bleeding, discharge, and swelling, Skin: Negative for injury, rash, and discoloration, Neuro: Negative for headache, weakness, numbness, tingling, and seizure, Psych: Negative for depression, anxiety, suicide ideation, homicidal ideation, and hallucinations. 11:57 MS/extremity: Positive for injury or acute deformity, decreased range of motion, pain, of the right knee and left knee. Exam: 11:56 Constitutional: This is a well developed, well nourished patient who is awake, alert, snw and in no acute distress. Head/Face: Normocephalic, atraumatic. Eyes: Pupils equal round and reactive to light, extra-ocular motions intact. Lids and lashes normal. Conjunctiva and sclera are non-icteric and not injected. Cornea within normal limits. Periorbital areas with no swelling, redness, or edema. ENT: Nares patent. No nasal discharge, no septal abnormalities noted. Tympanic membranes are normal and external auditory canals are clear. Oropharynx with no redness, swelling, or masses, exudates, or evidence of obstruction, uvula midline. Mucous membranes moist. Neck: Trachea midline, no thyromegaly or masses palpated, and no cervical lymphadenopathy. Supple, full range of motion without nuchal rigidity, or vertebral point tenderness. No Meningismus. Chest/axilla: Normal chest wall appearance and motion. Nontender with no deformity. No lesions are appreciated. Cardiovascular: Regular rate and rhythm with a normal S1 and S2. No gallops, murmurs, or rubs. Normal PMI, no JVD. No pulse deficits. Respiratory: Lungs have equal breath sounds bilaterally, clear to auscultation and percussion. No rales, rhonchi or wheezes noted. No increased work of breathing, no retractions or nasal flaring. Abdomen/GI: Soft, non-tender, with normal bowel sounds. No distension or tympany. No guarding or rebound. No evidence of tenderness throughout. Back: No spinal tenderness. No costovertebral tenderness. Full range of motion. Skin: Warm, dry with normal turgor. Normal color with no rashes, no lesions, and no evidence of cellulitis. Neuro: Awake and alert, GCS 15, oriented to person, place, time, and situation. Cranial nerves II-XII grossly intact. Motor strength 5/5 in all extremities. Sensory grossly intact. Cerebellar exam normal. Normal gait. Psych: Awake, alert, with orientation to person, place and time. Behavior, mood, and affect are within normal limits. 11:56 Musculoskeletal/extremity: Extremities: pt ambulates with walker at baseline, mellissa wrap to bilateral knees, no hip tenderness. Pt has long standing knee pain. Has appt with Dr. Sheth today at 1315, Circulation is intact in all extremities. Sensation intact. Calves: are non-tender. Vital Signs: 10:00 BP 109 / 61; Pulse 74; Resp 16; Temp 98; Pulse Ox 97% ; bp 11:50 Weight 72.57 kg (R); nj1 12:08 BP 105 / 57; Pulse 67; Resp 16; Pulse Ox 96% on R/A; Pain 9/10; nj1 12:08 Pain Scale: Adult nj1 MDM: 11:32 Patient medically screened. snw 11:59 Differential diagnosis: abrasion, contusion, fracture, sprain, strain. Data reviewed: snw vital signs, nurses notes. Counseling: I had a detailed discussion with the patient and/or guardian regarding: the historical points, exam findings, and any diagnostic results supporting the discharge/admit diagnosis, the need for outpatient follow up, for definitive care, a orthopedic surgeon, to return to the emergency department if symptoms worsen or persist or if there are any questions or concerns that arise at home. Special discussion: Based on the history and exam findings, there is no indication for further emergent testing or inpatient evaluation. I discussed with the patient/guardian the need to see the orthopedic surgeon for further evaluation of the symptoms. 12:00 ED course: Encouraged pt to keep appt with Specialist that she already has.. snw Administered Medications: 11:54 Drug: HYDROcodone-acetaminophen PO 5 mg-325 mg 1 tabs Route: PO; nj1 12:08 Follow up: Response: No adverse reaction nj1 11:54 Drug: Ketorolac IM 30 mg Route: IM; Site: right vastus lateralis; nj1 12:08 Follow up: Response: No adverse reaction nj1 Disposition Summary: 01/14/23 11:37 Discharge Ordered Location: Home snw Condition: Stable snw Diagnosis - Pain in left knee snw - Pain in right knee snw - Fall on same level from slipping, tripping and stumbling with subsequent striking snw against object Followup: snw - With: Emergency Department - When: As needed - Reason: Worsening of condition Followup: snw - With: Beny Sheth MD - When: Today - Reason: as scheduled Discharge Instructions: - Discharge Summary Sheet snw - Joint Pain snw - Acute Knee Pain, Adult snw - How to Use Cold Therapy, Zgnv-vn-Blso snw - Heat Therapy snw Forms: - Medication Reconciliation Form snw - Thank You Letter snw - Antibiotic Education snw - Prescription Opioid Use snw - Patient Portal Instructions snw Signatures: Carolina Gonzalez FNP-C COLLECTION ADVISOR-Csnw Dwight Charles, RN RN bp Lily Calderon, RN RN nj1
--- NOTE | 2023-01-14 11:38 | ER ---
Nurse's Notes [facility] Name: Dyan Guevara Age: 67 yrs Sex: Female : 1955 Arrival Date: 01/14/2023 Time: 09:31 Bed 9 Private MD: Sofy Saxena Diagnosis: Pain in left knee;Pain in right knee;Fall on same level from slipping, tripping and stumbling with subsequent striking against object Presentation: 01/14 10:00 Chief complaint: Patient states: MECHANICAL FALL ON SIDEWALK Y/D, BILATERAL KNEE PAIN. bp Coronavirus screen: At this time, the client does not indicate any symptoms associated with coronavirus-19. Ebola Screen: No symptoms or risks identified at this time. Initial Sepsis Screen: Does the patient meet any 2 criteria? No. Patient's initial sepsis screen is negative. Does the patient have a suspected source of infection? No. Patient's initial sepsis screen is negative. Risk Assessment: Do you want to hurt yourself or someone else? Patient reports no desire to harm self or others. Onset of symptoms was January 13, 2023. 10:00 Method Of Arrival: Ambulatory bp 10:00 Acuity: DAVID 4 bp Triage Assessment: 10:01 General: Appears in no apparent distress. uncomfortable, Behavior is calm, cooperative, bp appropriate for age. Pain: Complains of pain in right knee and left knee. EENT: No deficits noted. Neuro: No deficits noted. Musculoskeletal: Reports pain in right knee and left knee. Historical: - Allergies: 10:01 No Known Allergies; bp - PMHx: 10:01 Arthritis; Diabetes - IDDM; GERD; High Cholesterol; Hypertension; bp - Immunization history:: Adult Immunizations up to date. - Social history:: Smoking status: Patient denies any tobacco usage or history of. Screenin:10 [facility] ED Fall Risk Assessment (Adult) History of falling in the last 3 months, nj1 including since admission Score/Fall Risk Level 0 - 2 = Low Risk Oriented to surroundings, Maintained a safe environment, Hourly rounding (assess needs \T\ fall precautionary measures) done. Abuse screen: Denies threats or abuse. Denies injuries from another. Nutritional screening: No deficits noted. Tuberculosis screening: No symptoms or risk factors identified. Assessment: 11:30 Reassessment: See triage assessment. nj1 12:08 Reassessment: Patient appears in no apparent distress at this time. Patient and/or nj1 family updated on plan of care and expected duration. Pain level reassessed. Patient is alert, oriented x 3, equal unlabored respirations, skin warm/dry/pink. Vital Signs: 10:00 BP 109 / 61; Pulse 74; Resp 16; Temp 98; Pulse Ox 97% ; bp 11:50 Weight 72.57 kg (R); nj1 12:08 BP 105 / 57; Pulse 67; Resp 16; Pulse Ox 96% on R/A; Pain 9/10; nj1 12:08 Pain Scale: Adult [facility] ED Course: 09:36 Patient arrived in ED. mr 09:37 Sofy Saxena is Private Physician. mr 09:41 Carolina Gonzalez [facility]C [facility] snw 09:41 Brad Christine MD is Attending Physician. snw 10:01 Triage completed. bp 10:01 Arm band placed on. bp 11:32 Lily Calderon, SIMI is Primary Nurse. nj1 11:37 Beny Sheth MD is Referral Physician. snw 11:56 Provided Education on: fall precautions, call light. nj1 11:56 Patient has correct armband on for positive identification. Bed in low position. Call nj1 light in reach. 12:10 No provider procedures requiring assistance completed. Patient did not have IV access nj1 during this emergency room visit. Administered Medications: 11:54 Drug: HYDROcodone-acetaminophen PO 5 mg-325 mg 1 tabs Route: PO; nj1 12:08 Follow up: Response: No adverse reaction nj1 11:54 Drug: Ketorolac IM 30 mg Route: IM; Site: right vastus lateralis; nj1 12:08 Follow up: Response: No adverse reaction nj1 Medication: 12:11 VIS not applicable for this client. nj1 Outcome: 11:37 Discharge ordered by . snw 12:10 Discharged to home ambulatory, with friend. nj1 12:10 Condition: stable 12:10 Discharge instructions given to patient, Instructed on discharge instructions, the need for admit, safety practices, Demonstrated understanding of instructions, follow-up care. 12:12 Patient left the ED. nj1 Signatures: Carolina Gonzalez FNP-C SWEDGER-Csnw Dyan Salter mr Dwight Charles, RN RN bp Lily Calderon, RN RN nj1
[2023-01-14] MEDS ORDERED: HYDROCODONE/APAP 5/325 MG TAB ONE (11:59)
[2023-01-14] MEDS ORDERED: KETOROLAC 30 MG/ML INJ ONE (11:59)
[2023-01-14 12:17] VITALS: TEMP 98
[2023-01-14 12:18] VITALS: BP 105/57; O2SAT 96
== END 2023-01-14 12:12 | disposition home or self-care (01) ==
LOC: ER 09:31
DX: M25.562 Pain in left knee (principal); M25.561 Pain in right knee; W01.10XA Fall on same level from slipping, tripping and stumbling with subsequent striking against unspecified object, initial encounter; I10 Essential (primary) hypertension
CPT/HCPCS: 96372; 99284

== ENCOUNTER 2023-01-14 13:36 | Emergency (ER) | payer OTHER ==
--- OUTSIDE RECORDS SUMMARY | 2023-01-14 13:43 | XMS REPORT | Continuity of Care Document ---
:1955 Author Organization [facility] t Address [address] [place] [address] Care Team Providers Name Role Phone SOFY KIM Primary Care Physician Unavailable Celso Christine Attending Clinician Unavailable Sidney Arce Attending Clinician Unavailable Yessy Parmar Attending Clinician Unavailable RADIOLOGY Attending Clinician Unavailable Radiology Attending Clinician Unavailable Dariel Palacios MD Attending Clinician [phone] DARIEL PALACIOS Attending Clinician Unavailable Kenzie Alford CRNA Attending Clinician Jina Castillo MD Attending Clinician [phone] SOFY KIM Admitting Clinician Unavailable DARIEL PALACIOS Admitting Clinician Unavailable Payers Payer Name Policy Type Policy Number Effective Date Expiration Date S ource CIGNA TOTAL [id number] 2022 CARE MEDICARE 00:00:00 HMO DSNP MEDICAID OF [id number] 2022 [place] 00:00:00 HUMANA MEDICARE 53 [id number] 2020 [facility] 00:00:00 - [facility] MEDICARE MB [id number] [facility] NOVITAS [facility] MEDICARE MB [id number] [facility] NOVITAS [facility] HUMANA MEDICARE C1 [id number] [facility] lis - [facility] HUMANA MEDICARE C1 [id number] Common Sp lis [facility] Cigna-HealthSpr C1 [id number] Common Sp lis ing Medicare - [facility] Problems Condition Condition Condition Status Onset Resolution Last Treating Co mments Source Name Details Category Date Date Treatment Clinician Date Adnexal Adnexal Disease Active 2021-06 [facility] mass mass 06-13 [facility] 00:00: [address] Teratoma Teratoma Disease Active 2014-06 Unive rs of pelvis of pelvis 06-12 ity of 00:00: [place] [address] [facility] Closed Closed Disease Active 2014-06 Univers fracture fracture 1-03 ity of of right of right 00:00: [place] humerus humerus 00 [facility] Closed Closed Disease Active 2014-06 Univers fracture fracture 1-03 ity of of right of right 00:00: [place] ulna ulna 00 [facility] Closed Closed Disease Active 2014-06 Univers fracture fracture 1-03 ity of of lateral of lateral [place] malleolus malleolus 00 Medi gopi of right of right Branch ankle ankle Closed Closed Disease Active 2014-06 Univers fracture fracture 1-03 ity of of rib of of rib [place] right [place] 00 [place] dical Branch C7 C7 Disease Active 2014-06 Univers cervical cervical 0-30 ity of fracture fracture 00:00: [place] 00 Medical Branch Chronic Stage 3a Problem Active Common kidney chronic Spirit disease kidney [facility] stage 3A disease [facility] [id number] GERD Problem Active Common without Spirit esophagiti - [facility] Osteoarthr Osteoarthr Problem Active C ommon itis of itis of Spirit knee knees, - CHI bilateral [facility] Vascular Vascular Problem Active Commo n dementia dementia [facility] SI - Stress Problem Active Common Stress incontinen Spirit incontinen ce of - CHI ce urine [facility] Type II Diabetes Problem Active Common diabetes mellitus Spirit mellitus type 2, - [facility] well controlled [facility] [id number] Other Problem Active Common urinary Spirit incontinen - CHI ce [facility] [id number] Vaginal Problem Active Common itching [facility] [id number] Hyperchole Problem Active Com mon sterolemia [facility] [id number] Other Problem Active Common chronic Spirit pain - [facility] [id number] Type 2 Problem [place] 198[address] diabetes Spirit mellitus - [facility] with [facility] [id number] Type 2 Problem Active Common diabetes Spirit mellitus - [facility] with [facility] nephropath Medica l y [place] [id number] Pain in Problem Active Common left knee [facility] [id number] Anal Problem Active Common itching [facility] [id number] Chronic Problem Active Commo n kidney Spirit disease, - [facility] unspecifie [facility] Anxiety Anxiety Problem Active Common disorder disorder [facility] [id number] OAB Problem Active Common (overactiv Spirit e bladder) [facility] [id number] Depression Problem Active Co mmon screening [facility] Chronic +5th digit Problem Active Comm on kidney eff Spirit disease 03/07/20*Ch - [facility] stage [address] [facility] disease, Medical stage 3 Center [id number] Onychomyco Problem Active Co mmon sis [facility] [id number] Essential Problem Active Comm on hypertensi Spirit on [facility] Allergies, Adverse Reactions, Alerts Allergy Allergy Status Severity Reaction(s) Onset Inactive Treating Comm ents Source Name Type Date Date Clinician NO KNOWN Allergy Active [facility] NO KNOWN Drug Active [facility] ALLERGIE Class ity of S [facility] Social History Social Habit Start Date Stop Date Quantity Comments Source History of Cigarette Smoker [facility] L ukes tobacco use [facility] Alcohol Frequency Medical Center History [facility] Alcohol Std Medical Cente r Drinks History [facility] Alcohol Binge Medical Sharita ter Exposure to 2022-06-202022-06-30 Not sure [facility] SARS-CoV-2 00:00:00 10:13:00 [facility] (event) Branch Alcohol intake 2022-04-14 2022-04-14 Current [facility]er [facility] 00:[facility]00:00 alcohol (finding) [facility] Center Cigarettes smoked 2022-04-08 2022-04-[address] [facility] current (pack per 00:00:00 00:00:00 Medical Center day) - Reported Cigarette 2022-04-08 2022-04-[address] [facility] pack-years 00:00:00 00:00:00 [facility] Tobacco use and 2022-04-08 2022-04-08 Smokeless tobacco [facility] exposure 00:00:00 00:00:[address] [facility] Alcohol Comment 2022-04-08 2022-04-[address] [facility] 00:00:00 00:00:00 [facility] Sex Assigned At [address] [facility] 00:00:00 00:00:00 [facility] Smoking Status Start Date Stop Date Source Smokes tobacco daily 2022-04-08 00:00:[address] [facility] [address] kes [facility] Medications Ordered Filled Start Stop Current Ordering [...] St glargine,hu -07 Units [facility] m[facility]rec[facility]anlog 19:26: [facility] (TOUJEO 34 usly. Center SOLOSTAR U-300 [...] 1-07 by mouth Lukes tablet 19:26: daily. [place] [address] Center empaglifloz 2021-06 Yes 25mg QD Take [...] St glargine,hu 1-07 Units [facility] m.rec.anlog 19:26: [facility] (TOUJEO 34 usly. Center SOLOSTAR U-300 INSULIN SUBQ) simvastatin 2021-06 Yes 10mg QD Take [address] (ZOCOR) 10 1-07 by mouth Lukes MG tablet 19:26: nightly. [facility] gopi 34 Center pantoprazol 2021-06 Yes 40mg QD Take [address] e 1-07 by mouth Lukes (PROTONIX) 19:26: daily. Medic al 40 MG 34 Center tablet aspirin 81 2021-06 Yes 81mg QD Take [address] MG EC 1-07 by mouth [facility]ukes tablet 19:26: daily. [address] empaglifloz 2021-06 Yes 25mg QD Take [...] St glargine,hu 1-07 Units [facility]ukes m.rec.anlog 19:26: [facility] (TOUJEO 34 usly. Center SOLOSTAR U-300 [...] 1-07 by mouth Lukes tablet 19:26: daily. [address] empaglifloz 2021-06 Yes 25mg QD Take [...] St glargine,hu 1-07 Units [facility]ukes m.rec.anlog 19:26: [facility] (TOUJEO 34 usly. Center SOLOSTAR U-300 INSULIN SUBQ) simvastatin 2021-06 Yes 10mg QD Take [address] (ZOCOR) 10 1-07 by mouth Lukes MG tablet 19:26: nightly. [facility] 34 Center pantoprazol 2021-06 Yes 40mg QD Take [address] e 1-07 by mouth Lukes (PROTONIX) 19:26: daily. Medic al 40 MG 34 Center tablet aspirin 81 2021-06 Yes 81mg QD Take [address] MG EC 1-07 by mouth Lukes tablet 19:26: daily. [address] empaglifloz 2021-06 Yes 25mg QD Take [...] St glargine,hu 1-07 Units [facility]ukes m.rec.anlog 19:26: [facility] (TOUJEO 34 usly. Center SOLOSTAR U-300 INSULIN SUBQ) simvastatin 2021-06 Yes 10mg QD Take [address] (ZOCOR) 10 1-07 by mouth Lukes MG tablet 19:26: nightly. [facility] 34 Center pantoprazol 2021-06 Yes 40mg QD Take [address] e 1-07 by mouth Lukes (PROTONIX) 19:26: daily. Medic al 40 MG 34 Center tablet aspirin 81 2021-06 Yes 81mg QD Take [address] MG EC 1-07 by mouth Lukes tablet 19:26: daily. [address] empaglifloz 2021-06 Yes 25mg QD Take [address] in 1-07 by mouth Lukes (Jardiance) 19:26: daily. [facility] gopi 25 mg 34 Center tablet hydroCHLORO 2021-06 Yes 25mg QD Take [address] thiazide 1-07 by mouth Lukes (HYDRODIURI 19:26: daily. [facility] gopi L) 25 MG 34 Center tablet insulin 2021-06 Yes 300U Inject [address] glargine,hu 1-07 Units [facility]ukes m.rec.anlog 19:26: [facility] (TOUJEO 34 usly. Center SOLOSTAR U-300 INSULIN SUBQ) simvastatin 2021-06 Yes 10mg QD Take [address] (ZOCOR) 10 1-07 by mouth Lukes MG tablet 19:26: nightly. [address] pantoprazol 2021-06 Yes 40mg QD Take [address] e 1-07 by mouth Lukes (PROTONIX) 19:26: daily. Medic al 40 MG 34 Center tablet aspirin 81 2021-06 Yes 81mg QD Take [address] MG EC 1-07 by mouth Lukes tablet 19:26: daily. [address] empaglifloz 2021-06 Yes 25mg QD Take [address] in 1-07 by mouth Lukes (Jardiance) 19:26: daily. [facility] gopi 25 mg 34 Center tablet hydroCHLORO 2021-06 Yes 25mg QD Take [address] thiazide 1-07 by mouth Lukes (HYDRODIURI 19:26: daily. Medi gopi L) 25 MG 34 Center tablet insulin 2021-06 Yes 300U Inject [address] glargine,hu 1-07 Units Lukes m.rec.anlog 19:26: [facility] (TOUJEO 34 usly. Center SOLOSTAR U-300 INSULIN SUBQ) simvastatin 2021-06 Yes 10mg QD Take [address] (ZOCOR) 10 06-13 by mouth Lukes MG tablet 19:26: nightly. [facility] 34 Center pantoprazol 2021-06 Yes 40mg QD Take [address] e 07 by mouth Lukes (PROTONIX) 19:26: daily. Medic al 40 MG 34 Center tablet aspirin 81 2021-06 Yes 81mg QD Take [address] MG EC 06-13 by mouth Lukes tablet 19:26: daily. [place] [address] Center ibuprofen 2021-06- No 600mg Take 1 CHI [...] 1{tbl} Take [address] -acetaminop - 11-17 tablet by Gail reynaga (NORCO 00:00: 23:59 mouth Medic al 5-325) 00 :00 every 6 Center 5-325 mg (six) per tablet hours as needed for Pain for up to 10 days. Max Daily Amount: 4 tablets ibuprofen 2021-06- No 600mg Take [address] (ADVIL,MOTR 06-13 11-17 tablet Lukes IN) 600 MG 00:00: 23:59 (600 mg Med ical tablet 00 :00 total) by Center mouth every 6 (six) hours for 10 days. HYDROcodone 2021-06- No 1{tbl} Take [address] -acetaminop - 11-17 tablet by Gail reynaga (NORCO 00:00: 23:59 mouth Medic al 5-325) 00 :00 every 6 Center 5-325 mg (six) per tablet hours as needed for Pain for up to 10 days. Max Daily Amount: 4 tablets ibuprofen 2021-06- No 600mg Take [address] (ADVIL,MOTR 06-13 11-17 tablet Lukes IN) 600 MG 00:00: 23:59 [...] 600mg Take [address] (ADVIL,MOTR 06-13 11-17 tablet Lukes IN) 600 MG 00:00: 23:59 (600 mg Med ical tablet 00 :00 total) by Center mouth every 6 (six) hours for 10 days. HYDROcodone 2021-06- No 1{tbl} Take [address] -acetaminop - 11-17 tablet by Gail reynaga (NORCO 00:00: 23:59 [...] days. Max Daily Amount: 4 tablets acetaminoph 2021-06 No 650mg Take [address] en 06-13 tablets Lukes (TYLENOL) 00:00: 00:00 (650 mg Medi gopi 325 MG 00 :00 total) by Center tablet mouth every 6 (six) hours as needed for Pain for up to 10 days. acetaminoph 2021-06 No 650mg Take [address] en 06-13 tablets Lukes (TYLENOL) 00:00: 00:00 (650 mg Medi gopi 325 MG 00 :00 total) by Center tablet mouth every 6 (six) hours as needed for Pain for up to 10 days. acetaminoph 2021-06 No 650mg Take [address] [...] 06-08 by mouth Lukes tablet 10:28: daily. [facility] 54 Center empaglifloz 2021-06 Yes 25mg QD Take [address] in 06-08 by mouth Lukes (Jardiance) 10:22: daily. Medi gopi 25 mg 28 Center tablet hydroCHLORO 2021-06 Yes 25mg QD Take [address] thiazide 02 by mouth Lukes (HYDRODIURI 10:22: daily. Medi gopi L) 25 MG 28 Center tablet insulin 2021-06 Yes 300U Inject [address] glargine,hu - Units Lukes m.rec.anlog 10:22: [facility] (TOUJEO 28 usly. Center SOLOSTAR U-300 [...] QD Meloxicam 7.5 MG 7.5 MG 10-02 05-28 t} 7.5 MG 00:00: 00:00 00 :00 Augmentin Augmentin 2019- No Yessy 1 tablet Common 01-16 [facility] Spirit 00:00: 00:00 - CHI 00 :00 [facility] Ketoconazol Ketoconazol 2019- No Yessy 1 Common e e 11-22 [place]ender applicatio Spi rit 00:00: 00:00 n to - CHI 00 :[address] area(s) [facility] Penlac Penlac 2019- No Yessy 1 Common 11-22 Millender applicatio Spi rit 00:00: 00:00 n to - 00 :[address] both feet [facility] Contour Contour 2018-06 Yes Yessy as Common Next Next 0-28 Millender directed Spirit Monitor Monitor 00:00: - CHI 00 [facility] Contour Contour 2018-06 No Contour Next Next [...] 00:00: Monitor w/Device w/Device 00 w/Device Pen [place] Pen [place] 2018- Yes Yessy as Common 0-22 Millender directed Spirit 00:00: - CHI 00 [facility] Lancets Lancets 2018- Yes Yessy as Common 0-22 [facility] directed Spirit 00:00: (dispense - CHI lancets of St record) [facility] Blood Blood 2018- Yes Yessy as Common Glucose Glucose 0-22 Millender directed Spirit Test Strip Test Strip 00:00: (DISPENSE - CHI [address] GLUCOSE [facility]ukes TEST Medical STRIPS OF Center RECORD) Blood Blood 2018-06 No Blood Glucose Glucose 0-22 Glucose Test Strip Test Strip 00:00: Test Strip 00 Pen [place] Pen [place] 2018-06 No Pen 32G X 5 MM 32G X 5 MM 0-22 [place] 00:00: 32G X 5 MM 00 Lancets - Lancets - 2018-06 No Lancets - 0-22 00:00: 00 Lancets - Lancets - 2018-06 No Lancets - 0-22 00:00: 00 Blood Blood 2018-06 No Blood Glucose Glucose 0-22 Glucose Test Strip Test Strip 00:00: Test Strip 00 Pen [place] Pen [place] 2018-06 No Pen 32G X 5 MM 32G X 5 MM 0-22 [place] 00:00: 32G X 5 MM 00 Lancets - Lancets 2018-06 No Lancets - 0-22 00:00: 00 Pen [place] Pen [place] 2018-06 No Pen 32G X 5 MM 32G X 5 MM 0-22 [place] 00:00: 32G X 5 MM 00 Blood Blood 2018-06 No Blood Glucose Glucose 0-22 Glucose Test Strip Test Strip 00:00: Test Strip 00 Blood Blood 2018-06 No Blood Glucose Glucose 0-22 Glucose Test Strip Test Strip 00:00: Test Strip Lancets - Lancets 2018-06 No Lancets - 0-22 00:00: 00 Pen [place] Pen [place] 2018-06 No Pen 32G X 5 MM 32G X 5 MM 0-22 [place] 00:00: 32G X 5 MM 00 Pen [place] Pen [place] 2018-06 No Pen 32G X 5 MM 32G X 5 MM 0-22 [place] 00:00: 32G X 5 MM 00 Blood Blood 2018-06 No Blood Glucose Glucose 0-22 Glucose Test Strip Test Strip 00:00: Test Strip 00 Lancets - Lancets - 2018-06 No Lancets - 0-22 00:00: 00 Pen [place] Pen [place] 2018-06 No Pen 32G X 5 MM 32G X 5 MM 0-22 [place] 00:00: 32G X 5 MM 00 Blood Blood 2018-06 No Blood Glucose Glucose 0-22 Glucose Test Strip Test Strip 00:00: Test Strip 00 Lancets - Lancets - 2018-06 No Lancets - 0-22 00:00: 00 BD Pen BD Pen Yes Yessy USE Common Needle Needle 01-12 Millender DIRECTED Sp lis Short U/F Short U/F 00:00: - C HI 00 [facility] acetaminoph 2014-06 Yes [id number] 1{tbl} Take 1 Tab Univers en-codeine 2-02 by mouth ity o f (TYLENOL 00:00: every 4 [place] #4) 300-60 00 (four) Medical mg tablet hours as Branch needed for Pain. cyclobenzap 2014-06 Yes [id number] 10mg Take 1 Tab Univers rine 2-02 by mouth 3 ity of (FLEXERIL) 00:00: (three[place] 10 mg 00 times Medical tablet daily. Branch acetaminoph 2014-06 Yes [id number] 1{tbl} Take 1 Tab Univers en-codeine 2-02 by mouth ity o f (TYLENOL 00:00: every 4 [place] #4) 300-60 00 (four) Medical mg tablet hours as Branch needed for Pain. cyclobenzap 2014-06 Yes [id number] 10mg Take 1 Tab Univers rine 2-02 by mouth 3 ity of (FLEXERIL) 00:00: (three[place] 10 mg 00 times Medical tablet daily. Branch acetaminoph 2014-06 Yes [id number] 1{tbl} Take 1 Tab Univers en-codeine 2-02 by mouth ity o f (TYLENOL 00:00: every 4 [place] #4) 300-60 00 (four) Medical mg tablet hours as Branch needed for Pain. cyclobenzap 2014-06 Yes [id number] 10mg Take 1 Tab Univers rine 2-02 by mouth 3 ity of (FLEXERIL) 00:00: (three[place] 10 mg 00 times Medical tablet daily. Branch acetaminoph 2014-06 Yes [id number] 1{tbl} Take 1 Tab Univers en-codeine 2-02 by mouth ity o f (TYLENOL 00:00: every 4 [place] #4) 300-60 00 (four) Medical mg tablet hours as Branch needed for Pain. cyclobenzap 2014-06 Yes [id number] 10mg Take 1 Tab Univers rine 2-02 by mouth 3 ity of (FLEXERIL) 00:00: (three) [place] 10 mg 00 times Medical tablet daily. Branch methocarbam 2014-06 Yes [id number] 500mg Take 1 Tab Univers ol 1-11 by mouth 4 ity of (ROBAXIN) 00:00: (four) [place] 500 mg 00 times Medical tablet daily. Branch traMADOL 2014-06 Yes [id number] 50mg Take 1 Tab Univers (ULTRAM) 50 1-11 by mouth ity of mg tablet 00:00: every 6 [place] 00 (six) Medical hours as Branch needed for Pain (scale 4-6). methocarbam 2014-06 Yes [id number] 500mg Take 1 Tab Univers ol 1-11 by mouth 4 ity of (ROBAXIN) 00:00: (four) [place] 500 mg 00 times Medical tablet daily. Branch traMADOL 2014-06 Yes [id number] 50mg Take 1 Tab Univers (ULTRAM) 50 1-11 by mouth ity of mg tablet 00:00: every 6 [place] 00 (six) Medical hours as Branch needed for Pain (scale 4-6). methocarbam 2014-06 Yes [id number] 500mg Take 1 Tab Univers ol 1-11 by mouth 4 ity of (ROBAXIN) 00:00: (four) [place] 500 mg 00 times Medical tablet daily. Branch traMADOL 2014-06 Yes [id number] 50mg Take 1 Tab Univers (ULTRAM) 50 1-11 by mouth ity of mg tablet 00:00: every 6 [place] 00 (six) Medical hours as Branch needed for Pain (scale 4-6). methocarbam 2014-06 Yes [id number] 500mg Take 1 Tab Univers ol 1-11 by mouth 4 ity of (ROBAXIN) 00:00: (four) [place] 500 mg 00 times Medical tablet daily. Branch traMADOL 2014-06 Yes [id number] 50mg Take 1 Tab Univers (ULTRAM) 50 [...] Yessy 1 tablet Common Millender in the [facility] evening [facility] Hydrochloro Hydrochloro Yes Yessy 1 tablet Common thiazide thiazide Millender Sp lis [facility] Namenda Namenda Yes Yessy 1 tab(s) Comm on Millender once a day Spir [facility] Lotrel Lotrel Yes Yessy 1 capsule Commo n Millender [facility] Toujeo Toujeo Yes Yessy as Common SoloStar SoloStar Millender directed [facility] Jardiance Jardiance Yes Yessy [address] [facility] Memantine Memantine Yes Yessy TAKE 1 Co mmon HCl HCl Millender TABLET BY Spiri t MOUTH ONCE - CHI A DAY [facility] BD Pen BD Pen No BD [...] MG t} 25 MG Toujeo Toujeo No o SoloStar SoloStar SoloStar 300 UNIT/ML 300 UNIT/ML [...] Memantine HCl 10 HCl 10 HCl 10 Touo Touo No o SoloStar SoloStar SoloStar 300 UNIT/ML 300 UNIT/ML [...] 08-19 [facility] 00:00 - CHI :00 [facility] Myrbetriq Myrbetriq 2020- No 1{table QD Myrbetriq 50 mg 50 mg 08-19 t} 50 mg 00:00 :00 Immunizations Ordered Filled Immunization Date Status Comments Sourc e Immunization Name Name Serge Valentine 2021-03-18 Completed [facility] - 11:09:00 [facility] Serge Valentine 2021-03-18 Completed [facility] - 11:09:00 [facility] Pneumococcal 2015-04-11 Completed University o f Polysaccharide, 00:00:00 [place] Med ical PPSV23 (PNEUMOVAX) [place] Influenza Virus 2015-04-11 Completed Universit y of Vaccine Quad IM 3+ 00:00:00 [facility] Pneumococcal 2015-04-11 Completed University o f Polysaccharide, 00:00:00 [place] Med ical PPSV23 (PNEUMOVAX) Branch Influenza Virus 2015-04-11 Completed Universit y of Vaccine Quad IM 3+ 00:00:00 [facility] Pneumococcal 2015-04-11 Completed University o f Polysaccharide, 00:00:00 [place] Med ical PPSV23 (PNEUMOVAX) Branch Influenza Virus 2015-04-11 Completed Universit y of Vaccine Quad IM 3+ 00:00:00 [facility] Pneumococcal 2015-04-11 Completed University o f Polysaccharide, 00:00:00 [place] Med ical PPSV23 (PNEUMOVAX) [place] Influenza Virus 2015-04-11 Completed Universit y of Vaccine Quad IM 3+ 00:00:00 [facility] Vital Signs Vital Name Observation Time [...] 77.111 kg height 2021-03-18 10:20:00 62.50 [in_i] [facility] weight 2021-03-18 10:20:00 177.1 [lb_av] [facility] temperature 2021-03-18 10:20:00 97.3 [degF] [facility] bmi 2021-03-18 10:20:00 31.87 kg/m2 [facility] oximetry 2021-03-18 10:20:00 97 % [facility] respiratory rate 2021-03-18 10:20:00 18 /min Comm on [facility] blood pressure 2021-03-18 10:20:00 111 mm[Hg] [facility] - systolic [facility] blood pressure 2021-03-18 10:20:00 63 mm[Hg] Common [facility] - diastolic [facility] height 2021-01-13 11:40:00 62.50 [in_i] Common [facility] weight 2021-01-13 11:40:00 183.1 [lb_av] [facility] temperature 2021-01-13 11:40:00 97.6 [degF] [facility] bmi 2021-01-13 11:40:00 32.95 kg/m2 [facility] oximetry 2021-01-13 11:40:00 98 % [facility] respiratory rate 2021-01-13 11:40:00 17 /min Comm on [facility] blood pressure 2021-01-13 11:40:00 132 mm[Hg] Common [facility] - systolic [facility] blood pressure 2021-01-13 11:40:00 65 mm[Hg] Common [facility] - diastolic [facility] height 2020-10-02 15:00:00 62.50 [in_i] [facility] weight 2020-10-02 15:00:00 181.9 [lb_av] [facility] temperature 2020-10-02 15:00:00 97.2 [degF] [facility] bmi 2020-10-02 15:00:00 32.74 kg/m2 [facility] oximetry 2020-10-02 15:00:00 97 % [facility] respiratory rate 2020-10-02 15:00:00 17 /min Comm on [facility] blood pressure 2020-10-02 15:00:00 138 mm[Hg] [facility] - systolic [facility] blood pressure 2020-10-02 15:00:00 70 mm[Hg] [facility] - diastolic [facility] Systolic blood 2022-04-13 18:00:00 148 mm[Hg] [facility] Diastolic blood 2022-04-13 18:00:00 72 mm[Hg] [facility] Heart rate 2022-04-13 18:00:00 81 /min [facility] Body temperature 2022-04-13 18:00:00 36.33 Ita [facility] Respiratory rate 2022-04-13 18:00:00 17 /min [facility] Oxygen saturation in 2022-04-13 18:00:00 97 /min [facility] Arterial blood by Medical Ce nter Pulse oximetry Body height 2022-04-13 09:00:00 165.1 cm [facility] Body weight 2022-04-13 09:00:00 79.2 kg [facility] BMI 2022-04-13 09:00:00 29.06 kg/m2 [facility] Body height 2022-04-08 10:31:00 165.1 cm [facility] Body weight 2022-04-08 10:31:00 77.111 kg [facility] BMI 2022-04-08 10:31:00 28.29 kg/m2 [facility] Procedures Procedure Date / Time Performing Clinician Source Performed DEXA AXIAL (HIP AND 2022-07-06 15:01:00 Requisition, Paper [facility] SPINE) Medical Branch ASSIGNMENT OF BENEFITS 2022-07-02 19:39:05 Doctor [facility]ass[facility] CONSENT/REFUSAL FOR 2022-07-02 19:38:45 Doctor Unassigned, No [facility] Name [facility] XR KNEE 3 VW BILATERAL 2022-06-30 16:48:04 Sofy Kim [facility] NOTICE OF PRIVACY 2022-06-30 16:12:00 Doctor Unassigned, No [facility] PRACTICES Name [facility] [place] CONSENT/REFUSAL FOR 2022-06-30 16:10:43 Doctor Unassigned, No [facility] Name Medical Branch ASSIGNMENT OF BENEFITS 2022-06-30 16:10:20 Doctor Unassigned, No [facility] POCT-GLUCOSE METER 2022-04-13 14:50:00 Dariel Palacios [facility] TISSUE EXAM 2022-04-13 13:10:00 Dariel Palacios [facility] CYTOLOGY 2022-04-13 12:43:00 Dariel Palacios [facility] CYTOLOGY REQUEST 2022-04-13 12:43:00 Dariel Palacios [facility] HYSTERECTOMY,TOTAL,LAPA 2022-04-13 11:55:00 Dariel Palacios CH, I [facility] ROSCOPIC,WITH [facility] SALPINGO-OOPHERECTOMY,F OR UTERUS 250 GRAMS OR LESS HERNIORRHAPHY, 2022-04-13 11:55:00 Dariel Palacios [facility] UMBILICAL [facility] EXCISION, MASS, 2022-04-13 11:55:00 Natalie [facility] INTRA-ABDOMINAL [facility] HYSTERECTOMY, TOTAL, 2022-04-13 11:16:00 Dariel Palcaios [facility] LAPAROSCOPIC, WITH [facility] SALPINGO-OOPHORECTOMY, FOR UTERUS 250 GRAMS OR LESS HERNIORRHAPHY, 2022-04-13 11:16:00 Dariel Palacios [facility] UMBILICAL [facility] HYSTERECTOMY,TOTAL,LAPA 2022-04-13 10:20:00 Dariel Palacios I [facility] ROSCOPIC,WITH [facility] SALPINGO-OOPHERECTOMY,F OR UTERUS 250 GRAMS OR LESS HERNIORRHAPHY, 2022-04-13 10:20:00 Natalie [facility] EXCISION, MASS, 2022-04-13 10:20:00 Natalie [facility] INTRA-ABDOMINAL [facility] ABORH, MANUAL 2022-04-13 09:53:00 Olivia Suresh [facility] POCT-GLUCOSE METER 2022-04-13 09:03:00 Natalie [facility] CBC W/PLT COUNT & AUTO 2022-04-13 09:01:00 Vail-Bonnie, [facility] DIFFERENTIAL [facility] HC LAB HIV-1 AG 2022-04-13 09:01:00 Reji Kelly [facility] W/HIV-1&2 AB Center TYPE AND SCREEN, 2022-04-13 09:01:00 [place], [facility] AUTOMATED [facility] CBC W/PLT COUNT & AUTO 2022-04-13 09:01:00 [place]-Bonnie, [facility] DIFFERENTIAL [facility] Plan of Care Planned Activity Planned Date Details Comments Source Future Scheduled 2023-02-05 Influenza Vaccine (#1) [facility]00 [code = Influenza Vaccine [facility] (#1)] Future Scheduled 2023-02-05 Influenza Vaccine (#1) [facility] 00:00:00 [code = Influenza Vaccine Me dical Center (#1)] Future Scheduled 2022-08-06 MEDICARE ANNUAL WELLNESS [facility] 00:00:00 (YEAR 2 or FIRST YEAR if Med ical Center no IPPE) [code = MEDICARE ANNUAL WELLNESS (YEAR 2 or FIRST YEAR if no IPPE)] Future Scheduled 2022-08-06 MEDICARE ANNUAL WELLNESS CHI [...] RISK Medical C enter SCREENING] Future Scheduled 2022-06-[address] [facility] 00:[facility]:00 [code = 49814903] Medical Ce nter Future Scheduled 2002 Lipid panel (procedure) [facility] 00:00:00 [code = 03129244] Medical Ce nter Future Scheduled 2002 Lipid panel (procedure) [facility] 00:00:00 [code = 62026339] Medical Ce nter Future Scheduled 2002 Lipid panel (procedure) [facility] 00:00:00 [code = 32974630] Medical Ce nter Future Scheduled 2002 Lipid panel (procedure) [facility] 00:00:00 [code = 67143049] Medical Ce nter Future Scheduled 2002 Lipid panel (procedure) [facility] 00:00:00 [code = 31775543] Medical Ce nter Future Scheduled 2002 Lipid panel (procedure) [facility] 00:00:00 [code = 55099722] Medical Ce nter Future Scheduled 2002 Lipid panel (procedure) [facility] 00:00:00 [code = 47747340] Medical Ce nter Future Scheduled 2002 Lipid panel (procedure) [facility] 00:00:00 [code = 11704153] Medical Ce nter Future Scheduled 1978 Screening for malignant [facility] 00:00:00 neoplasm of cervix Medical C enter (procedure) [code = 967011433] Future Scheduled 1978 Screening for malignant [facility] 00:00:00 neoplasm of cervix Medical C enter (procedure) [code = 863755513] Future Scheduled 1978 Screening for malignant [facility] 00:00:00 neoplasm of cervix Medical C enter (procedure) [code = 717942201] Future Scheduled 1978 Screening for malignant [facility] 00:00:00 neoplasm of cervix Medical C enter (procedure) [code = 042319709] Future Scheduled 1978 Screening for malignant [facility] 00:00:00 neoplasm of cervix Medical C enter (procedure) [code = 998268334] Future Scheduled 1978 Screening for malignant [facility] 00:00:00 neoplasm of cervix Medical C enter (procedure) [code = 848511828] Future Scheduled 1978 Screening for malignant [facility] 00:00:00 neoplasm of cervix Medical C enter (procedure) [code = 204528845] Future Scheduled 1978 Screening for malignant [facility] 00:00:00 neoplasm of cervix Medical C enter (procedure) [code = 126509728] Future Scheduled 1978 Screening for malignant [facility] 00:00:00 neoplasm of cervix Medical C enter (procedure) [code = 255874378] Future Scheduled 1976 DTAP/TDAP/TD VACCINES (1 [facility] [...] screening Medical Cent er (procedure) [code = 495159036] Future Scheduled [address] [facility] 00:00:00 virus screening Medical Cent er (procedure) [code = 421670683] Future Scheduled [address] [facility] 00:00:00 Counseling and Screening Med [facility] Center (12+) [code = Tobacco Cessation Counseling and Screening (12+)] Future Scheduled [address] [facility] 00:00:00 Counseling and Screening Med ical Center (12+) [code = Tobacco Cessation Counseling and Screening (12+)] Future Scheduled [address] [facility] 00:00:00 Counseling and Screening Med ical Center (12+) [code = Tobacco Cessation Counseling and Screening (12+)] Future Scheduled [address] [facility] 00:00:00 Counseling and Screening Med ical Center (12+) [code = Tobacco Cessation Counseling and Screening (12+)] Future Scheduled [address] [facility] 00:00:00 Counseling and Screening Med [facility] Center (12+) [code = Tobacco Cessation Counseling [...] colon Medical Ce nter (procedure) [code = 874533987] Future Scheduled 1957 Screening for malignant [facility] 00:00:00 neoplasm of breast Medical C enter (procedure) [code = 284813079] Future Scheduled 1957 CT Colonography (combo) [facility] 00:00:00 [code = CT Colonography [facility] (combo)] Future Scheduled 1957 Screening for malignant [facility] 00:00:00 neoplasm of colon Medical Ce nter (procedure) [code = 698164668] Future Scheduled 1957 Screening for malignant [facility] 00:00:00 neoplasm of colon Medical Ce nter (procedure) [code = 052657874] Future Scheduled 1957 Screening for malignant [facility] 00:00:00 neoplasm of colon Medical Ce nter (procedure) [code = 663950359] Future Scheduled 1957 Screening for malignant [facility] 00:00:00 neoplasm of colon Medical Ce nter (procedure) [code = 191762281] Future Scheduled 1957 Sigmoidoscopy [facility]code = [facility] Scre[facility] for malignant [facility] 00:00:00 neoplasm of colon Medical Ce nter (procedure) [code = 456588593] Future Scheduled 1957 Sigmoidoscopy [code = [facility] 00:[facility] S[facility]oidoscopy] [facility] Future Scheduled 1957 Screening for malignant [facility] 00:00:00 neoplasm of breast Medical C enter (procedure) [code = 032960367] Future Scheduled 1957 CT Colonography (combo) [facility] 00:00:00 [code = CT Colonography [facility] (combo)] Future Scheduled 1957 Screening for malignant [facility] 00:00:00 neoplasm of colon Medical Ce nter (procedure) [code = 943354424] Future Scheduled 1957 Screening for malignant [facility] 00:00:00 neoplasm of colon Medical Ce nter (procedure) [code = 427973205] Future Scheduled 1957 Screening for malignant [facility] 00:00:00 neoplasm of colon Medical Ce nter (procedure) [code = 489281303] Future Scheduled 1957 Screening for malignant [facility] 00:00:00 neoplasm of colon Medical Ce nter (procedure) [code = 096698519] Future Scheduled 1957 Sigmoidoscopy [code = [facility] 1957 Screening for malignant [facility] 00:00:00 neoplasm of breast Medical C enter (procedure) [code = 641767044] Future Scheduled 1957 CT Colonography (combo) [facility] 00:00:00 [code = CT Colonography [facility] (combo)] Future Scheduled 1957 Screening for malignant [facility] 00:00:00 neoplasm of colon Medical Ce nter (procedure) [code = 681638521] Future Scheduled 1957 Screening for malignant [facility] 00:00:00 neoplasm of colon Medical Ce nter (procedure) [code = 113115078] Future Scheduled 1957 Screening for malignant [facility] 00:00:00 neoplasm of colon Medical Ce nter (procedure) [code = 466217172] Future Scheduled 1957 Screening for malignant [facility] 00:00:00 neoplasm of colon Medical Ce nter (procedure) [code = 213554725] Future Scheduled 1957 Sigmoidoscopy [code = [facility] 1957 Screening for malignant [facility] 00:00:00 neoplasm of breast Medical C enter (procedure) [code = 483470991] Future Scheduled 1957 CT Colonography (combo) [facility] 00:00:00 [code = CT Colonography [facility] (combo)] Future Scheduled 1957 Screening for malignant [facility] 00:00:00 neoplasm of colon Medical Ce nter (procedure) [code = 505720033] Future Scheduled 1957 Screening for malignant [facility] 00:00:00 neoplasm of colon Medical Ce nter (procedure) [code = 129164003] Future Scheduled 1957 DXA SCAN [code = DXA [facility] 00:00:00 SCAN] Medical Center Future Scheduled 1957 Screening for malignant [facility] 00:00:00 neoplasm of colon Medical Ce nter (procedure) [code = 053518766] Future Scheduled 1957 Screening for malignant [facility] 00:00:00 neoplasm of colon Medical Ce nter (procedure) [code = 927074093] Future Scheduled 1957 Sigmoidoscopy [code = [facility] 00:[facility] Sigmoidoscopy] [facility] Future Scheduled 1957 Screening for malignant [facility] 00:00:00 neoplasm of breast Medical C enter (procedure) [code = 895916839] Future Scheduled 1957 CT Colonography (combo) [facility] 00:00:00 [code = CT Colonography [facility] (combo)] Future Scheduled 1957 Screening for malignant [facility] 00:00:00 neoplasm of colon Medical Ce nter (procedure) [code = 973360170] Future Scheduled 1957 Screening for malignant [facility] 00:00:00 neoplasm of colon Medical Ce nter (procedure) [code = 677497730] Future Scheduled 1957 DXA SCAN [code = DXA [facility] 00:00:00 SCAN] [facility] Future Scheduled 1957 Screening for malignant [facility] 00:00:00 neoplasm of colon Medical Ce nter (procedure) [code = 991804384] Future Scheduled 1957 Screening for malignant [facility] 00:00:00 neoplasm of colon Medical Ce nter (procedure) [code = 925049542] Future Scheduled 1957 Sigmoidoscopy [code = [facility] 00:[facility] S[facility]oscopy] [facility] Future Scheduled 1957 Screening for malignant [facility] 00:00:00 neoplasm of breast Medical C enter (procedure) [code = 286891082] Future Scheduled 1957 CT Colonography (combo) [facility] 00:00:00 [code = CT Colonography [facility] (combo)] Future Scheduled 1957 Screening for malignant [facility] 00:00:00 neoplasm of colon Medical Ce nter (procedure) [code = 198893709] Future Scheduled 1957 Screening for malignant [facility] 00:00:00 neoplasm of colon Medical Ce nter (procedure) [code = 863194864] Future Scheduled 1957 DXA SCAN [code = DXA [facility] 00:00:00 SCAN] Medical Center Future Scheduled 1957 Screening for malignant [facility] 00:00:00 neoplasm of colon Medical Ce nter (procedure) [code = 009441678] Future Scheduled 1957 Screening for malignant [facility] 00:00:00 neoplasm of colon Medical Ce nter (procedure) [code = 275095433] Future Scheduled 1957 Sigmoidoscopy [code = [facility] Future Scheduled 1957 Screening for malignant [facility] 00:00:00 neoplasm of breast Medical C enter (procedure) [code = 833949401] Future Scheduled 1957 CT Colonography (combo) [facility] 00:00:00 [code = CT Colonography [facility] (combo)] Future Scheduled 1957 Screening for malignant [facility] 00:00:00 neoplasm of colon Medical Ce nter (procedure) [code = 111560681] Future Scheduled 1957 Screening for malignant [facility] 00:00:00 neoplasm of colon Medical Ce nter (procedure) [code = 857898051] Future Scheduled 1957 Screening for malignant [facility] 00:00:00 neoplasm of colon Medical Ce nter (procedure) [code = 727120672] Future Scheduled 1957 Screening for malignant [facility] 00:00:00 neoplasm of colon Medical Ce nter (procedure) [code = 422584379] Future Scheduled 1957 Sigmoidoscopy [code = [facility] 00:[facility] S[facility]oscopy] Medical Cent[facility] r Future Scheduled 1957 Screening for malignant [facility] 00:00:00 neoplasm of breast Medical C enter (procedure) [code = 815827060] Future Scheduled 1957 CT Colonography (combo) [facility] 00:00:00 [code = CT Colonography [facility] (combo)] Future Scheduled 1957 Screening for malignant [facility] 00:00:00 neoplasm of colon Medical Ce nter (procedure) [code = 383645922] Future Scheduled 1957 Screening for malignant [facility] 00:00:00 neoplasm of colon Medical Ce nter (procedure) [code = 354200568] Future Scheduled 1957 Screening for malignant [facility] 00:00:00 neoplasm of breast Medical C enter (procedure) [code = 232104923] Future Scheduled 1957 CT Colonography (combo) [facility] 00:00:00 [code = CT Colonography [facility] (combo)] Future Scheduled 1957 Screening for malignant [facility] 00:00:00 neoplasm of colon Medical Ce nter (procedure) [code = 583169131] Future Scheduled 1957 Screening for malignant [facility] 00:00:00 neoplasm of colon Medical Ce nter (procedure) [code = 347566298] Future Scheduled 1957 DXA SCAN [code = DXA [facility] 00:00:00 SCAN] Medical Center Future Scheduled 1957 Screening for malignant [facility] 00:00:00 neoplasm of colon Medical Ce nter (procedure) [code = 644206686] Future Scheduled 1957 Screening for malignant [facility] 00:00:00 neoplasm of colon Medical Ce nter (procedure) [code = 033163682] Future Scheduled 1957 Sigmoidoscopy [code = [facility]] [facility] Encounters Start End Encounter Admission Attending Care Care Encounter Source Date/Time Date/Time Type Type Clinicians Facility Department ID 2022-12-24 Outpatient ChristineBLU badillo [facility] [id number] Common 10:43:01 [facility] [address] [facility] 2022-12-03 [facility] [id number] Common 16:23:[address] [facility] [address] [facility] 2021-07-02 Outpatient Christine, STLMLC STLMLC [id number] Common 13:35:[address] [facility] 2021-07-02 Outpatient Christine, STLMLC STLMLC [id number] Common 13:14:[address] [facility] 2021-07-02 Outpatient Christine, STLMLC STLMLC [id number] Common 12:58:[address] [facility] 2021-07-02 Outpatient Christine, STLMLC STLMLC [id number] Common 12:57:[address] [facility] 2021-07-02 Outpatient Christine, STLMLC STLMLC [id number] Common 12:36:[address] [facility] 2021-07-02 Outpatient Christine, STLMLC STLMLC [id number] Common 12:22:[address] [facility] 2021-07-02 Outpatient Arce, Kin STLMLC STLMLC [id number] Common 12:00:[address] [facility] 2021-07-02 Outpatient Millender, STLMLC STLMLC [id number] Common 11:45:[address] [facility] 2021-07-02 Outpatient Millender, STLMLC STLMLC [id number] 11:37:[address] [facility] 2021-07-02 Outpatient Millender, STLMLC STLMLC [id number] Common 11:08:[address] [facility] 2021-07-02 Outpatient Millender, STLMLC STLMLC [id number] Common 11:06:[address] [facility] 2021-07-02 Outpatient Millender, STLMLC STLMLC [id number] Common 11:02:[address] [facility] 2021-07-02 Outpatient Millender, STLMLC STLMLC [id number] Common 11:01:[address] [facility] 2022-07-08 2022-07-08 Outpatient R RADIOLOGY [facility] [id number] Univers 00:00:00 00:00:00 ity of [facility] 2022-07-06 2022-07-06 Outpatient R RADIOLOGY [facility] [id number] Univers 08:14:04 23:59:00 ity of [facility] 2022-07-06 2022-07-06 [facility] Radiology [facility] [id number] Univers 08:14:04 23:59:00 Encounter [place] [id number] [place] [id number] [facility] [address] [place] 2022-07-02 2022-07-02 Outpatient R RADIOLOGY [facility] [id number] Univers 13:40:04 23:59:00 ity of [facility] 2022-07-02 2022-07-02 [facility] Radiology [facility] [id number] Univers 13:40:04 23:59:00 Encounter [place] [id number] [place] [id number] [facility] [address] [place] 2022-06-30 2022-06-30 [facility] Radiology [facility] [id number] Univers 10:13:46 23:59:00 Encounter [place] [id number] [place] [id number] [facility] [address] [place] 2022-06-30 2022-06-30 [facility] Radiology [facility] [id number] Univers 09:49:45 10:12:00 Encounter HEALTH [id number] ity of [place] 4.2.7.2.686 Massimo as JAIR?BLEA [id number] [place] lat[place] [facility] [address] MEDICAL OFFICE BUILDING 2022-06-30 2022-06-30 Outpatient R RADIOLOGY [facility] [id number] Univers 09:49:45 10:12:00 ity of [facility] 2022-05-13 2022-05-13 ELIO Pabon [id number] [id number] 00:[facility] 00:00:00 Encounter [facility] 2022-05-13 2022-05-13 Historical Natalie, [facility] [id number] [id number] 00:[facility] 00:00:00 Encounter [facility] 2022-04-13 2022-04-13 Outpatient GERSON PALACIOS, [facility] Surgery [id number] [facility] 07:43:00 18:50:00 [place] 2022-04-13 2022-04-13 [facility] [id number] [id number] 07:43:00 18:50:00 Encounter [facility] 2022-04-13 2022-04-13 [facility] [id number] [id number] 07:43:00 18:50:00 Encounter [facility] 2022-04-13 2022-04-13 Anesthesia Kenzie Alford [facility] [id number] [facility] 11:31:00 14:33:00 Event [facility] 2022-04-13 2022-04-13 Anesthesia Kenzie Alford [facility] [id number] [facility] 11:31:00 14:33:00 [facility]22-[facility] 2022-04-13 Surgery [facility] [id number] 11:20:00 13:50:00 [facility] 2022-04-13 2022-04-13 Surgery [facility] [id number] 11:20:00 13:50:00 [facility] 2022-04-08 2022-04-08 Outpatient GERSON PALACIOS, SLE SLE [id number] [facility] 00:00:00 00:00:00 [place] 2022-04-08 2022-04-08 Travel [facility] [id number] [facility] 00:[facility]00 00:00:00 [facility] 2022-04-08 2022-04-08 [id number] 00:00:00 [facility] 2022-03-25 2022-03-25 Historical Natalie, [facility] [id number] [id number] 00:00:00 00:00:00 Encounter Dariel denia mann [facility] 2022-03-25 2022-03-25 Historical Natalie, [facility] [id number] [id number] 00:00:00 00:00:00 Encounter Dariel Pelham mackenzie [facility] 2021-05-27 2021-05-27 (TEL) STLMLC STLMLC [id number] Co mmon 00:00:00 00:00:00 [facility] 2021-03-18 2021-03-18 OFFICE STLMLC STLMLC [id number] Co mmon 00:00:00 00:00:00 VISIT [facility] EST[facility] PT - CHI LEVEL 4 [facility] 2021-01-13 2021-01-13 OFFICE STLMLC STLMLC [id number] Co mmon 00:00:00 00:00:00 VISIT [facility] PT - CHI LEVEL 4 [facility] 2020-10-04 2020-10-04 (TEL) STLMLC STLMLC [id number] Co mmon 00:00:00 00:00:00 [facility] 2020-10-02 2020-10-02 OFFICE STLMLC STLMLC [id number] Co mmon 00:00:00 00:00:00 VISIT [facility] ESTAB PT - CHI LEVEL 4 [facility] 2020-06-25 2020-06-25 (TEL) STLMLC STLMLC [id number] Co mmon 00:00:00 00:00:00 [facility] 2020-01-17 2020-01-17 Out[facility] [id number] Common 16:40:00 16:40:00 [facility] 2019-11-23 2019-11-23 Outpatient [facility] [id number] Common 13:20:00 13:20:[address] [facility] 2019-11-14 2019-11-14 Outpatient [facility] [id number] Common 09:32:00 09:32:[address] [facility] 2019-08-16 2019-08-16 Outpatient [facility] [id number] Common 10:03:00 10:03:[address] [facility] 2019-07-24 2019-07-24 Outpatient [facility] [id number] Common 11:45:00 11:45:[address] [facility] 2019-07-18 2019-07-18 Outpatient [facility] [id number] Common 08:18:00 08:18:[address] [facility] 2019-07-13 2019-07-13 Outpatient [facility] [id number] Common 15:55:00 15:55:[address] [facility] 2019-04-04 2019-04-04 Outpatient [facility] [id number] Common 14:55:00 14:55:[address] [facility] 2019-04-03 2019-04-03 Outpatient [facility] [id number] Common 11:30:00 11:30:[address] [facility] 2019-03-28 2019-03-28 Outpatient [facility] [id number] Common 09:00:00 09:00:[address] [facility] Results Test Description Test Time Test Comments Results Result Comments Source Tissue Exam 2022-04-22 08:37:37 Test Item Value Reference Range Interpretation Comme nts Case Report (test code = 104) Surgical Pathology Report Case: [id number] Authorizing Provider: Dariel Palacios, Collected: 04/13/2022 01:10 PM Ordering Location: [facility] Received: 04/13/2022 01:25 PM SERVICES Pathologist: Delia Doshi MD Specimens: A) - Uterus w/Left Fallopian Tube, Ovary, & Cervix, LEFT FALLOPIAN TUBE AND OVARY - FOR FROZEN B) - RT Fallopian Tube & Ovary C) - Hernia Sac, Umbilical DIAGNOSIS (test code = 3220) t3myuWLfXRFrx4cyEOFhzJPkNwRkPqBpUbQiYm p cdWMxIHtccnRmMVxlcGljOTYwMlxhbnNpXHNwbH MhP1DeggldSMzpED2vQD4lsBaqnMMwdTLoUGIyZ pQtz5ptz871jBSsq9bhKZIOflzpfSk1gWghR55m e1K0YskeR4cqENLaKZknSGAqZVhcuKSmTPinjhN lOsD5EGepDTLzJkW4JXBnvNXxPPD5cZffBPTuaw jwNjH5IDasVERivuebFRv9PHzdLLOpzLW2DYHmp UAoF1JhXERuLS3mpvh8YXS6UZjwBKRiNsL8PRBh rYPwFFCdqJsnPVsou553YBT8MhMlBWGjffUbpGe keX8cJsFjWSllFiTxQ2uwDyNvzZXkZT8eZTAQWb PRLIIVIPKMCBptDYraUgSoH0ssOdDstEMuAOYVX UUPHYyBQ5MCTT6kGWTAFZUYGyCmA0VUTlyxBKrM T2CAFtDABV4GWQJFJdOxNWKINCTNUFsHPS3RKe6 DI9IQD3QNU5XFEXu0NUNqgodyVfPtC9ukTmMjlY JncHPhWAAHOQJDXxTcV13BKMUOWuQzdTUkHMRdI zu9SORrDKQQKhUMUIySGJUFXsRHTOZJLexYZTwg PWXiwDHfIDAhBjQeUVLLEO1EUNVBUBAHXXRNVWq AGFJooar6BFQocWCnKD0lHMKMAl2JSY0RAVVmkR PiVKTlQvb2HHPnKTTRFHjAEGdOBZVZYOydXPSqq UYuQZPiDyZjDHZVVoGGKDZRRATSSRYSDPYXYF7E ETFLHs6MRSboLXYbTTXrDIBytGUsYFKJHrUIOZc kaFIxQPLvAvv7KQUhKMIEFmAOQWzFTKHCM5HKKU DAILMKV2lAS3kSMADFHR5RIEunZBCeKOTePWSkb GYfQZ1VNQPWSbAqrSVeNZKiVxc2XTNoOHNGRIXN E5AQREUMKBCfzUIvIPVxFVQcDIFiBcUDLClXJ6X ONZ5sGNXVHTlcTWFtsbd6NHBkhMCqET4eUh2gT6 tIVwlPUTNCClUvGLODQH1NZ9rENoOSUVKUE4Nxh SDvDUNbhtNqX0MpURRkT1WaOALhMOBbpdLDVpEY LSmUG5ZVHH5rPNCPLCDWRmIxK3FOWaphBWMDU5i FWPPDSHmJSS6CJi3XM6VED4TEC9YXNDo4IDNwem h4IFQxM0ZGJwd7ZJKvpdj7RODybVCdUI2oQWKZB NSEXFSST4ZPNgLRZJIDVG1UYKisFRPetOWmQMFW BQiXHWrPYlJQFRSROhboQSRbqOn0SlWmCse5WpL mnSllPpFsZQMnKBolvQAvpIJ8XkLeXZ9NZJUZD9 2AZkyAZK8YSLXLUTvROP8OFQXpD0zXIrmGIBRio kmqWJYlHFHqOQvntKQcvPY5CLknXJSgXj6tHKDJ DydNGJXOSsojBaUYPEvVQauqCTKmtYMwXO9tPU9 JKF2GLbhBQrmWKWZAEyUDURBYHZ8SVXHDPPWJLW VwOZZXGtPSW6SICgThT8iBGPVWXAOMDGYtI0ZUQ LJqai74VUL2YjTgr9W5FEY4EYCaOCJdv7qsPDSs hGXhWdSiXbOzPsGgJafzyDYtBUHgYiPio1exy48 1vTOmx8wiJOKrHxU4pJJlPFKubSLcE608LCEyNT llp8niz8LhBYGcnBArs9L8XFGBimxmbDf7fSmsI 61sk9M6ArnmJ6gbNPPjCFVlM8KqRQ3dVZEcNmk7 IYK4LVS3PIHtNOIzU8IiPE8ePBSooTDcOXt9s6v jzHhlBIHcJOG6s9loZYciaiTyYH1agu8kcEf4x8 upooSrGBZvOKXejTSYNTXvU0InoUolLr3ilQv0i BqbQfjgOKQ5Yao8SD3imb00oqh1cUlaPTZwnxzl NgW5CGsjRPTgtsfwNDw0SDlnCMIdfCD6ZUShdVH mO9UvDOUdVV9ewzj5GYA4SPnfTVWyBgU1OUBxaT VcFBUlwZrdNKnqz526PSF2UsFhWT7yO3Nwp9C3g Z0qtSNyATBmeZOrWgMtDAYhbi1fuDCjQDvkm9Oj GCQ8heC7sFGuzMXtGDWwUtJ7JKyzMB5bau85KZC pOTD9kf0nnQSkxJeypfLamMArTHrgA2SoGZAwz1 99PPFvG6BwMDYmp8K3poRbChMrXKQtyGK4wwK2J ENfUU9mhbscn9txNYupUWqxMWIzoaW3akE7RZTw xZEgB9SmoG5eDNWwBJ3hqioaz8zkIKV4GGieEMT sQCR9KjIqJALvq2Ofnbo2FnQsj1IlhJOnHUqnP1 4ef824QDUgjoWjL4minJIdxpsswUGxtsjjOZhzy bO6IDOgTIxcbcabUWHzCNptM0hzVtMvTNFqzVuk XNrtn4JsNZOuSJUhIfKecCTdYXPjXpe6SQPzgEO fCVOjKaNfS5uoarvgDpIKJBWcv6pwL5cwePCKcT RcK9MtTIzpzaXpKPekPDspJCPfPZZ8OS92XMtaE HBhcn19 CPT Code(s) (test code = 3357) w0yyqCPfXWSkkNX9LsWpQNYjk4ezg9BfiGCh cGF yIWugeJBapbEixt27nGJ1rC11XL5jMLMnPzY6IV UoweT8Ixg7NFFrMXYtfPVwF271b2hlx7uxitCey AM3vHfeRXPctblnEoO5HScaWLSdlvulJAe0KYiq BLBcyKQ6NXIzhGHnQ6RrXVTiGJ8pnns6NJW0ALv qYDBvNcA0JNSnbEFtWNKsiGoiPNqtd542HYQ4Sv TwVLUqtbIjyYygjJ5uKxSpRXZ7FTJyFRG3XKghQ IesTxwrwPZ9QYq3MxP0IFkvXlP4VUVjFcC6QGsa YXJ9 SPECIMEN SOURCE (test code = 3377) z6qeiBYpVUPtbKQ5IdFqXTHti2gty9Qg dHBncGF gIGmeqFZshbEckm35iSR6yM08KG9bCXDkDsZ1YY SqjhM5Xdt9RZOaGFEpbDDmN345e5ioa1tumtRlt NJ3xQlgPEOmlabaVoG0VGyrUXVgquehQFf1WYvk UEHdxGI7RJIonDGpN8SzMYIwSR7rwhm6PEJ8OUy yKFTuSfI7ENTrpKEoAJVjlJhtWArai471GRN9Yf KoORHbffZtcWopvB6uAzRlLPJZVhRJiRNowPGdR RWxouZrkSjjjACixKKfVDtgo1PiDJ1lyBFgJAPb oeTpk6GhyiyyfWRsQQPyGWMrO0r4AGObeGqmuNi kutL8zKQkNYAtHMMuwlMnnMkqDTWnSv0gSQ3pnE grT3VmKLradn2rIFCiKYSgnPIkxJ== GROSS DESCRIPTION (test code = e6kchHXrKCJikPX1FuWiYMBdv7xwg2IuxRNh [facility] [place] [id number]) kUWhlnKNyodDffj35dVU6bZ73IV6gUPYzAzC1OU WsclI5Mhk9SLZiRZQxpICqZ043g8lwi8lzrwXmm OV3tGhuOPWbznmgMuM2IWmrCTPzsggwOGl2ELtw USHczWU3WWQzyEJzG4XiEJEuBT9qzbc6BTS2EVb dGPCjFzR2VAJjnPFuBYGxmYvjVItvg715JIV1Cw FnZTIbmnT1ILgySJIiS8GgF2FjVBhpLEE0FXLoZ GJhGAMcXQIzDWGgWNfrogF9i3xzIDLrxVFdURN4 EEwfyFUjKAPtOPHhTHeeScKGBsAcLxP6WisxNci 5IwF3DCo6TTQHBuDaSzEmCpB1YBt9QVvzIQm8BW n9ZEpLYjW7HhgjRLQ8JiKcFFGtUECbGGj4ACStC TuzqRRrSEFvPPKmTQbpDCmyS33xeGufoH0kYsGw WIEKGqBVkLNyaVGdlx1QUIR7KTSkyZeiuPpvnvA QvDDlATIJevLnsCgbYeNELKI3bSbhVRIuvzvolx KgJXYlD0KbgrJlZCJbOMEvFBLtQYGvUDEwsKOfQ RipgIuezIrgEOIprHeksbRgkL8rr6IhRCSlq75t UdL3CGG8dlH9aWWlBLphIxOuQlClmM7ceGDkVFH 1RiZeWS4tEW14WMJ3YuBgcuKgu17wb1EwPTSlPe QsESK3FXB2ugQeUNYybBJzbrrmKML3ANlakYV4H rDyX37fYZ0gYPcajWdctsA7VXMuWsJyTZlsXAY4 dGFjaGVkIGNlcnZpeCBtZWFzdXJlcyAzLjUgeCA hZaFpmJDyDiPbO79lCFFYmYJlFBX9FNDmATPsPd VkqN0wdPIfVUU8DkYymDHjh1WgIPAzOx11MEGwW FveJFisubl3fFVdjoEoQF73SQDsQMqmFNCrVQ0e qHFjUHReAAJ9yAAmRKK1VNCtJLDax1HiahfsfLE cg0MrILCaNAY5SUCwhWE0GFOdQKVtTIM6VZoozV ObCSH8KTvtWSJqyXCvWRUdLYNtnjTpyJBnvbBbx eprGBDztQNiEA1mDDf8qlMxaZWlfx0cwKUptNFe YWNiAq1zDTNpiidunGXzJEQ3jL9wbyAoEsT9dIA em2AzbshjCCFeLRFywyNynMYqyOXvOWEuNZJenp 29lQw7MMZsqARzf0PhSgB1dLMzMIPhpkKmyhRpq qIcBpL7CWzci6woHVzwL25dl7KlyLtjvx7iDMib KHGdtPwyhLujxrB0pRHtPKHiqSIktpQtvD6fMK6 ayifeSfonMfHvYWNqXDJauIPeWNixQ8trnCYgUJ IxkOWsnrkhVR83NGOrYJwdJCAyQG2ofZChIUckQ JziNV86mJSdMKTeSEvlutRsvZufRUOJaPJgoLUy ceXqUNQ5rBCphwJkmDdpRAYvFTVriwRlaCg6cOx bJsQgWHNgRLM3rVZaVZ68gONprQtaUZUfjw94tG y3MREwg8L5aISkq5s4cZL0bW6ulQDkMYR4lNCxl RQtHJWxaahdgvMqX7hsLhQyvy4jEXNiH53akM3e CfUtfMCukvFqsBQxYZVzpc0eVWOxCZW6mJLqcKE jnLSxVgu2EGh5AWWqdY8rrhW9SMWiNFObCBRnIO 5eSGIotRHjKWIeftl7oVVkFOOydRUkflokJa55R YecQFKykN6sQHVdGHKzlaLkjJI7gzntiPL2xUbo o53jn9ZrqzYtH0LfQEOsr86ySK8aOVOiWMGvVkU dxV1hDDYaDXRqSV9pDNEjhPHuSBSzwYbuFB4pYG Z2yokvUnXjYJmwQL9pPMrgAN25JQSsICuzUBgnL Q78bXMjAZYrCCSBJSLpUGWcxuNpmZb7KMSvQMA4 zS0swsUwkrCuz7QjoSs7cGDkLTFbBAEmvZhwi9C yCYAebyhvhM1fMYhjtrZyd9VqRmxhcM8vCEWqjB Z2PWX4iHClvoVtOKA9deQsV9Uml8Vwv5WrlbraX AvwfiJsOwv0AZezLS23TZEfo9Kxt0DhIcNrROOz KcF2qLBytYAcxhUsHxhjwN8fPHWkHCRlAtCKt8U 0LEDmu5Yex7AqIzMeJQIcJnY2dULajJNgWGVgug rtlQ2nLYIzF3Evc32pQ51fNNahkZwjYNVJZ3JvK oQPHQApOHLwecOcmLr3YTOuUPP6lM3hLKAkb33f n5SscbgyZOSdzmPNQc2JPAL5NOMoGDj4lR2xXPu kz1CinAbvarSoUbAxxEExrmNcrT4xfIVqHWHpYN 4DQFH8RCejBoBiDaTsoT1ugMBrUGI5LaJyRJ88x DItbGkri1CdcTl8xOBkBYtBGNEjEwxaIoWxEBow LO4dMQ5sYSflBkEoJvYheI4urYXeUQS6WxBoBfk hoH1nINSlPFvwIDXuMTY7DjWjCHH0v4RqTZ26lG GclDozf1WrwOc8bFTuGvrevL3bSTLtOy8PTeR5D TUavDWazP7lHHKrAW8xiB4bJHTcjCGxQBS6Kj1j iCPkLQXpzjBnmnUeiDOcix3jFMD1cFKwzG5nEKC uMCpxIpUzrF7tQYNpq89cFCwpwDtuTJ76XEZeg7 VbJ7Fswlw6ARpaDYEeTY0gOXTdTvzcEO2eq44ru UAygA6xw3r0hORlyWUxG2zvWUDlc3a2yIkmZAA0 EePPdXTrMWCof6BdOU7yFOIaDQerzFNpCPXqDG2 PNqM1AZOvOK5aQOVynVOaBLLelOhiONOlcOzyAI b8MXF6Jh9bpLMtRM3xqMsgTQOOBxS4SJBanTUrd 8XidMG3gYPqBHMyV9Thf74kFeGhsRSmiqTgBR66 rzLqCY5wCPXnLT6suTclQZNUAdJpAWPwRiTHt3X 6FDJad0WqIA5ds965v31lbGHdtM2hp5LmaWp0kX ZuREIxcNaqRCn8TMPxh78qk6RwSQGss6DnuA8bh G5cHJNng6AbBBtgsmfor7t6vZFmn9T0HDLwc0Ez H9Ccirt1THisPGCbGH3hsBwqUQQXNrRbCVDaAuS ZNUNeQLLkvvBmeEi9XVKuZNG6nV4cMHGyc99rkD yytOH7cpojjEKnl7F0ePEhETuimxEdmKfcAFSPF xSisOuiAEcujV6si7whyMfka0HlmOMvOUkhHFFs fNQsFCbkaI4kQlJro7cvwIs8NHeaolH3GDWawy5 0UOthYCGtC6HoF0YnPHxvIWI9XBVoKfZbZEFwLA 6TBzAvYQK6LdC9BZtvYPy8DPh5FR1OXsRwMGCoX Ts0NzJxGMYqJQx0OKwdVM5QDODbQCEiMPZoBoC2 NTExMSBcXHQgMiBcXGZsIFxcZiBBcmlhbCBcXG5 jfVxmczIwIEIuIFJUIEZhbGxvcGlhbiBUdWJlIC VcK4SnzhwoCUAqikxyjzJpEEXmH1WubhLdZYPbP SXsHTHssfAldjUpIL4nKVOhtXj2RODgyw7vovUv o93ziMh0KLWoh66bPL4tXNklLhCkVTFbg7e0nBS 0oSWmjQV6jZScjGTyutZlkx1rdXuwqpAzVwCohV 6qsVCdCFG3ZqPmUVZfD4e5BuUduuGlh13mm2QgZ CBvZiBhbiBvdmFyeSBtZWFzdXJpbmcgMTIgeCAx CyB9SEExZASwgYKwimFgw7FwZ6urqhrrAilqLWr jBKVWaONuDSL4aYTirANkWOfwVSTmYvTrpW3xvH SpCNL7YnOitKBvz3JqrT5tSIVxDVB5XKGfUWEgw H5xFOEyCTBpwIFacQ0uopWgqnBmrsncCAOwxABj CW2rFMNfBOCfrPBrkq0aoYCxbYMjXLEiKWGqKGS hwOJvQJTvlZ9lzoP2YBBeEEHciO4kgB6mxSpswn XgmJY7QFavbUvjK3A8hZ64jhWeETEvdcxcbFOno sYfY3Uva0HqmBOcVLJoaVokkLHodSAppSNfry9d FJVewXIgVNKtUDHrADTtNRYuZjVrw6RuyGJvOHC zHSS4oYbhC6XdvFIii7DaoL7vFIVsQGQudRFskq EuiBSwGMdoGU35yRPrAIPsZSPUjwKeh9etKRAzm mLbmpSinqGyZKWnuKntuvswCLcsilJhT6RuN5Vp BRClVTNpEQFjDiKjHErhTECxcHonsVylzdK9iNK bGRUzjXAtwuWipM8gIA0aszwhQwxsAzCGGNNfNU JbadErvOj6HYUnXJS0yT4voaXoirImy9AfsVh2a CHzOOJjQOYuxGxal6VuXNpieuBjWhNxLjG5OWHi Y4k6GUGloLnllGpjxaX1rHMoBOMilAmaRTy6BVV 4Qs1hgRHrDPYsTkUdNxboOhJsUKffEB8xUY8mIF MijSzeoHewhfC8oITpJU9dpHVrYXR5SUNuRXxaA 2bucYodCZ13NLB4IOI7Mh0ucCLiEVNuppYwpiAx xrFvSG01QQZintMqn9EjbDeiwcOgVDSdVJ1jPPL 7mL3pEV5gISSpe9UkNzdlAHYqxuQkcXGqQFSrjD QgdLV3LEOyPE66aIBxuWklENK3TUQhLSDrPNtln PAcT6D0dY1hSTjjNJFaaVOlYR8MYXxcaU1tg7kw wYbvi6WeqYBiQTelFFDuvBIzRGjgiL6xXnYup6l waNo9QNzcyxW9MHDfka34BMlnLCJhO3WkV9SaYH hrGFZ0UFUzDsCxBOEgSC5CGpYgRPX1DeD3IBykG Vh6FEi8SL3ZCsXxDHBrFIp4QRG2ISJmRUy6TEis GU4LWOBvVUGnFgCzMOB7TIPrPSKyGWMmRyPhCMJ aFPwyPmJPhxunzYPlXR0omPyseuYdGBDdGRuhon 6aJSZNGGSkVNPoCdlphBKxlK1fpIYlRDBtQhTxD dEiPWn3JYFyYqCma1dwEN5qSJkgScBhLLDiv3h1 oVC4aGKymPX4ePUuiVUneqEbwj5mpUsmdbSdpCS chqvlwYCgCPGxNTqwLOConWSuz6PsWP2cAMFruB uvZ1NhCZ1jWFDsCbYoYSHpbZ1mVXU8wFOcgLTbk SBsy2MatO8xYCUdkEIvAQqnTbNxgUAdivNqKeR3 TJXwdZUvAeXsM40xVCJaYIQvpAAih1PkdVS1aMJ eKIIgV3Csv05dCFFvYEVduVCclDU7LOKcfF3xF9 Otq8F6mKMuIMDySKKyROKSGi9plKbgMCYMRAA5l Z3cXVNkNFJ2DYlzqtWyXiS8OAJqvYOwl9HluBD2 jNJcIDRrO5Dtk14fEDGiu86oeFNkJ3DeQTVrYWT tTzsxjZ9wVZKnMfLNHSWbLWJqgnHrkMo5GWGsHM I0oM8hBLBlc31rd22baImwgkStxEBmDC4ttUdzJ HxhbV7dYQ7GTRyiUTImQ5PkL4JrvkS9k9rsaMwr e6AgqOYzXJ3wfNZtxO== INTRAOPERATIVE CONSULTATION (test code = m2abnIGvDFWle WA2LsIhKNJro4bya7EitJAuwWE [phone]) wJIdnnKJrpcVszy73qJZ8jQ87GB8jAEUvIfD2QJ KvltZ0Bmk8CLKaGCXrjRKiX542r1qda6vwifFrr CO8uAnvZXGjojorOdG1SPloPTRqwbvdVZd8CKrj GARvqOM2FZIrnNOdT3EgTTNoHG0rdzh1RJQ1TBl rXFLxPjZ6ARXhsSKbOGUhyGnfBMiyq240MXR8Xo OfAEDfkpK5SLosOYDkX1AmK0DnMPrdDCQ7SWAsW HEjDRHyLSPuSGIuTYdrrpW7j8ffDGYasQJaWBV1 AVxjlLBiWSXsJJMcEToiKmEORbDvMyR6MjukBud 0IyR0MJd2FCBEGdZlTdGuCmC0XTi4EJsrNYp2JX x0CPcDXwJ2VtjuTNJeBYMsUMQzTULhLJn6BPMrW FnxnFIcOQNuTYJpHZoaPVqiP72vuLmrkW0lZcLn KTRUHhQMmNYuiKBwke6ZIYC5DFHcqKrjzKdkftG BfPAiWZWKwpLwyBhxTmTGZMC9nXpjOBVoewlikr IwIFVURVJVUyBXSVRIIENFUlZJWCwgTEVGVCBGQ RcKY2GXML2sVTNUDJKFSmGyN7LIRuslINtIC6HC HxWRJO4LXCBUJWRUHZECPNASFtzYGT1ZQAbAKaG QFD4THJhkrRkxCDXrDeSDHHziWCDFDLNMFmTUWH 6XRLqROWoZKFTNCJafJLRJWB8QRfpvqH9vAMgns nZwAgKqt8I6CFMfKuqgADXiTM7bbbynjtJfgfA1 lwBJObCrPqBaa34mTQIeXl3kYIIaPAS3SGG0FJJ lNJ5np6pytLlfo5XvtBLaPWpmTXLfpYLvFYtmoJ 9eYaJqp8zfoRv6WQckvaP4SFUxxo08BQqrVRIkD 1YlG1RdZZhlYIR7WFEdYqLuWDUiIF8YQtVgFHT2 UzQ3FBheWZe3FYd5XA7YIbZaPJZoAJk7JlTjPEO xJFe4VImjFV5YDINpAWJ2VYi3MdN8PHOhUYUqHG ZrMvXyECFlQBwtXbZLmygpmGRjOI8hnLqclcHrB JDzGWBOWOBfnSzipSevmsRAdBBhWUMwK0Bdgrrn XJDedqamioRdVVNJN3zFUAZAPGpDEArMAoUYWFH SAWTAWJNGJuFAZIhdX3CTMQyTP17cZ05AWN6CTG JMP88FHwyilK4bMN4DKe2CHgSMLZAAFC9FKBoKA nYJNqiYTXRKJaWFL3BMRaSuJ3tTDPTMDVHBE6cR ROCWP6DhANgknyOlLj0wIhAFMpDLIUSNQsRRPi9 VWG2ysDxwKPepgP6xOAUweB1tyMFkHBO5HZFhDf YMSMXjkO5iEL3mhD3pB5DgUeZlIR9nAQVsSjfqW hXzDeWnlOCkCcWzYGYHCdxzICQhD5ZvI7EyxeM7 i1urrSzum6MaiDPvEN0fxNTlxH== MICROSCOPIC DESCRIPTION (test code = j9hgwZIzKTRbsCW4YnVwELWzb1fdg3 BsdHBncGF 3371) aGTmetJYsmqLdpx75rAK7nA97SX8rURJdCnY0LF AinlY7Prg7HCBrYGKujGLfF822b7djt7pijxKks BY7fQrlXVPsewpoPiW2QMgpAYVehrubNSe8NWxv EPHpzXM2DRIsmZQnQ9YwMVZoAW1fqer2DKW7AGv pQCXzHyR7QEIvyRJxRGYnhNgwTEnui156ZUT7Kd BtSVFyblHwrIcmoD7sCcMuYIVKXUD8TWVnhzWkr z7qFH3ntPOtuS== [facility] [id number] 08:37:37 Test Item Value Reference Range Interpretation Comments Case Report (test code Surgical Pathology = 104) Report Case: [id number] Authorizing Provider: Dariel Palacios, Collected: 04/13/2022 01:10 PM Ordering Location: [facility] Received: 04/13/2022 01:25 PM SERVICES Pathologist: Delia Doshi MD Specimens: A) - Uterus w/Left Fallopian Tube, Ovary, & Cervix, LEFT FALLOPIAN TUBE AND OVARY - FOR FROZEN B) - RT Fallopian Tube & Ovary C) - Hernia Sac, Umbilical DIAGNOSIS (test code = n0bnmKVlYMTlm0klMOPxuS 3220) FuZzEwMzNcZnRuYmpcdWMx IHtccnRmMVxlcGljOTYwMl lpnkJvTEXzmCTuI4Khwahe IHpoUA5oCL3utMrofSMvfW LnXMCgLqQsy1lrj537iAKd e0ygWBOZmxgvoEt2uSliI9 0bv6N0TiuiN1fwRKPaAVnx ZWVuMFxibHVlMDtccmVkMj P8UBheZBArBjQ4CHJorPHx MGW8eGtxWTAfpmmvOnR5QQ qzSLCsexdmGBl3OGpgXLDq fWP1BEOmqBDkU9TaWBIdWN 1xkss0UNX5OEmeIIJhUvO2 NDBcaGVhZGVyeTcyMFxmb2 86COI2IzGmMYCwxaTewAry tN0fEnKiCZieUnXwM4avKr MmlQOcSP6tUIORTsXSBYHI ZYLYHCavBDwaUrQuP2bjLb IegMAmFRDQAZMFSDmCC0HW NB8oJUSPAAGGLnFpK2MAMw wySVdHE7EJImLPRN2LQPCZ EuEuXWCTDBIWSFrACQ2JLb 7HP5ZFH0OMM5VSBHh6CNDd gxljVyGmV2dmMyKdzDEnnB LlSDKZUHUTZzQgI43YGRJT XxSotYJgBRCcNbv3ZKQcZE BJTkFDVElWRSBFTkRPTUVU UklVTVxwYXJcdGFiXHRhYi IuGJNSNI4VZYDEFIMJCWMG JFzYFDTjzjm5CLTqtZKlRL 4tUVLRPx9CRG4KZSXqlMAp JVDhAmg1URAfWUGPWRaOTV lPTUFUQVxwYXJcdGFiXHRh YiAtIFVOUkVNQVJLQUJMRS EEANYAOU7JTKVGYn8PLZdh YXIgICAgICBcdGFiIENFUl YLIJbezHHdIAVaOdj2EOSy PKVBVbQYOQbTCSNQZ8ISKU WULOCNW7jXZ8nGJNQGBQ9O RVxwYXIgICAgICBcdGFiIE 1GFWPFEkCxvCVyMQRdKbl5 YSBpEOHZNOJKK3IYRNEUMI FccGFyICAgICAgXHRhYiBG EHlDT2KMJC0kYSQKHQmrJO Vcywb1EJMwtGIyXP1ySr2c H3gVCyqCIEKXKxLaLEZGQE 3WR7wINjWHHYMEQ7YzzBEn KECepcOfT2VdFRCfK8SnRB VoRYXmunWLNjDJWIkMY3UG DL3gJZJLRGKORvCeY8MERs mxWAQRG9cIZHFMWFgPSU5W Zf7DQ8MTX3CZB7SJZJl0MN Ynbdo4CSKvQ2ZPJfd3LDVp vuq1RRWhkUAtYL5hVPPAZD IBFVPIO5REOhBLEFOCZC8W QVxwYXJcdGFiIEZBTExPUE lBTiBUVUJFOlxwYXJcbGk3 HlAaYzv8IqUpeTroPlJvNA QyCPvdnGEugOH8JeIwNU6Z CSBYM23DTgrBNG2QQIRSAF jMGM9FBGJzP1wRKqjEFVSs clxwYXJkXGNmMFxjaGNicG V8IMxmOAUjDn1xWQJCPbwH IFNBQywgUkVQQUlSOlxwYX HkgUBhOA9kDG3GOV7WSgsG OwnGPCBJMdUUKRDFZX6HWF HIBFASTEEoCDBLCvMWA8FS EiLmZ2zXQFDDMLCYKOGyB5 NEVACtde15IGX5VoCem4K9 EKR5VVDoKGUuf8jlCYWkjV FuZzEwMzNcZnRuYmpcdWMx WHIxZyObr3ldw502vZSjf2 mmSOCsTfL8oDAaHOEvuLCo Q654MLIrYHxsy3glk3JqBS MikJGxs3N0HIWKvnfnmZq6 dHnyP20os1L6AktpP8erEM RmRXXyZ3AoMV4qIRRkAnt5 ZJR6ZBS5MRFbBNJzI3QxVH 6dAXQtwHAfAZk6j2tcrTgf RMIfOXB4s4ymTUcampXnLS 9rzc7vyJe6x5yqzlRtZSQl VRTscAFNCBGpM0XhfYtlJy 7twDr7tEglUhrnPTM8Myu5 JD3yqo87rrm8zJcfWTPjrs pdGvS3KFpbLOOnlpzaRRz2 FCvzPTPqsIH2WXEleRAnM1 DyDWWwZT6ovpq8EYI6LKhi CARmRiH8PYZjqONtBYMgxP oiGPprj995LLN5EbNeJV7o W7Cti1C8rH6vcNUuDXQoxH ZePbWcWDEtus7bxTQkRCbh b8LvRBZ0wqK6nVEycOMhBR UhSsQ0WOhjBU2ntb43VBXh WYM5bf9zsIYykMhkloZolR LlHYmuY2StXHAiw825NKPe N0SqLUDjn3X9fvJuWaDsXG QfcPV8stD7ODOxAT7uupaw u2brNOneSXdsAQPmmaN8po Q2WGOvoAPvA4PbiO0uOGIz EI8msawag4lwYEC5PPamUO IkPEB9HjXoESCcu0Fmobn6 MlCbp4KtkBOkGTcxA69je1 19AIGqbcGgR2dtiSYnhvkz gUQobyuuTOgxkrM6GYKsVI gozgidWPJzTQbdL8tnOrJq RVMqkKrpQQizd2JlVWXrZX MvYkMvtYNzPTAqZwd3DTMg cJSaPIMwEeAfZ5aahnwgNm SOBLBwf3auG4lzfGJGoQSz H9JyVRscjsXkNMidMGntTU DhXCY4FR95BMiuCPGndc56 CPT Code(s) (test code t9uugAUvDQYsqQB4ZeSiYY = 3357) Jtd8ejy9UzlZAqiMDdVBvl zGVvwiLile04gJM1uH67HH 7iDGKlZuN9RDQgmpY6Ujf8 NAJuRBUmxMIlV103r6tvq9 vyjnXmbEJ3vYyyCRIjexqy OnJ8LPiqGYZwxgnuDNq1WE utQSNgcAZ3LRLdjURtH4Ey EKGvWF6nbdb3DLI0XOriFH VzOkD9AMHfpMXaKTXmaNrt DXjqh076XKN8AyIlXBVsni AxyMbywP7wYgRpPKY0GUYo DUQ4WYbjKTlkYdhzdFT3AL q8SrQ0BGlnLbC9SCAyBfP0 MVxwYXJ9 SPECIMEN SOURCE (test c9oujAWfSGRcuVG9StEzUM code = 3377) Dpd8vut8EqoDCnbRGhQJyf fPSrhuZnei55wZT6qE01SQ 7vZKWpUsQ6KGSkhkE8Yph2 EIYgXBEzqZPjX928s3myj6 eiykXftUJ1wKtnDIAhuudo PpR4DAtuRAFobxydVWp8XV qiLSYixID2OXKbaYHcR3Nl MRSuUS6sgkx0VXE1LBxeMU NgFlF8RIZslGXqBWXwfBgk MYemx715XER3TnVaWCOryp BvdLlnbN9fVyDzTKUWGqZD dGVydXMsIGNlcnZpeCwgbG YeoFFiCFhng5GqDG2xbTDj MPAckkHal8EtvsntcINaDW LeIXHhM3t6GZCggEivfZia fdG3vZWwMJFvLCYspeGwcJ tyLMOmVm7vJO8giCcoI9Qh VMnkqg5dTKPoJAThjRLwxS == GROSS DESCRIPTION (test m5jbjIOjPXYpzAV0NxLdBR code = 0559205694) Xsp3rqv7WfrCSrlCJrLWfp nEPwnzGkoe63lUD8wV95BU 7yJBTiPwX0PJUdupP8Jwe1 YOFtIRGzkYRrB349k2rtb7 lstwFvfJI7iUeqRTEmizrh NqN4IHfxENUgvjjgMLb4LJ vySIJtuYF3PSGbePNrE3Li TJApNP9sukr2VEM8LCdvDS HvOzT9XCWqpCIzXHDxjNjm AUbrq899HTO1LnGhUAOkjq A7RYvnBMImO0ArK5HwDJya UQE2UJFxGJQdJMTyRMTjEJ MrASukfmV5s2bfUKPezHNd MQK2IEvfxTZsJRQpTODmUA cdBxZMDnHyByT3NirsEjx0 UvZ9PZy1WYIFZmBrTtGlFd G9TMa6OHsjVDg7YCp7WSmA QaK4DwasLSH9DhZdUURtFU FiONy3KBXqGOxdjHTcCJUv QPGnGXyxXTkaY26hjErchN 5cZnMyMCBBLiBVdGVydXMg km6VMTO7CIHlcKeiqGfoqm BUdWJlLCBPdmFyeSwgJiBD SMW3nGhyIMHkcqivmqSwEM VzQ3IubeYjFWLlKMEgHDUx ZCBsYWJlbGVkIHdpdGggdG meYAYzuTiraqZvnK2wa0Hy FWXwc33uTrN3PXL1hvF8aK FbLUuiEjFsYgPtkX8nhPMp ZYU4MgNmLR5qQG14TOI5Tb FbgcGdb75uv6HkEAEyDrMg DRN8LUJ2kdQoFPPwpZTwyt daKTQ5ANdkeDV8CjUuP49b QD4hOClwxBvaimP2CBAfVy GdYZbqVVO9uTFyrPDxSWYd cnZpeCBtZWFzdXJlcyAzLj TkbTStPbOjuBTvJhAaN64l KJDXaKDhDRX4FDLzPULsTj UeyC5bwFIvNQX4PmBhkECz u7ZvASRkJh88YRYuCCzvMI fkslh7tEMdkzEwBN02ZAYg VEgrTTXvRG5xtIIgJHKiTD H8sRIxZPZ2TEHvOGMzb2Yq tgxucZRjb0OhVPKgEEC0BJ SzhDM9GFCkTBLxCMW6ZRnj hNAkIQA4FInzNVSdoMJkOW RoZSBvdmFyeSBpcyBpbmtl FCUceLUdVG0mXPn4htMrdU Bzym5jhXQwcMHdJLVdQl9t MEQnqaqanATdJHT1rB7qrj UuHzE5zHDkr4JlvsuiLDKk ZSBvdmFyeSBhcHBlYXJzIH Ybuv46bOo4VXZicIZjh2Ym CeQ3fWQpTYVcwjVjxfKhat XuBnB7YAvaf9xgYHguI69w z5FvkYoijb6mJDtsZVVxcW htmUezqeP3cEBjXMLdeLGq xtWipX4gIX0gqdjpVhuyYy KePFIwJQMjuMCySNenN4st fGGiZWOoqORctjyuCP08KQ PvBZjjXURyBM1tzAGuUFta DDkuDX67bXAaCJElKEiezx VcbGluZSBUaGUgdXRlcnVz OGN5zCVlxpGojWpzVJBdKP CgozMrpKx5tVnlCtFaFAHf LAH6sUOtDK63hMUsjTxaWU Bwoo64qXd5EDLgn6I3cXNz r1b0cLB3tV8txBGyAQY8rY FbkVBeYRKdrfubdkReZ9fu NoZiju9oIFQzW84etJ5aXn WhdFEhfeGfsYXtUOZcmq0r AQIqIEB8iIGlzLTjaGYrSr h0BRs1CWHqtH7dmjH2WFDa WLWwTBDjEU6xTVHqySYdHP Sjkot2lUKiKLLojTTrryvo Ey46IUqjQFTwbL3wMVFfTH DfbqUetEH2pgrdeYO6mWgm h18hy0HrwrUkK0BmNTEpm6 3iYP7fFDNzWCBpGxNcgX2y AULmCUIqKJ0zWOOjaBLoXJ BguEiqAV0hJZC3ozdbWpNz QPweWF3jSWnlUN92JQObUB nxXZgzLC45pWLlZQBgCMDO DFWhIXKufsBmqPk1TZLuAP G1uA4orbOmfeGyt3KosMb5 kDTlIWGhOHMxyRive0GmZQ XvshaffD6nHVjlmlDdd2Im RmkutA9wWNDnsHN7MKM4yB RiegIzSZT6unCpE3Xkd4Gl v3IbwhzeICbfayYxVjp9QL qmJX75JOKvm4Woh7KxOuRn ZHEpHdG5aYQnmMObpbNlQo rzlJ6jYIVaBGEqJtVKz9G8 GEXqp2Qhf4SwAsGnERHoQj Q5nPYtwRFiFWMkaqayuQ5k BJWhN6Igd70lW93zQFkpvP inOXBSC7SyQlKVSHDzYVMr znYezJl0HZZiXIQ1bE1iJI Ndh18ay3WjelxcGWQmecDF Sv8ERSD2KMIjDJv1sW9hAG ovb5AjiEnokdWkDvFceBJb txLdwB7kpTWuBNIzIF4DCN Y5TZwrPjJpLdQvvC7ruSSd OCU0QqQpYF84fSSpuZdjj2 VewHi7wTVxHVgACPRlShzs IxQfBNvpOB9pJB9sJNwhUa UsHoPdpS0hrOXvGTV8AwKh FffinY1aMKXiXWgaZYWbBW J6YrWhKSI1t7YpYN19eMOa aQirz4BgzOz3bORzEsibwW 7eTVLnZl2APpV8JIBmtQNe fR9yXIIqTU4jmK0gMTErbD DeRIW7Ni8brZFxBWWfkhPu tkGvvNLmsj4iTSB2pEAwzS 0lGJYpCBxqLhMlhO6iAOLc e20tZQbmjJcuZT87OTWij0 JlS5Ozztw8NUpoDOTyBA4s PGSjHanzPJ2qy32ofBRntA 2cr8p9nLKtmRRhF7seXPIc q6q8jJrhVRG6XoDQcAEcNX Djx0KgUX1xVWSxRFeniTDr ENKdCT0FWnZ5ZAJiFH6bEM RyaWFsIHBvbHlwIGVudGly PFb2RKR7Me2yoWKaBT5lbC twWASJTkO7WGKkvFSav0Ba uJJ9wEIeCRWlW9Lsu62bIa OmzHDqdiGcYE23wwIlGX9t FACsFN6rrKqrYIYHXuLxUR DlIzKIx9N7EDEvj6QgJL5b c323u39ywOUuaK0yt6LceB q3fLVmAPHbkDgoKZy1AHPf a76qz0HgUIHal7UtfP4uqU 1gYFEit2LrYNrzlosia3c3 bNNiz0N3ARHwy5JvU0Abcy k3HBunWGGxSX2ssJxaYFLJ MzEtQTMyOiBSZXByZXNlbn WhhGs0NSAjTZR5gS3bCOUh z74hsThxaPH0uqdllECxj5 C8lVTlIUdaqiZtlZlnTHML OzCmeVceKIavzC8ac8jgwH zip7EdwUKfQUedWPQxbFAw XIeuzJ6cTqNoq4perNk1HH pkwaZ8BGLtrs62OPueEGJv B4DtC8TkTUotHKG2ZNKwBj FaBOKoNS3FIhIkCCK3FqE3 INqsBNj6SMm3IU3TDyPtDJ DuGWp8BeXfIZIjHWi6WKsy WS7ZPUZgHBEfBJXvDyN7IH ExMSBcXHQgMiBcXGZsIFxc ClOSrfifrKBsKY9pdIzicl IwIEIuIFJUIEZhbGxvcGlh dqJQwLUtCLIaY4WwwwizNF QmtcpsmrHcOMUzK8IwdhCx IGZyZXNoIGZvciBpbnRyYW 3jWKXiePq7IRZnbu3dugGj k82kiOc5LKKrx68sOO8lQB dmNyCkEKRxo0v0oUB7mGAm kGQ7iUDflMFociCpih2ksU twodGqPvNmoR8kxXJjNWX3 DkFzVINuP2r6TsMiooFla3 5pt5FvODDwByIsofPjwoCf eSBtZWFzdXJpbmcgMTIgeC EmVaA2ZXZxFUDreLFfkbNl y7GeC8hqjsolDenjIAjsCB SPtQLbTTU7fQCgbEHeIYgv EWOmMyKhdD9caLWsHRB8Tn QyuPIuj0OimV6iXSJoOPQ5 DKSnJEIfsJ1gMIQhBEGhxA HehZ4aqmXggkWdsnbpPWDe kQIqBF7hRRFdCTRgpRBilf 5hbCBzdXJmYWNlIGFuZCBv uNQaWOVqbH4momA1DIAfTS AbtX4ybF0deOpfixFriLA0 FEnfsCjdZ7H3dV44wsToLQ ZjqyyvxLOlnsPdW5Tdc4Ip eSBpZGVudGlmaWFibGUgaG Mnil2bOTMzdXCsBSDyXJKv YHOsPEAzDpMfi0DxbAVdAL UcPRL8fPnaE1FvqRWjm5Mm cU3hADOkMFZxeSRiggCjcF NhUCdfTR65gOJaREGfORYT khVhr0waCUExifPbocOvbl BwYXBpbGxhcnkgZXhjcmVz Q5KbS2TgXKLoSHMwKFKiWa AgVGhlIGZhbGxvcGlhbiB0 mSNoZJJrpVVcjuMtiW6pRS 1hcmthYmxlLiBSZXByZXNl lwIquMi0IJDdWFR6rW9ztk JgxgBuf7HqpMn7xCSmRUMl ZWOjdIaxq6RqICkzetNjDx VqQzO5BKCcS4o9GMUyvZrf hSwvmsQ7mUHjNKTccVvlFK o5NHB9Mu8lkQWqKENbUzKa SzarSeLzCMviCF9rKN9iOZ NaxJpxcFovqoW4hEXmEL8q lFDuHDK8BOKiSMmgL6dwtB qxPD32CSJ1QOV4Qc6olIPv SCRoucNkmvXywcGnAY02OT OsbbQkx2ChrLgmdoQzJKRn BH5sQTY6bK0rKR0yADIyw8 NpYmxlIGNhcnRpbGFnZSBz hMLyvVD0BXYxOP81zLUmrJ xxEAM4VORvBUYlLFafzXHq Y0S2tX1sBNvbBUJmeAGgKZ 4AYCsfnX9ac1akcBbqr1Ib dGVuZFxwYXJccGFyZFxzbC 2oIrIej3eqcQi5PDqbhsO8 KARgar70AGsqLJIoK4FyP3 WbZVwcSLQ6VGHkAgElAXHo KR3MUnPtMFR9TzY8ISelZP v3TWv3CV3MCuIcYOPuHQc6 ZQN4TSTcYPx8ZBwtRK8QYI RlMJBpQfEdWGV5VGNfKIFn XHQgMiBcXGZsIFxcZiBBcm flpSGrBC3lnYslsqXaOYEg FOuzfh6lDZVAKCBfZMDoKg xquWIrcK6kkELyGUDoHgVf GrRbRPy7WWXmUnFal7zxKB 7xOPdyQcVrCBLlf7c7sPG9 gRKtqZR6uMAnhYVmxjGcge 1hdGlvbiAiaGVybmlhbCBz BCZhJHcnSBCkoTCdp3RmDG 4pDYTanWlbV3WrEO2vLUMa XzWgEZWsqB2pEOD2lPZbjY QmwKOqf2TiiK4gGDCtuFXk UQhhTxUakBZsxkBeRbY5MQ VugKGdSeSnU97mIJTpEMZw wRHiw0RyrUE4dUWlIZRcY3 Tda50aJMHnLGZozLPjjIB7 APSxiK6dS8Sha5A7mATaNG WlJCScCLTCCs2lvLcmFJLZ KBN4qZ3oDKTuCTW9RBmcjc EeFcS1RDXkyWLtj5PgcSS9 wNQtMHOfN2Vhy27iXDChe7 9jqYOcX0NzJQVlTDEkAlri uX2eTGTiLyKTJYPfLOUphd VfoEs8MARyJEG0uD7dHWFj k03sl69bxTvhphYsgQOeLP 9koShrBHekpO2ePL1XYSgu DVApZ5FlA1NhpqI3f1gliR wyh3PfjROnJG4gmOBcvJ== INTRAOPERATIVE a7eslNJsIZFjmAC6VdIlBT CONSULTATION (test code Gaa2ivx6JhwUVccRCtLTxe = [id number]) aXRdqlAgzm57wWQ6yN96IJ 3nBZZkRlT9IOKynlK2Ghi5 CZOyDDNltBTiD793v2ziz6 wtzgEwyVV5nLlhRSNratpx YfO8VSxiKHKtalozXVz5EL atHFAmaTV2RWOpeKIaE5Nh WGWbVJ0ucvl5BHO5EUvvMQ PxFuY7PVLmqXTlPTFyyJyg RAdsp764IOF1MbVuFMIcjk E4USyzMTTxL4PbS6SzNFrd YLM1CDNiTWJoLJOtGUMsLO JkHQzquhM4t9meDPLuoFPv VUM7GGhrpMIbSEKmPAHtYQ gwAyZWOpKeIrZ8GhcoYbx5 PhI1DQn7NBTCAtRpSpZlBp U2YUv9CUemRIt2OIa0GVqL QvF8FnggCYTeAVVwVJZyHZ TqGWo5ZGGaBSyxgDLjKKIl SXAjXQxqIGteY85khEugiX 5cZnMyMCBBLiBVdGVydXMg aa2SNJC4QYIoxOkvbMhtqt BUdWJlLCBPdmFyeSwgJiBD SXV0iVqtLEClouhweyHdEQ VURVJVUyBXSVRIIENFUlZJ LFmkTSKJLJUXAUpMK9PLOC 5yXMRWPQNOPjUlA5HECpnr RMaIW3JHAyXARO5MGIQSKJ MQRGQRHOCCKyrKHF0ARPxU HzJRIU9TNGmnpIzvSHGtQl CBAQjdECCJRVSCYjRNBI4G UElORExFIENFTEwgTEVTSU 2BGtptnM7sWFcecmKjFbDa z5J3FUQkIadnCOQdZT1inl etecLpyhF2rtYLFkYxFeQj o39zULFiFg4xSDKkNHG1GH D7DDTmZK3aa0ourKnzq6Yf dGVuZFxwYXJccGFyZFxzbC 1wDxLnz3rzgUv5JIbrfvT7 YIQnne44GUpvZMIsM4TtS6 NnEDnaRHV6HRAkNbBtBARv PX9EOxPoDRO2EdJ2FEoySR q3MUf7VN5UJpWzIITbGCj1 FoGwQFLiQVt8REgqHF1OZV RtRBJ3QLu3ZyS0DIIfVPZd XHQgMiBcXGZsIFxcZiBBcm gzdSHsDX5kyKrztgBoSFAl IFJUIEZhbGxvcGlhbiBUdW MwUAVrL8MccuyfCUKwrfhr upZnAGAWA2sOKGHBFJuXAG lBTiBUVUJFIEFORCBPVkFS OYttW7RMOJnHS04fY57KSV 7CXSCJS21CWonakL6tBR1R Ew9PYvEWREOZJZ9ETBiPGp KVJcxPERDBSjLHS1UHEzLk V6wOWTPRQEFNG3nXUJJTR9 NaKFjhedWvEc7qUzAYHeUF MZKOHbFUNq4BML6yxKxyFI ippS3oYMFzrM0wrZXgZPX5 AKUyFdQCYKYjgV9eNH7iuS 4hM6OxVvOjSO4qAWCsOijy MjAyMiBhdCAxOjQwIFBNLn lhTXJdQ9GjU4LvvqS9c5hr sOtgq8YrmUXlZY9jcTIzzC == MICROSCOPIC DESCRIPTION p0vovPPhDJYmeLY0RjDmWU (test code = 3371) Vob6fzk5BghBRjiAYcYRgx aXCbweDzer15lQQ7nK46VE 7kEZTiCwY5GPAnrfA2Kzs9 IYPyMZMcbEWfF264s0jsf8 qzmlImsRF3fHenFOLymltt JrH0SCwoTWOrogecFGn1IT cnCGTavCI0UIAluJOpO5Ah TZBoTK2ciun7YHX6KJlfER LtQnK7KOXueBDpTORjuKbf QOvjr379TUP1SyWgDNVnue BswTwlhB0uRqHmKZNHHIE1 GOVzjwXnxe3cUS2rxEQdcL == [facility] [id number] 08:37:37 Test Item Value Reference Range Interpretation Comments Case Report (test code Surgical Pathology = 104) Report Case: [id number] Authorizing Provider: Dariel Palacios, Collected: 04/13/2022 01:10 PM Ordering Location: [facility] Received: 04/13/2022 01:25 PM SERVICES Pathologist: Delia Doshi MD Specimens: A) - Uterus w/Left Fallopian Tube, Ovary, & Cervix, LEFT FALLOPIAN TUBE AND OVARY - FOR FROZEN B) - RT Fallopian Tube & Ovary C) - Hernia Sac, Umbilical DIAGNOSIS (test code = y5evoIMqEBAfi3ygWXDvuK 3220) FuZzEwMzNcZnRuYmpcdWMx IHtccnRmMVxlcGljOTYwMl wwzmYeBGWkuPVxV4Hpzmfp NDsrDS9yRD6bfFevrOUhfZ DxOAZuKeLae9zmf716fMTl c9wnBHKVrdsqrGl4gPyeS8 3oh9F2QjwrL9hrHFPqVKvp ZWVuMFxibHVlMDtccmVkMj T7MPyiBJMbZrV8DTQodJUg LQE4xWqfAXHuofbdZhU5WH nmQNHqnyhvOGd0QYdpISKr jBB7XFLnjKHaT1QwUBEzYK 8nhhd3JET8WNcnEAZuTuQ7 NDBcaGVhZGVyeTcyMFxmb2 88JLQ2CaUvVBMabyVveJjj gV4iOaFsBFzxGhSlJ6vzNr DthKVpQU6gJLFMDeOFWSSR GJWWNNqxZKmlXiLtU6zpCg DrjQByHOMEKGIQCHcHY8CQ KB8iTJZOSGAJTiWkU2XGUm ivWQeES4AKFqQDZW6TYOEM OoYrLSDFVCDNHLdDQK4VXs 7PL0GUT2PIK6GMFPo2HIGr wtamJuYgG3wjNjAjbAWyzF GtMTNOTSLKBcCiW84INAVO ZkZosSNwIYMuJsu8SGUpQV BJTkFDVElWRSBFTkRPTUVU UklVTVxwYXJcdGFiXHRhYi WpZHWPRO0VXGEAXJSZPTTU VKwOOXZlipi4FOAndINsEW 1iWRDMUr5GDG3ILADuoXSh WOQlWss1BMIwXXIJVBuRMZ lPTUFUQVxwYXJcdGFiXHRh YiAtIFVOUkVNQVJLQUJMRS CYEOVSTI6QAARCZy2YZYsa YXIgICAgICBcdGFiIENFUl XSXZvttALaWAHzBnk0KUXm CBDFElFURUeZHNYMO1UXRC MYBRFNW8zUY4dAIYZTYN4R RVxwYXIgICAgICBcdGFiIE 2QNWFHXcJaiNYiHCGqDwu4 WCRqRTRYDXZVG9QNTVNEST FccGFyICAgICAgXHRhYiBG GYqCG3DSQP3wYVXHJRmqDE Pfkrl6OCWukXSbZZ8iDj3b N4jUBngBFJUREyVwPGXUIT 6SY6vRZcWFSLJWP7ZgtYHl JDMrovBoI9QjHPGuR3EjNF YeKBEmuiWUMrQMRVlKR7TX HK8lMLEPQVJBObWkQ5YBSi tiYENYI4fAVZERJTkFOE4R Ck8FH3EEW6QPN4QTWSf1GA Moowc6WNImC1KUKdh9VYPt key4CXWgvCTrJW7cTLALHR RRCBRTJ5UAEeCXCLIBSM2Z QVxwYXJcdGFiIEZBTExPUE lBTiBUVUJFOlxwYXJcbGk3 RuYpQmo8ChVffDygWlHcXG YoCXekrKKezHA5KdWjVD0G IPTJS84PWxdQIL0TPPLMRY eAZX9CCTQlP3tIYfiSWJKp clxwYXJkXGNmMFxjaGNicG X6SQowOWAcCc6vVOYGIqtG IFNBQywgUkVQQUlSOlxwYX TstVWsRQ0qIO2LCG7YPvqW LvnHITYUTmCPQUGCCD3PAT OXWSHWNQSxGKYCLeEKE3GD UvAnB0dKSKZOFCAADJRoR2 ESXLKslh04ZIF9OcZjv1C6 JWX4PRAeQRDlh9maTNYmaP FuZzEwMzNcZnRuYmpcdWMx HBMeWzJtn5fke110gQRgy1 ilOLNeAwT5bGWlBDDmqKZu W152CRRyTBulp1dwj3AyDW FvoSXzq8W6UFYInpvwyCc0 hGzhH27gy8X1EstcB5zfPK CtPHGlT6UkJO4dNMKrSvh0 GWD1FQA9GBIqJYPsD2UiFT 3rXPUuhJLxMGw0k5orfCbe RBCrFYT3k1dcSChikhOtBF 4msu8anSl1z0ruhzWoVDJp RLYvqUAOWBAlW1MmqPqjBz 6llVi7tWykYqweBRE1Nlk4 LA5voj99scl1jNbeYNGkwo ygQeB7PLglTZXshikyEDx1 WRqyEGWzqZD3KEDgmUScA8 WdLMBhIY7nsbs7BXB0VDkj ZOJqFnZ7HUQxtOOlJNHrnS knWYaan160GBM7LlAkAW5a C4Epz3Q2qM7jhALrHIYeyG UkDxDnNOWzbk9bvSVpMMlm x5YxDJH0shP2nDMalGCfAX EsKkF3ADcvHI1dxr93QYUb MSI4jp6slAZlpJrktcRxsC LdMRbkF9WdMTZhc582UXPk T1YkITNuq8A7bgShIzCoGM EknQA0jqX4SUWqOK6kupmd h3iqWVzoPYtjVTNunyF1hu Q5CQLzkJSrI7CzoQ6rQIOv EO1ouxrvo2lfQUZ4WIoaNK SwOIM7CgTeDRTlg6Vpxnx1 BaQdf1InwQBhJVltR75nf1 24IAYzjzUrW8wvuQYrobvo oGToxvbhNAhxdxZ8OZRzAL bldbshXDQhKUhkZ8onKcPe AZSgxJwcWPcmx9GeVCEpAW XpXiSgiBYbKWBtNbv4ULOy rSAbRDCgYeRmX4mqolbyKa LJBGUij5jbZ1mzxUAAnUCs V6FfUDhsejKbGAquCFabBU MbDCV6NE97GFwaUKAoxg74 CPT Code(s) (test code o3ebqZTfKHTblCM9EuWjBV = 3357) Ikk4vnn9HiqTGaiHUbAWaq fGBfqpOjsp59pGU7qH00PV 9eZPJxFaG6ICJejcG0Jkq3 FMUbWYKwwCNrK872y4tar8 vnxeVbyEG4aZonXIKsvogj EeR4ZMlmAYUqgxzaPRp8CZ ogLOKvxMZ9BLNkhAArQ1Jf BJAxXT6lijt5MRT6AOabJB XkJlB3LUHcoQSqOMWxkTdo DCphd554EVO9OaEqVYWauw JrmGyihA7iImNnUMH0CTHj LWT9PCvwRBxuImumeCE3RG v9NbX2FDxhIkY7WLXoDsA8 MVxwYXJ9 SPECIMEN SOURCE (test f5drbKIzUNRbgIH1HtFmWD code = 3377) Xwt7rfp8AiyRZrcNAqSVtb wHHyohTpzp69rLC8pP40LE 9cLRZuHkM8MSTcdzR2Gye1 ADKlPMYfkIQhH301d5wdo4 yvgkNurBR5zHqmNIRhdjcm IuW0OBbpRCAbiavnTPb9IV kpVCToiXC5NBBdkWPzQ2Fq FUDsQZ1flls0XTJ0BYayPB PiLeD3JHZaoFMzHGZlgHdy FMsih225CXV1RcCsTTMfkg PhdJdluH3qPfWxGHLEIxFY dGVydXMsIGNlcnZpeCwgbG TcpOXzPWcvo3RmTN3vmBFd BICrxbRkg5PtdwdnjGIdDC NmSPEiY2h0WHFkcRarmRet adO8qCNjAMYfGOQkxrPwmH goILGwXg0wHL8tjWaoS2Lv SJkczs5mYTYiAFYjhFGkaP == GROSS DESCRIPTION (test b0xplZYdDFXvgFD6MdPwXW code = [id number]) Gwq6qbh7DzcEGlbZLrLAgv oVNhjtDllw97eDX0lW74ZU 1iBFBpBrN6CUSzcyC8Chi5 NVOgASVqqSScG526i5bwa5 uwweIasHE6uFuvEPVthnrf NxK8GMryUHHujjbyFYv8GF rhIDAllPL5OJObjRHxJ7Py MCRoTJ2pgij4HAA5GGciSC GvJxN1VPPfiFFgLXUojTps MHklq984ZRP4QoLuITXfax N2TRrjIBWeE6JwQ0VoBOrn TTE3ZPOfOVObJKXgURAaFN QrAEhxhyF6n8kdZLRvtLEe PJL0CNewjPNrUZLdAQXgRQ mvJtBVMiSgDoU1QsapDog9 BdK9YCe5SGZPJnVyGoNxRh P1WGa1WGgqAUb0OOs8KFuO NjE9RoaqJVW3ScDmROCzJL QzKYw1XSXnECzkaRClXMPr TGPnNHioZWwnO24jaVqarR 5cZnMyMCBBLiBVdGVydXMg uo9LCKC8DWQgrXjxcCzgxv BUdWJlLCBPdmFyeSwgJiBD FQI3oOfxLCAbtsvgozIlCE JbC2AhhvQdZZOpJLXnWRIy ZCBsYWJlbGVkIHdpdGggdG qtVHQxvSthznOchO1ic7Iv CKYig96sAyQ6IEN0jhL2mQ FaSPspUfOcXgHlgL7nkOGo ZSR5FfDtKJ2vMV60LUG5Fk JgfcPmw94hd0VxDBBcAqWn RBW7CUV0zwTyCRWaqJUnxz ugGHS5BFescEU6SsSlP97z VZ4fDIbybBgvqwO6YFSaRd PdOVriHCA0lAYdmGStIEZj cnZpeCBtZWFzdXJlcyAzLj TdlFFdKtWyoHUeIqKtU17p WIIVxKLwVMP1NVAgMJSnPv HzdB9brLPqXNK6NrVujWSq p2NaMLPrRy25EZJoEExkST ikrwu8mTWohvGeJI77ZMMo AMdrQFNkXH2xuTMjUGBkRR M2lDYuBQT5MAKuBATrq8Cu eepjpTHrk8RhVRTtYRH7IZ VsqPC0YZCgFKHdKCC8RZdc yKRfKUC5ZWvmVZAvoPMbJU RoZSBvdmFyeSBpcyBpbmtl LIYyyNPmUE4cSLn6rwRduY Aaap2pwRYgeMVbRZMtQi5b NHWtvcveqRQrJLC7dI3axq FoQzI8bXZzn8MzilswGWTt ZSBvdmFyeSBhcHBlYXJzIH Dfnl82qSo2HPXjtBQio7If IiF5fCQhVKCbsfTmetMqpu KwJdO9MHnwn3cqDBfpV61d s7HaoBjvfu6eISagLADprZ galNsdqoG8mXNvFFEynKBk rtChdV5yKS4gttrbLiftJu EvOXZnJOYjuRBuNBdeV3ot rOXgVWThePZbrbzeAH37TK YqKHntLBUmCA4tbECoRJtz DKaxHD66iAKiOLXxMOemsq VcbGluZSBUaGUgdXRlcnVz POR8lUQxvwXgiPwkGXAkYQ BotlHchJr7cXqfFzZmTMNh JFA3oGDlAY23dBBumMmbRT Nawd99mLx3JRJkq0X8tZCw c2i0mRX6qD6mdLSuNLA4lJ XfdKPnFGGacewxbmNdG9ds OaUcll4pHOQaV59djN4aSk ThnKMyatSrpUExTRXdng1c BPGsYTS1vFBxkJOfnLRdRe k3HYh0XFRjdL1vemR4AYGz DKRsXOUyHN5rYIGnyINuQL Hsjpr7aYFjQCHekZQkzrgw Fs51WEicMAKaxV6wKCRnQF IbkbSdnFT2fpmgmUC6fLem m89hm1SbxxIwO3PkGAHbp4 1dBK6rZHFaLJDcYuXmaX0o NVVvYWQcVC4mPEWrkMPoXO EwvLrsKW5rLUL4rumsVmAv WCyyRU6xOEvgQY84PVBgDW jqKQxsJR20oNGuGZYiQFVU GYZnZCAgbsChwGh2NJUlEV K5jK6nudSlaeDqj6SotSd3 fEXkFRSeZMEnmNjzh3XlKQ PyjzdtdI5nDFmbhoPzo7Oi SapddY1aAJMrkYP0JZI9wX CrqxKeRRW3vtSdD1Gac8Zc h8TtrgrzNMscnjBkCou9DQ zyPN55IWCkr9Qui7CjUmNc YLBnNmD2qDTmoSDttwMqRj agmF8oTQPsTCOiFpOIe3Q3 MXAjs8Ugp3ZpMrKiXBVjMx O6xTIsgKAlMVIpzokqmX6g FOFtO4Umj60sE07dUHtavR klRGWNL1SpXlMZCXFyZDIw cbPxrGi9UMAaJMZ3gV8bSP Xss38up7XlbrotHHJxrgGO Yg1ICCW6IOVyNLi9tS0gHO cka4AamHeplfDmJqUagQDc dzFhcZ7yaQWpDOCwNX5QEK U6RDfoYsMnVdJixL0ncNTb EYH5BiZaVO13vVOqsEcrl0 OzaDz9uJTmFZkSZCJaXwkn HiRlGAcaZZ3hBX1cSQrfHr FoGbTrkT6wmJWaAHW5PcTc GvsciI4fEHAjFYnjFLQnSA Z9XcHuEJF4w5AmZO59tMHg cQgnn3EfoOe4bZPnXoobyW 6qCIFsXd9TWnH1ZXDhuXHd wX2qRBPpQH3fqK2fWNNknL LoDKQ0Pl3meVPgUZNljrIk qcKxlIZgqh2bCNU0lWRwuH 4kYJElXZmcBvFxlI4gAMLa k23aTZglvFmiLT50JICeh4 SaH9Dxoxv7WBiyIZAfYJ6p KILhCiauNB8zo99kqFJwjO 7qs2u8pSKwiIBfH0kgJEFs r1i2zQjeLWT0UhJCkHAvTA Frd6UxWL0hZGDmJEqdlMWq HMFiYK3VBgO1CCScQM1aJZ RyaWFsIHBvbHlwIGVudGly BCb1RCZ1Ik4vlQLfRP2jfX hsQWHEAyR1LUWdwFSuu1Gi kWT0zUXxSSGmP1Twy76vNk IgbNEhjkZuQG94zdCnET2h NLOuCV6erExtKUHZDhHkQF LaUnQLd7S6KHSpz9EbHU8f f766y77zwKUcjI6cn8SccT l3aADoICMprActSZc1NBDt y07gx4QlNCNvo5BhbH3hgW 2mQLOsj2QoGJdrskqty1j3 zHJre3M6LNZkv9ZbW7Fmby o0HBncEFJdIN6lcFggMKBB MzEtQTMyOiBSZXByZXNlbn JohRq3PQXkSJU1yV6xUBCg b54maZwatZE0tltktJUim0 R2hWVbRWrfjuLlmGdpVTRT IfWjaLbmPFuyrA4fx3joeN qhk0SvyVKtHEjjRLEezRRy DIbiqR6vZbWac3amwFf4LJ ohexJ5NQLkrv84AUsnARNq S8IhC8VoSRmmGGT0XXOeKd LzSAWgFC7BXrRyKTE1YmK0 SQiaKRc4BCw0GW4EAxXbWQ SmQGf8EyRvRLKmESn8YJrl ND6GAQWgMKCnWBVlAtY8UP ExMSBcXHQgMiBcXGZsIFxc QgWAojzygEPxUL5hjUkrpe IwIEIuIFJUIEZhbGxvcGlh nyENnWDnUSTfH0UezclzIG WfpuiruhEfOOGjO8OraeYp IGZyZXNoIGZvciBpbnRyYW 6jUXLitYs7MHQdbr2ysbVd n78fsKa2DEXhm41pBC9xVG yzBiFvTPRzt7e2oET8nBOw xXO5dTAehGCkdzGbrx3wcR yhptMlLyXwzZ3yhOQfUBN3 QtYcCZVgK7f7JeFhwgTzi8 7fu6TgCOUsJoVbsqWcwcYu eSBtZWFzdXJpbmcgMTIgeC UjMaE3LRVfUZEgnQUkurSx w1YmQ2nzgvbiDslqGHzeGV AJrVZuJGP0hHYtcSMoKDsu KMTyKdWjdS3rvMKiGEQ2Xx FtcJDqt3WrdR4iUSTuNJI9 DXWcUURffH4mHSPxJNKruP OusS0ewcLqvdXwxjrzXYWg bKApRW9dAXCnRCQcuUOpmp 5hbCBzdXJmYWNlIGFuZCBv pIYcUNVfbR4wvoA7XEJeOJ MplZ5ptO2rgAuspnNajSL1 PTbgzJxsB9A4vR03pcRtUA YeofaoiNSnpyXjM4Uww1Xj eSBpZGVudGlmaWFibGUgaG Xlls4yWFHlyUFmRGZaBQBw DWWnASBoAyGre5HqeCLyUS VuJCP5gKuzJ3KarAIrq6Rl tP8lCYHzDGYinQCmrqIyiC SpUDbfPI67eKAjQGKoKTUF suUra2usYNZvvvGlrsFmls BwYXBpbGxhcnkgZXhjcmVz O0CtO0UmOOAlNEHdAYTyUa AgVGhlIGZhbGxvcGlhbiB0 fEZfHSAseBIcqeYxrJ9xOC 1hcmthYmxlLiBSZXByZXNl wsZcrUb4WZHyWWR1zU5klf ZtudHda1OvnCd5hZHyEFZb ICCwqMcew4CeLUyfodAaJa YnWwB6NXDpX1r4LHUnjYec aKqyjgJ9aYLqCSYccIxuVJ s4MGN8Xr6bnJBwKUOzIzEz EemgTuZbOCpnSM3oTT8sUH VzbJmfoGbxpnC4uBFwDB2y mOBjYUK7FTKoRNmnA9mfyD mbBJ07QHD7LAX1Td8mgOZa EACbrkCykfYcpsLrRI22IF UmduZme1VssOezjxNuXBJi NE5nXRM3iZ4uNY0fHCZmz5 NpYmxlIGNhcnRpbGFnZSBz kOXwzSF0TWUnIV04lYNimN bvIAX5WSKnLLTlPWjzgMXk S4T5xV6hQOvqOXEuvHTiLM 0FPLqzkT1ef6ptcZcfe3Vq dGVuZFxwYXJccGFyZFxzbC 5uToRvk7lcsGn0XDgemkE9 FPIgha32CNmlKNKuI5PnG7 UxNIeoJQG3EHDhAfBjZZBv PA9FTgWlLGM5XqS9VZbkPO q5KPk5GZ0IEpRzMMRkAKj1 LRH6WFQcAEw9RRqqYJ5UQE GnJPJbErTeBJB1TKUpQINe XHQgMiBcXGZsIFxcZiBBcm ogoIGpXF5ryErfbfXsVKGy WTfqco8kQMPHJIEvNVLiWl lzxILoeU6evEExLEKfLzPk JsIbJSd0RATrRcXdp4ceUH 5gSFibPgEaHUNzj0p3zDJ7 cHIruKF3eHJivSVahnIoxp 1hdGlvbiAiaGVybmlhbCBz ZVCwAZvoFBEuaFCgp1EcIW 0rSGKoxDjbM4RhLC8oVGOc LwSeXIIkeZ8vYEI9nZLmjV DglMFsg7IuaY1yNZOcqTIx OIjrQrVglSYuilUtMpU9CZ YjyNEuJfYoV27nJYMdBZOx nLJur4CdvMZ9eSPdRCGnR9 Bbq39fRYZeFNLxfLWmeYH8 YZVkdR5iZ1Cwb5Z5uZMsNJ EcXGChCTDBKx2rsHabVSGL MEM0fO0rEDPvYER9ILoixx WrNjW6PXBqyYCbg5ZviJC3 yABqRKLyW1Twt45uFIRmo4 9ctWLxD0NhOWSaIUJcNdrp rR0dOCWzVfKIALPpVOYuah PcgMb2UDFlQOA4mY6dGITy u06mn63cpNysqnSuiLJiMS 3xfClsWWvghP8dBH8ACSnn FYKcY0DsT2GymgO2l8xihO xxg6VvpCEkYN3qtIXdeR== INTRAOPERATIVE w8fcaGNzGKIvuBI3SyExAC CONSULTATION (test code Xfk8wxg3UcjMCjjUCzWRpa = [id number]) vUMthsExmq01mIX5uS66JL 3bGBMoWeN3UDBlppN2Oly8 AXJsWVBsmBFwY116c8yvn3 beitExmOI7dHgrMSLujqvh GgP9ZSerXKQrstjoHOk7VR gbHXMdzOU2HAZqcGZmF9Dg RLGdCT1vgsv1YRU3NOjiNS VuWoK8VGDifPTjTDNmrIns ISjac151ESU9JoIgKRRajb M8SOsiVYIsQ0OsB2MvJRvv VMZ6FIZoUODwVMLhSJKaLW TeHVinixA0p2xyODAliVDw DAI8RYjknDRwCVUuVSSoHY tlBdQSYxFzMyB4QaztLhn7 FeC0BAh1ERVJSdEpDkEkTn F7QWq5QPfhFAx2WXj6SCjX QrI3IcpmOCAuGZIyMRGtOC PzNUl1FWWxKXvegNKtIXCn HCRrEXemAAsgS96fuZtwoS 5cZnMyMCBBLiBVdGVydXMg hl2VQPR4VFIxoVficAzewv BUdWJlLCBPdmFyeSwgJiBD YAS2hMhsJLMacqtvvrCaMC VURVJVUyBXSVRIIENFUlZJ FJigPOUTKHSUEIzPE6DAYP 8rIRKFWTCSHnPxJ7DRNuoh XZsSI5IIKuVHHB0UPRAPPF VICTJDAIQQBgsGMZ5XKBxU OyJQIL5EZXhafWcsNVQnHp THKPdnKZXWPTVMKkPOGN8J UElORExFIENFTEwgTEVTSU 5NQaecgK5hJFqhkpMpCvTi p1M1NVDjWikoHPWfWF4huj icznNaviF9amTHInSqPyIw l27pULQpQo8iVMEgCAD5MW N8SCCdHI2od9acpTacp9Uq dGVuZFxwYXJccGFyZFxzbC 0vCcLjq7ekgId0KWqcioB7 RERqbd04LLxgFHUhQ2AyK3 OqQHbxZSS9SGUfPtHdYZNb YW5PZzDqEDF6FlJ1KIuhVV b2MJx0BU3JTjAxRREaFBz1 FnEeHLDlJKb8DLjwZF0PKX TaXYS8BGj7TvC4QFTkHAQs XHQgMiBcXGZsIFxcZiBBcm qoiMGmAB3vzTvijeCqZYOl IFJUIEZhbGxvcGlhbiBUdW UlLLQdX7RfupyuMRNfzrpx awFwWMTQS4dFGRDUUQkRFV lBTiBUVUJFIEFORCBPVkFS WYszM7DXIQqCL75xB82AFK 4OMEEPH74QRkjfaP5lCJ7G Cu9ZRbGSNTGYVQ5XPXjVJf KZVqdPTQQFRnSTJ5JMArBy F5rPHPODSCWNV1xTWYKJE7 YwSGxlnxQyVo5vVmNPBeCP DWWVBqISYp6IOM3xeOkiHX shrY7xYJPwjJ5veJSvQRS0 PBHoWxCCRCQkaY7dCY7faO 6wD5ZtVzKyJE5aTUHjAppy MjAyMiBhdCAxOjQwIFBNLn tnLFTiJ6MtX6CwfpV8e4zz cBbzp2QmxBCoCH2dyAHxlJ == MICROSCOPIC DESCRIPTION n4nwwKQuEKCplEN6AsFkKG (test code = 3371) Nfc0mxo3GazOZdkYFcMNzo iIXlulYptg79sYS9nH63DV 3pFMBwMkX8ZRKfiqV5Smb8 VJOzALFgqPVhH001u1xoy5 yxstPdeBH9tOmdHHXownif GvH1PPklXAPadpnbJMg6IJ syKSThwYL7BDCqfXKqR8Wz BWBaPJ8mtix5DKP1DUonZS JcQdM7OMUbzDLnWVHctHlo ZHfkl561ZVU3CeCzBGOrpl YzoSjamN1vQeCdHHDQFIS0 NVWjgcUgfs8gKV9qhOItvB == [facility] [id number] 08:37:37 Test Item Value Reference Range Interpretation Comments Case Report (test code Surgical Pathology = 104) Report Case: [id number] Authorizing Provider: Dariel Palacios, Collected: 04/13/2022 01:10 PM Ordering Location: [facility] Received: 04/13/2022 01:25 PM SERVICES Pathologist: Delia Doshi MD Specimens: A) - Uterus w/Left Fallopian Tube, Ovary, & Cervix, LEFT FALLOPIAN TUBE AND OVARY - FOR FROZEN B) - RT Fallopian Tube & Ovary C) - Hernia Sac, Umbilical DIAGNOSIS (test code = o6pafMCoZWLqv5chRYRdqE 3220) FuZzEwMzNcZnRuYmpcdWMx IHtccnRmMVxlcGljOTYwMl cxioUmXQMozJVgD3Gqijsa LIrtMR2nLD7jpEfiiHQjrU KnESWrUgPuf9trt239mNVt g6iyLMRVbgkvvCa9nUywQ0 0qm0O6PxmjN3opZRXwVYgb ZWVuMFxibHVlMDtccmVkMj U4XAptQXOdYmA8YJZcpTVc XQJ7tZhvTPTnhxypYwO3MV kbGVVcqxgaZCh0KLbrWSNn qME2PHEvzUJwX1HpOUOwLS 6zcjl4GXJ5YYcdYGKaUdK6 NDBcaGVhZGVyeTcyMFxmb2 59TNS4GzFgAKChdtCbmZsb tZ8nTuEhIPetVtDtE0dcVo SawJMvFN1vVZDZWvVELAZO OTPQSXvuJTiiEtJmE7vyIk GdjZUnCDWBYZWSYEuBM7ZQ UW7uOALKPHOQAsDhH9LJIv rvTMnZS4NKVmOQFF5MUKMA BaQgKZKAFXJNZMgCOL5KEx 2BO8JMI1LPJ6KNVGx0NIHd vvcfMuJgF8joZaTcpFRqeF OqGQISYWKORtCiX30KKYUC DcAzlYNeBJOvGee8QKWqST BJTkFDVElWRSBFTkRPTUVU UklVTVxwYXJcdGFiXHRhYi WkVTVFHV4UPISAUHKNLJNH NQbKHRDtdct1IBUflDCbIT 0fXDODHe2HGM9VWIDajLCn VUMjFag0ZHPrQFZNLOmRLQ lPTUFUQVxwYXJcdGFiXHRh YiAtIFVOUkVNQVJLQUJMRS OVBTSBDM4QNBASIc5DWMri YXIgICAgICBcdGFiIENFUl RZJIfupDMrGVJsHcy7PRNs GTIAGjZGHRtJXNUUF2QJAC BEJAQUX7hLE1qMHXLLHS3N RVxwYXIgICAgICBcdGFiIE 2IDQBNUoKeaRBuHZVhGzg7 MIJuHFCYVKUFG4NZSADMPC FccGFyICAgICAgXHRhYiBG ZCfYD1NCUA2zCHAUFAvsPD Dmfef6MUEhvMGoGX1wZx2q B9hXOiiDQLFIRfDgQAJYOE 6PD1yHZyVEVZYMR8NauVHd PMNndaDvX0XqESEaE1PpIR LnVMXbqdNHCeZNBErJO3RG AV4tKXISVRJETxTsM7RDZy htQUMHG3tMTILHPOkUAO8L Nr5JI8RCG1ULM8JJBCp7KY Cjwfh5LHLaK4FKCyu9RJNw rba6GBCwbTUeOH5kVVYNBL POAIYTZ5VXRjDJDTBRBY3H QVxwYXJcdGFiIEZBTExPUE lBTiBUVUJFOlxwYXJcbGk3 MnWcIhl8EdStmVviPqOlVQ EjATgvdSPenWQ9JaFyVQ1E CUCSL44QOqoYZD2JZOBYOZ vNHG1ZZPYkV3kFReaYWNDa clxwYXJkXGNmMFxjaGNicG W6LXbrDBAuZf4kKVEWLxaA IFNBQywgUkVQQUlSOlxwYX EirHArES5uOG4IWD3QBlzG TnhCIVNJCrWGNPJZYS1VUJ EKJJKIWVHrPWXDQkQIK1HI BkElN1yVPDLECWNBWEQxY6 CQVHZcih32UBR2TgZzt0F3 JZZ1GXJyXONaa7iaUQKerY FuZzEwMzNcZnRuYmpcdWMx ISEiBcJsa0pnd088iMXfj0 grWHAbJzC5vXAwYBAifKZi T010ESFuEQcib5jbr0AvZI UpbASat6F7KSOMxipycKj1 mBdoH33dk4G3RdmsW0xpOI DzQCBbB4BmTW3dHLRyQgd2 AUB3QMT8DTOlVOLeP5IvRQ 9zWYUxiIUjXBa3p3ftzMnn ATFwTTV6f4vnXBqqcvLrTA 5hkr4uxNv3t5wpubKaREXz OUTlrNGFNMRzP9TqmZawAa 4ixIk8tLwsZbpsPHI1Bwk4 MB6wcz77peq1dNsnTWYzue wjOvR7VYklQDUdbdazTJn2 GKfqIJMxdRR3LVWjxKTgM9 SlNPDrIT5lypn9GXU1CKvi CRQvGwB5CFPdcMKxDMOrlA ohCAnrd605FTH0QbYdAD5y Y2Ffv1S6gQ7ddJFhUVKjdQ PwFyZvHMEuiv9dvTAjUMfi h3YfYKD2bmT8qYUmiRDmGR XqPkP5QVhtFG5why98KRPf COZ9is1veMYwfRevhcItpS XsORlaJ4WaABPtl830IYPh J5AlVAGmd6Y2wyJcLxRaAW RrqEL5olZ2SZOoYG3mhurm a3ooKQapSEwiUZLdyiA4xk C7IKFmtTRiM1UjbI2sRBGp IO9vwscaq5waOMC4UZbtLZ WzAOG4PaJaAJBqe0Zvhhc1 KsWfs6KjdFKfQUknE39yz7 80TQDvcfPaA5kuoVHujptj bQBktisqOAqbbsC3DAOjPD udkrczGWGbUDxqW0gfBpEk AZPoqKiwNZgml4KqPQYjUZ UpPnCrrKTcFHCnCde6QJAr gYYnAMViLiUsF3gdralwQy IUXSOxk7hbF6mjqOMNwIMa L5LwYUpupiHxQHidATyfMZ SuBER6QQ92NCxlJELdcd20 CPT Code(s) (test code g7jczBLpTHCxeXT3PaEdHR = 7606) Ihj1gfh6RtdKCfbJAfYOzs dQTcpcGhju10mPD1pG34RM 9yIRTpGdL5AAYgreT2Ixe0 IVLxONChiQTcD632e5qta7 hkxuTulLL5iXbxZBJzhxmh BwE2QBrrJUUrrwagJZf4KA ctPUCbgGL6VITyiPDnA0Bm TCNsYT7comy8GYM6SEufVV LoDjE8XMEcuFQvXBKyjRow XXumz152ELI2PzJtIVMwkc NkjCwcvY9sPzYwAHN3ZHIp KZQ6EJkdADphGqjmzCQ2RO r2AgO8ZYnsFfS1FYHePwW6 MVxwYXJ9 SPECIMEN SOURCE (test l4fkxZAqFOWoqYY0MsYrEC code = 3377) Noo5aba6JkkCVcbQKwBUdg tBLlyjApsp45uLC8jW32IS 5mYMSqQpZ5UDPxbqA9Skw2 QLZxPOXgrVWjG217d5ojn3 jagcRwnBW0jDobAIGklecv NkP6JCkvPGBegawvQUu2JN jcCFMjgIN8UUNgqVBsD1Ke RQNaYE5pbjn3SEF9VSnvZE KlDmP7EWPmuXUvRHAjdMux AGqgu295XWL3RsVwRMSnrb FvfIsyzF7lGzKyZQRKNrMS dGVydXMsIGNlcnZpeCwgbG MrcTTvSFtul4IxJT8etWXm DCXjwgSjv8YznxjetRPoJV ErNYGdM5r4CRKpzJzkbWlw glM0mTOaWUWhZUEjoyFlpL teRFReNg4gAW4ulZwuG2Wi GNehyt1jBZRuYVNtjTSezL == GROSS DESCRIPTION (test b6xioBKwJTAceWU7LpGoFL code = [id number]) Bsg6zem5HsuBYntBJfQAvl dFNsbuEfpo34xIZ5qQ77QS 1eTODkSlQ5LQHzwxO9Ikk1 XTTnEMJvqJVgM119h8vaq9 zbxwNimNE2oOoxDZQajjzv DkW5ZKhbLIChbzjbLQl9LS aqBGMqnDY4PPSeyNHpO6Ij MVYhMB0yukd6PFP1RWbdRG UmKuQ2KXKmnXJdIUFldZav VPlyl210JVF9SiEdPHVtnw Z1PUaeEEUnZ1GqZ6ZbHXbz YWC6KXNcJZVtICQlIGQgDP KxCPhkqtV6j8huUROkwJIk HCQ2SJciySYkXYDgJAOkCJ xmToZMTvHsYbS9KovjSuo9 FtT5XKz4RNWYEiScAbCuTx E7UVs8MPxkTRt0WDx7PTnG CbC1IvojCEJ4GnAdKXKpPV QgZSw4ZPJkOAfhtOFiCGHj GFLjXJbwIJtpC55kqPqlaF 5cZnMyMCBBLiBVdGVydXMg ci3GEMM0IHUesCdxmRcfsv BUdWJlLCBPdmFyeSwgJiBD LUU3gNkrPZTgkxskkkGqRY MxJ5BwruRlUJPzUBXbUZMp ZCBsYWJlbGVkIHdpdGggdG lqNPOjkQssqqUpbC1ht6Hh AAGzd91gYuG3IEM3urV7lS IiWKfzOaCiXgEdxU6qkKPr YDT5RwJfVG0oNS28KPC9Uq NvstOwy73mh3RwKQAjEcLg ODP3DYQ6msEaKIKbvEOvig dtXZV0BSpkhIW7PpHkT93i NW2xJCjazBljqjV7ZLXkZz GbKMroGHK9fYFceTHsPKWh cnZpeCBtZWFzdXJlcyAzLj GbmHAvFlEyjICcXuCyL03j ALANhZIoUSU0YRYxIUUiGi TocZ5qiNDqAYX2GzNbqZHf d3IaPITbLo22MKClCGybOK qckix5iLRsxnJbIC93TBIx CEdxTXTmXG4dqKXaJNQkKJ M5sWFyYEI5UAUrIQCbo0Sh ejfigVXqc0KeBKJlRZN3GJ FwtUV1MZKkDRUnMOK6JBwb fXVtMMM3CWjbJYKcrWBxZY RoZSBvdmFyeSBpcyBpbmtl GRGycWRmYM8yNYq6zmFutE Uhqn2wjZOkfBNyJOHhJh8e AMAvnbzerGHnTJX4sL3djm KjItP8cRRsz9VvkljfDXJp ZSBvdmFyeSBhcHBlYXJzIH Qodn71jHf8SRHxnYDnc8Ua HgB1jSQlSJOntjHqvmFgsf MiDpV5IBfmm1kvSWvmV85p i2AnrJumyx1gNZzvNEOvaJ escLzyirA5xGJoCBQtjFPw uqMdfQ5dOR7bumnbXgjaOi UkUOIuSQJfaPNuIFgdG3uj pEMtASOikPUgxzrfLC83DU TtKIecHVGrYY1iuABqXKzk WOvsBH84rNUwWIDdUCemtb VcbGluZSBUaGUgdXRlcnVz XVC0uALuuvYgsMltHICjGI PzscUpoLr6cTflUcPxPKEq ASJ9qDTpRM18tWAarTsrZK Lxpw39hIy5NMPsn8J2xXZg l9t6hSS5mD0zyIOsVJC6cR LciBJrGCWamfavlyKgH5bf IeKsjz5aRBQbO18apU9pEm TspGPkmkLetWFqWFJfjh7f MEMqQWR2xQKioPVddIHmJg b9VEa2IBFmpY6dwcQ0ITAu BPNrLTBlUG4dQKNgoJBgET Wwxrv6qRWxGGYlsQRowqdx Tv27NXeqAAVmjZ7wQQEbKQ ThwbLfjBZ6glzmbEY8eZjr c82mz8NapjDdN2WjMSAza1 3cUR2hBBQkCVCtPhEqsP6n OLSzYPBgJT9zPNHwpGYoUE FlsHyhGQ7pVMQ6xmakGqQo MUblXE2hYXcpOA30TPPfYP mmALpyTS28sIOoFPVlOGUD UDVvKMDiopSdoYu9XPVgTS P9bA6moxFthnYdg9MkuJu2 nGHkGUBbQJJloEwlm3IdSC UqysiemU9yRXwyznYom5Yq IhfyyT2dJEQxpAK9WGM7aO MatfVlZNW3oxOhL3Tvj4Ds k6HlnixnZFufjyTlOhw0OL ooDM27XWEvj4Wbw8VtSwHe QCCxQrF1iESbfFJxwnVcDn jslX1rAKUqQENzTkDWo4O0 UOQkb5Vkn4WmPyYvKOSmNd P1xLCzkOHrBMOrwnhqvT6q EGKbB8Kvf31oP42gEJmnzO qaGLJHJ0HxStTFYAFmZEPe bgQbtHq3AUBoFRD9tJ3dGR Bel47uh7FdtbkqOQGdrzJD Df0QPIW4EBUvUYn6vX7yAV fvc0TvlUqdovElWlBwkJBe knEcnB5lgOYzGBYcGE0WBF A2QWnoAhJwJgKmtP1vbXYe QDB2LjFdSE64uPWcxRhed8 UmfHw7zJLuIGjTOVMrQcve VkKbASwfTJ2jRE6nKUutUw NvKvDkoI4qpPBmDIO8AiAq UqfxaW7jFZNlWDhhCZOvBB H1MiOtLHT1h1NiDA32cKHo yJouc3RafJe2xSUuCtetjR 8sORYtQo1JRtS0KEKclRJi cH1lBXLsKR8jyH5qKENtmF DrRDH5Vz4zdIIeRGBfegEh cmAbjVMgad0cNZJ3xLUlrG 8rIWHxMCdjUgPwjN1rNOMj t99sLSobgUttGK51ASUwg6 JgI3Goivp7EBmqWPFhYF2v BQCbDszrMN1pz34llWNgpK 7zm9v0nYMvpRGhD9weQCRq l7j8rQbvJVD7IkVGiJWiKX Kxz1PkVQ2lCFFwERrzbGUr IIIuTV3INuM3QNCiQP3gUD RyaWFsIHBvbHlwIGVudGly EGr3ZNF6Qe9vmMBgUF9esM vvGXXYJmU3MTMhnOGzf8Qr zMQ9yBAoCPMaS4Mtb91qNa GylRHfmtGcTA60lsLgLC7n LHAzKD8rePfgVNVWTfFcYU EiYoYWk4D5FMRsw2AmNG4h h870c10avIByxC3sb2RxfZ e0mTMlPOMijCaqMXc6WEQk g28nn9QlVCClz8RoqW5vfP 4oURWzo8AqLUtngwbjl6r1 oBWfv7M3GAPsn7JfN8Fktm r1HXqqSJMrBY6qhWmyGKSJ MzEtQTMyOiBSZXByZXNlbn VnsMe1YHVzKMK1yA5fZZBe u51qrAcqgDC8rjjdhMUfs2 K2sHYyJPoyavBknWqvXEHJ JkYuzAtjAVaelN3wx1cwbZ wyu4RcsJHbQZsvCYUdgLIe UFzppB9uMbEpm4ryxKe1HC wpahA8WTCqza47PGvqNDFg Q3VgQ4VgFBdjWJG0ASHtMp LdONKoWN9SHcFgHEN6DeP5 RHbuBWp1KRp2ZI2ZBqBtTP EzZWa3RpZsDYPxMFd2MGlp HE5AIBHcWQWaIBRpTkZ1QL ExMSBcXHQgMiBcXGZsIFxc LfUEaijkpCSkBW7coLqsht IwIEIuIFJUIEZhbGxvcGlh ctYGfBWrXBSxG5ZslrneUV MqxxdyacApQUWyV5QbkgHh IGZyZXNoIGZvciBpbnRyYW 5rBDBgdGo5DPTdlj4bzmMd o26kdWa8QJGek84vRX4aNG wlMiQbPVRfy2j3qAU3fYLq zAU6ePKnqQXdwqRelk4faW btbjPxYjIefK9heESvSCP1 SgOcCWBtQ3a0LfLeglZgh3 2at6WpUYMdMjBpbnMkghTj eSBtZWFzdXJpbmcgMTIgeC FyYbF9JOKmQDQwaIAwzkBm v9OkO9xopwqfDtfkKAfvXM LMcBQiWCR4tZUarGMfVZmn FDSbTaVuxL2piNNaMRD2Ud MgiTGja8ZjbR9fYKJwDVT2 FCVdNRAxvP8vZQYgDBHadK JcbU2vmeWfxbXdflnfXDLt fJVfSS9xQVPiWOYnfYMrfz 5hbCBzdXJmYWNlIGFuZCBv yWOlNFCwbX3hcrH0CYSbTM RstE9wqG1ogRjvqkEpyLG2 RJkyxMjrR3B8fT40huItMY YldeivgQBjtpRkQ5Voj0Ys eSBpZGVudGlmaWFibGUgaG Kzqd7aREGndTAtYMLbFUJt VYCfQYCaZpFzn1CpjAOcQF AtJGD2kLscF9TweAPks7Ss aH3cCWFdKYJwrKCanhNdjE KbZKvzCH83wALoSBUwVQDP eqFwg2ejCEGpjtOxktSrda BwYXBpbGxhcnkgZXhjcmVz M7ZhR2CwMGPhGNCzOUFdRo AgVGhlIGZhbGxvcGlhbiB0 cBRzAVNpkWNbmfOtiP0yOK 1hcmthYmxlLiBSZXByZXNl jrGhiMc2KYTkYVG0wR0vmz SfxkAmw5KevJd7oGYpYTEi GKPhpDvop3NfTFvbawJrRu GtSjH2NAWnW1n8YIZmeSza tVqtxeC3nWAbZOUdcUceST r7KUV5Pm4mlHQwEEOvVsIn HivuDyWuXVdjVM4cWC0nMD LbpXqogRqgtqQ2bFFeOW4i eIAzMHT1HDDuPVspQ4ppeL reEU81YQC2VAG0Sk3igUNo QTFpigAhpuMdskPzGX19RI UlccYwh0CtbMejyqQeKMVh OG5wRTS3wI8iCF9xWOVgt0 NpYmxlIGNhcnRpbGFnZSBz bTFlaOI5BHUgJJ80yICohZ pzQPN4OSOxIUNiCKpmoIGm V4F1tB2mBEnfUZTohJVoRX 1KGPnsoI0go1ffbKtxt0Lt dGVuZFxwYXJccGFyZFxzbC 2qYzUjm8vijHo4KAagbgA7 IURxrh23FBvpHKUyW0YkS8 BiYRzdZWS8ZMTnBrHyOCHm ED8ILdYgKKT5LgP4SFjuOH y7RAe5YD3LLvYjFQCrRCg2 LXB7JSWmTZz3NQxmOA4NGS CeSKMfHpOgVKR7LJAlIREs XHQgMiBcXGZsIFxcZiBBcm nxfQOiCU8xtSzkjgCvSCEi ZScbte8rLNLYQAAfEIZjDz anfCQtpH3yfNMfXZLpFnZf ToCqFPq7RVFyXePch5urHF 6sIEbcVwRxZMEag0r6mRX5 pVBlmHO4pYAvkDJkpwNbnd 1hdGlvbiAiaGVybmlhbCBz BKCtQDnnHILvuVOsv6EcCN 5gLMRqlYucS0BgJK5pAGAo KuHcXGIgxI9eJWZ8bIYjuO BvzOGuu2UhfZ4tBUSqeKLk ZVnvGlNugCIsjfDnVyI4CD VgjIUwEjByH88kJYAqHHNx jNUfj5LbdMS7gWZpKNJdZ2 Irn14sPYLhOIAqxMIkyUA1 AJZetK4cT9Wvl6I4eSQeEJ SySEFwFTRFMb3ofOwiQLFB YEQ1tM1gSEGeFIN1AApokl PgCcQ8HKJypZZao2GmaGI3 sLQgNNKtH0Aym80zECUdi1 9lbGSzZ7KjSKLaBEJuNfah jB3tOCGaIbEEROZxSVJbio PxfLr9QSNkDFC8dE8rTNHi n05ho92tsEcgmlRuzXMuFJ 2xoYjpWYpkqB2aHM9DJFej VMJgN5ReM8FgseJ6s6krtD ito3RojZZiSU1ujRFydZ== INTRAOPERATIVE w3nhzKBvANJskDI7SzCrYX CONSULTATION (test code Rud4izh2KveJLdlIZoQSbx = [id number]) jDWhwgNhtt77kLP8rP98FH 5mLZZcHnO4LIFmqsC5Bog8 SYMsPMVlvLSlJ693t7upc7 kbpxGdfQY2dTlnAKMgcsbl FcX4JJzsHYWiywgqRIs9XX llAOJweBN0LOSgxYFcO3Ht THIcFG0stus8XCA5FIxdIG VmIsM1JLOznJDwYOPryOxx HAwvh982QBS5BuAcTKBlkm C8OOvhKXOtU5CxG0PkWKhs ITP3IEUuLWUvXFKjZELhBK UnXBcyjbN7g2xbRCRjnERu XAT8GVnsxFMrAXFhERKfZH vwQoWPOuIuPwF3BeckBae1 GmC5CHu3TKYEErChGaPbEo X4OEa3ICxaUUe2MCh0LTkZ SgJ4EsxqONKgYULgMQGaIG XpILy4WBLaCGbfzBXfOCGy XJMoUWbwBLwvS81efEyjpA 5cZnMyMCBBLiBVdGVydXMg oj4BSYI8SZCzuXlauHsuip BUdWJlLCBPdmFyeSwgJiBD HFI7vDfeWOJuttdjlzBiYT VURVJVUyBXSVRIIENFUlZJ HGloDGKJIFJKXGpBO9IHAO 8dNUZCAKSSCuCpQ2QSMxwv NRpCS8NFBsNMIS2AQHJWIR SPUODNEBMWVzjHCX7DKYjF CjZEOP0MLHawwUpqVIOzDr MYLWsjCOYFFXRAOhUXLP3A UElORExFIENFTEwgTEVTSU 9STeaigJ3ySEevwtNtYcWc k0C0EJKfPlodICIwSP1aqv pmyoUhxwD1fgEQEkDiWsDp b86uQZQtYb7tHWYmDYP4QF R5TZTwJD0rn6svxWylh9Zx dGVuZFxwYXJccGFyZFxzbC 5fScDtr3oswEb2KJojhnE1 PPTxwg86MSnwPNOlA8YpX8 MkOPzqCAL0LQYeYpAqGACe EH5MIoFaHGH0HyS2BVyoHZ r4XJw3SQ1RZkGlPKEuJVj8 FhMcCGJkXGi0TQdzQR6XKD VdZCA1TTu8RkK7WOXnHUTd XHQgMiBcXGZsIFxcZiBBcm zbbGMwDW3okXgyuvUrKFIp IFJUIEZhbGxvcGlhbiBUdW DqZUNoL6MgellnZSZjnwid kmVpVGIAA4wCUPJRHXpLVI lBTiBUVUJFIEFORCBPVkFS UYqoC0GIWMrFM41jL28PTY 5JFGTOW56FBoxiyB4sEM6Q Nk2OGuOTOBCWNR2TIYrEQm AERugOAZIPOsQJB1HQEqXa A8wHETXKLYEWB1mMRKLAO2 IqSYsohbGpMs6sNbXDUkTD JZFXJuWJWr3QQS0ocWawIG qckI1dFXVwxP1jeJNmCNW4 BYHlUgFTODRfzV9oUG1atZ 0gR8UgAdOnDQ9xDLUkHdyn MjAyMiBhdCAxOjQwIFBNLn daODUyW8FiM7JbetI3c1qs rLhzp4EurKKkYA3giHAksO == MICROSCOPIC DESCRIPTION m3xqtHIyVHLyqSK5PyQaUO (test code = 3371) Kiv5lhe9PahDZidJQxNUkd yUPbvrFepg94kDC3qE96JK 6tXDQxHzJ5JZPumfZ4Nup8 IEOcPQKbnJKsZ983p9ivc7 hnxpJxeZX1kUzmOTJqlrgl MnY1BSmdEHSuayzyQEj6KW hsQXThsUL6AVUhmNRvY8Ln FIAvZJ8hpui9YQV1UOalKR NkFmN9QNBzfBCwMBHvxBqp BTvtk069VBO7NkJaLBDqwk AuvHbvdO1iBkPgGFJYGQO4 DATuyuOrqw0uSH3djLHipY == [facility] [id number] 08:37:37 Test Item Value Reference Range Interpretation Comments Case Report (test code Surgical Pathology = 104) Report Case: [id number] Authorizing Provider: Dariel Palacios, Collected: 04/13/2022 01:10 PM Ordering Location: [facility] Received: 04/13/2022 01:25 PM SERVICES Pathologist: Delia Doshi MD Specimens: A) - Uterus w/Left Fallopian Tube, Ovary, & Cervix, LEFT FALLOPIAN TUBE AND OVARY - FOR FROZEN B) - RT Fallopian Tube & Ovary C) - Hernia Sac, Umbilical DIAGNOSIS (test code = z6smrNTrMJNvx4lmSUJotV 3220) FuZzEwMzNcZnRuYmpcdWMx IHtccnRmMVxlcGljOTYwMl kkqbFxVLNibYJpJ1Kgcqoc XArwBE9lPN9qhScqhVVsiL OdQWTzQeHih8qtf115sLQz g7veNGNVwpmwdGj7pYwfC3 5cu1T2NucfD6jpRMCzWKut ZWVuMFxibHVlMDtccmVkMj C2GCybZZVyEpV2IVAwxMSs DVQ3vXawLDPmcsgdBjQ9IW ekAVGcpebjJIc0OVsdJAFa qSZ2YOIhmTHdC2HgLOYwZH 5uehz6RCW9VDtjJZHuOlN2 NDBcaGVhZGVyeTcyMFxmb2 71TLJ5IvBtKMWlinDxeNyz gV0kQfFsYAanLeYaM6nlTi NltYShKX0tADFLQkGNVWNF YPNPONpfEOrrFdBqB1weLh NxdSQbAHQLKPCSGEnXG7WT ZF4cNXWDJIDYLqBoJ4MUIa myKVvDP5EDGlMLIC7GJADR YjXoUFOWXWZDNZsEYS5MMq 4KE9FHU0LQP9EHPEy9DLXb fvfhUgUsG1ibYvPloASokP YuYILFWIQWAdAiZ38JYYLX UqKimKDdKXQjNiu8WZIkWP BJTkFDVElWRSBFTkRPTUVU UklVTVxwYXJcdGFiXHRhYi NrVTNSBT3YKGHSSBDARMQM UEaGTRWfzwu6BYGkjCMvFF 4kXDATNp2CJK1ODTObsHNs TLZbXwz8WYLuYBFWDUvPOI lPTUFUQVxwYXJcdGFiXHRh YiAtIFVOUkVNQVJLQUJMRS XVIGUEGS9OKAVWWh9KDSkb YXIgICAgICBcdGFiIENFUl QHNGjfjJAvUXRhOwi6OLGs PXOLYvMGZQgQQLJZD1YFUP PAKEEFQ8rFJ8uOGDJAPR5I RVxwYXIgICAgICBcdGFiIE 7AZDDTKlXkdYGkHYGvWwv9 VWKcDBMNTJWZI6ZVEJSOCR FccGFyICAgICAgXHRhYiBG VRuBT6MNUO8pDWSIECurII Tbnza6CDVksQDaLY2aBy3m E8wILskLCZIEAlAwWDIUCT 2HK4aCQcFKSHHIV2PouPCo XGWiqwIfR3TvIAFxH6JfKX LlDOWhgyPUVmHIXPvQS1IU UW0wHFHGPUYPNbYyA6FMSr efLDPGZ6qIAGWIHEvWAJ0M Uh2BZ2CKF8QIL0KVREz9FZ Idnjs2PQNyS2ZBXdf7HEBg nvi5BFGvoAJwQL1tJWHWZR GARYNUK7QURnHURTEXOD9I QVxwYXJcdGFiIEZBTExPUE lBTiBUVUJFOlxwYXJcbGk3 MbFoKlm0PmPhsIbiNkSaXW XiHMthpWPonZX4PeLlDB8X DRBKR94LDzwDYP5UAUULOZ rLLQ5ZTNBcH6qVAlkEALKu clxwYXJkXGNmMFxjaGNicG C1EYyhZXWqLf3fPJFAXnnI IFNBQywgUkVQQUlSOlxwYX JabAElUI0lPP6KOI9QBblA ElbSJNHHOpXYENTWPI3YFQ EUNKYABRDkMUUJLsIIN3TW DcZfQ9vPWPMXXZNPAXGpQ7 POVMCefh63BRJ1TuCua4D8 GBR8IKGiOSWbg2acNDXpmE FuZzEwMzNcZnRuYmpcdWMx UFNzDmHka1imt960iCWsg4 fpFLFdFrT1iVXvUGYqcFYl W898RBBsDHgik9kar2UbWW VkqTUvt2V7EKSUhwbhiQq7 aYgsE38cd7W2ZcghY2oiZF HuRLSeZ5WzDT0oOZKjRmd4 PTN2SKD1AUXsFUChF5QuPO 7fHCZjvVEjIPm3i2sriQhe LCSiRKA7r4oxEVdgepWbCK 4umy5atBs1a0drmnAzFSFv YDQcpRHSAZVfD8RplGolZb 6bfMp7pXkoVoqeDEL1Llm7 FG6ejc85asu1aKkmGXQtzx esWpN6GAyqUQMihzwoALy3 RYfiXFSgzLF6DZUzoCHqB1 KfJIKeNL7tylx9XZG3UXfm ULQeCpD7XFQwdSBtQFCqfD qzWLlek487FOZ7IkNhBB8x S9Jmy8H4wH5iiUAnNITuoE WwSmPuTPSkee1ioNIeQDeo h6XjHOX0cyN2vVHipTVrFX YfEeR5UTvlQY7fem90EVYs RPZ4kd7xtKLhiEvltvZbeL PoCYojT8OcLORbv090LOOw T1WoGJPib1P9cdJzFmVkDD NghLS7ijD2UUDtIE3bxnuh g7xuGXkrDKsjBCFqefV3kv Z5SLIcnNWfY2ZmeQ9uGDVe LY4yoofwn7qnGVT3BVvhLV QyZWY0LyHgPBUvh6Xtppg5 DzSlm4DveEDyXPliI88ue2 64ZVLthcEqM7uxcIXlrqzc eCRnoacyFCpxjkR5VZYuHO unandrPFRnWGbdO4rxFcXc HOAgaLjfPYatl7RzQJNiPO OuHiFeaAPyVWDzRvt3FJSk oOFvTRRxIgTzF3ugbpyzSc DZXNOyr8viU8zqmYCGhZWj X1LfIZwgtnDpGRdvXFdtOP OjHJS1ET01JYgxETGthf66 CPT Code(s) (test code s7kgbZGzXUFdsBH0UjZdSS = 3357) Led0tzw2FydCFhfKGgZTvz zMIebpGqdq11qRC9gV63FR 6dAMXnZjH6MPWiybP1Pgc7 DPFrYLQmnQUpS606c2mge3 qmndEwnQY9sBhyKIAfifar KaD3EHfuFANfxgsxKWz5AE rvVFQmfTR9LIBtjPKkZ8Xq NANdGC6prrz4VHX9MUmrDF WkOxI2NNDemXQqGRYcdDks UHxmn604OWK5OrYmIWOnnp SlsYrlmO5eWcHxAUQ1KYNa OWM6LZmrEDpsDczguLA9ZJ u5AqF7IEriXkU0BXXxDlR7 MVxwYXJ9 SPECIMEN SOURCE (test y9hnsQTnNZQloYH6IgMcLE code = 3377) Hks7klu8JmgFIddFNmSNts mIQhxqVslf31eZK2kT68AS 1fUVSbFbK1AHKyrlE1Ezd9 UMAbRNOacTSfH395u9rfp6 qvykZxxBR5kYcmQQVctcon XpJ6JJewFDPqydulXFi8YD snHVRzdLH5UCLruDLhZ2Ui PCPzVE5oujq0UPB7JNyvXZ KlTgF8AFOdpPDoLXWepEcq FWpfs722NDA9UgPqZFHquy KqiJkwlO2hWrIoHAMXCiOE dGVydXMsIGNlcnZpeCwgbG XhqHOaTXxsm2PuWM4jcLMg TKQcwbUaa6BwzmdceWGbSU YhQLHmX0q9VGRfrAadeOzj nmM9vOVlVEZkJDCkmcMlhR lgPIFsZq6gWB9aqXwvH2Ey MUspej4qWPOiNTBvxPDqlU == GROSS DESCRIPTION (test w7rxcLEbBQJosOV4ZbPySM code = [id number]) Goz2fba3HmbXOhhAUyWZjv nUSoilFfvx22lEF9fP06WG 8fKZPmPrI0UMPhqfZ8Npm2 NSAhLTEosKTfN177b5ais1 djfyCdoRP3bJokCKZbvfpm ArX1WTvwOEGdlbwzULc5MF yxXQCwlPB7QLPkfLExK4Ln UQKrCW6jdeg9ANW1ZNogEM NfFiB9OCBfySLrVIJdyIlc ENeca796ULV4AoMdGIQrfj K5LIuqHZJgA7TfA5FwRTlc LTI0SKZjLTKbNQOrDNNoFJ YeNTfmqyR0f5vhTEFwqNSn UFA2NUcepQMaSJTiXHGgAT avToOINbXuOhV4OlgtIqs9 FgF1XBc4JDHGBjWqLlRbVa X2MJj2NAljTIk6NQn0OZrJ PkR6WyxmKEI5GnAdYPJyPZ PqZUa1UGOzLMnxsPMoQKMa XCPrBJedQSkeE15hlQuzxW 5cZnMyMCBBLiBVdGVydXMg hc1YGNL5BSFhoJayiUzdmp BUdWJlLCBPdmFyeSwgJiBD DJI4dJmsPMXrjrohhkUoVB OzT4GujvMzQKVwKMYvOVIs ZCBsYWJlbGVkIHdpdGggdG jcXGLyaCsxsfCtbO6br3Jk CKTnu25lNuY6DZK3dlT7uU QlQFyyTtSdLvBvdT8tvUZx DRO3ZdVqOK5vAY18BLM6Dj ZaggXjs76py3BcHDGmLxUt XSZ5NVB9cuZsWFAswJXjjh usPUD2RTcuhYG9QxIuP91m VE8jXFpgeGycdwW2LUIvZl UmNLxiKBP8rTQasXYxYFEj cnZpeCBtZWFzdXJlcyAzLj WdjSBkBxDxiXNuVtDlV44z SNJBnGObAUS9SHUsTMWxNh OciJ9gnCScGCQ4ZiKdhKYi n4ZoBKSaZc48GHThCMwjDI cepjx7sVVnhpQqBW55RUCo RHxzDCXuGK5liZBcCSNbMY V9lEIyNQE0AJMiRVLac1Bz dovxaDEas1WwSHPnXHK4WO YbmVD2TWDlOAIlUDS8HWej oTDpKRA7XTqfDOEfcLXxAP RoZSBvdmFyeSBpcyBpbmtl FDLmpGLxVR2eVGw9dzXfiH Hpvg7hhVSvsAGqRKVrFb3u DERdgsmfrLQrMGX0aK4cpo GyGvL9kHDvs1AqktgeYMZc ZSBvdmFyeSBhcHBlYXJzIH Nrup89sOf5RKOfiVDei9Ny SbT7vWCoADFpfpEdfoBwni VmHoC1XGwpg9lpQVtdJ27k m5EkaRjgjg4jJHmbMGIcbW afaJybkcI9dOCkZKCloLEu bqCgaQ0yJJ7ltopfCsyiSm KuNCMgFPGneTPmURevY6rk yELxVXMyyTYdmlhkGV96HA BrVPpsMIVzDH1psRHsUAxh WHhgMP72rHLcQWXeBBiraz VcbGluZSBUaGUgdXRlcnVz YQN7dSIimaGpaLgtMDHwWJ NwvaBnbQo7sIjvTaNjJJKz UTG7mFRqBJ14kDTnrWuxLE Pkai83sVd8IQKdp0X7vHNn n5u9cEO9eJ6lfTHhUEC1aL JhiHPdTFIbuhcmzkKbH6ph NqUhoc6xCFJfE15uiY8fDn LaqLEwvcSyjMXwQGOlxl6n LPNyGPJ3kMNxqKVohIErBx f0BTk7ZYMegL4pigU9HMLp FUKpTAMwOU3cZEMkcSAoTQ Jcozt7jSCyZFBjnHRqbqtj Yj10TDnlNDFpwX8qMWLiEW BitxLjeMH0vsmltKA5kLol s04df9EoiuMsZ3IvMVPyu0 0qSG0rLSMuOXUeWxRbaN0a IUVkSRRuZD6oQJXiaCVgAQ UgkRvwEC4nNLC5ubepSfCy UDdrFW7qWYnbNZ93PXLnZX vxRLicBX18tKRiUNOxORHJ NVWlTMHosmCroJg6WKNySU X7nP4modIbjlRhb2JsxTf1 iHQzUOEcKXWqpAago7QcEH CinycjbN9rTDrouaOew6Ro NryxsH1yKQJknEH6NFH8pN RvsgLoFQT3xbNiK7Uko0Vv v3YbkxccFIsqqpUbMvs5NN wxVF47EVMan6Jlf3DxHbJg UILfRtH0rVLwjVGfpdQdBl tgcR2tGPHrZVBiHmWCt9C5 ZCZkz7Wuv4UiHnUsYPAdTe E9hZUawOYqPLZsyrsfaP7d LBDsY6Rfy87mW09rBXtzjI viEBEMY4LtLtOETMPgPPIk luIplLf9BLAiMGS6rY0qAS Gef64an8JrbojeNSQejjNL Bi4IWQX2GQWdQWo0sT7dXU xsh6ChdGozqsIoYlRvjCYt hzZhgE5xkJUsBMJbMB7UDP P2VHwrDdQrAkXwoL0mlKXm XYQ6BjIvFL81qTHxvKxmg3 TzgAa8zTZoMWsUZCXxFjuo SpViWGzhPG3tRK9hTQdmPc QrHqTsdL4wmYRlHNL7CjWc QqdurF8aLZWuLZezMFKnUI H0MiYcDRX3s6CkSI56sWXa tAfow0EdcMb9sPVwCenmeB 4mUHXjVw2TEtI3GNKwaNJv lV9qVWEkSB8elY8nNIIsbO FeZDV7Iv6vaHRiKYKmkyQk gbOlpPCbso2nWUB1zSNtbW 8aIDHiQKhnMtEhmP4vXFYj d02lYEujvPjbWF32INNbn5 BfK4Kkneh1AIuxVFVtFK4v BYTfRypyXT2ci11giDEfwW 3pa4v3iEWfnRJlR3tcIIZc c1b0nOjgGOF3JmEKtWCmJJ Fup4XzME3fRGDtHQlckLHr BIJlUC3OEyD6AMHsNY7cMW RyaWFsIHBvbHlwIGVudGly JGc8RTF5Os7uuQKcRY0zuP wyCIYEGrE7PKPeiTTox8Lk pKT2yFGcSBNnH8Ihf68xSc XdlZQpprQgYD58fxDmUW5t BPRyLV8ylDdeHPQJJxBhIR HqXxNQz5T9NBIbn1UsUE5i r022g11vtIAlnJ2ri0IyvM h3vGBkOIZrgUshOVl5MULj q05cn4ExJXQqb5GmiD7lnR 9vLNWer8CsASzcpqptz0c9 rZMib4U9QYFdg8HiO1Rwsk m9VLcaRYCcPI9trJelOYGB MzEtQTMyOiBSZXByZXNlbn ValAc8PHWpSIG7rQ1bHFRk y55ubFkzqMD4khpolQKxn1 G7eTFnPSaulmFzjGwcDHGO UdWozTtnHCmcfS1du7muxA wge0ZunHHgUVojQNLmyLGb SKcalQ2tXwSwx9wokPs8AC kmwqJ4SPDbmu88XTwrQLDi B5HbD2RfKLygBCH1VLWaUy ObAGJkNC6IIyBxIST1NzM2 MOhiZCh0PNr3CC6NSlFlNE CzLCu4LuThBOTxUNl9PZid NV6BZUDeJAFsANPxKiY4PS ExMSBcXHQgMiBcXGZsIFxc LaMIltlkrFNtCW0rgGotnd IwIEIuIFJUIEZhbGxvcGlh cdYFoBDrMVQlL7BppeetGG QsqhuliuPoDCRfL8DrsuMn IGZyZXNoIGZvciBpbnRyYW 4ySLQivZk9UGItwr9ysiDg p19zcZo9OYLcz04gWK2bHL xmAeTlBVQxs7h8iIZ9fGMp sAK0hGWwzPAolhLjtk0wnX ikszNnGvCimD4fiTZyKFP0 VuAeETXmI6o8LnOartMpi2 0lb2CgJXVfOuVfooGncfUo eSBtZWFzdXJpbmcgMTIgeC FiRsK2QFLcPVToxGVfrxLi p1CeO9pspmvlSrbpVXfeLU XEgHWdRMP6hSGtdLRzWYeb AIEiJmVcsD3hyWNtCDH8Wb HdlWXwr5NucB7pVUGuGVK5 VYMyXSXqaE3qVJQtEGSlwJ LbhR9wtqYzcwJvcqdiFBCw zHLxVA5mXQPuJFXwoYJuab 5hbCBzdXJmYWNlIGFuZCBv xEGaKQVsbA2xwsP4LHXiAZ JqxH3xhK1lxNspypQajHD9 RDdqiUhoU9E0eP16zcMdFU MwjohtjDMrzvWpE8Liv8In eSBpZGVudGlmaWFibGUgaG Uncr1rVLTgjNIyXONqQYIp TYRrMUSkNlTge0JxdFNdKD UwEBM4wKyyL5IspWQfp3Uf qK1hLQRvSBMdvLFgcqWqlG AcEAlvUC88gGJyPETuZGKK iyZxj1cuFSAzukFawpDhrk BwYXBpbGxhcnkgZXhjcmVz W9ApX0BgXROlMRMzHHSzNn AgVGhlIGZhbGxvcGlhbiB0 jTKwCOHuxSWeyqFvxE9qIH 1hcmthYmxlLiBSZXByZXNl hnPjqDj2WEMwIAU8uW6wmd SswsAnl8CjtNz8zJQmBOYo KKSufHvmk7TtSJxrzlUfAy YzDaZ8CZEoV1x0HISwuGvv kCnxigN2hROxHRTxfFsdLS s6QXU9Sk3gsCWcJLCcTvVv RjwsFgBaKFbfSJ0iRU2fZU EprHilnTheukW1cGObOW0y yDCnULC4IIXtNYbwZ2ehtB dlXO28ISQ0GUG5Dl3wlYKj EOAloaVvnfLgcyPkHF52AU DbbsBcw0RrzIvzqjBcXOTo ZN3hEBE2kG9cRO4dDGMwc3 NpYmxlIGNhcnRpbGFnZSBz mWUtnZO0NUIiXT82oSRnlR uxIXQ4SZXnPDYgOViqdEIj U5W2eV8yURulHMHmtRGzWR 2UENifqW9kc3xzxYjgc4Hy dGVuZFxwYXJccGFyZFxzbC 1iQsIbk8rnkUp0JFpzdsS9 OBTbwh97EGmmVKZqX7SqF6 WqLYopGRR0LZMvOaFbTNFg WQ8QRdSqRPP7PmJ4RUroSX e6HJf7ZB3QPoGaBDFfYSk6 EYP1YWGdHRd5ROogQG3VYT OiNNMxFgAyGWI7LRSrZPVq XHQgMiBcXGZsIFxcZiBBcm qmdPYaBG8ieWmgylKjCZUk XKzore2pNDGBTBHsVJRhPb mitYGmgD9wnRSpBSZuKnSt LnWiNTn0UBRsXuGyj0tpYW 2qXDgrFiOkRUEvq4y8fFC8 cDFsxCH9sUTbxVDultWixi 1hdGlvbiAiaGVybmlhbCBz JDNuWCkrWXKagGLun8OiPL 2wHVOfkMxtX4FtRS9hGCHc MgWiFVLovD2rCVL8hJZibO RixDAfa7TfzW9nHOHdhYHy AIdmNpJygYIgfmEsUkE6GI KxhMIeNzCzO31sVDYeMNJw yBWre4YhiID7iLWyJLFzZ1 Fpo48aGWCeVYXeoSSzaLL1 ZDZvrU8uM7Xwt5U0cANnIT BzFJVsQJDTEp3wzOenIJNF KUM5wY3sUKLkYCS6CTydgd BjEaS8UKGgxDCsc4UqaSH0 nVJbCMFsR1Bqg20rWTIgq0 9nwODvM3SwJCOrLRMcCrbc hD5tYQOzMvINLFGtOIKagx DrgSu9WVOeSQS7xO0tCFMx m44sm92taDreexRxuKRtTE 6daReiPFgcvT6yVS0ZEQrm NTYjY6IwU4RtcsJ8i2gnsJ iml8TucYJaDA6flTLxfT== INTRAOPERATIVE u1odsJDfAOQxvQU8JfFhDR CONSULTATION (test code Bkc6nes5UbqMPzaKMfCPpw = [id number]) rMWcsjNici83aFX4kL11QC 8hDCGkGvZ9EDCiflX8Awg6 XIOwEJRlcPVhK088h1fwa8 yfzeQdxNJ9lZatEHKtpukw WuZ2AAytZCEpnqvtNPh9IB aaDFNaaCP1KNGkiOBeW4Zd YLUaQU1ccha2DTQ3SRctZR OvQfG5TIYvzLPbDTZrtNkp APkkk520GHY8WhEsXDHvae Y3KDhrWWKbF4BsI8DeBSqp ANR7WQUmKQKhIBDcVSVoZV GlOWsvbrX6s1aiKEWqcXHo IYC7CQsprCBfFGGvHNZoRF udIgNPJoDsQbR0FlbqQjn5 GwS8SEa4SBHVHsRhZlAxNv V2GWq5ZZfwLFm0UTp1LMyX GyP3WsroFKNlWDOcQFNiEN CgFAz7QCMsIXdtjTCmIJJv EVDwQDxvXJxeS36rmIhioJ 5cZnMyMCBBLiBVdGVydXMg jr5YJJT0PJDyvGkxwVaulv BUdWJlLCBPdmFyeSwgJiBD DJO0fPcwVKDatvkwmsRlUV VURVJVUyBXSVRIIENFUlZJ ETacAHAHBZGJKPgCK9LXYD 5zHHCVKGSQJcBfW1LVQgty EUsXV5RYXdZYID5VNKNNJX ILDKXKKVONUpeDZY2WXPmV AzQOHY3ZCLlnvCekDZGtWf GBSGreZZXQLSXTBnISJL8Z UElORExFIENFTEwgTEVTSU 0RZefusG3xRShjxzQzDxXe u5I5OXLxXbcaWSPtTX8vgx bqxbVuuwK1lxKDHiDnBdAc p69uUDUvFa4oDPVyUBC6DA M6LOZwID7dy8jepHeqa5Ok dGVuZFxwYXJccGFyZFxzbC 9iGyCxi4wvvYu5BVggzqW6 VMCyub25QGuwOHXvI8CiP7 LaERjsDRK9CQLyHuTyYIEh XV9PWpZyVGE5DtM5COuxNO r2VSd2KL4DFcFpXNUjAZs0 YzHpQGNjHLg4OKvzWR3JVW YyILP5FJz7FoH8QEHcYAZx XHQgMiBcXGZsIFxcZiBBcm mgpYQjLM9rjRzoxcCfDPBt IFJUIEZhbGxvcGlhbiBUdW QuBLNzC3QsoincJKCsnzpa nfUwLAROF0rOGSRGVGmDHR lBTiBUVUJFIEFORCBPVkFS ZKjkK6PEMItUR86eM56XMH 7KJEVOS29JCtaduE0eUB5Q Az0QIdISVUZMIA5CGQmADm XSJuaRTRPQHtIIP4LMRgEz N7pIPARMRHPQB9uPPQSEV7 AnQEkhrgDcPm1jXyHPVbGC MFXNRwITIx2NHL0utIvmVY cprX4hBGHawL0ypXTyNWK6 WXHcYcGGSAZnaR1nVF4kuB 8sN5WiBvVnOQ1nSTMoOrec MjAyMiBhdCAxOjQwIFBNLn wdBALhT6QnN7IrnkA7t5vp bYpze7QrlOSwRH3hsJUczO == MICROSCOPIC DESCRIPTION y6qktYPjTLWniMI8PcFeEJ (test code = 3371) Lsa6rud2AjgRRslZWhSAwv hPCfnuDgmk50oAA3sN99OP 0bBCSyWyU7MEFpojE8Mse4 DVXpCIJctSHyC127z1otl8 tlpuWhqOX7pEapEGFbcqgk BsF8ZTtrNNIrxltiSEr7BQ bdDSUdsWE3HAHnmZHoK3Je BZAmMI3exjh2BIP8VEavSY CjJnZ3JHJdhECaTXWctCdc DYzwy675YAO9GaMrFMMqqb NptDslzY9kVsTsKNOVVWI0 NDKxsyLcck9uKN1tzDRmfL == [id number] 08:37:37Surgical Pathology Report Case: [id number] Authorizing Provider: Dariel Palacios, Collected: 04/13/2022 01:10 PM Ordering Location: [facility] Received: 04/13/2022 01:25 PM SERVICESPathologist: Delia Doshi MD Specimens: A) - Uterus w/Left Fallopian Tube, Ovary, & Cervix, LEFT FALLOPIAN TUBE AND OVARY - FOR FROZEN B) - RT Fallopian Tube & Ovary C) - Hernia Sac,Umbilical A. UTERUS, CERVIX, LEFT FALLOPIAN TUBE AND [...] HERNIA SAC Signing Pathologist Direct Phone Line: [phone] x1; [phone] x1; [phone] x2; [phone] x1A. Uterus, cervix, left fallopian tube and [...] 2 x 1.2 x 0.5 cmis identified. [employer] sections are submitted as follows.Ink code:Blue: External surface of ovary.Blue: Anterior surface of the uterus.Black: Posterior surface of uterus.Section code:FSA1: [employer] section from ovary.A2-A10: Additional sections from ovary.A11-A14: Left fallopian tube entirely submitted (K69-mlogstkd end of left fallopian tube).A15: Paratubal cyst entirely submitted.A16-A20: Anterior endomyometrium submitted entirely from superior to inferior along with anterior cervix in A20. (A17: Endometrium with attached polyp, A19: Subserosal nodule)A21-A24: Endometrial polyp entirely submitted.A25: [employer] section from intramural nodule.A26- A30: Posterior endomyometrium [...] are seen. The fallopian tube appears unremarkable. [employer] sections are submitted as follows.B1-B3: Right fallopian tube entirely submitted (B1-fimbrial end of fallopian tube).B4-B30: Cystic ovary submitted and public relations representative se ctions (H89-kogsjwn of possible cartilage submitted entirely after decalcification)[facility]. Hernia Sac,Umbilical.Received fresh and labeled with the patient information "hernial sac" is composed of 2 pieces of fibroadipose tissue measuring 6 x 3 x 3 cm and 3 x 2 x 1.5 cm. 2 public relations representative sections are riggs bmitted in cassettes C1 and C2.Section code:C1: [employer] sections from larger piece.C2: [employer] section from smaller piece.NJDA. Uterus w/Left Fallopian Tube, Ovary, & Cervix.UTERUS WITH CERVIX, LEFT FALLOPIAN TUBE AND OVARY, HYSTERECTOMY WITH SALPINGO-OOPHORECTOMY:-FSA1: LEFT OVARY-SPINDLE CELL LESION.Reported by Dr. Wagner to OR #22 on 04/13/2022 at 1:45 PM.B. RT Fallopian Tube & Ovary.RIGHT FALLOPIAN TUBE AND OVARY, SALPINGO-OOPHORECTOMY:-GROSS EXAMINATION ONLY-CONSISTENT WITH DERMOID CYST.NO FROZEN PERFORMED.Reported by Dr. Wagner to OR #22 on 04/13/2022 at 1:40 PM.A-C:Performed.[id number] 13:12:05 Test Item Value Reference Range Interpretation Comments Case Report (test code Medical Cytology Report = 104) Case: [id number] Authorizing Provider: Dariel Palacios, Collected: 04/13/2022 12:43 PM Ordering Location: [facility] Received: 04/13/2022 02:42 PM SERVICES Pathologist: Magda Wagner MD Specimen: Pelvic DIAGNOSTIC CATEGORY NEGATIVE FOR MALIGNANCY (test code = 2754) DIAGNOSIS (test code = i1tyhWXmKEFqa2bqHGYxkZL 3220) uZzEwMzNcZnRuYmpcdWMxIH tccnRmMVxlcGljOTYwMlxhb bTqSZKfkCRrO5ZquuulLZrb FR3eGR2pjRbfsQFvjMWmMFV nUuIvc8atz443zFOyh8uoGG RNrcvglPr4kXegV44yu1W4N hlwA48nbILrOAY8XUFzLPCe zYWmQCHaNXN4PNGxzLMuJ6u wPFQwWZ8iqledFCrwVReoOT FeiRA8WECwiSHyQ9TuITDlJ NctWCNmqgm5BbYrJy8yjLIv eTcyMFxwYXJkXHBsYWluXGZ gQuKoTEUKKpfWBSoKV8qTDa uHEDcZCLIJI0MSBsFsFogiE KCjxSZoAZ6SNSochVb8AKFy b3CrrQUegHigLD8baWjaeK7 bXF8TzM5erg59epZiVRIarK hlbGlhbCBjZWxscywgYSBmZ OdnhlS2jIVtbYyvmLOcJT9e BHn7fFQrr4R6lTQgDOEnDXI lbnRccGFyfXtccnRmMVxzc3 DiLOcoWYKtKX7nhZksPEMwX K6vVDAzW2tqlT3hmns9YjXp ZGTkSyT9KXWryhU8Nux2FMG kJGtae3nor8FmRPHbPTk9bA bkCoBjTTCuy3genvZnMoDsG HGtSJMeEOAobLTmK619o1tw n1mavtItcIQ2GOWnXTG9XRd egfEpqtT3ZJqniPMwCxZ4JZ qkyiEdBNybrjSxskDkGff4F UWrX213PNA7mFael5wpRZS8 WSCoEMYbLrAhLz6yeRGcB67 6BZMbGZPBRXDpqKu8DYVbxa OialTwsEGHx860G546c1obH USbmrQtsJnZwpohy9mpB817 XHBhcGVydzEyMjQwXHBhcGV npHG8ZJDbQX1xtvrqELesLC yhXSElamX9DEUysNVeG5DnU OIiHB2tmqkwWYT1JZgqMACv UEU6TeOkXGKpz1Wtncv3IyH dom3xcb62BTB0t2UscOdzLS B1DYC8BsYgXy2uaXQnAFNcE J2xEiWzxIQmFIVudg90uNdj MExiWRI6WEHtygVkh3Sfr2x kFaJoukIbW1pkS5KcICLmBA ZcUTXiYzZlquLcm1Zcj7Jbd ZKebId3v2arEKAdEGGqqMim t9nlHNB0XRJvoTRiO8xbkZ1 bMMAmZJ5rseoir2lvXHtoPI ofCFDbeSB1yrM5EVCssPRaP 3XpgN2dLIZjYMpnORQhqrz1 XrDuZk8lmKExsPqtNWraJrv wYWdlXHBnbmNvbnRccGduZG VjXHBsYWluXHBsYWluXGYwX GZzMjRccWxcbGFuZzEwMzNc aGljaFxmMVxkYmNoXGYxXGx pF4zwKxFgAkXmDdk3SYGvlD GvGWSaCpu7XYJymSRrYBZTc MezqN4hXNVciXaalZ7egHU9 VTSkfdRpsLXXzT5kGGYCnR0 yIsM1VNUtFsf5NAT2VfIhbS FyfX0= COMMENT (test code = b6cvgWHgOTPmoPC9AkMrTFF 5647) qw6lql3QcvJDywRQrKZwpgT DywhEvro04bWN5uZ55YR4fX XFuMbK5YDKgxxI2Lhw8LYDi RTEsuMXyY902j8xtr3uqchH skQW3hJxmWXTeakqmIfO9NG rbBGQfdedjXIo9JEghBNPob DB9LBRmxVBjA4WfHIRjUE8p caf2CMH7MTruPWPnHpN1KVE nzQDuBOWtqLybYPlxv741OE V9ZdRnBQDpffOpuRfttW6fC nMyMFxwYXIgUGxlYXNlIHNl BRScqDGdrZCweFCrNUJfp7c hL5dcI0EkBGZDJwJsUWM8Fh RccGFyfQ== CPT Code(s) (test code x2tfxJSoDGNqzMA8MoXbQEL = 3357) nj0vag7RraMEppVIvTTvjoX FvkdZmra53nGM7gS33EG4gT ZLsSnX8MIYqumF5Rdo4VGDr ARGrdXUyW898j5axq1ythwZ oyBX0oOrnGDWenhkwQiW7DR wzQVJxwutaNRf5IDmuFGVin XA4ENAdwILtE6IlQEVlHS5w sla3POE4FErfXTPjPuZ1DJU rzNLkVIRhsKrfWByfd708TR C7UjIxNCLfypJrhWbheT8tT pPnYOV0DISaKQdkFCQ3 CLINICAL DATA (test f7ntgYPkSVAmsKF2ZtVxEGA code = 3355) wl7czp0AngKVxbEXqTJpqaR RplpDtvv33hFV6oG71JO7zS ZWpAgE6ITNknuG2Axm2XVLl UOKwyKHrK596r0nue7gsphC brHT7iOndSIByfuowNvL5FU roVOYwzxieYOp3WWioULKdu CQ3RCLmjBTjC4WqNAIkVY9n cue8XMR5NTkjDNUuVjB2BJY meTGsZXMshVgkVQdib997OU F8ZyJuBZTvxxKniAnwaA2vD dOgLOI4GYE1Lc8cFQHuC4Si nGe8HEPoKSEpv5YgbAXEZEM abd8jB89sxDNktNbkdOEpNY Q6q929JATzaSodkEObRTqqf 8KynFbeJ81mbHhtgeKosP8s vQekzeMdPOQ5pB3qTR3fPRG vuTR3JYNsjJLjUCq1vKKirP Mpm2ZpVPouHjImaYPpfgFqH kPigUimILfgsx5rHIOmRDDv adYiOVT8aT9lDOM3vYOzeWi jYWwgaGVybmlhIHJlcGFpci H0hUOoUOL9qMIcFZAlMrL9Q ZPnK85kEoGCxOGuGiXLpCfl qYLkQNraD43fpTehuWSdQL3 fgZTrHY7bm5AkLP8rNNRlRq lsaWNhbCBoZXJuaWEuXHBhc n0= SPECIMEN SOURCE (test t8jrpWFsTAFfiFS7GnCjBAM code = 3377) kg0bbr0VvbBTdgXRtWZuyvI MizqMyhm15rXP5cR53RQ7oB MLwScM5UJYuyzF2Opm0ZBMb GIQbgERxP836d5dac8hpeiX qmZU5oWnbVYMkmwivDsR3MP vdRXHfdezyZFj7TYcoCQRnp JC2BDPxpFGgI9TtKCDpGQ7d rjm7QRA0DTqxMNMwYdI0APA juYXeNXCqaLajHZkbf912JU Z2OxLrZPJrvlZfcVeolZ9wR eRyBVHSCSoUCBEpW1KKCQvE Q3NgzZUytE== GROSS DESCRIPTION b2msmGHtIMDqpISVLEBsQ1f (test code = xvfPaKXKgrXXsW3RizboxXC [id number]) qaQE5rZT9ulFrycZYwtRLaH Z2WTUZoReTnOKQtnXFizkSp XtJxQZRrqNXpqJH1DUYyFH8 dupggJSdhJFjlHRHhrxA9ZO GepNTiB1XvZWTgCU7vadbsY RO5QWydaW1zxdKBKfoeKf2j dHRibHtcZjFcZmNoYXJzZXQ wSLVqrUomQSKlWWh1hE3BCd uyUHB1GCCYJssaWHLzAX0Er 6aaFCZdeRUgPBC5IMxozYBi HXRdGOCiVQl5KKOvFAuteKX yFF9djKdhGvcmkSgdk0CroX BcXGlkIDUxMDAyIFxcZGIgI H5PIsRlJXH4EcK1NWAyXGc9 JAx3JH1OGrYrKPHrLTu1SSP 9RAFwKYb8XWjzHY3ENMIuVZ OsYuTgTkK6ZJNeHCNhIJYvU iBcXGYgQXJpYWwgXFxmbCBc RK3vkUecxPPrgrMERySKIWo 2aWMuXHBhciANClxlcGljTm VzdERvYzEgDQpcbHRycGFyX GxpbjBccmluMCANClxsdHJj yVvhflAiZUNfN9XasdEmTJj bKA7zCWBvk20ecGOngZIuSV sgcHJlcGFyZWQgNCBjeXRvc 9JldmBmJGsvtMclmK9nNVJl K97hj2NCn8DeOYJxCJsyq7g phSges4FbwWDjMYaySJUlaC PaDMyxjG5xOaXte7mgnXr0C DwspiV5ZIZtsy9NBiyriB0l HdNjp6dddTl9ULCPRuwrevZ 0w8itqXrcs6UpqSXaPE2FNf 0= MICROSCOPIC i1uvkHEdUXDqfMH9EyTrJTU DESCRIPTION (test code gu4bfo5KiyXTgxQLpWCqhqM = 3371) HfkwXnpp63nJS8jB24ON2nT VRnHiA4CXHsosF1Rjs8CGEf KQSsjWUtO930x1emh4wptoJ ovYI4qMcmTRZkscmzYsW6TE vmUHUorspmPIz0UYdbILKla NL6IFFqcKIeH2NlEHMvEO2e aqf8MFC9SPiuMYYiMdF4ZDM keGCaDUBavDztIAneq756ZH C1YxUkPFOqulDluYixvP0cK eWtESSVNRKwy6YtTZFsIXlu YXJ9 STATEMENT OF ADEQUACY Satisfactory (test code = 2757) Gross assessment was [facility] performed at ([facility], code = 2777) Department of Pathology, [address] [place] [address], Technical component [facility] was performed at ([facility], code = 2778) Department of Pathology, [address] [place] [address], Professional component [facility] was performed at ([facility], code = 2779) Department of Pathology, [address] [place] [address], [facility]:12[facility]05 Test Item Value Reference Range Interpretation Comments Case Report (test code Medical Cytology Report = 104) Case: [id number] Authorizing Provider: Dariel Palacios, Collected: 04/13/2022 12:43 PM Ordering Location: [facility] Received: 04/13/2022 02:42 PM SERVICES Pathologist: Magda Wagner MD Specimen: Pelvic DIAGNOSTIC CATEGORY NEGATIVE FOR MALIGNANCY (test code = 2754) DIAGNOSIS (test code = a1bpqZCgFGCtb6rgBGAdvKF 3220) uZzEwMzNcZnRuYmpcdWMxIH tccnRmMVxlcGljOTYwMlxhb tAlCRJyeXPaW3WdvjtcSHzj PU8iXA3ofOmxoPPwgAExCZH mEwVaj1uou899bBOgq7flIG FAhhzwtHy6wUuvY81yt6D0N knlJ02xvEHcYJY9IRNvNLKm cVDqTLFvRGC8LVOgqLAuI3t vLFCiMB5gwzhtCVwvJQpoSM KchEV3BVTpxCQaR5PrULTvO SraIJMmefe3FgIeHk0bnZOr eTcyMFxwYXJkXHBsYWluXGZ nFaPtHRJHZdeSMQdVJ2xLTh mYYWwKTVBEK3BYBbBlDpchW LHojSEjVM6KKPobgYx2HULp v7RycZQofDaiMX9hjVlayG8 dJS5CsO0sus05vqHiSEHrkZ hlbGlhbCBjZWxscywgYSBmZ AdgxkQ1dTUlnGetqDRoJY1w ZEg5ePFla2S7jKMrFXTkOWE lbnRccGFyfXtccnRmMVxzc3 LfGVjoSOBlPJ6swEgzHDXmG J8aTFElY7xgxU3ctqr3JrHw WHXfTxU2GMOxbfG5Nzc1ZBM uZAsjz5wni3XuMUNgTKs3uO ffCbDbBCLqj1uwriBhUbAtK YVwZPXlURVbyFTvX793f3ee z3kgxcHugZL0APVjCAE4GGt yvdQbiwD8WPylqXZeQsD9BH gypxUjOMvsguJchnQlSiy3Z OZbI895FLK5iVqhb4ogNER1 THMaBBRaInFoGh2lrQTkT55 5MQYfIZALAEZjyBm4EQTecn VfgmZxlXRCp462Z161e1uqI WJafjMeaMkBxksvs9inZ258 XHBhcGVydzEyMjQwXHBhcGV tdHG4EMXaNI2boyeaTWmgTF gfIEZwqeX4BLWgbQXpP1HbM FVyZR9tyapzZKF0STkiIMWx BAM2XhFyTERui4Flcrv8EgC owj1fqa05QVR5w8OrmRkhUJ C0FNZ0KwQzDj4wxACvDZJqV E6lIaSyxBXqZLFmqy37cGbs QTglSIP1CMAdtfYra9Zeg3o kBoXjfwMtY6ebO7PiBCRvMW LdVXEzLzEgdtNmw1Lis5Hwl PXovOh8r5oaBEHfIUIvdCon o7plETG4KVOsrVJiO5qqzU7 uDPBeYK9mdgmtd1ndEFmhKO jvRHIurAQ2clC1RIFekTEmW 9XxrU7wKUEsVXiqGPZychb2 OpEiKx1jeVCkoPghEGmsKrf wYWdlXHBnbmNvbnRccGduZG VjXHBsYWluXHBsYWluXGYwX GZzMjRccWxcbGFuZzEwMzNc aGljaFxmMVxkYmNoXGYxXGx xZ2meMbQoQbWmKgs1YSUftV JcGVPgYkr7MYVixKOhJLGIu TzbjV5oTNEjxJfqjC0biRN3 ADWhigNwdTJRwT0kKDAVkW0 dMbZ1OOLfFau1QQQ6VtZwgE FyfX0= COMMENT (test code = p8qbdDGbVSWaxGS3DjYwDSS 3354) lp3ixj3OkpWKcwRWrTBdshY MrulYeed44oOP7jE30RM1sN FDgSuH0QGTcfvM1Amq2TFQx QZXveOCuG833m2ezd6ldmiZ bvTM5cVqxFZUvxnapYvJ6SH seBOAtszkwDXf6WPwzJMDxu LJ6JTCubAIsN7VnJHKyVT2k rbq4REK4YPlqNNWhZjJ0ABB wnKUoULJlrYadUNxak750GQ R4NaPnXFRpeqXzuSecqW5jU nMyMFxwYXIgUGxlYXNlIHNl KZOkyDXvbOSyaTPzRQVcf0s zP4ejR1ScHREWNzOkDHK2Nx RccGFyfQ== CPT Code(s) (test code h7qneKXkPTPhwXN6KzGzEMX = 335) el8lrt3XxlOHsrFDyBHnpdD ZnsvVazc74yKA4qS81NZ2bB BKuJfX2FYMsmfJ4Liz4JWIq NBPvfWIeK760c4yho4dkwdV pqRB8iChhVKYcxrsxEvL6CD gaJUZcyssmSWr8NPrgLVIoq YC2WRTekTVgN9PaVLMmDM5r pak2TQJ9KStbKRUkGwJ3YYV thRDrBQOqwLufUBwki740HV F4TiOnPWRkwpOojXspvC8qP pMrJVT6QNTsSAxsPDO6 CLINICAL DATA (test y4kbdQAhDZKpcRS5XbTaQXU code = 335) mc7rce5YydKPnsAQkMSfsjU OkxhKcps66nDM1dI35NL6hM ZRwPjG9XGNjolL1Nuq1LFHi WNMqhLMxX407o5elr4hdpzD whSW1oYqeRCBumefyXbO5ZQ fwMGJfwofrOSq6WKgdITOao RQ0DXWdpXMxO5CkQXWtXI3u kwo9DTZ9STueXPDmEtZ8JST juOCyCRAriPhqRHbye862AT Q7HcVwWUFetlWpwRwqcG9vZ xQwFWG4REY4Qq3vWMHgS3Vk yNz3PJZsAKAwv9RqmGRNFHN uap2nJ05fqUDvvOwqsUXrLI L6d729AOJufFlveQOnQZkjz 9IyzUkcY50gmKocfvZnpH5q qPekqoMsFKA0eB4eAC9rHIC iuSZ4AOMtuJCuHXz9cRWegL Lcn0YaCYtfDtDcmOGngyMtV bFlhUcfHHvffp3mEWUyNHSz dsAqQAE5lU7eFHV7rTHajNt jYWwgaGVybmlhIHJlcGFpci V1eONyXIR0zPQtTXQcReC0Q QIyQ37bFxHNeKPzRcARuSvk mEEbUKskU50wqCeygEUkXL7 okKSnEG1fs3QjDL0yFGQtXk lsaWNhbCBoZXJuaWEuXHBhc n0= SPECIMEN SOURCE (test j2tpzVSdTLUsvBS1EwQrOML code = 3377) de7tru9JybASmzVTaGTvoaY WggzZfiy73pBP2yM64WX3iW JRiZrM9IKQkekC9Oze5IICl CURfvSZdP221u2hps7gzthR cbYZ3vTksIYErfbyrJlE0RZ vxHJLjvuhqRKy6CCjzRGUmx SZ2JFUzqRLqM9QxWBNwUV0k qmh6VZV6SRwdRPIdQeD8YCJ smEZcJAZbiEomEWdlz510DA G5IfJeEUDfppNdkLtwwH9kU lLxJKISWVwMWBHhQ6IFVVoW F3RwfZNvgQ== GROSS DESCRIPTION f3xfaKItJNAyqGJHUHPuJ9n (test code = lexVvKASnsDQyO5ZdpxwiAG [id number]) iyIX2wXN0maSwmyYFjdUCwB Y2ZRUTvKmBoTRUdhRTzlfAm RsFpSKKhcTBmiKB4HCBzVO1 qxsqcZKbtLLhkHCOdojP6TC InaIKzK4TqSOYbEU0xkkxgH TH8DKxrxI7bfbVNEryuRo5q dHRibHtcZjFcZmNoYXJzZXQ cMSQmfXhyUTFhUEr7aV0EKh lbSRF7URBPOouqDCGzZC5Ew 7ihMJFfbTIeLZM8NZwgmMNs NVZcIVNuRBy1NQKmJCbgbZE zJO6puWvpDsoqpAcec6LoxU BcXGlkIDUxMDAyIFxcZGIgI P5EKlHbRYH7OoG6CYHwBFl1 MDn2VP7ECjFoSJGuEVq0GSX 2NEPhFWc7ILahYD1RVMFlIQ NkBsCvNsF0BHEhIMKkVOFpR iBcXGYgQXJpYWwgXFxmbCBc DP6gwFhkxXVoqcCZWfTRBPv 2aWMuXHBhciANClxlcGljTm VzdERvYzEgDQpcbHRycGFyX GxpbjBccmluMCANClxsdHJj aBsnzgUvMPYiW8BkyuCpKCh cMU5eKBMrk24xkXGbfWFlHI sgcHJlcGFyZWQgNCBjeXRvc 6KytyOnMFmbcVpktS5vKHYv P45ce2QTs1BuRLNkHTwhr0l lfCblk1BzjHRyEKzxCSKqsA ZxDWjeiI0sObGsh2xksZq1H LwfcfI4EFEfjf5FFavbnH4b IbRsv5vtaHq3INJFJxmlwbM 5l2acoByyh1DtqEOlID4EKp 0= MICROSCOPIC j6gbeDOpBDQhxTY7LsXpJDC DESCRIPTION (test code xp6jeb7WfuNYzkQUyNBwjtX = 3371) XofxBobk29aCS7oZ34KP2qB AQsLnF9LKGozrH5Had6KKZx CKZhwSSdN593y1tut7atyyI pyOF1aGqoRFVemjlpIbP3VA hxXNJrgxixOUl1ZTnhYRZhn XY9KETkwGNhE6YmNTBaWP0k gqe0RQS5JZagXKMdQxL9AVR lwKVbTBSzsKlzAIsvu676KS J4IgMcYIYnurHiqGrjuP1bL dKgJPCSPMJih4OpRXEbCUha YXJ9 STATEMENT OF ADEQUACY Satisfactory (test code = 2757) Gross assessment was [facility] performed at ([facility], code = 2777) Department of Pathology, [address] [place] [address], [place] [address], Technical component [facility] was performed at ([facility], code = 2778) Department of Pathology, [address] [place] [address], Professional component [facility] was performed at ([facility], code = 2779) Department of Pathology, [address] [place] [address], [facility] 13:12:05 Test Item Value Reference Range Interpretation Comments Case Report (test code Medical Cytology Report = 104) Case: [id number] Authorizing Provider: Dariel Palacios, Collected: 04/13/2022 12:43 PM Ordering Location: [facility] Received: 04/13/2022 02:42 PM SERVICES Pathologist: Magda Wagner MD Specimen: Pelvic DIAGNOSTIC CATEGORY NEGATIVE FOR MALIGNANCY (test code = 2754) DIAGNOSIS (test code = j4etyXFeMNGye5ulMPUchUR 3220) uZzEwMzNcZnRuYmpcdWMxIH tccnRmMVxlcGljOTYwMlxhb sWhYLAdzURrM5AsrodySGho AO9zWV7biTusbPRjiVTuHIY tRtPzb4inp397bBIqf1diDV DUsoqggYg3fEvsZ72ia2H9C zosM61bnZWbHGF0NDXbLKTz pFMcSSGyVFW5UKHfxOJbA6s xJILbHQ3wqajoNHauJXbjFP XbnIC6ASShjOFjX2QmBZEtQ KbeNMVkpos2CwQyZi7dwABf eTcyMFxwYXJkXHBsYWluXGZ lKvMgVRFGAggGYMvFW1bIFm xDBUiEYCKLI7FZVnSaCxtgZ LKmgKOpML2RFDvnbFz8EKIr y5KvcXXdqIqzJA6azCnviU7 zGY8DgY7shu38lwXrMLHsyF hlbGlhbCBjZWxscywgYSBmZ JckgvT2jYKevRlhvSUdQM5b ENa4nNGog6I1oGAmRFGuSRZ lbnRccGFyfXtccnRmMVxzc3 FiJZigFHQdAD2rbFbvDIMvH Z4tNXUeY6adjV8zeoj3LxIk NSUyVoY4AHDzvlZ2Jtu7MCP yKQbue2sxj8YiABSyPPl2zD mjFvLmICBxu8bxtkJpZwMjL JWvOEPoVMNbbAPkO054u2va q0wthfUytWF4WYHjMPB0KQt trtOiguS2XGsliNIgJkI4DJ wcrgNnNZhdslAyfsKuAxg0S EEhX627KJV1rXndw5wmVKI4 LAMfAQRwDoWyWd4hiJEyQ91 6SCJjNKTXTLVnzCw1UCWzse HpbjKdnBQJd384A964o8emI AOpbqSgdFnYziwvo4ebN625 XHBhcGVydzEyMjQwXHBhcGV sqHX6MFZhYY5cghjqSTzoBH kdMMZtenU7LAAigXOjI8GlB DFlNK3iziisRFZ6DBouZUOs OQR9IdIzPHAmo5Xkuqv1VpC ihv6ide20ROT0o1ZksMqgIQ E5QYB1RaLjMj0rtWAsZOFpS E6fCwUgaZLfAZXkua30mXqd XHrqQSX8IRGfapVmd0Tbv6q aNbQbfrQgV6ppD5TpJOEvWW NxASToRsDggzTec6Avw5Qrf OQqxRs6m8ufVHHeRKYdxPok f2ijXEK8GCZeyNBbQ2guaN5 nIHGzGJ4zigyeo4dgGBlaEH geMWZajXL5rpX2AFKrxWNzV 6TgpA0cXVSxZTvzKHRhzil2 UhPxRf9chMWgaAhoFApfWxn wYWdlXHBnbmNvbnRccGduZG VjXHBsYWluXHBsYWluXGYwX GZzMjRccWxcbGFuZzEwMzNc aGljaFxmMVxkYmNoXGYxXGx dN7riZmNpVeRoVpw7NFWimM PlHHEaTny7BAWbgIUpOPLPj MlbxB7yKAPlaWfdqY3voKG1 KQRteqLxtJFShZ1gLNZEkG9 mDzA7BDWgFxt4GYE4SzNfgE FyfX0= COMMENT (test code = q1twlSDmBELxdJH1YdRrSQD 3359) vb8fsu9RdlHOtjNTyVPuuoG KphxDisb78tMW3hN26PK7wB SUfQqG4LIKjfqN5Wsh8AEZb GHAjcZExP156y9bvs0gahiP klGL1wPopXNMeaphnClK7IH akQOTlrwmoGCa4RPmlFCViu RS8UMGmdMJpT6CcTCTrMS1x jdd0WAR9BEdoQZLrTjH2NIW jxZPbMKWnsLrcWWafa527EO T5QhNeIYPsnjSthGqfvI5bK nMyMFxwYXIgUGxlYXNlIHNl WUFrvKEuaPYkzKAbUAGbp5x qM0wjP5SxWOTUCdHhMES3Yj RccGFyfQ== CPT Code(s) (test code r1cszJAmGBGiwCE5AkFtADI = 3359) nr4iuk5RxfTIwgTYjELmvgR OrcoHtyw34bYH0iB91RN2nH DWjDzF3ORYfxbB2Cbi6QQXs MAUweQXqH580k2kpf5mktdB jwYU1bGkmNAYcgybkJoE9NF voOWPyswdsSNd1IHnoEQNeo WU5HIAtlPBrY9NsEMDbAB4g bmk8SKU5RCdaIYZaVhW2LEG qcJYkNWIegOqdROaon786DA Q9UnSmDJFokrSkfJtnaR7fE uAoAYU9DIMbORaiFGP5 CLINICAL DATA (test y9fxzZQeQLTqeST8BrHiHSC code = 3355) li3lpt1EpyYExnLAiRVdcvY FevyOslv52yGV9cE27EU5aJ DQaIzR5UUGvuiI3Wwo8HPAr XNQkxRDzO783q9zyh1lhazL zrRZ3fPpsLJDfuyopSuA1OK orPWOewlyvNTj1PGizOHJaz RR6ABYyhEPdS4DiKXIhEJ5o grr8MQP2FXkzUYGiFnN3BFA kwORcUVBkoQceLDapq543OI O2ZoVbBVTtngTttCehnO7bX tVgNWH8DCU3Dv0rZQMlN9Pr dMn0KVPqDCYow5GzlESJFLK fqt0mD90aaLAmrWjtzLTfEF D9v912RCWyvAfprHCyHKodb 7EdxZvzX59lcGtotxBxxT7k gYyjkgBsTAP0cM8zNT8dDQZ jlVY5FEPmzGJvCVg8aSZjwW Mfh9TfHWzdMoZacNHjocEvP hTviCtbWNsosn4hKVBcACQv xbOfFUZ5aM5jHCR1tDNukEi jYWwgaGVybmlhIHJlcGFpci G3rRUuMSP6kDGxOVOgNdL9N KCsS40hIsIVoRArQsARtFhp pXRoWVhmV34nbAeptQXpYH6 hjHXkAC2as1ZfVW5fPGKbUn lsaWNhbCBoZXJuaWEuXHBhc n0= SPECIMEN SOURCE (test h9hcvAIcOLUbuZE8WiTqSLD code = 3377) pq1ezq9BrcFIayZEmRDlhvI TqmpEdzn83bUO7jG10YH8fV WDcVeD0VHNgkgA1Yqj2MYQl CYXcxUIxF890b0fsl6qatqM wrJS0uOlfHLQsctaqOeM2QB prLCCnfmjgKHf5ODtdILMhf JR0ORNjhHXpS9EfIJDaCW8i jux4MLA5NHveFEIbUaT6TWU fiOCbLAUvzDvcTHdae718CR O0HoSoQKBcbfAjlNtaoP3tG rKiCFUTRIgSJXIzF5XAIAaL Y5LcxSRmpS== GROSS DESCRIPTION x9bfxWArDOYrbZKUAGHzM0k (test code = jfkBgGUUhuBPmX4DrmlukEM [id number]) fkRJ4qGS1mvOgoqCUmuGHvB U3VFPDxStZsKAHkuCHekoFw PsEkDYCodYTllBM0ZSLfUH7 rmgzsVTqrXXizHCMsumT0ZL MdkYNnS4GdRLOsZM7tudcaB MR5SKtawX0fqkTKTkqfZk5r dHRibHtcZjFcZmNoYXJzZXQ xIRXqjSeuYMZgUHj0tO1UAl zlOAU7OMQMVsszLDIpBX3Nh 3goIDBmdAWeMYT6YXcpxDVe HWRbTSFqIUz1HANeGQuyuLO fTL5bxNvzJtondWkex7YogW BcXGlkIDUxMDAyIFxcZGIgI E2GNnKlOLG0FkE1XISpRVp6 XOo9PJ2ESdErOAQnMQv6EHO 0NAFbIZx0PAqySA0PHJVlAF MkYlPwGnV0YIWxKOGsNZKzK iBcXGYgQXJpYWwgXFxmbCBc UA3avOismXMzsyADPhZXRVg 2aWMuXHBhciANClxlcGljTm VzdERvYzEgDQpcbHRycGFyX GxpbjBccmluMCANClxsdHJj wRokqkTbCTQwS7GskjRdHCy kSZ5mQVHbt93qeTXrkKAzND sgcHJlcGFyZWQgNCBjeXRvc 7AkmdSuETkwiIqmsM6hYCBn Y26cj5VMz1ZsQDErZDadx8t rbTbcw0PteAKmBPuhPYIymJ XzUHytyC5zPzEug8ricKy0M RdhceG8OPDvel5KOezkyU0r ReKvc7jblNp6LFINAjdulzW 1u5kgwKyef4DheTDnTM9CZj 0= MICROSCOPIC p9eirUBrTOGdjQM0IfPrKCV DESCRIPTION (test code ux1xns6AnpUVmwEKkZJdluO = 3371) HanfEkel34gWZ3qD25HF8eA NEpRaX5YKHgplF9Xjx1WKLb SRVggXPxY690f5wtg1vjwpN tvNH8wIpjUVFfwzxaMwN2KV siLOVslawwFBd9FLcwIOYas QQ8IYMryDCkW5TwSSKxGA0q kjq6WPJ1IPynAOZoQdU6FTH raIGvPPIgaDkaCJtfn381IC O8GxToKURypaXbgTstvY7nR aKhQKXDCUVvf8CdTPYdKBgp YXJ9 STATEMENT OF ADEQUACY Satisfactory (test code = 2757) Gross assessment was [facility] performed at ([facility], code = 2777) Department of Pathology, [address] [place] [address], Technical component [facility] was performed at ([facility], code = 2778) Department of Pathology, [address] [place] [address], Professional component [facility] was performed at ([facility], code = 2779) Department of Pathology, [address] [place] [address], [facility]:12[facility]05 Test Item Value Reference Range Interpretation Comments Case Report (test code Medical Cytology Report = 104) Case: [id number] Authorizing Provider: Dariel Palacios, Collected: 04/13/2022 12:43 PM Ordering Location: [facility] Received: 04/13/2022 02:42 PM SERVICES Pathologist: Magda Wagner MD Specimen: Pelvic DIAGNOSTIC CATEGORY NEGATIVE FOR MALIGNANCY (test code = 2754) DIAGNOSIS (test code = k7wcyFYzCXTvt9ycLFLliJL 3220) uZzEwMzNcZnRuYmpcdWMxIH tccnRmMVxlcGljOTYwMlxhb fGoFKAaiXQiJ3DqxqbcKSmb RT1jNY4qaPqxbSBdlJXdFUK tPbBml3sgg823jWUkh0mfXH CVrahicIm2jRymT79za7I0N hxlU30tyRJvQNT6ZOOyGRTf xVGqAMBpSTZ0POCdaYNoI0f uDSDaVI6uscnaPAvkNQuiTT LepPE9GUPxyTKyM0ZuQHJpL ZrvHDZvmcf0HuQfCt1ibWQp eTcyMFxwYXJkXHBsYWluXGZ bMxZgQZDBMmpDPIdRV8jVRf lZPVyLBXGIQ7KAGqUdRzbgZ XAvwEWtZY6MVCtxzRh6PDNr o1QptUFilWhhDR0brLfwoF2 aQR6KwQ8yoi42kjSpENWxhG hlbGlhbCBjZWxscywgYSBmZ XvgkfJ5lXMwdDrgyRXfPB7a DPa2qXKni3Y0uXHhTRCxMNA lbnRccGFyfXtccnRmMVxzc3 TgWWqdWAHoNE5ubGxsCBVuU C5tCJUyM8eriK5zuzw2ScPv VYAcSlD9IILwusN8Qwe3EHD bRRvzl5zom8SiYGZmFAs4qX ozLfPfXSJno4rgigQcQeQbA BMgGOIjODCnnYEaE046n7do o6pwmxWgeZG1UNNfNGT1QMo hhaKjupK7ZYiamJMpQjS1TC aavyEnJTlhpsMdtlDrDes8X HTkI419XXD6hYywx1ooKHX3 OVBvDOUoFcHuRz9btZEnW65 8XXMpIHUHXSJklFn8XXHqtc TiubMgjAUNn722D912v1zdJ WEjrrHftErKfojzr3wvV388 XHBhcGVydzEyMjQwXHBhcGV hhDC7HZMpNU5lbomxOBslHG hbBTMaxrJ3PZZaePHwZ6ZdX YEtBE4cqvgzAIN7XUevAMZg YFL8DmCvOCXfx3Ytdpv3YyT xix1gki28CNR4v2FrdSchAC L6JIH1EgZbBz4ivCAiTQRcH Y4aGyQpyUWtLIOstc68jQzp AHdsNGM6MVZqvmNts2Tir2x rVnDlsoWfS9rwX0PnDAWhUP QfXGIyIwUitmNiy2Rox8Cbd MCozJk5g9rnYRMhFRMnpCev f7bfQTB0WYXobZZdG1vlnN7 xXZKrSL8yulbrh1zmQDiyAF abIHZjpPP5bvP4SIYrvXSiE 1CfhQ0bRFHrEWvoTMBtrfy7 KzBpJi7yaQDzjPxnEXpeXlc wYWdlXHBnbmNvbnRccGduZG VjXHBsYWluXHBsYWluXGYwX GZzMjRccWxcbGFuZzEwMzNc aGljaFxmMVxkYmNoXGYxXGx nB7maKvDpDsPsJpc3DTHwaB VuZCHsLtw9EYDbaCExXKXYi YsubZ7vPOKmmQnipN7mvNS2 ZIHkznRqaNPHtV2tWLZDuL1 dDoG1KYAiWap3UPP1ItYpdW FyfX0= COMMENT (test code = m4vczPXpCWSovHY3AvTkVJR 3359) on5fgs0BogVEyrDRxRDtyjX PswtExti18aXO3gK23JV0dC OAaPhJ2LIGrnzK1Uqc4QIYc UQVbgYQiY850p4hox6uoczZ suJJ1aMrdMPTuljhjOfY1XK rjTTLytppvKJe0QKgjCTZxl GM9WYNxjUHsB9XgQCOqHG6d nno5EJT0FKqaATFlZjL1IPK sxCEgMHVkwRvjIIuok257ZB L9RwDxBZFsnkFvxSutaX3eV nMyMFxwYXIgUGxlYXNlIHNl JRSwlEJfdEPndXXyLAJxg5p iB7utW3JzKIGIAbSwZWH7Ga RccGFyfQ== CPT Code(s) (test code u4umoEDmKKDkqXS5XuOgBMR = 3357) st9fwf7KyaXRfsTQaAFlpkH NdbwGbni58vHS0cW59CB9cF HJeIzE8RUIwkuK2Fgy3UWRa DINgmMSgD130u0zce1dqxnF tzYA2jWpgBPIgrmggZtX9IX yaHLSuaptnFEf0UWbbLSCio TI0PCUecUYlG3WkEVXiZD0f rqt9BIH1ZEvjDFLlOhO8ZXN wlVReMSXbnEohUWuwy986IS N0DpGeCWMhenWfrFrkvO3kP mYfPIO8JHWcIXmaRCU4 CLINICAL DATA (test g6vznWAfXCQpbZP6CkOiVRJ code = 3355) iz0egf2EjmBFqwNRjDBfmeM SvkoEtkr53yHB1vD72TD9jN ZUaOpE4NVIbkfU0Rxj1PUWn PZLyfHWtS240g4rkn3zbryN zjWY2cDipZBNctktvYgK4CA ldQYXnzxbuPRa8CLzmFHRjn SB9BFGaqNScB2IoYPUeVD3k yfz7QQX4YCgxRURyRfJ6ETU ziMVbPZKtdFltCHlax002BP U1RzQcJTPnwnRdaOuinF6iC pFoGTP7EXD2Cc6wSVEpJ0Bi qZt6TZNjKLOwa6RqbCLTRXF rac6gM62xhIVsrObjpLLsXN Z0j022HFRosPrlmKPpIGhsr 0HdhNwzC75gcLqzsmFjjC3t fZbywrJcGAF4vH5jNU9xKBU onQE8YUNkiKJlOHy0gAQviX Nke5CkKKwcYdVhwXEjnvElJ eEbjHdlFUprfx6qXPVxJZPn beOyJGJ1lJ2hMFV9wSSqyKp jYWwgaGVybmlhIHJlcGFpci A1bNQmYDX9jVYyMSLiSrZ6U LNuV04sPsRIqNCkBxAZeRzf jWZzIDjuT10zyBqxwRWaXX7 vxBAeEQ5qj9KdIW0oSZSjDx lsaWNhbCBoZXJuaWEuXHBhc n0= SPECIMEN SOURCE (test r0wdjPWeJZFxqBO3ZcDcBNC code = 3377) bz0wze0KjqDCfxLWgKQauwC DbteDqpe89bJR7dO78MW3gN MPpRzV9CQFcsnA2Jzv2DJFa DMYwtXKlX906h2gab7ewivZ vmKR9sMgxSQFalouoMgK6NW xfYWNjvgsxCKg9XQsgTGTyp PW6TEJuzOSzR7OlONZoEA7j ctl2DVJ5KEtdDEGwXsW3LMA ckQFoLQQwwPptNIlco489RK S8JbEwQGCcnmCvnWanaJ8tC gTsGWSQHDsTIGVbY6QDCAxD P7GviLVpbT== GROSS DESCRIPTION f2vyaHRwDWSqhMHKARUbC2a (test code = jlgVvXARmdPCsO5NikrzgWT [id number]) uuMF4xLY5zkDnziHJjkOZjA A0HOYEcGsXcYVVzsELvfrVa LfGqILMayFNutJA2OQYdJY1 krldjNAgdOPxcVNJmxpC3TS LwiJYqD4FhJBLyAN4nrnnqC JN7UWixzF7gigLTGucuYn1a dHRibHtcZjFcZmNoYXJzZXQ hPYMueBmvWRZnPFi5yH5RAj mgBTE1QZIPOclfOOHkDU2Xe 2bnEBOijSRkYUZ5MOhovGTt YRXeKGUnZNv8MOMaCDxlhNW lWX8ukLalQhvxjHwso0LagA BcXGlkIDUxMDAyIFxcZGIgI G1KEqCdHFQ8ItX5PWMgHZf1 SPh9OU6UQgRrJPIkZLb4SNU 9IGWxDFj5IPchXS9WVQWbTE ZeCeWcYeN3KQCiNCGnQIUbN iBcXGYgQXJpYWwgXFxmbCBc YC7baCkhyQZeudIOLvDAOZe 2aWMuXHBhciANClxlcGljTm VzdERvYzEgDQpcbHRycGFyX GxpbjBccmluMCANClxsdHJj kWlpqpUmZNZfE7WxlfAqCNz dBS5dLGDjl99geWOxpCNeEF sgcHJlcGFyZWQgNCBjeXRvc 9OjodUbIIhhuXnyzD2kVUJz D51kn7UXz3ZeFKFsOAjex5t ufQafy0ZwwDFvLZghFIJejU PaSTrjjO9nBqSee5yzuRs8S LmhbpQ4DDTska4FEriouZ3l JaLtl6jitTy1PIOZLkmoliN 2h0pjlUavl3EhjVIkKI4ROh 0= MICROSCOPIC f1ureUZoKNBakNT5GgMgIDM DESCRIPTION (test code fp4sxo6MvoLTqcSAzQRvxuN = 3371) WljyOjcl55kTH4nO18WJ2bB PCaQuS6EWZzhrJ2Eli7YVWo CGCyzVTzI644i5lgg4rgosH vaBL2dHkrYHKsadtzMzN3OP hsSJErqalsZLm2HJryHHZvy BV5ZYMxrHQlB3SmWEZcCK1x jpy6OVZ8DVjpGDYxLzJ2THU cfQExSQNiwXaaCQwfq706FG C4TeQnQNBozkVzeRtymT8xI wWiIKYICVBhl4BhNLBrRCun YXJ9 STATEMENT OF ADEQUACY Satisfactory (test code = 2757) Gross assessment was [facility] performed at ([facility], code = 2777) Department of Pathology, [address] [place] [address], Technical component [facility] was performed at ([facility], code = 2778) Department of Pathology, [address] [place], [place] [id number], Professional component [facility] was performed at ([facility], code = 2779) Department of Pathology, [address] [place] [address], [facility] 13:12:05 Test Item Value Reference Range Interpretation Comments Case Report (test code Medical Cytology Report = 104) Case: [id number] Authorizing Provider: Dariel Palacios, Collected: 04/13/2022 12:43 PM Ordering Location: [facility] Received: 04/13/2022 02:42 PM SERVICES Pathologist: Magda Wagner MD Specimen: Pelvic DIAGNOSTIC CATEGORY NEGATIVE FOR MALIGNANCY (test code = 2754) DIAGNOSIS (test code = x7sslVApHGPtv5kkJTLgzID 3220) uZzEwMzNcZnRuYmpcdWMxIH tccnRmMVxlcGljOTYwMlxhb tFeZCTjuJRxQ2AbmmorIFfa TS3wGW8ieAzuwXUhzSPsYSE sQsAsu0djr774eRCvv0orTQ LOmyokkIo6tDzmT07da0S0P jjlC92stRLuAUA8BUYpLEQy tUGgYGGzIZW5BGOkrMIjZ2n pCGJbIM3qdfjvAGnkNXguXC EueBU1AMYdzJLjH6UrOEDpD HscVMKcsog9TbVeFa1ozCDe eTcyMFxwYXJkXHBsYWluXGZ lGvGlFUVUHoxWZKeDY4gAFs rHPCgQBNWDI9RHPrUdDtcpM LMnhNIdGE0ALNvxxQw6AZLd r5ZfjDBcfTmzST6fyUtmuZ0 kSI7NaR8mqk93fiZuAIGyoE hlbGlhbCBjZWxscywgYSBmZ UgztpP7eZPnxXjagLCvIS2g OUn1bIEru3K3pXNsUPFhTDG lbnRccGFyfXtccnRmMVxzc3 DtCUivILPmXV1tfHedKNFdF W2rUNVfY0pksL7zsev2ExVs QFCaVmJ5ZOMexhM9Xnf5XBG lZCamr3xha0XoAGQxNDp9nO qfAbGqBTNay9loweKeAaVlI FXyJNQsTBJosHLuV026a3br p2hvihCocQF3YYUbOBS8LEj gtmMhgoR7BXcnrGYsDbI2VT mutcDkQHewesPltpOvZeq4F DTrK211GGV3dPwyc0odIGD3 FABtBQZaQyRjMt9qhSKlV83 0USRzNHGFTGYomPi2FGGlgu RphkFotGIVv088I750t8woR YIthwLauZqXzmefj6koO690 XHBhcGVydzEyMjQwXHBhcGV xmAU8UTBnDN8qxnvzXCalZF vvWGNwfvB4QOWgfKSrH8HbN EPbOL3kcfcsDXW6HNmuQRXk KBL6XgDiDFZbf6Jficd0MoV oth8nee54GCO8d1ZslMuxTY J2MRQ7QxErId3luVBjZXJpQ N5yWhJinJRxYHVgbk69sXmm EAyqFHC0IAZiiwGhc5Aoa4x zKwLaixLdI6mnL9WhDNIxJW UeTHGsAfKjdnCmw2Uug4Zur WCjpZz9b4nlYHLuUBUytJkz n5fnBKY6HFLucCLiE4pycI4 yIAQmEF4ghywey2msCTqhRR faKOTykMQ9dxO1JDLlbEZbB 9VsnX6qPGObFFliSLPwegy9 UlLoAg1rgPXlkLotEKuoJnk wYWdlXHBnbmNvbnRccGduZG VjXHBsYWluXHBsYWluXGYwX GZzMjRccWxcbGFuZzEwMzNc aGljaFxmMVxkYmNoXGYxXGx xA3voQhHhVlDsKuq0GWDreD EeLNMsJcz7UUPtmGVpGRPFd XxcmV7cOPXykPhmrD7ikGS1 HTRvsqNlwBFDlU4dHBWTdE4 gAbP5TQAkEvc5VBO3CbIstA FyfX0= COMMENT (test code = f3gizOJzPPBdcIC8KzOwKAB 7764) yo4dzv6OgvYFlsEMhDKamsE TnigQpes64xMB6vW48MK2lM LCqTzV4HXRcmoO7Qmu0XLRx TVUslIFrO380s7jhk7ipouB lmMC7eHxjRULsvdlcRbI1EF dyQDNdixshUDw7SMksXXCcm AY5FIWifKHtS7FeVIHyVZ3l quj8WFZ5SNutAJTcJaA9XJE vhNLfSGDdaGbvKHiwu280MM U8IqKbNTBewtWbtHpehY8kA nMyMFxwYXIgUGxlYXNlIHNl RARvaPBpvWNozIByBWUnv0x hL1apF6EfJOKEUpBjWCV7Cz RccGFyfQ== CPT Code(s) (test code g4raoJMmIZShyYZ6AdQbVQB = 3357) om7dll9KjpRFweIGdFHjywF SvwgUzcg46tQE6kK60CG5jD QWuJlT2GRKnoxC0Zcf1MGBl VBFliOGzU350t1poy5uwexC rkYY3aQegVIGqnyjzTaX9LN etBZXdcxsaWUn3JHthOBWkf RI6PLNzeUHgS8AkQOQrIE6v nqg2MUW7MIpdSSCoZeC4BYM wpBWiWRNklZwlTCeml846II F2KlVmDIBphfKgvLppvV0sT fEnFYQ0PNKqUUmqPIS7 CLINICAL DATA (test h7sduOLeTKJveGV2RvSnSDS code = 3355) qd2edc2JsfUNgsMNkJLwqpA VpyuSqnl12jPJ6rQ76YP1eJ DInJzK5USSzrxV3Qbx8VOKa PKKsfRJtX441s7rfb0ipgmV hwHM9tQvwCFIkblwpBxC1CX nuJHAbgojeBWm7KGazTXLwc IX2GYMloMYpG6PnIQCzOH9w bbl1XCU9PGcgMXRtYpK5STD rvCNnFEPfzYcaIFegq319NE N1VkXvMJZbvsQfiHpqcW7sI vMkYEP5EVA7Ca1uFTAaD5Te sIz6WWOgMFSkd1JyiUBWMLF xrl2gX67ddZGboMsauALbGL E1i917OXMtuPreqXIwNYler 1XzqLqeJ08ppSkycwFypS1v nFlkkxMaMYE1aJ6eJC6tSGD guVH6EVAarORgRPl6qHZviN Vsu7EpSNuvPoSltONwirPlQ jHxlQkqAPddfp3wWMAaZGJf ryZkIKA4zW9iLFI4iGRebIl jYWwgaGVybmlhIHJlcGFpci V7iFWnGVP7eLDjKQGoAwB4Q JIcL60oDfETsPEeJkBIbXvw iNUfXJtsT67thUmchGDcPT5 pnQTwVN8ip5IhZE7eINKeTv lsaWNhbCBoZXJuaWEuXHBhc n0= SPECIMEN SOURCE (test c6qqdSPzKSYkgGC9JzVkTQA code = 3377) pl5kng1FduPRslFKfBSmqhO ZvxsTokv85yKL9iY66LK5wZ MFcTaM2MRRcypB3Lwp7SJOg XXMnxTHyH445c5ovj5pabvK oiNH1hNnpNHCxhwnfWsR7ZC zuHXDyskikKHk3YNtcGMHkf LJ4PXMzpQIjP2ScBSTpRG1r mbg8CQU4NUjwTTXqXtR7ZFM apUQuEVEkwIniVFlhx401GZ Y5VoWgYEHwxpVgrZpopT2oN bVsLILTSByFGPPnW2DLMGeV I8EbtARdmT== GROSS DESCRIPTION l5iosFMdCQCiiAFSXRPiQ1r (test code = broLyPGIgtDZfV9QmcxsoGI [id number]) hsDQ3bIH5thTafmMYbzZDaN A3NHCXkUaKoJRVqyPZwhlCe LeAqEPIrzDFhuSF5AZUuPP3 xzuxtJSjzSOkrDFDbxmV9ZP LtpANdK0AkPITmYW1ancguV HS7LLjgyZ2pefJSPkteUq1z dHRibHtcZjFcZmNoYXJzZXQ fSJJzbClnBADqGDg5iT3VWc ffAQL2KUZACnnsFGKpUV8Tu 6ngNFXnnTJcYEJ8JQljuLPs XJCeRSKcGXb2DZEdKRlzxTD oJC0aaBnwXkhzhGmjp2FhmA BcXGlkIDUxMDAyIFxcZGIgI G8VAhAmBLM2HlI6GPLoQTv4 XLg3LE1ZIbGnILXqWGv8CET 3LAIdJLj6LMwkRH6LHPPcRQ BnOpTnRrW5HIMdFRVoAULwF iBcXGYgQXJpYWwgXFxmbCBc JJ3yvOkogEYomaSBYxUPNKu 2aWMuXHBhciANClxlcGljTm VzdERvYzEgDQpcbHRycGFyX GxpbjBccmluMCANClxsdHJj fCxeirJoYJIiY2GtkfXxUTp lNL6zUIJae18blBQzmLRuYZ sgcHJlcGFyZWQgNCBjeXRvc 2TfxbAtLSlawKiqxO8nDYRn P53eo1HAr5MnNLLvOJgpy9d ptWzge7PhuILsHRcbZEFcxQ MdUVefuY1sYzHlv0fqtZz5I LjzpyU8LUJxvq1CJrypdO6y RfFwq6cczGd8GXIFVcawqeZ 2x9jcrJztd6KhmOZsTI9UEm 0= MICROSCOPIC p7heiAUiSVJglWL0JhRdNGY DESCRIPTION (test code iw6vph6EwuRFujXTfNRuekK = 3371) HspzLvbp87aHE0vA22XB1nC XMaJjN7VFSuxyF3Qrc7PWQx TFQprZXrU859j4ciq9tmqgP gwTA2rZgpWQUmrnqgUmQ2XK keIXNnpipoHEc3FIixEMBpr PY2JKZsuKYsS9JvVUSdEG2b zpa4RJC6PHyuOESnYiZ0EDD cvKDtJCTmbHosHVamw115XD E3PaCyPTJgjeAckHcfwW0yF rSsJMSZJGHxg3EzATGgQEih YXJ9 STATEMENT OF ADEQUACY Satisfactory (test code = 2757) Gross assessment was [facility] performed at ([facility], code = 2777) Department of Pathology, [address] [place] [address], Technical component [facility] was performed at ([facility], code = 2778) Department of Pathology, [address] [place] [address], Professional component [facility] was performed at ([facility], code = 2779) Department of Pathology, [address] [place] [address], [facility]:12[facility]05 Test Item Value Reference Range Interpretation Comments Case Report (test code Medical Cytology Report = 104) Case: [id number] Authorizing Provider: Dariel Palacios, Collected: 04/13/2022 12:43 PM Ordering Location: [facility] Received: 04/13/2022 02:42 PM SERVICES Pathologist: Magda Wagner MD Specimen: Pelvic DIAGNOSTIC CATEGORY NEGATIVE FOR MALIGNANCY (test code = 2754) DIAGNOSIS (test code = f7mcbYWrVOGzb6ciMBKqjEE 3220) uZzEwMzNcZnRuYmpcdWMxIH tccnRmMVxlcGljOTYwMlxhb lQfBDQulTRgN2MoyzrrLMac TF6lOZ8tvKjhxEGhjLFoZFL iOwLjt9cbt515nPTrm1hfWH IZxsrybEw8cPveI23or5E8I veoM73onZTjHNV3AMWtMHBr sZSuCIIzAUL0BVEchHSpJ5a jXIDzXR2anyerDMyaBIvhGW VdtMV8NQIqyUEdT5NyLXJgZ VmmMJKvtac4VcAqCm6jcLLx eTcyMFxwYXJkXHBsYWluXGZ nEyVzTDDPXaeKEKvBU8hBOc pOMCrOSNPTF8CSNqDbIydnC HMgwCInII6IQYhcpLu3EWIu t3SncQMmpUypZM6esCayuM1 jFK0QhQ2fdt02tpPsRKTxvD hlbGlhbCBjZWxscywgYSBmZ MwfkpQ7jFArbRfukPPsEK3q FQu5pJFsd2N9kNJhTGCbYSY lbnRccGFyfXtccnRmMVxzc3 GpPEudTIUbPD5hrBewVTTfV L4dUQLnX0mekA2fpde3ZvSc MROsCpP0FOIoduW8Bvx5CVW hEDoki5tsj4TnBMIlSVn4kN eqVgOlHDMqu4vghkReXwPuJ SUwENVoKGOxpYNqD160q8zl s0xfudNzoIY2DDHzSCU9JXi ussXdauD2HNbaqYCgEoR6KS gdmzXqUApwcwKyccJrHjx2Y MAnB681XQZ9aQwkx7qtINC8 BDLsOZQrDfUkNx8nwWOyT39 5YPCuVZQPSTYxtLt3JQPkad HgoxXveSOIs477K732y5auI KFjluMzzEdStfojj6ptH361 XHBhcGVydzEyMjQwXHBhcGV lxOC2KVSoEX2zeyhxJNzvDL smKETnysQ4GPZbqREcU8KxC KVbXH6whmwoXYD6LEryZHLj JLE4GoLqHAJko1Bxssb6VdJ ufj6scz80ZNS7e3TzuXlkLW I6CMR4VfSxMu2erPYhHROxI J5pCyEnxSNrQIRgge17gRsb YLioLPX5WRPyjnToo6Rhe9p cEkNbreHsP9ufW2JwJLFmUX XuVSXbGlWbevRmg1Fst0Lfj WSehQr2o6fcZDDgMVYxaFdb a6efFHL2DQRcjDKdX2hmyT3 wHKZyGQ9zxmyan7luSHgzWT tnZHImqNB9bwC7EBMtsAKkL 8CzgA0vOZNvWOkdIUVqvde6 NuBjUj6juJTnfUoqEZuzAtz wYWdlXHBnbmNvbnRccGduZG VjXHBsYWluXHBsYWluXGYwX GZzMjRccWxcbGFuZzEwMzNc aGljaFxmMVxkYmNoXGYxXGx vY8reUnPpGaLvVpz1RHNkfS MgBFNbUpv3KGCoiGPbNDCNz RedsO1dOBElgGypgH2hnGX0 XRPahqMtaSBVxE1uXTLPhO9 dVhL0KVGyFhm1IFX4DxLzqT FyfX0= COMMENT (test code = j0qtwKMrDVIsyFT5LaLbZZY 4620) kj7zuv6YydDJhzJWcILyepF MinmBnwa55eQV2pV66JJ0cF IQkXeC1IYGqqqP0Yzd7GNJh NSIfuAKeF753b5dtg5smjpX seDB8cQxlLWJcleigHuI8VQ anNOPyqnfaSGt9HPfoDJLjv JM1GDMbxHKzB7EsJEGzGO1q xrf5KVQ3QLpiWYTjDrT2RML ziHIvIDRiwOfmUEfjx072SG P7SvEsQLQubtGyoCouyF7fQ nMyMFxwYXIgUGxlYXNlIHNl HQQbqSYhaNPvoNEwGPCxk8b nM6xpS0PlAIXGWlGuRZG1Zs RccGFyfQ== CPT Code(s) (test code p7wdcXGhVWVjtYB3RxVnXHU = 3357) gl8wia8BpqVRuwNBdQUjldB WpdsMjaq32tJM1tJ25FZ5eM AMxXkY8YAIoknM2Tlz6ODCy BJWmwDFrU618y2uax9jkqjV bsNR3sGupCPFmxncsDiJ3XQ jjDLVqjkmmDVo4RXpjNYRbj YA8LVZrmJGvP8BqSAPuJV9i tgd4GHO2FGmtSKPfKaA4MPZ djUAfIUNmjPlvDDpvv141FL H6OhRyZBXcohVpsCxprS6tA cTxFFU3SIWqOCebOGQ2 CLINICAL DATA (test x5qhyPUtVKXvsQY2MdFmJHW code = 3355) yc4yjb0AcuDVesANhHKznjI HcruUwbj07rGR5uE22DN8zL RBaCmS4EOSxgpM6Ait3AKFj MHYqeVDhE422j8axs4dibmE uqDJ2sNfgVKEmmndfOuZ9FH rvSSOqixnmTDt1MJqqUHUvo CR8OWGhtNGmU8FdRYJlFZ0e qtb2WSH7UQnpLWNuMpN9ISE voWHxHDCpuCarOXady008QN D1OyFjNHKgdiXmbMvjiB7iJ zUkVDT5YGG3Fw5gORIqO0Iu bOg0OLPvQUMqj1HrcUTOKJR jwm5iZ46xvGYpdCkwdYJjJR M3o811VANuuJptoCBcDHmjh 8SrmDakL56nfCwixeKliJ0u rHpdwrNqMRI6aH7zUR1hKXX pcPA5TDQywDZxSHy6oFAdpI Nbm0IeMDnhUdKgiBXqopSiY aWdoExyNJjhgb8aPCKnATBs yeLkFST4iS4uXZY6nTDofYk jYWwgaGVybmlhIHJlcGFpci S2qAUkJYP4kBSuIPJpCvS9I CLwO44lAfKIjXEbOxULuKlz mDHtTIikN74rqPdlyOKuSN8 sxOWhLM7jk9IdLV8oGGLvOk lsaWNhbCBoZXJuaWEuXHBhc n0= SPECIMEN SOURCE (test b6mwvQCxNVNexDL4KfKaOUI code = 3377) yo2vkw6PnaKZlnUHdTKgzwJ NnmnVyhu97zWP0lL02CF5pO AJcBiI5FJBlmmG1Kea7LPMy WOZitNOfN527f5avw7nftiR crOJ4eKzlMHHvluibBqN1TW vfWZUfthqlPRx5GIzqOMXqp RL5CHKvnJKuL0FbXVNzOP1a hsa7ZAQ7EAuqVNOpGcK7UMD xnSYeQMWwsKnvCThxo025MF H4XoWrVNFzzvPdjFwyiE8yT fZkLAQZLXeFDJPoI9QJGTqD O9MyzAPapC== GROSS DESCRIPTION r4zpsQXxHEJvuFGQMNMcK0s (test code = mgqUmZWJigVUiL5XqzwfrET [id number]) hzPK5jNA1mfPqsjSQvhVPnJ B7NQMCvGtJqMOCmcOXgfuWp EtAhDOEwaLHlaMA2ISWfVR4 wxkflKGmpEFxqUZOvvqC2JI ZwiLNhC5DzQUVaNM3pcekfM XU9TSchaN2icrPQTynlMj3g dHRibHtcZjFcZmNoYXJzZXQ jUYUmfWtaAEVzLPo6kY3OKg dqZZJ5DPXIHihpGZPsXS0Im 7aoZECxiOHjHPE7NTuhsLPa YDEbZFAqJJy9ULCpPMjscXF fKD8cfWytKkfsyEcdm4EarE BcXGlkIDUxMDAyIFxcZGIgI A6EIdTwXAA5IcS5QOZhZCc0 AJv6AI1TEmZnWQTwTDj6FHA 8VQZkNJz3KHmcOY7MCSLaLY AxLkWqDiK6KZAsNRKzSYJwL iBcXGYgQXJpYWwgXFxmbCBc AU6fvAtqaOAsxiNSYaJHQOc 2aWMuXHBhciANClxlcGljTm VzdERvYzEgDQpcbHRycGFyX GxpbjBccmluMCANClxsdHJj aMgodmBuMGEuU1EezdUnXIl sWB1iJVIax90fyKSpxDYgNO sgcHJlcGFyZWQgNCBjeXRvc 8GrtvIdXGaqlGlxnK9xJHNu M69wd0XNf8ZcKEOyZMhko4w veWqhi6KpjMJkWPzfCSAmtR QuGDwhvL8qBjYjy5zatLu5S VrdmlF3ONPypl8IVoziyY4r OxHnp8rnkGm2ZEJGRchzdcS 6b7dvyMwkb4LelGTwJS3WWe 0= MICROSCOPIC z0zuwHZiZYSqzWZ1ZrKjTGK DESCRIPTION (test code gp3zds9LxoVPvcRMeNXolwU = 3371) AexiDiji61pIE5vE16QW2yT MNfLhS7APMfuqD5Lpa0RIBn LXGsvMOaX043c4sep5ukncD xdYL6mRjbRHAfozdjGpJ2FL wvPNXkegygKZs6ZXsmXHSck QN2RDNjrXZzK0SsLWEcUF4c eqq4NWM1SZthXQEvQjA8UJO pbEOpBKClaJloWXfzl452QF G0TqAhJNOlscXqbZwthB8eN qFvZXLRDWBji4TaETRpLFcz YXJ9 STATEMENT OF ADEQUACY Satisfactory (test code = 2757) Gross assessment was [facility] performed at ([facility], code = 2777) Department of Pathology, [address] [place] [address], Technical component [facility] was performed at ([facility], code = 2778) Department of Pathology, [address] [place] [address], Professional component [facility] was performed at ([facility], code = 2779) Department of Pathology, [address] [place], [place] [id number], [facility] 13:12:05 Test Item Value Reference Range Interpretation Comments Case Report (test code Medical Cytology Report = 104) Case: [id number] Authorizing Provider: Dariel Palacios, Collected: 04/13/2022 12:43 PM Ordering Location: [facility] Received: 04/13/2022 02:42 PM SERVICES Pathologist: Magda Wagner MD Specimen: Pelvic DIAGNOSTIC CATEGORY NEGATIVE FOR MALIGNANCY (test code = 2754) DIAGNOSIS (test code = y2atuKFsECApw9rvEPOruFU 3220) uZzEwMzNcZnRuYmpcdWMxIH tccnRmMVxlcGljOTYwMlxhb eShVRKosGIcK7HcdkepUPqx HR0zEJ0gtVttlHMldWOaFYF sOdJko8qcy997yPZog4adWZ XOkmgedGh3iEhvV63cg1M0N kbcG24ihTWvWGN9CQRtELQy lUOxNFMhFTI9TBIjgCCzG7p tQMRsQK2gcjzhWPmpOCpuQZ OlwBO0RUMobPUqN1EjASEjG MslCMCuzix2IlNrVe0bdLOn eTcyMFxwYXJkXHBsYWluXGZ jQjRzGYCDRnjSONfPJ8fEMb bDHXqMHSXQK2IJBjSpPatlF GVfgKVwGH1UEBpmfJw8DYJn j7VpnQOfsAlrOA5anJkksO4 pZL6EtH3gck73hxJwLEOcjI hlbGlhbCBjZWxscywgYSBmZ OfjvaZ3iKMgmRosoKIrXP2m JCn1lYGdy7C4dOLzAZOiTRJ lbnRccGFyfXtccnRmMVxzc3 CpGDqrUISpND7wpFhxFXXrD J6gRYGaF0hspR2wjmw5EoJw SPPeEqG0DXUsnwX2Sls9BXE qHTnnx2exu4AoCWBmUTa2rF arTrDrOAAzw6yiheDzImTvA KOoNLYsPNXorMRcG801k1fl q3zgwbDlkYQ9XVHxEES2JKl eyzPwtgA9YGjckJLmWfD1LY auctTjYTlbvoSkmkOpHyx4E IAlP506TDM7hZzqt1kkSRN5 RCYyYUZlJxLvNi5koCHbW06 7OHEhQTQJGJXogIp8VZChcy DjdoZxmFQPs356O186s7sgN PUszlYzzOdFpvnuz5kcT732 XHBhcGVydzEyMjQwXHBhcGV klMX7LXSbNL0ilecbTCeaPD koTKMmpuI7RWKrnNTnN6IgJ LAfGX5tlfroYUS5SFyrTOOq SAP5FiFfYJSvc8Zwwde2OcS jii7ujc84KJD5b7EumNndCJ X4MIM0MnRvEp1czUDeLCJlH I5oQoGvwDFiPPUdmr30iIuk KGdmMOL9FRVukvSld8Mby7h aKzOnlxWuT1sqQ7NkJZPzXL MlPKWqOtHrinTtt5Eor3Nax QUpmMz3e3jxXPUlDDFaeCib s9ltZFY7TAKvaOJrF5shfN8 jYRGfHI4tknakm2cqBMrdPX adXVWwsJN7ufB0PXNocPGxS 2DevP2rEYQtOUeeUFCbfbn3 YkVmEp6vxQMxsCipGOukPot wYWdlXHBnbmNvbnRccGduZG VjXHBsYWluXHBsYWluXGYwX GZzMjRccWxcbGFuZzEwMzNc aGljaFxmMVxkYmNoXGYxXGx uK2kaRhTbLsGkFtq0DBSudH FrWCRtNqq2HTOqvUWsEEMPh KuwvW8oPDJzmGsnxJ9lmFE2 GDYoygMueHXVvT8pYRMXlV3 rJsL3CWCxTan7TAV2YkIacY FyfX0= COMMENT (test code = n8luxMEtNYMbbPR6JjYrRPB 3359) kk7gts8DqeYPvdGXrBKromN JxxaPxwk65eXH3wQ38RG4dS KJnPzP3KNKiieF6Fkc2SWAn WFQjmPJuW247b6fys5xbrrI diJP7qSexMMIpauxjKlQ7VV iwPOIckqvdLHa6FKvcTEJuq NY4MMZtyHKzU4OlVZYoAT3r soh2EUG1RXriXTCrIgV2MHU faWYvAHUxuEsrPIvod677HJ K0EaUiKLYmxwZxbLfudE1sD nMyMFxwYXIgUGxlYXNlIHNl SXIgpGRujVKqdLEnNBJby0v mS4doV1XrEKOXAaTdQMK8Oy RccGFyfQ== CPT Code(s) (test code c7lwbZByFUYatGJ8MqSpVAA = 3357) wp2tar4BwfKMqiBAaCQmmrR IhynHcnv89rIK1wR19CE9pB OGhJrY0DYKxfkR8Bjn5WLCc LYJvdBMwX942c1aql3ivcpR hwFI8pGxuTPZffollTtL3VD rjFSRbgjrpVSm6QJqtMDGku NT0YLDqhPPuN1QnHQCeBW1z ofz8IAP7QRzeKTLaPtM8PVV yoOAuYNVyqFhwQQgss894RT B0SvJoQNUyorHalQpwtO5vP eXaLIG7IMWkLMjeDTZ2 CLINICAL DATA (test x8mscZUkOVSztWS7QyDaSVN code = 3355) bb6tuf5DrfLEznIHgIPkqlX BwgpYlhv34cGC8wM49NO5hJ SUiLyJ5KVMmmcH4Ezf7UYNq SZXcqFYkF985y0uwn6uzmzR svRR3hGixQPBzgtfgGoA3KZ rhXCUegeglERz5LQteABRqa CG1WTKspVWcN4BlBOJuJT0f nmn6SBO9BZcyYBRjWyW9GMW jyRKlOCFaqHhaWLrzm470WY B3JlJpSXUhfyOnrWzquY0jN oXmXQX0ECC9Sm6sSLRzJ8Nc kFt3MBPkYDSbt3AuaRWLAJC dmh5cD03skMUweQtetEXiKA K8a309GNKceEcniJXsUVybs 3ExuEcuH32btKetvsQftF3g hOefpwTaKQS1vB6fDI3tLVR exFW9JCYhiMGxMNq0sVJckP Hit3WkRBkiYpJkvEOxtsZtJ zUlzCipTKaupd8rDWStZPNt tqIsEAM1qT9dTMS0iICqhXh jYWwgaGVybmlhIHJlcGFpci W4aGEjRDL5gAAqXZKfLcL2S DXrG82bEsJKhJWlHrOKxMwx kSTfABfzJ54xqWafiMSbCY2 qoTAxNG3lf3YdXC3qIUXaLk lsaWNhbCBoZXJuaWEuXHBhc n0= SPECIMEN SOURCE (test f0nsoWUkVCObrTT2LmJkGHV code = 3377) dy6yng3DdhMBgsRMtRCdrcD WywfEvsm45yQM7bP04RC8mH ZMtXpZ1YKShgdV2Gyk7GCCi TOZicWUqI692g3cox5ohamV lyGH3kGdoRXDbobyeXhM1JR usVMSholyrBCo6JVqlVKPet KX6FBJlsCMxT3YxJPAqEE6h ouv6XJM8CLtpIFHyNeQ6VUX ifQGgVMDknEbkFLler491IU N5FtRsDUVjrrTecMggaY9iI hBdXRHKGZlBDUNdV4APWHsR P2CmaBJplC== GROSS DESCRIPTION v2pfdGWaMQWaqQBRFDOwF0q (test code = yeqNcPXLgyCVlF8OuknlrQM [id number]) ecCU9zEO8jvZalxCPskQIzW Z6XMKSoBjLdTNHgfPUhrnVa JiYtUJIbrGUgcUJ1HIUhAU4 eahzePVdrQRzyYKGnvgC0AO JazTDjV3OlEAKbWT2tkpyoH XM3CCtpdT0odtKBUghpCo9z dHRibHtcZjFcZmNoYXJzZXQ vPFPuoDbjVUTeSLf9rE7POq xqVLU0EQKDTxdhHUPgZQ7Gv 9ctWPDjwBGuFZQ3HJefaLYa SQTuXHOpTDy5PPZfQNpysKY cHF9xiOjtOgealJmve0ZhlT BcXGlkIDUxMDAyIFxcZGIgI B2DHzCbNNO7DhE9MKErTZp8 POv2YH6DXwOcEMDbVEd4JLV 2SKZaJUg4MFjbBA3WIHCxUV PpBwIkImA9RAPjDABcQLKjV iBcXGYgQXJpYWwgXFxmbCBc WH9zaIpnrZFcwgPTZfYCZZm 2aWMuXHBhciANClxlcGljTm VzdERvYzEgDQpcbHRycGFyX GxpbjBccmluMCANClxsdHJj yBgovuElHDPuY1FzwdCvDAe qPE6sBZYfg97ybQIscNQiIZ sgcHJlcGFyZWQgNCBjeXRvc 3LwpzFdDVfuaJyeeK0vATVx L79uq6FHv8EwANZbTBhvm3u znMtei8OnzAXuUJzaWIIyrV HlMQjgkP8aZvUwz1pfbVw0B GknybO2CRNjlm0SYisseV3p JoYhi7yacHs7WQLDGweufjE 9i0lucOxug4XnwFEmZE1FDr 0= MICROSCOPIC h7vciRUyNBPdkQU2RcWfLWZ DESCRIPTION (test code fv4ynu3EpzXXvqFJxIMzjcZ = 3371) TlpoKdig48aNJ8wS85SC5bQ SOcFuF3ZALitnP6Jpo3ADNx CEPvsEGrP384n6swa4aidgN izZJ4aFneLSOolgmiRrL5KJ brZQAltddwWRn2TEmpUCQhh EH5CJVqrEQgF5DmVVIpYI5l ebk8NCE3ZTlvHTMzYqR7TFM bxUMgAFZegZbcHAqeu393SH J6IrItZCVglxCejMweqV9cX fBcPDWFVGZeb0VgIQRpHKku YXJ9 STATEMENT OF ADEQUACY Satisfactory (test code = 2757) Gross assessment was [facility] performed at ([facility], code = 2777) Department of Pathology, [address] [place] [address], Technical component [facility] was performed at ([facility], code = 2778) Department of Pathology, [address] [place] [address], Professional component [facility] was performed at ([facility], code = 2779) Department of Pathology, [address] [place] [address], [facility] 13:12:05Medical Cytology Report Case: [id number] Authorizing Provider: Dariel Palacios, Collected: 1 06/13/2021 12:43 PM Ordering Location: [facility] Received: 04/13/2022 02:42 PM SERVICESPathologist: Magda Wagner MD Specimen: Pelvic NEGATIVE FOR MALIGNANCY PELVIC WASHINGS (CYTOSPINS):-Negative for malignancy-Numerous mesothelial cells, a few neutrophils and lymphocytes present Signing Pathologist Direct Phone Line: [phone] signed by Magda Wagner MD on 04/14/2022t 1:12 PMPlease see surgical pathology case [id number] y.o. recently underwent Laparoscopic hy sterectomy, bilateral salpingoophorectomy, resection of bilateral pelvic masses (13 cm and 7 cm), hernia sac resection, umbilical hernia repair with suture (3 x 3 cm). Hx of Bilateral complex adnexal mass and Umbilical hernia.PELVIC WASHINGSA. Pelvic.Received 80 ml bloody fluid; prepared 4 cytospins Performed. [facility], Department of Pathology, [address] [place] [address], [facility], [address] [place] [address], [facility], [facility] of [facility], [address] [place] [address], [id number] 16:01:45 Test Item Value Reference Range Interpretation Comments Cytology (test code = See Separate Report 2629) [facility] 16:01:45 Test Item Value Reference Range Interpretation Comments Cytology (test code = See Separate Report 2629) [facility] 16:01:45 Test Item Value Reference Range Interpretation Comments Cytology (test code = See Separate Report 2629) [facility] 16:01:45 Test Item Value Reference Range Interpretation Comments Cytology (test code = See Separate Report 2629) [facility] 16:01:45 Test Item Value Reference Range Interpretation Comments Cytology (test code = See Separate Report 2629) [facility] 16:01:45 Test Item Value Reference Range Interpretation Comments Cytology (test code = See Separate Report 2629) [facility] 16:01:45 Test Item Value Reference Range Interpretation Comments Cytology (test code = See Separate Report 2629) [facility] [id number] 16:01:45 Test Item Value Reference Range Interpretation Comments CYTOLOGY RESULT POINTER See Separate Report (BEAKER) (test code = 2629) POC-Glucose [id number] 15:02:27 Test Item Value Reference Range Interpretation Comments POC-Glucose Meter (test 155 mg/dL 70-110 H : TE STED AT [facility] code = 1538) [address] [place] [address], [facility] 30: Dough Braker/Techni chelle ID = [id number] for Cori Mendoza que Lab Interpretation (test Abnormal code = 73154-3) [facility] [id number] 15:02:27 Test Item Value Reference Range Interpretation Comments POC-Glucose Meter (test 155 mg/dL 70-110 H : TE STED AT [facility] code = 1538) [address] [place] [address], [facility] 30: Dough Braker/Techni chelle ID = [id number] for Reji SyMoni que Lab Interpretation (test Abnormal code = 77540-9) [facility]-Glucose [id number] 15:02:27 Test Item Value Reference Range Interpretation Comments POC-Glucose Meter (test 155 mg/dL 70-110 H : TE STED AT [facility] code = 1538) [address] [place] [address], 770 30: Dough Braker/Techni chelle ID = [id number] for Reji, SyMoni que Lab Interpretation (test Abnormal code = 21760-7) [facility]-Glucose [id number] 15:02:27 Test Item Value Reference Range Interpretation Comments POC-Glucose Meter (test 155 mg/dL 70-110 H : TE STED AT [facility] code = 1538) [address] [place] [address], 770 30: Dough Braker/Techni chelle ID = [id number] for Reji, SyMoni que Lab Interpretation (test Abnormal code = 40622-1) [facility]-Glucose [id number] 15:02:27 Test Item Value Reference Range Interpretation Comments POC-Glucose Meter (test 155 mg/dL 70-110 H : TE STED AT [facility] code = 1538) [address] [place] [address], 770 30: Dough Braker/Techni chelle ID = [id number] for Reji, SyMoni que Lab Interpretation (test Abnormal code = 32358-5) [facility]-Glucose [id number] 15:02:27 Test Item Value Reference Range Interpretation Comments POC-Glucose Meter (test 155 mg/dL 70-110 H : TE STED AT [facility] code = 1538) [address] [place] [address], 770 30: Dough Braker/Techni chelle ID = [id number] for Reji, SyMoni que Lab Interpretation (test Abnormal code = 47736-6) [facility]-Glucose [id number] 15:02:27 Test Item Value Reference Range Interpretation Comments POC-Glucose Meter (test 155 mg/dL 70-110 H : TE STED AT [facility] code = 1538) [address] [place] [address], 770 30: Dough Braker/Techni chelle ID = [id number] for Reji, SyMoni que Lab Interpretation (test Abnormal code = 92836-4) [facility]-GLUCOSE [id number] 15:02:27 Test Item Value Reference Range Interpretation Comments POC-GLUCOSE METER 155 mg/dL 70-110 H : TESTED A T [facility] 6720 (BEAKER) (test code [place]KALA [place]OD[place], = 1538) [address]: Dough Braker/Techni chelle ID = [id number] for Jasbir Trotter HIV-1 ANTIGEN WITH HIV-1/2 [id number] 11:50:19 Test Item Value Reference Range Interpretation Comments HIV-1 ANTIGEN WITH HIV 1\\T\\2 Nonreactive Nonreactive ANTIBODY (2) (BEAKER) (test code = 2586) Dough Braker ID - ADMINCBC W/PLT COUNT & AUTO [id number] 09:35:26 Test Item Value Reference Range Interpretation Comments WHITE BLOOD CELL COUNT (BEAKER) 8.4 K/ L 3.5-10.5 (test code = [...] PERCENT (BEAKER) (test code = 2801) POCT-GLUCOSE [id number] 09:15:34 Test Item Value Reference Range Interpretation Comments POC-GLUCOSE METER 164 mg/dL 70-110 H : TESTED A T [facility] 6720 (BEAKER) (test code = [place], 1538) [address]: Dough Braker/Techni chelle ID = [id number] for Katina Pereira
--- NOTE | 2023-01-14 14:42 | RAD REPORT ---
EXAM DESCRIPTION: RAD - Knee Right 3 View - 01/14/2023 2:26 pm CLINICAL HISTORY: Pain;Swelling COMPARISON: Knee Right 2 View dated 01/05/2022; Knee Right 2 View dated 09/01/2021 TECHNIQUE: Right knee, 3 views. FINDINGS: No fracture, dislocation or periosteal reaction.No joint effusion seen. Stable Moderate to advanced tricompartmental atherosclerotic changes with joint space narrowing most notable medially. Heterotopic calcification seen along the posterior joint line, unchanged. . No soft tissue abnormalit y. Clinical concerns for internal derangement or occult bony injury could be further assessed with MR im aging. IMPRESSION: No acute osseous abnormality. Stable osteoarthritic changes as above.
--- NOTE | 2023-01-14 14:46 | RAD REPORT ---
EXAM DESCRIPTION: RAD - Knee Left 3 View - 01/14/2023 2:26 pm CLINICAL HISTORY: Pain;Swelling COMPARISON: Knee Left 2 View dated 01/05/2022; Knee Left 2 View dated 09/01/2021 TECHNIQUE: Left knee, 3 views. FINDINGS: No fracture, dislocation or periosteal reaction.No joint effusion seen. Moderate tricompar tmental osteoarthritic changes, stable. No soft tissue abnormality. Clinical concerns for internal derangement or occult bony injury could be further assessed with MR im aging. IMPRESSION: No acute osseus abnormality. Stable tricompartmental osteoarthritic changes.
--- NOTE | 2023-01-14 14:50 | ER ---
Nurse's Notes [facility] Name: Dyan Guevara Age: 67 yrs Sex: Female : 1955 Arrival Date: 01/14/2023 Time: 13:36 Bed DX4 Private MD: Diagnosis: Contusion of left knee;Contusion of right knee;Other specified arthritis, left knee;Other specified arthritis, right knee Presentation: 01/14 13:42 Chief complaint: Patient states: "I had an appointment with Dr. Sheth but I didn't have mb9 my drivers license so I didn't go to the appointment. I need more medicine for my knees and didn't get a XRAY or anything. I want to know what's wrong. I fell yesterday and hurt both my knees.". Coronavirus screen: Vaccine status: Patient reports being unvaccinated. Ebola Screen: No symptoms or risks identified at this time. Initial Sepsis Screen: Does the patient meet any 2 criteria? No. Patient's initial sepsis screen is negative. Does the patient have a suspected source of infection? No. Patient's initial sepsis screen is negative. Risk Assessment: Do you want to hurt yourself or someone else? Patient reports no desire to harm self or others. Onset of symptoms was January 14, 2023. 13:42 Method Of Arrival: Ambulatory mb9 13:42 Acuity: DAVID 4 mb9 Triage Assessment: 13:44 General: Appears in no apparent distress. Behavior is cooperative. Pain: Complains of mb9 pain in bilateral knees Pain does not radiate. Pain currently is 10 out of 10 on a pain scale. Quality of pain is described as throbbing, Pain began suddenly, Is continuous. EENT: No deficits noted. Neuro: [place] Agitation-Sedation Scale (RASS): 0 - Alert and Calm Level of Consciousness is awake, alert, obeys commands, Oriented to person, place, time, situation, Appropriate for age. Cardiovascular: Patient's skin is warm and dry. Respiratory: Airway is patent Respiratory effort is even, unlabored, Respiratory pattern is regular, symmetrical. GI: No signs and/or symptoms were reported involving the gastrointestinal system. : No signs and/or symptoms were reported regarding the genitourinary system. Derm: Skin is pink, warm \\T\\ dry. Musculoskeletal: Range of motion: intact in all extremities. Historical: - Allergies: 13:44 No Known Allergies; mb9 - PMHx: 13:44 Arthritis; Diabetes - IDDM; GERD; High Cholesterol; Hypertension; mb9 - PSHx: 13:44 None; mb9 - Immunization history:: Adult Immunizations up to date. - Social history:: Smoking status: Patient reports the use of cigarette tobacco products, smokes one pack cigarettes per day. - Family history:: not pertinent. - Hospitalizations: : No recent hospitalization is reported. Screenin:04 [facility] ED Fall Risk Assessment (Adult) History of falling in the last 3 months, mb9 including since admission Yes- single mechanical fall (1 pt) Confusion or Disorientation No (0 pts) Intoxicated or Sedated No (0 pts) Impaired Gait No (0 pts) Mobility Assist Device Used No (0 pt) Altered Elimination No (0 pt) Score/Fall Risk Level 0 - 2 = Low Risk Oriented to surroundings, Maintained a safe environment, Educated pt \\T\\ family on fall prevention, incl call for assistance when getting out of bed. Abuse screen: Denies threats or abuse. Nutritional screening: No deficits noted. Tuberculosis screening: No symptoms or risk factors identified. Assessment: 13:45 Reassessment: see triage assessment. mb9 Vital Signs: 13:42 BP 104 / 82; Pulse 73; Resp 18; Temp 98; Pulse Ox 96% on R/A; Weight 72.57 kg; Height 5 mb9 ft. 5 in. ; Pain 10/10; 15:19 BP 110 / 84; Pulse 78; Resp 16; Pulse Ox 100% on R/A; mb9 13:42 Body Mass Index 26.63 (72.57 kg, 165.1 cm) mb9 13:42 Pain Scale: Adult mb9 ED Course: 13:38 Patient arrived in ED. mg5 13:41 Nahid Rich MD is Attending Physician. rn 13:42 Arm band placed on. mb9 13:44 Triage completed. mb9 14:28 XRAY Knee LEFT 3 view In Process Unspecified. EDMS 14:28 XRAY Knee RIGHT 3 view In Process Unspecified. EDMS 14:59 Dyan Parr, RN is Primary Nurse. mb9 15:04 No provider procedures requiring assistance completed. Patient did not have IV access mb9 during this emergency room visit. 15:05 Patient has correct armband on for positive identification. mb9 Administered Medications: 15:04 Drug: traMADol PO 50 mg Route: PO; mb9 15:20 Follow up: Response: No adverse reaction mb9 15:04 Drug: Ibuprofen PO 800 mg Route: PO; mb9 15:20 Follow up: Response: No adverse reaction mb9 Medication: 15:04 VIS not applicable for this client. mb9 Outcome: 14:49 Discharge ordered by . rn 15:19 Discharged to home ambulatory. mb9 15:19 Condition: stable 15:19 Discharge instructions given to patient, Instructed on discharge instructions, follow up and referral plans. Demonstrated understanding of instructions, follow-up care. 15:20 Patient left the ED. mb9 Signatures: Dispatcher [employer] EDMS Nahid Rich MD MD rn Breneman, Mary Beth, RN RN mb9 Enma Johnson mg5
--- NOTE | 2023-01-14 14:50 | EDPHYS ---
Physician Documentation [facility] Name: Dyan Guevara Age: 67 yrs Sex: Female : 1955 Arrival Date: 01/14/2023 Time: 13:36 Bed DX4 Private MD: ED Physician Nahid Rich HPI: 01/14 13:54 This 67 yrs old Female presents to ER via Ambulatory with complaints of Knee rn Pain - Both. 13:54 The patient presents with an injury, pain. The complaints affect the left knee, right rn knee. Onset: The symptoms/episode began/occurred yesterday. Modifying factors: the symptoms are aggravated by movement, weight bearing. Associated signs and symptoms: Pertinent negatives fever, weakness. Severity of symptoms: At their worst the symptoms were moderate, in the emergency department the symptoms have improved. The patient has not experienced similar symptoms in the past. Pt reports fall outside yesterday, landed on knees, seen here, had appt with Dr. Sheth so told to f/u. Unable to see Dr. Sheth so came here. Pain has improved, ambulatory, but wants xrays.. Historical: - Allergies: 13:44 No Known Allergies; mb9 - PMHx: 13:44 Arthritis; Diabetes - IDDM; GERD; High Cholesterol; Hypertension; mb9 - PSHx: 13:44 None; mb9 - Immunization history:: Adult Immunizations up to date. - Social history:: Smoking status: Patient reports the use of cigarette tobacco products, smokes one pack cigarettes per day. - Family history:: not pertinent. - Hospitalizations: : No recent hospitalization is reported. ROS: 13:54 Constitutional: Negative for fever, chills, and weight loss, MS/Extremity: + knee pain rn and scrape Neuro: Negative for weakness Exam: 13:54 Constitutional: This is a well developed, well nourished patient who is awake, alert, rn and in no acute distress. MS/ Extremity: Pulses equal, no cyanosis. Neurovascular intact. Full, normal range of motion. + antalgic gait but ambulatory with walker. + superficial abrasion to left knee, no laceration. No significant effusion. FROM. Vital Signs: 13:42 BP 104 / 82; Pulse 73; Resp 18; Temp 98; Pulse Ox 96% on R/A; Weight 72.57 kg; Height 5 mb9 ft. 5 in. ; Pain 10/10; 15:19 BP 110 / 84; Pulse 78; Resp 16; Pulse Ox 100% on R/A; mb9 13:42 Body Mass Index 26.63 (72.57 kg, 165.1 cm) mb9 13:42 Pain Scale: Adult mb9 MDM: 13:41 Patient medically screened. rn 14:48 Differential diagnosis: closed fracture, contusion. Data reviewed: vital signs, nurses rn notes, radiologic studies, plain films, and as a result, I will discharge patient. Counseling: I had a detailed discussion with the patient and/or guardian regarding: the historical points, exam findings, and any diagnostic results supporting the discharge/admit diagnosis, radiology results, the need for outpatient follow up, to return to the emergency department if symptoms worsen or persist or if there are any questions or concerns that arise at home. Special discussion: I discussed with the patient/guardian in detail that at this point there is no indication for admission to the hospital. It is understood, however, that if the symptoms persist or worsen the patient needs to return immediately for re-evaluation. 01/14 13:49 Order name: XRAY Knee LEFT 3 view; Complete Time: 14:48 rn 01/14 13:49 Order name: XRAY Knee RIGHT 3 view; Complete Time: 14:48 rn Administered Medications: 15:04 Drug: traMADol PO 50 mg Route: PO; mb9 15:20 Follow up: Response: No adverse reaction mb9 15:04 Drug: Ibuprofen PO 800 mg Route: PO; mb9 15:20 Follow up: Response: No adverse reaction mb9 Disposition Summary: 01/14/23 14:49 Discharge Ordered Location: Home rn Problem: an ongoing problem rn Symptoms: have improved rn Condition: Stable rn Diagnosis - Contusion of left knee rn - Contusion of right knee rn - Other specified arthritis, left knee rn - Other specified arthritis, right knee rn Followup: rn - With: Private Physician - When: As needed - Reason: Recheck today's complaints, Re-evaluation by your physician Discharge Instructions: - Discharge Summary Sheet rn - Arthritis rn - Contusion rn Forms: - Medication Reconciliation Form rn - Thank You Letter rn - Antibiotic overnight associate - Prescription Opioid Use rn - Patient Portal Instructions rn Signatures: Dispatcher [employer] EDNahid River MD MD rn Breneman, Mary Beth, SIMI RN mb9
[2023-01-14] MEDS ORDERED: IBUPROFEN 400 MG TAB ONE (15:11)
[2023-01-14] MEDS ORDERED: TRAMADOL HCL 50 MG TAB ONE (15:11)
[2023-01-14 15:35] VITALS: TEMP 98
[2023-01-14 15:36] VITALS: BP 110/84; O2SAT 100
== END 2023-01-14 15:20 | disposition home or self-care (01) ==
LOC: ER 13:36
DX: S80.02XA Contusion of left knee, initial encounter (principal); S80.01XA Contusion of right knee, initial encounter; M13.862 Other specified arthritis, left knee; M13.861 Other specified arthritis, right knee; F17.210 Nicotine dependence, cigarettes, uncomplicated; I10 Essential (primary) hypertension
CPT/HCPCS: 99283

== ENCOUNTER 2024-01-05 19:04 | Emergency (ER) | payer OTHER ==
--- NOTE | 2024-01-05 20:29 | RAD REPORT ---
EXAM DESCRIPTION: CT - Head Brain Wo Cont - 01/05/2024 8:20 pm CLINICAL HISTORY: DIZZINESS Headache, drowsiness, dizziness COMPARISON: <Comparisons> TECHNIQUE: All CT scans are performed using dose optimization technique as appropriate and may inclu de automated exposure control or mA/KV adjustment according to patient size. FINDINGS: No intracranial hemorrhage, hydrocephalus or extra-axial fluid collection.Mild brain atrop hy.No areas of brain edema or evidence of midline shift. The paranasal sinuses and mastoids are clear. The calvarium is intact. IMPRESSION: No acute intracranial abnormality.
[2024-01-05 20:50] LABS: Absolute Lymphocytes (CBC) 1.4 K/uL (0.7-4.9); Absolute Neutrophil 10.1 K/uL (1.8-8.0); Basophils % 0.3 % (0-1.3); Blood Morphology Comment NOTED (NOT SEEN); Eosinophils % 0.1 % (0-4.4); Hematocrit 23.8 % (36.0-45.0); Hemoglobin 7.4 g/dL (12.0-15.0); Lymphocytes % 11.4 % (15.3-44.8); MCHC 31.1 g/dL (32.0-36.0); MCV 60.9 fL (80-100); MPV 8.5 fL (7.6-11.3); Monocytes % 7.7 % (3.3-12.3); Neutrophils % 80.5 % (41.7-73.7); Platelet Estimate ADEQ; Platelets 373 thou/uL (152-406); RBC Red Blood Cell Count 3.91 M/uL (3.86-4.86); Red Cell Distribution Width 20.6 % (12.1-15.2); White Blood Cell Scan OK (OK)
[2024-01-05 20:51] LABS: Anisocytosis 1+; Hypochromasia 2+; Microcytosis 2+
[2024-01-05] MEDS ORDERED: MECLIZINE HCL 12.5 MG TAB ONE (20:54)
[2024-01-05] MEDS ORDERED: ONDANSETRON 4 MG/2 ML VIAL ONE (20:54)
[2024-01-05] MEDS ORDERED: NA CHLORIDE 0.9% 1,000 ML ONE (20:55)
[2024-01-05 20:59] LABS: PT Prothrombin Time 11.5 SECONDS (9.4-12.5); Protime INR 1.03
--- NOTE | 2024-01-05 21:01 | RAD REPORT ---
EXAM DESCRIPTION: RAD - Chest Single View - 01/05/2024 8:44 pm CLINICAL HISTORY: PALPITATIONS Chest pain. COMPARISON: <Comparisons> FINDINGS: Portable technique limits examination quality. The lungs are grossly clear. The heart is normal in size. No displaced fractures.Small hiatal hernia. IMPRESSION: No acute intrathoracic process suspected.
--- NOTE | 2024-01-05 21:06 | RAD REPORT ---
EXAM DESCRIPTION: - CP - 01/05/2024 8:56 pm CLINICAL HISTORY: DIZZINESS Headache, drowsiness COMPARISON: <Comparisons> TECHNIQUE: Real-time sonographic evaluation of both carotid systems was performed. Doppler interroga tion was performed with waveform tracing bilaterally. FINDINGS: Normal high resistance waveforms are noted in both external carotid arteries. The common c arotid arteries and internal carotid arteries show normal low resistance waveforms. No significant plaque formation is seen. Peak systolic and end diastolic velocity values and the ICA/ CCA ratios are in the non-hemodynamically significant range. Antegrade flow seen in both vertebral arteries. IMPRESSION: No significant atherosclerotic changes noted. No evidence of a hemodynamically significant stenosis.
[2024-01-05 21:08] LABS: ALT/SGPT 26 U/L (13-56); AST/SGOT 17 U/L (15-37); Albumin 3.2 g/dL (3.4-5.0); Albumin/Globulin Ratio 0.8 (1.1-1.8); Alkaline Phosphatase 110 U/L (45-117); Anion Gap 11.5 mEq/L (5.0-15.0); BUN Blood Urea Nitrogen 25 mg/dL (7-18); Bicarbonate 28 mEq/L (21-32); Bilirubin Total 0.3 mg/dL (0.2-1.0); Globulin 4.2 g/dL (2.3-3.5); Glomerular Filtration Rate 26 ml/min (=/>90); Glucose Level 257 mg/dL (74-106); Lipase 21 U/L (13-75); Magnesium 2.5 mg/dL (1.6-2.4); NT PRO-BNP 345 pg/mL (<125); Potassium 3.5 mEq/L (3.5-5.1); Protein, Total 7.4 g/dL (6.4-8.2); Sodium Level 132 mEq/L (136-145); Troponin High Sensitivity 4.9 pg/mL (<58.9)
[2024-01-05 21:10] LABS: Bilirubin Direct < 0.2 mg/dL (0-0.2); Bilirubin Indirect, Calculated 0.1 mg/dL (0.2-0.8)
--- NOTE | 2024-01-05 21:40 | ER ---
Nurse's Notes [facility] Name: Dyan Guevara Age: 68 yrs Sex: Female : 1955 Arrival Date: 01/05/2024 Time: 19:04 Bed 18 Private MD: Diagnosis: Acute Kidney Injury;Anemia, unspecified Presentation: 01/04 19:37 Chief complaint: Patient states: Yesterday I started feeling like the ko was a darker vc1 color. I can see but it would be blemished with a different color. I am dizzy. Coronavirus screen: Client denies travel out of the [place] in the last 14 days. At this time, the client does not indicate any symptoms associated with coronavirus-19. Ebola Screen: Patient negative for fever greater than or equal to 101.5 degrees Fahrenheit, and additional compatible Ebola Virus Disease symptoms Patient denies exposure to infectious person. Patient denies travel to an Ebola-affected area in the 21 days before illness onset. No symptoms or risks identified at this time. Initial Sepsis Screen: Does the patient meet any 2 criteria? No. Patient's initial sepsis screen is negative. Does the patient have a suspected source of infection? No. Patient's initial sepsis screen is negative. Risk Assessment: Do you want to hurt yourself or someone else?. Onset of symptoms was January 04, 2024. 19:37 Method Of Arrival: Ambulatory vc1 19:37 Acuity: DAVID 3 vc1 Historical: - Allergies: 19:42 No Known Allergies; vc1 - PMHx: 19:42 Arthritis; Diabetes - IDDM; GERD; High Cholesterol; Hypertension; vc1 - PSHx: 19:42 Appendectomy; vc1 - Immunization history:: Client reports receiving the 2nd dose of the Covid vaccine. - Infectious Disease History:: Denies. - Social history:: Smoking status: Patient reports the use of cigarette tobacco products, denies chronic smoking, but will smoke occasionally. Screenin:44 [facility] ED Fall Risk Assessment (Adult) History of falling in the last 3 months, cp4 including since admission No falls in past 3 months (0 pts) Confusion or Disorientation No (0 pts) Intoxicated or Sedated No (0 pts) Impaired Gait No (0 pts) Mobility Assist Device Used No (0 pt) Altered Elimination No (0 pt) Score/Fall Risk Level 0 - 2 = Low Risk Oriented to surroundings, Maintained a safe environment, Assessed \T\ reinforced patient's understanding of fall precautions, Hourly rounding (assess needs \T\ fall precautionary measures) done. Abuse screen: Denies threats or abuse. Nutritional screening: No deficits noted. Tuberculosis screening: No symptoms or risk factors identified. Assessment: 20:42 General: Appears in no apparent distress. Behavior is calm, cooperative, appropriate cp4 for age. Pain: Denies pain. Neuro: Level of Consciousness is awake, alert, obeys commands, Oriented to person, place, time, situation, Apprentice are equal bilaterally Moves all extremities. Gait is steady, Speech is normal, Facial symmetry appears normal, Pupils are PERRLA, Intact. Cardiovascular: No deficits noted. Respiratory: No deficits noted. GI: No deficits noted. : No deficits noted. EENT: No deficits noted. Derm: No deficits noted. Musculoskeletal: No deficits noted. Vital Signs: 19:37 BP 93 / 50; Pulse 93; Resp 14; Temp 97; Pulse Ox 100% ; Weight 77.11 kg; Height 5 ft. 5 vc1 in. ; 21:00 BP 104 / 55; Pulse 73; Resp 18; Pulse Ox 93% on R/A; cp4 22:41 BP 108 / 59; Pulse 75; Resp 18; Pulse Ox 94% on R/A; cp4 19:37 Body Mass Index 28.29 (77.11 kg, 165.1 cm) vc1 Spruce Coma Score: 19:58 Eye Response: spontaneous(4). Motor Response: obeys commands(6). Verbal Response: venessa oriented(5). Total: 15. ED Course: 19:05 Patient arrived in ED. rg4 19:31 Michele Walsh MD is Attending Physician. venessa 19:41 Triage completed. vc1 19:43 Arm band placed on right wrist. vc1 20:14 Attending Physician role handed off by Michele Walsh MD ec2 20:14 Alden Soliz MD is Attending Physician. ec2 20:[address] cp4 20:15 Little Arellano is Primary Nurse. cp4 20:22 CT Head Brain wo Cont In Process Unspecified. EDMS 20:44 Bed in low position. Call light in reach. Side rails up X2. cp4 20:44 No provider procedures requiring assistance completed. Inserted saline lock: 22 gauge cp4 in right antecubital area, using aseptic technique. Blood collected. Flushed with 10 mL NS. 20:46 XRAY Chest (1 view) In Process Unspecified. EDMS 20:58 US Carotid Artery Bilateral In Process Unspecified. EDMS 22:42 Provided Education on: acute kidney injury. cp4 22:42 intact, bleeding controlled, No redness/swelling at site. Pressure dressing applied. cp4 Administered Medications: 20:59 Drug: NS 0.9% IV 1000 ml IV at 1 bolus Per protocol; 1000 mL bolus Route: IV; Rate: 1 cp4 bolus; Site: right antecubital; 22:44 Follow up: Response: No adverse reaction; IV Status: Completed infusion cp4 20:59 Drug: Meclizine PO 25 mg PO once Route: PO; cp4 22:44 Follow up: Response: No adverse reaction cp4 20:59 Drug: Ondansetron IVP 4 mg IVP once; over 2 minutes Route: IVP; Site: right antecubital;cp4 22:44 Follow up: Response: No adverse reaction cp4 Medication: 20:44 VIS not applicable for this client. cp4 Outcome: 21:39 Discharge ordered by . ec2 22:42 Discharged to home ambulatory, cp4 22:42 Condition: stable 22:42 Discharge instructions given to patient, Instructed on discharge instructions, follow up and referral plans. Demonstrated understanding of instructions, follow-up care, 22:43 Patient left the ED. cp4 Signatures: Dispatcher [employer] Michele Matt MD MD cha Garcia, Rubi rg4 Zeny Mauro RN RN vc1 Alden Soliz MD MD ec2 Little Arellano cp4
--- NOTE | 2024-01-05 21:40 | EDPHYS ---
Physician Documentation [facility] Name: Dyan Guevara Age: 68 yrs Sex: Female : 1955 Arrival Date: 01/05/2024 Time: 19:04 Bed 18 Private MD: ED Physician Alden Soliz HPI: 01/04 19:57 This 68 yrs old Female presents to ER via Ambulatory with complaints of Vision venessa Problem, Dizziness. 19:57 The patient presents with dizziness, generalized weakness. Onset: The symptoms/episode venessa began/occurred yesterday. Context: occurred at home, occurred while the patient was walking. Modifying factors: The symptoms are alleviated by nothing, the symptoms are aggravated by standing up. Associated signs and symptoms: Pertinent positives: palpitations. Severity of symptoms: At their worst the symptoms were mild in the emergency department the symptoms are unchanged. Patient's baseline: Neuro: alert and fully oriented. The patient has not experienced similar symptoms in the past. Historical: - Allergies: 19:42 No Known Allergies; vc1 - PMHx: 19:42 Arthritis; Diabetes - IDDM; GERD; High Cholesterol; Hypertension; vc1 - PSHx: 19:42 Appendectomy; vc1 - Immunization history:: Client reports receiving the 2nd dose of the Covid vaccine. - Infectious Disease History:: Denies. - Social history:: Smoking status: Patient reports the use of cigarette tobacco products, denies chronic smoking, but will smoke occasionally. ROS: 19:58 Constitutional: Negative for fever, chills, and weight loss, Eyes: Negative for injury, venessa pain, redness, and discharge, ENT: Negative for injury, pain, and discharge, Neck: Negative for injury, pain, and swelling, Cardiovascular: Negative for chest pain, palpitations, and edema, Respiratory: Negative for shortness of breath, cough, wheezing, and pleuritic chest pain, Abdomen/GI: Negative for abdominal pain, nausea, vomiting, diarrhea, and constipation, Back: Negative for injury and pain, : Negative for injury, bleeding, discharge, and swelling, MS/Extremity: Negative for injury and deformity, Skin: Negative for injury, rash, and discoloration, Psych: Negative for depression, anxiety, suicide ideation, homicidal ideation, and hallucinations, Allergy/Immunology: Negative for hives, rash, and allergies, Endocrine: Negative for neck swelling, polydipsia, polyuria, polyphagia, and marked weight changes, Hematologic/Lymphatic: Negative for swollen nodes, abnormal bleeding, and unusual bruising, 19:58 Neuro: Positive for dizziness, weakness, Exam: 19:58 Constitutional: This is a well developed, well nourished patient who is awake, alert, venessa and in no acute distress. Head/Face: Normocephalic, atraumatic. Eyes: Pupils equal round and reactive to light, extra-ocular motions intact. Lids and lashes normal. Conjunctiva and sclera are non-icteric and not injected. Cornea within normal limits. Periorbital areas with no swelling, redness, or edema. ENT: Nares patent. No nasal discharge, no septal abnormalities noted. Tympanic membranes are normal and external auditory canals are clear. Oropharynx with no redness, swelling, or masses, exudates, or evidence of obstruction, uvula midline. Mucous membranes moist. Neck: Trachea midline, no thyromegaly or masses palpated, and no cervical lymphadenopathy. Supple, full range of motion without nuchal rigidity, or vertebral point tenderness. No Meningismus. Chest/axilla: Normal chest wall appearance and motion. Nontender with no deformity. No lesions are appreciated. Cardiovascular: Regular rate and rhythm with a normal S1 and S2. No gallops, murmurs, or rubs. Normal PMI, no JVD. No pulse deficits. Respiratory: Lungs have equal breath sounds bilaterally, clear to auscultation and percussion. No rales, rhonchi or wheezes noted. No increased work of breathing, no retractions or nasal flaring. Abdomen/GI: Soft, non-tender, with normal bowel sounds. No distension or tympany. No guarding or rebound. No evidence of tenderness throughout. Back: No spinal tenderness. No costovertebral tenderness. Full range of motion. Skin: Warm, dry with normal turgor. Normal color with no rashes, no lesions, and no evidence of cellulitis. MS/ Extremity: Pulses equal, no cyanosis. Neurovascular intact. Full, normal range of motion. Neuro: Awake and alert, GCS 15, oriented to person, place, time, and situation. Cranial nerves II-XII grossly intact. Motor strength 5/5 in all extremities. Sensory grossly intact. Cerebellar exam normal. Normal gait. Psych: Awake, alert, with orientation to person, place and time. Behavior, mood, and affect are within normal limits. 19:58 Musculoskeletal/extremity: DVT Exam: No signs of deep vein thrombosis. no pain, no swelling, no tenderness, negative Homans' sign noted on exam, no appreciated bluish discoloration, no erythema, no increased warmth, Vital Signs: 19:37 BP 93 / 50; Pulse 93; Resp 14; Temp 97; Pulse Ox 100% ; Weight 77.11 kg; Height 5 ft. 5 vc1 in. ; 21:00 BP 104 / 55; Pulse 73; Resp 18; Pulse Ox 93% on R/A; cp4 22:41 BP 108 / 59; Pulse 75; Resp 18; Pulse Ox 94% on R/A; cp4 19:37 Body Mass Index 28.29 (77.11 kg, 165.1 cm) vc1 Radha Coma Score: 19:58 Eye Response: spontaneous(4). Motor Response: obeys commands(6). Verbal Response: venessa oriented(5). Total: 15. MDM: 19:32 Patient medically screened. venessa 19:59 Differential Diagnosis altered mental status, sepsis, flu. Differential diagnosis: venessa cardiac arrhythmia, CVA, generalized weakness, GI bleed, hyperventilation, hypovolemia, idiopathic dizziness, near-syncope, TIA, vertigo. Data reviewed: vital signs, nurses notes, lab test result(s), EKG, radiologic studies, CT scan, plain films. Consideration of Admission/Observation Escalation of care including admission/observation considered. I considered the following discharge prescriptions or medication management in the emergency department Medications were administered in the Emergency Department. See MAR. Independent interpretation of the following test(s) in the Emergency Department EKG: See my EKG interpretation above. Test considered but Not performed: MRI: no mri brain. Historians other than the Patient: Family Member: daughter. Care significantly affected by the following chronic conditions: Diabetes, Hypertension, Obesity, high cholesterol. 20:31 ED course: Patient arrives today for evaluation of dizziness which she describes as ec2 lightheadedness. Patient reports that she has been having bouts of this for the past couple days. Patient reports that she also noticed some color change in her vision. Patient reports no falls injuries or trauma. Patient reports that she also feels generally weak. Reports history of hypertension, hyperlipidemia, diabetes.. 20:33 ED course: CToH shows no acute intracranial process. . ec2 20:39 ED course: Patient with physical examination shows intact neurologic exam, cranial ec2 nerves II through XII, no pronator drift, normal [id number], normal sensation and strength throughout.. 20:41 ED course: EKG independently reviewed and interpreted by me, shows normal sinus rhythm, ec2 rate of 76, no acute ST segment elevations, intervals are nonconcerning.. 21:15 ED course: Metabolic profile shows renal disease with a creatinine 2.09 and GFR 26, CBC ec2 shows anemia with hemoglobin of 7.4. LFTs are unremarkable. Troponin is within normal ranges. CT scan of the head shows no acute intracranial process. Ultrasound shows no significant atherosclerotic changes. Chest x-ray shows no acute intrathoracic process.. 21:17 ED course: External records show previous hemoglobin of 12 in April 2022. Most ec2 recent documented hemoglobin at 8.4 this was on 10/28/2023. Today appears similar.. 21:19 ED course: Previous metabolic profile shows a creatinine of 1.41 and GFR 41.. ec2 21:38 ED course: On reassessment patient is well-appearing, no recurrence of symptoms and is ec2 feeling well. Will discharge home, patient has appointment in 10 days with her primary care doctor and instructed her to obtain repeat lab work to follow-up for CKD. No reported bleeding to explain anemia . 01/04 19:59 Order name: Glucose, Ancillary Testing; Complete Time: 20:32 [facility] 01/04 20:03 Order name: Basic Metabolic Panel; Complete Time: 21:15 [facility] 01/04 20:03 Order name: CBC with Diff; Complete Time: 21:15 [facility] 01/04 20:03 Order name: LFT's; Complete Time: 21:15 [facility] 01/04 20:03 Order name: Magnesium; Complete Time: 21:15 [facility] 01/04 20:03 Order name: NT PRO-BNP; Complete Time: 21:15 [facility] 01/04 20:03 Order name: PT-INR; Complete Time: 21:15 [facility] 01/04 20:03 Order name: Troponin HS; Complete Time: 21:15 [facility] 01/04 20:03 Order name: Lipase; Complete Time: 21:15 [facility] 01/04 20:51 Order name: CBC Smear Scan; Complete Time: 21:15 [facility] 01/04 20:03 Order name: XRAY Chest (1 view); Complete Time: 21:15 [facility] 01/04 20:03 Order name: CT Head Brain wo Cont; Complete Time: 20:32 [facility] 01/04 20:03 Order name: US Carotid Artery Bilateral; Complete Time: 21:15 [facility] 01/04 20:03 Order name: Cardiac monitoring; Complete Time: 20:42 [facility] 01/04 20:03 Order name: EKG - Nurse/Tech; Complete Time: 20:42 [facility] 01/04 20:03 Order name: IV Saline Lock; Complete Time: 20:42 [facility] 01/04 20:03 Order name: Labs collected and sent; Complete Time: 20:42 [facility] 01/04 20:03 Order name: O2 Per Protocol; Complete Time: 20:42 [facility] 01/04 20:03 Order name: O2 Sat Monitoring; Complete Time: 20:42 [facility] Administered Medications: 20:59 Drug: NS 0.9% IV 1000 ml IV at 1 bolus Per protocol; 1000 mL bolus Route: IV; Rate: 1 cp4 bolus; Site: right antecubital; 22:44 Follow up: Response: No adverse reaction; IV Status: Completed infusion cp4 20:59 Drug: Meclizine PO 25 mg PO once Route: PO; cp4 22:44 Follow up: Response: No adverse reaction cp4 20:59 Drug: Ondansetron IVP 4 mg IVP once; over 2 minutes Route: IVP; Site: right antecubital;cp4 22:44 Follow up: Response: No adverse reaction cp4 Disposition Summary: 01/05/24 21:39 Discharge Ordered Notes: Location: Home ec2 Condition: Stable ec2 Diagnosis - Acute Kidney Injury ec2 - Anemia, unspecified ec2 Followup: ec2 - With: Private Physician - When: - Reason: Re-evaluation by your physician Discharge Instructions: - Discharge Summary Sheet ec2 - Acute Kidney Injury, Adult ec2 Forms: - Medication Reconciliation Form ec2 - Antibiotic Education ec2 - Prescription Opioid Use ec2 - Patient Portal Instructions ec2 - Leadership Thank You Letter ec2 Signatures: Dispatcher [employer] Michele Matt MD MD cha Calcote, Vanessa, RN RN vc1 Alden Soliz MD MD ec2 Potter, Little cp4 Corrections: (The following items were deleted from the chart) 20:04 20:04 BASIC METABOLIC PANEL+C.LAB.BRZ ordered. EDMS EDMS 20:04 20:04 CBC+H.LAB.BRZ ordered. EDMS EDMS 20:04 20:04 HEPATIC FUNCTION+C.LAB.BRZ ordered. EDMS EDMS 20:04 20:04 MAGNESIUM+C.LAB.BRZ ordered. EDMS EDMS 20:04 20:04 PROBNP+C.LAB.BRZ ordered. EDMS EDMS 20:04 20:04 PROTIME (+INR)+COAG.LAB.BRZ ordered. EDMS EDMS 20:04 20:04 Troponin High Sensitivity+C.LAB.BRZ ordered. EDMS EDMS 20:04 20:04 Urinalysis+U.LAB.BRZ ordered. EDMS EDMS 20:04 20:04 LIPASE+C.LAB.BRZ ordered. EDMS EDMS 20:04 20:04 Chest Single View+RAD.RAD.BRZ ordered. EDMS EDMS 20:04 20:04 Head Brain Wo Cont+CT.RAD.BRZ ordered. EDMS EDMS 20:04 20:04 Carotid Artery Bilateral+US.RAD.BRZ ordered. EDMS EDMS 21:27 21:17 ED course: External records show previous hemoglobin of 12 in April 2022. Most ec2 recent documented hemoglobin at 8.4 this was on 10/28/2023. This appears grossly similar to previous hemoglobin.. ec2
--- NOTE | 2024-01-07 13:35 | EKG ---
Test Date: 2024-01-05 Test Time: 20:31:00 Nursing Home Assistant Administrator: CLAUDIA MEASUREMENT RESULTS: Intervals: Rate: 76 MT: 138 QRSD: 102 QT: 410 QTc: 461 [place]: P: 55 MT: 138 QRS: 73 T: 54 INTERPRETIVE STATEMENTS: Normal sinus rhythm Normal ECG Compared to ECG 10/28/2023 11:51:23 Myocardial infarct finding no longer present Electronically Signed On 01-07-24 13:30:59 CDT by Jaren Chaidez
== END 2024-01-05 22:43 | disposition home or self-care (01) ==
LOC: ER 19:04
DX: D64.9 Anemia, unspecified (principal); N17.9 Acute kidney failure, unspecified
CPT/HCPCS: 36415; 70450; 71045; 80048; 80076; 82947; 83690; 83735; 83880; 84484; 85025; 85610; 93005; 93880; 96361; 96374; 99285; J2405; J7030; J8597

== ENCOUNTER 2024-02-21 11:39 | Emergency (ER) | payer OTHER ==
[2024-02-21] MEDS ORDERED: NA CHLORIDE 0.9% 1,000 ML ONE (12:22)
[2024-02-21 12:29] LABS: Absolute Basophils 0.1 K/uL (0-0.5); Absolute Eosinophils 0.1 K/uL (0-0.5); Absolute Lymphocytes (CBC) 2.3 K/uL (0.7-4.9); Absolute Monocytes 0.4 K/uL (0.1-1.3); Absolute Neutrophil 10.7 K/uL (1.8-8.0); Basophils % 0.4 % (0-1.3); Eosinophils % 0.7 % (0-4.4); Hematocrit 22.9 % (36.0-45.0); Lymphocytes % 17.2 % (15.3-44.8); MCH 18.3 pg (27.0-35.0); MCHC 30.7 g/dL (32.0-36.0); MCV 59.6 fL (80-100); Monocytes % 3.1 % (3.3-12.3); Neutrophils % 78.6 % (41.7-73.7); Platelets 389 thou/uL (152-406); RBC Red Blood Cell Count 3.84 M/uL (3.86-4.86); Red Cell Distribution Width 22.8 % (12.1-15.2)
[2024-02-21 12:35] LABS: PT Prothrombin Time 11.1 SECONDS (9.4-12.5); Protime INR 0.99
[2024-02-21 12:45] LABS: Arterial Blood Carboxyhemoglob 1.8 % (0-1.5); Blood Gas Oxyhemoglobin 89.3 % (94-97); Blood Gas THB 7.1 g/dl (12-18); Blood O2 Saturation 92.9 % (92-98.5)
[2024-02-21 12:46] LABS: BETA HYDROXYBUTYRATE 0.1 mmol/L (0.02-0.27); Phosphorus 4.4 mg/dL (2.5-4.9)
[2024-02-21 12:48] LABS: ALT/SGPT 21 U/L (13-56); Albumin/Globulin Ratio 0.8 (1.1-1.8); Alkaline Phosphatase 106 U/L (45-117); Anion Gap 13.7 mEq/L (5.0-15.0); BUN Blood Urea Nitrogen 24 mg/dL (7-18); Bicarbonate 22 mEq/L (21-32); Bilirubin Total 0.4 mg/dL (0.2-1.0); Glomerular Filtration Rate 31 ml/min (=/>90); Glucose Level 365 mg/dL (74-106); Magnesium 2.2 mg/dL (1.6-2.4); NT PRO-BNP 142 pg/mL (<125); Potassium 3.7 mEq/L (3.5-5.1); Sodium Level 134 mEq/L (136-145); Troponin High Sensitivity 5.8 pg/mL (<58.9)
[2024-02-21 12:52] LABS: AST/SGOT < 10 U/L (15-37); Bilirubin Direct < 0.2 mg/dL (0-0.2); Bilirubin Indirect, Calculated 0.2 mg/dL (0.2-0.8)
[2024-02-21 13:29] LABS: Anisocytosis 2+; Blood Morphology Comment NOTED (NOT SEEN); Hypochromasia 2+; Microcytosis 2+; Platelet Estimate ADEQ; Polychromasia 1+; Target Cells 1+; White Blood Cell Scan OK (OK)
--- NOTE | 2024-02-21 14:16 | ER ---
Nurse's Notes [facility] Name: Dyan Guevara Age: 68 yrs Sex: Female : 1955 Arrival Date: 02/21/2024 Time: 11:39 Bed 3 Private MD: Diagnosis: Anemia in chronic kidney disease;Type 2 diabetes mellitus with hyperglycemia;Syncope Near Presentation: 02/20 11:44 Chief complaint:. Coronavirus screen: Client denies travel out of the [place] in the last ll1 14 days. At this time, the client does not indicate any symptoms associated with coronavirus-19. Ebola Screen: Patient denies travel to an Ebola-affected area in the 21 days before illness onset. Initial Sepsis Screen: Does the patient meet any 2 criteria? No. Patient's initial sepsis screen is negative. Does the patient have a suspected source of infection? No. Patient's initial sepsis screen is negative. Risk Assessment: Do you want to hurt yourself or someone else? Patient reports no desire to harm self or others. Onset of symptoms was February 20, 2024. 11:44 Method Of Arrival: Wheelchair 1 11:44 Acuity: DAVID 2 ll1 11:45 Chief complaint: Patient states: Passed out once yesterday and once today. Coronavirus ph screen: Vaccine status: Patient reports receiving the 2nd dose of the covid vaccine. Ebola Screen: No symptoms or risks identified at this time. Initial Sepsis Screen: Does the patient meet any 2 criteria? No. Patient's initial sepsis screen is negative. Does the patient have a suspected source of infection? No. Patient's initial sepsis screen is negative. Risk Assessment: Do you want to hurt yourself or someone else? Patient reports no desire to harm self or others. Onset of symptoms was February 21, 2024. 11:45 Method Of Arrival: Wheelchair ph 11:45 Acuity: DAVID 2 ph Historical: - Allergies: 11:42 No Known Allergies; ph - PMHx: 11:42 Arthritis; Diabetes - IDDM; GERD; High Cholesterol; Hypertension; ph - PSHx: 11:42 Appendectomy; ph - Immunization history:: Adult Immunizations unknown. - Infectious Disease History:: Denies. - Social history:: Smoking status: Patient denies any tobacco usage or history of. Screenin:43 [facility] ED Fall Risk Assessment (Adult) History of falling in the last 3 months, ph including since admission Yes- physiologic fall (2 pts) Confusion or Disorientation No (0 pts) Intoxicated or Sedated No (0 pts) Impaired Gait No (0 pts) Mobility Assist Device Used No (0 pt) Altered Elimination No (0 pt) Score/Fall Risk Level 0 - 2 = Low Risk Oriented to surroundings, Maintained a safe environment. Abuse screen: Denies threats or abuse. Denies injuries from another. Nutritional screening: No deficits noted. Tuberculosis screening: No symptoms or risk factors identified. Assessment: 12:00 General: Appears in no apparent distress. comfortable, well groomed, Behavior is calm, ph cooperative, appropriate for age. Pain: Denies pain. Neuro: Level of Consciousness is awake, alert, obeys commands, Oriented to person, place, time, situation. Cardiovascular: Reports lightheadedness, syncope, Rhythm is sinus rhythm. Respiratory: Airway is patent Respiratory effort is even, unlabored, Respiratory pattern is regular, symmetrical. GI: Reports diarrhea, Patient currently denies abdominal pain, nausea, vomiting. : Reports urinary frequency. Derm: Skin is pink, warm \T\ dry. Musculoskeletal: Circulation, motion, and sensation intact. Range of motion: intact in all extremities. Vital Signs: 11:45 BP 100 / 56; Pulse 76; Resp 18; Temp 97.8; Pulse Ox 98% on R/A; Weight 83.91 kg; Height ph 5 ft. 5 in. ; 13:32 BP 106 / 60; Pulse 72; Resp 18; Pulse Ox 98% ; ph 14:37 BP 110 / 62; Pulse 71; Resp 18; Temp 97.9; Pulse Ox 99% on R/A; ph 11:45 Body Mass Index 30.79 (83.91 kg, 165.1 cm) ph ED Course: 11:41 Patient arrived in ED. la1 11:41 Jackie Mann MD is Attending Physician. gb1 11:41 Silvana Avery, SIMI is Primary Nurse. ph 11:42 Arm band placed on Patient placed in an exam room, on a stretcher. ph 11:45 Triage completed. ll1 12:20 Initial lab(s) drawn, by me, sent to lab. EKG done, by ED staff, reviewed by Jackie Mann MD. Inserted saline lock: 20 gauge in right forearm, using aseptic technique. Blood collected. Flushed with 10 mL NS. 12:54 Patient has correct armband on for positive identification. Bed in low position. Call ph light in reach. Side rails up X2. Client placed on continuous cardiac and pulse oximetry monitoring. NIBP monitoring applied. salesperson burial plots on. Door closed. Noise minimized. Warm blanket given. 13:09 XRAY Chest (1 view) In Process Unspecified. EDMS 14:37 No provider procedures requiring assistance completed. IV discontinued, intact, ph bleeding controlled, No redness/swelling at site. Pressure dressing applied. Administered Medications: 12:29 Drug: NS 0.9% IV 1000 ml IV at 1000 ml once Route: IV; Rate: 1000 ml; Site: right ph forearm; 13:31 Follow up: Response: No adverse reaction; IV Status: Completed infusion; IV Intake: ph 1000ml Medication: 12:34 VIS not applicable for this client. ph Intake: 13:31 IV: 1000ml; Total: 1000ml. ph Outcome: 14:16 Discharge ordered by MD. paul 14:37 Discharged to home ambulatory, with significant other, 14:37 Condition: good 14:37 Discharge instructions given to patient, significant other, Instructed on discharge instructions, follow up and referral plans. Demonstrated understanding of instructions, follow-up care, 14:37 Patient left the ED. ph Signatures: Dispatcher [employer] EDMS Mirza Palomares, GIFT PACKER-C GIFT PACKER-Cla1 Silvana Avery RN RN ph Lu Acharya RN RN 1 Jackie Mann MD MD gb1
--- NOTE | 2024-02-21 14:16 | EDPHYS ---
Physician Documentation [facility] Name: Dyan Guevara Age: 68 yrs Sex: Female : 1955 Arrival Date: 02/21/2024 Time: 11:39 Bed 3 Private MD: ED Physician Jackie Mann HPI: 02/20 14:20 This 68 yrs old Female presents to ER via Wheelchair with complaints of near gb1 Syncope. 14:20 68-year-old female presents to the emergency department with feelings of dizziness and gb1 elevated blood sugars and around. Patient has a history of insulin-dependent diabetes, arthritis, GERD, hyperlipidemia and hypertension. Patient has been eating a lot more sweets lately to include muffins, cakes candies and cookies.. Historical: - Allergies: :42 No Known Allergies; ph - PMHx: :42 Arthritis; Diabetes - IDDM; GERD; High Cholesterol; Hypertension; ph - PSHx: 11:42 Appendectomy; ph - Immunization history:: Adult Immunizations unknown. - Infectious Disease History:: Denies. - Social history:: Smoking status: Patient denies any tobacco usage or history of. Exam: 14:20 Constitutional: This is a well developed, well nourished patient who is awake, alert, gb1 and in no acute distress. Head/Face: Normocephalic, atraumatic. Eyes: Pupils equal round and reactive to light, extra-ocular motions intact. Lids and lashes normal. Conjunctiva and sclera are non-icteric and not injected. Cornea within normal limits. Periorbital areas with no swelling, redness, or edema. ENT: Nares patent. No nasal discharge, no septal abnormalities noted. Tympanic membranes are normal and external auditory canals are clear. Oropharynx with no redness, swelling, or masses, exudates, or evidence of obstruction, uvula midline. Mucous membranes moist. Neck: Trachea midline, no thyromegaly or masses palpated, and no cervical lymphadenopathy. Supple, full range of motion without nuchal rigidity, or vertebral point tenderness. No Meningismus. Chest/axilla: Normal chest wall appearance and motion. Nontender with no deformity. No lesions are appreciated. Cardiovascular: Regular rate and rhythm with a normal S1 and S2. No gallops, murmurs, or rubs. Normal PMI, no JVD. No pulse deficits. Respiratory: Lungs have equal breath sounds bilaterally, clear to auscultation and percussion. No rales, rhonchi or wheezes noted. No increased work of breathing, no retractions or nasal flaring. Abdomen/GI: Soft, non-tender, with normal bowel sounds. No distension or tympany. No guarding or rebound. No evidence of tenderness throughout. Skin: Warm, dry with pale dry mucous membranes. Normal color with no rashes, no lesions, and no evidence of cellulitis. Vital Signs: 11:45 BP 100 / 56; Pulse 76; Resp 18; Temp 97.8; Pulse Ox 98% on R/A; Weight 83.91 kg; Height ph 5 ft. 5 in. ; 13:32 BP 106 / 60; Pulse 72; Resp 18; Pulse Ox 98% ; ph 14:37 BP 110 / 62; Pulse 71; Resp 18; Temp 97.9; Pulse Ox 99% on R/A; ph 11:45 Body Mass Index 30.79 (83.91 kg, 165.1 cm) ph MDM: 11:41 Patient medically screened. gb1 14:20 Differential Diagnosis: cerebrovascular accident, transient ischemic attack, vasovagal gb1 episode, Symptomatic anemia, DKA, uncontrolled type 2 diabetes with hyperglycemia, HONK. 14:20 ED course: 68-year-old female with history of poorly controlled gb1 insulin-dependent diabetes secondary to poor diet choices is here with uncomplicated hyperglycemia. Patient has no anion gap and I doubt diabetic ketoacidosis today. Of note patient has a history of chronic anemia for which she supposed to be on iron pills but she is not compliant. Patient's hemoglobin today is 7.0 from her baseline of 7.4. Patient denies any melanotic or bright red blood per rectum. She responded to IV fluids well and her mucous membranes are now moist and back to her baseline per . I have counseled her on diabetic diet to be Strict to keep her blood sugars within normal range. Patient has been using her insulin as well. She is to continue to doing so. Her EKG today shows normal sinus rhythm at 75 bpm with no nonspecific ST-T wave changes no signs of ischemia acutely. Patient also has a history of CKD for which she has a mild LAURA on CKD today. This is likely prerenal secondary to dehydration due to hyperglycemia acutely.. 14:24 Data reviewed: vital signs, nurses notes, lab test result(s), CBC, electrolytes, EKG. 02/20 11:42 Order name: Basic Metabolic Panel; Complete Time: 13:03 02/20 11:42 Order name: CBC with Diff; Complete Time: 13:39 02/20 11:42 Order name: LFT's; Complete Time: 13:03 02/20 11:42 Order name: Magnesium; Complete Time: 13:03 02/20 11:42 Order name: NT PRO-BNP; Complete Time: 13:03 02/20 11:42 Order name: PT-INR; Complete Time: 12:45 02/20 11:42 Order name: Troponin HS; Complete Time: 13:03 02/20 12:15 Order name: BETA HYDROXYBUTYRATE; Complete Time: 13:03 02/20 12:15 Order name: Lipase; Complete Time: 13:03 02/20 12:15 Order name: Phosphorus; Complete Time: 13:03 02/20 12:15 Order name: ABG; Complete Time: 13:03 02/20 13:30 Order name: CBC Smear Scan; Complete Time: 13:39 EDMS 02/20 11:42 Order name: XRAY Chest (1 view); Complete Time: 14:35 02/20 11:42 Order name: Cardiac monitoring; Complete Time: 12:16 02/20 11:42 Order name: EKG - Nurse/Tech; Complete Time: 12:16 02/20 11:42 Order name: IV Saline Lock; Complete Time: 12:17 02/20 11:42 Order name: Labs collected and sent; Complete Time: 12:17 02/20 11:42 Order name: O2 Per Protocol; Complete Time: 12:52 02/20 11:42 Order name: O2 Sat Monitoring; Complete Time: 12:52 02/20 12:15 Order name: NPO; Complete Time: 12:16 Administered Medications: 12:29 Drug: NS 0.9% IV 1000 ml IV at 1000 ml once Route: IV; Rate: 1000 ml; Site: right ph forearm; 13:31 Follow up: Response: No adverse reaction; IV Status: Completed infusion; IV Intake: ph 1000ml Disposition Summary: 02/21/24 14:16 Discharge Ordered Notes: Location: Home gb1 Condition: Stable gb1 Diagnosis - Anemia in chronic kidney disease gb1 - Type 2 diabetes mellitus with hyperglycemia gb1 - Syncope Near gb1 Followup: gb1 - With: Private Physician - When: - Reason: Recheck today's complaints Discharge Instructions: - Discharge Summary Sheet gb1 - Anemia gb1 - Diabetes Mellitus and Nutrition, Adult gb1 Forms: - Medication Reconciliation Form gb1 - Antibiotic Education gb1 - Prescription Opioid Use gb1 - Patient Portal Instructions gb1 - Leadership Thank You Letter gb1 Signatures: Dispatcher [employer] EDSilvana White RN RN ph Lu Acharya RN RN ll1 Jackie Mann MD MD gb1 Corrections: (The following items were deleted from the chart) 11:42 11:42 BASIC METABOLIC PANEL+C.LAB.BRZ ordered. EDMS EDMS 11:42 11:42 CBC+H.LAB.BRZ ordered. EDMS EDMS 11:42 11:42 HEPATIC FUNCTION+C.LAB.BRZ ordered. EDMS EDMS 11:42 11:42 MAGNESIUM+C.LAB.BRZ ordered. EDMS EDMS 11:42 11:42 PROBNP+C.LAB.BRZ ordered. EDMS EDMS 11:42 11:42 PROTIME (+INR)+COAG.LAB.BRZ ordered. EDMS EDMS 11:42 11:42 Troponin High Sensitivity+C.LAB.BRZ ordered. EDMS EDMS 11:42 11:42 Chest Single View+RAD.RAD.BRZ ordered. EDMS EDMS 12:16 12:16 BETA HYDROXYBUTYRATE+C.LAB.BRZ ordered. EDMS EDMS 12:16 12:16 LIPASE+C.LAB.BRZ ordered. EDMS EDMS 12:16 12:16 PHOSPHORUS+C.LAB.BRZ ordered. EDMS EDMS 12:16 12:16 Arterial Blood Gas+RC.LAB.BRZ ordered. EDMS EDMS
--- NOTE | 2024-02-21 14:29 | RAD REPORT ---
EXAMINATION: ONE VIEW CHEST XR CLINICAL INDICATION: Female, 68 years old. [facility] MAIN PAIN Bed Name: 3 TECHNIQUE: Frontal chest projection is submitted. Examination is limited by patient positioning and t echnique. COMPARISON: 01/05/[id number] FINDINGS: The lungs are well inflated and clear. No pneumothorax. The heart is normal in size. IMPRESSION: No acute intrathoracic abnormalities.
[2024-02-21 14:50] VITALS: BP 110/62; TEMP 97.9; O2SAT 99
--- NOTE | 2024-02-22 16:59 | EKG ---
Test Date: 2024-02-21 Test Time: 12:00:59 Lobster Man: PH MEASUREMENT RESULTS: Intervals: Rate: 75 ID: [id number] QRSD: 88 QT: 412 QTc: 460 [place]: P: 40 ID: [id number] QRS: 29 T: 46 INTERPRETIVE STATEMENTS: Normal sinus rhythm Possible Left atrial enlargement Cannot rule out Anterior infarct, age undetermined Abnormal ECG Compared to ECG 01/05/2024 20:31:00 Myocardial infarct finding now present Electronically Signed On 02-22-24 16:55:17 CDT by Jaren Chaidez
== END 2024-02-21 14:37 | disposition home or self-care (01) ==
LOC: ER 11:39
DX: D64.9 Anemia, unspecified (principal); E11.65 Type 2 diabetes mellitus with hyperglycemia; Z79.4 Long term (current) use of insulin; I10 Essential (primary) hypertension
CPT/HCPCS: 93005; 85025; 80048; 36415; 83735; 84100; 85610; 80076; 84484; 83690; 82010; 83880; 71045; 82805; 96360; 99285; J7030

== ENCOUNTER 2024-07-10 12:56 | Emergency (ER) | payer OTHER ==
--- NOTE | 2024-07-10 13:58 | RAD REPORT ---
EXAMINATION: CT ABDOMEN AND PELVIS WITHOUT CONTRAST CLINICAL INDICATION: Female, 69 years old.ABD PAIN TECHNIQUE: CT abdomen and pelvis was performed, without IV contrast, as per department protocol. Axia l, sagittal and coronal reconstructions were obtained. One or more of the following dose reduction techniques were used: Automated exposure control, adjustment of the mA and/or kV according to the pat ient size, and/or iterative reconstruction. Unless otherwise specified, incidental findings do not require dedicated imaging follow-up. [id number]. IV CONTRAST: Not administered. COMPARISON: 04/09/2022 FINDINGS: The lack of intravenous contrast limits the sensitivity of this exam for evaluation of solid visceral organs, vascular structures, and retroperitoneum. LOWER CHEST: No acute process identified.No significant pericardial effusion. Moderate hiatal hernia. UPPER GI: No significant abnormality. LIVER: No significant focal abnormality. GALLBLADDER/BILE DUCTS: Cholecystectomy. Mild extra-hepatic biliary ductal dilatation is likely relat ed to the post-cholecystectomy state. Consider correlating with LFT's.? PANCREAS: Atrophy, but otherwise unremarkable. SPLEEN: Unremarkable. ADRENALS: No adrenal masses. KIDNEYS AND URETERS: No hydronephrosis.Within the limitations of a noncontrast CT, no suspicious randee l lesions. ABDOMINAL AORTA AND OTHER VESSELS: Normal caliber aorta and IVC. PERITONEUM: No abnormal free fluid. No free air. LYMPH NODES: No pathologic lymphadenopathy. ABDOMINAL WALL: Small fat containing umbilical hernia. SMALL BOWEL/COLON: Small bowel has normal course and caliber. No colonic wall thickening or pericolon ic inflammatory changes.Normal appendix. Moderate colonic stool. URINARY BLADDER: Underdistended but grossly unremarkable. REPRODUCTIVE ORGANS: Uterus surgically absent. No adnexal abnormality. MUSCULOSKELETAL: Subacute versus chronic L1 compression fracture with up to 30% loss of height which was present on the 07/03/2024 lumbar spine radiograph. No acute fracture identified. ADDITIONAL FINDINGS: None. IMPRESSION: No acute or significant abnormalities in the abdomen or pelvis, with evaluation limited by lack of IV contrast. Incidental findings as noted above.
[2024-07-10] MEDS ORDERED: ONDANSETRON 4 MG/2 ML VIAL ONE (15:07)
[2024-07-10 15:11] LABS: Absolute Basophils 0.1 K/uL (0-0.5); Absolute Eosinophils 0.1 K/uL (0-0.5); Absolute Lymphocytes (CBC) 1.9 K/uL (0.7-4.9); Absolute Monocytes 0.8 K/uL (0.1-1.3); Absolute Neutrophil 11.4 K/uL (1.8-8.0); Basophils % 0.5 % (0-1.3); Eosinophils % 0.7 % (0-4.4); Hematocrit 34.7 % (36.0-45.0); Hemoglobin 11.5 g/dL (12.0-15.0); Lymphocytes % 13.2 % (15.3-44.8); MCH 27.7 pg (27.0-35.0); MCHC 33.1 g/dL (32.0-36.0); MCV 83.7 fL (80-100); Monocytes % 5.5 % (3.3-12.3); Neutrophils % 80.1 % (41.7-73.7); Nucleated Red Blood Cells % 0.1 % (0-0); Platelets 358 thou/uL (152-406); RBC Red Blood Cell Count 4.15 M/uL (3.86-4.86); Red Cell Distribution Width 16.7 % (12.1-15.2)
[2024-07-10 15:36] LABS: Albumin 3.1 g/dL (3.4-5.0); Albumin/Globulin Ratio 0.7 (1.1-1.8); Anion Gap 6.2 mEq/L (5.0-15.0); Bilirubin Total 0.5 mg/dL (0.2-1.0); Globulin 4.4 g/dL (2.3-3.5); Potassium 3.2 mEq/L (3.5-5.1); Protein, Total 7.5 g/dL (6.4-8.2)
[2024-07-10 15:41] LABS: Specific Gravity 1.018 (1.005-1.030); Urine Bilirubin NEGATIVE (Negative); Urine Blood Negative (Negative); Urine Clarity Clear (Clear); Urine Color Light-Yellow (Yellow); Urine Glucose 4+ (Over) (Negative); Urine Ketones NEGATIVE (Negative); Urine Microscopic Reflex YN NO UMIC; Urine Nitrite NEGATIVE (Negative); Urine Protein NEGATIVE (Negative); Urine Urobilinogen Normal (Normal); Urine pH 5.5 (5.0-7.0)
--- NOTE | 2024-07-10 15:43 | ER ---
Nurse's Notes [facility] Name: Dyan Guevara Age: 69 yrs Sex: Female : 1955 Arrival Date: 07/10/2024 Time: 12:56 Bed IW1 Private MD: Diagnosis: Low back pain;Leukocytosis Presentation: 07/10 13:10 Chief complaint: EMS states: Back and kidney pain, recently finished antibiotics for ll1 UTI. Baseline mentation for patient per EMS and family. IV started R AC, toradol 15 MG IV given en route. 13:10 Method Of Arrival: EMS ll1 13:15 Chief complaint: Patient states: Back pain started today. States she has had "kidney ll1 pains" for 2 weeks. Finished antibiotics for UTI 2 days ago. + fever and nausea. Coronavirus screen: Client denies travel out of the [place] in the last 14 days. Client presents with at least one sign or symptom that may indicate coronavirus-19. Standard/surgical mask placed on the client. Ebola Screen: Patient denies travel to an Ebola-affected area in the 21 days before illness onset. Initial Sepsis Screen: Does the patient meet any 2 criteria? No. Patient's initial sepsis screen is negative. Does the patient have a suspected source of infection? No. Patient's initial sepsis screen is negative. Risk Assessment: Do you want to hurt yourself or someone else? Patient reports no desire to harm self or others. Onset of symptoms was June 28, 2024. 13:15 Acuity: DAVID 3 ll1 Triage Assessment: 13:10 General: Appears uncomfortable, Behavior is calm, cooperative, appropriate for age. ll1 General: Reports fatigue for. Pain: Complains of pain in back Quality of pain is described as aching. Neuro: Reports weakness. Musculoskeletal: Reports pain in back. Historical: - Allergies: 13:10 No Known Allergies; ll1 - PMHx: 13:10 Arthritis; Diabetes - IDDM; GERD; High Cholesterol; Hypertension; ll1 - PSHx: 13:10 Appendectomy; ll1 - Immunization history:: Adult Immunizations up to date. - Infectious Disease History:: Denies. - Social history:: Smoking status: Patient reports the use of cigarette tobacco products, smokes .1 packs per day. Screenin:26 [facility] ED Fall Risk Assessment (Adult) History of falling in the last 3 months, ll1 including since admission No falls in past 3 months (0 pts) Confusion or Disorientation No (0 pts) Intoxicated or Sedated No (0 pts) Impaired Gait Yes (1 pt) Mobility Assist Device Used Yes (1 pt) Altered Elimination No (0 pt) Score/Fall Risk Level 0 - 2 = Low Risk Maintained a safe environment, Hourly rounding (assess needs \\T\\ fall precautionary measures) done. Abuse screen: Denies threats or abuse. Nutritional screening: No deficits noted. Tuberculosis screening: No symptoms or risk factors identified. Assessment: 16:25 Reassessment: No changes from previously documented assessment. Patient and/or family ll1 updated on plan of care and expected duration. Pain level reassessed. 16:26 Neuro: Level of Consciousness is awake, alert, obeys commands. ll1 Vital Signs: 13:15 BP 104 / 61; Pulse 80; Resp 17; Temp 97.1; Pulse Ox 100% ; Weight 74.84 kg; Height 5 ll1 ft. 4 in. ; Pain 8/10; 16:27 Resp 16; ll1 13:15 Body Mass Index 28.32 (74.84 kg, 162.56 cm) ll1 13:15 Pain Scale: Adult ll1 ED Course: 12:58 Patient arrived in ED. im 13:10 Alden Soliz MD is Attending Physician. ec2 13:10 Arm band placed on. ll1 13:10 Maintain EMS IV. Dressing intact. Good blood return noted. Site clean \\T\\ dry. Gauge \\T\\ ll 1 site: 20 R AC. Flushed with 10 mL NS IV is patent, is intact, with fluids infusing freely, with good blood return. 13:17 Triage completed. ll1 13:52 CT Abd/Pelvis - Without Contrast In Process Unspecified. EDMS 14:00 Patient has correct armband on for positive identification. Provided Education on: ER ll1 procedures and process. 16:25 No provider procedures requiring assistance completed. IV discontinued, intact, ll1 bleeding controlled, No redness/swelling at site. Pressure dressing applied, 20 G R AC. Administered Medications: 15:14 Drug: Ondansetron IVP 4 mg IVP once; over 2 minutes Route: IVP; Site: right antecubital;kb3 16:27 Follow up: Response: No adverse reaction ll1 Medication: 16:27 VIS not applicable for this client. ll1 Outcome: 15:42 Discharge ordered by . ec2 16:26 Discharged to home via wheelchair, ll1 16:26 Condition: stable 16:26 Discharge instructions given to patient, family, Instructed on discharge instructions, follow up and referral plans. no drinking with medication, no driving heavy equipment, medication usage, Demonstrated understanding of instructions, follow-up care, medications, Prescriptions given X 1, 16:28 Patient left the ED. ll1 Signatures: Dispatcher [employer] Lu Pinedo RN RN ll1 Lois Jasmine RN RN kb3 Damari Lainez Edwin, MD MD ec2
--- NOTE | 2024-07-10 15:43 | EDPHYS ---
Physician Documentation [facility] Name: Dyan Guevara Age: 69 yrs Sex: Female : 1955 Arrival Date: 07/10/2024 Time: 12:56 Bed IW1 Private MD: ED Physician Alden Soliz HPI: 07/10 13:23 This 69 yrs old Female presents to ER via EMS with complaints of Back Pain. ec2 13:23 Patient arrives today for general back pain. Reports that she was recently diagnosed ec2 with a urinary tract infection and finished her antibiotics and is having continued back pain. Reports no urinary complaints at this time. Reports some general abdominal pain as well.. Historical: - Allergies: 13:10 No Known Allergies; ll1 - PMHx: 13:10 Arthritis; Diabetes - IDDM; GERD; High Cholesterol; Hypertension; ll1 - PSHx: 13:10 Appendectomy; ll1 - Immunization history:: Adult Immunizations up to date. - Infectious Disease History:: Denies. - Social history:: Smoking status: Patient reports the use of cigarette tobacco products, smokes .1 packs per day. ROS: 13:24 Constitutional: as per hpi ec2 Exam: 13:24 Constitutional: GEN: NAD Head: atraumatic Eyes: EOMI Ears: External ears are ec2 normal. CV: regular rate LUNGS: no respiratory distress ABD: non-distended, soft, nontender, guarding, rigidity, general back TTP without deformity SKIN: no evidence of rashes MSK: no evidence of trauma Vital Signs: 13:15 BP 104 / 61; Pulse 80; Resp 17; Temp 97.1; Pulse Ox 100% ; Weight 74.84 kg; Height 5 ll1 ft. 4 in. ; Pain 8/10; 16:27 Resp 16; ll1 13:15 Body Mass Index 28.32 (74.84 kg, 162.56 cm) ll1 13:15 Pain Scale: Adult ll1 MDM: 13:12 Medical Screening Exam initiated ec2 13:25 Data reviewed: vital signs, nurses notes. ED course: Patient arrives today for low back ec2 pain with recent urinary tract infections. Examination is revealing for MSK and abdominal findings as above. Will obtain lab work, CT imaging and urine studies. Differential diagnosis include processes such as UTI, pyelonephritis, intra-abdominal infection. 15:42 ED course: Metabolic profile shows slight hypokalemia, renal dysfunction with ec2 creatinine 1.38 and GFR 42. CBC is reassuring with slight leukocytosis. UA shows glucosuria. Will discharge home. Return precautions given.. 07/10 13:22 Order name: CBC with Diff; Complete Time: 15:15 ec2 07/10 13:22 Order name: CMP; Complete Time: 15:41 ec2 07/10 13:22 Order name: Urinalysis w/ reflexes; Complete Time: 15:41 ec2 07/10 13:22 Order name: CT Abd/Pelvis - Without Contrast; Complete Time: 15:05 ec2 07/10 13:22 Order name: IV Saline Lock; Complete Time: 15:14 ec2 07/10 13:22 Order name: Labs collected and sent; Complete Time: 15:14 ec2 Administered Medications: 15:14 Drug: Ondansetron IVP 4 mg IVP once; over 2 minutes Route: IVP; Site: right antecubital;kb3 16:27 Follow up: Response: No adverse reaction ll1 Disposition Summary: 07/10/24 15:42 Discharge Ordered Notes: Location: Home ec2 Condition: Stable ec2 Diagnosis - Low back pain ec2 - Leukocytosis ec2 Followup: ec2 - With: Private Physician - When: - Reason: Re-evaluation by your physician Discharge Instructions: - Discharge Summary Sheet ec2 - Acute Back Pain, Adult ec2 Forms: - Medication Reconciliation Form ec2 - Antibiotic Education ec2 - Prescription Opioid Use ec2 - Patient Portal Instructions ec2 - Leadership Thank You Letter ec2 Prescriptions: - methocarbamol 500 mg Oral tablet - take 1 tablet ORAL route 4 times per day; 20 tablet; Refills: 0, Product ec2 Selection Permitted Signatures: Dispatcher [employer] Lu Pinedo RN RN ll1 Lois Jasmine RN RN kb3 Alden Soliz MD MD ec2
[2024-07-10 16:57] VITALS: BP 104/61; TEMP 97.1; O2SAT 100
== END 2024-07-10 16:28 | disposition home or self-care (01) ==
LOC: ER 12:56
DX: M54.50 Low back pain, unspecified (principal); D72.829 Elevated white blood cell count, unspecified; F17.210 Nicotine dependence, cigarettes, uncomplicated
CPT/HCPCS: 85025; 36415; 81003; 80053; 74176; 96374; 99284; J2405

== ENCOUNTER 2024-07-21 14:40 | Emergency (ER) | payer OTHER ==
--- NOTE | 2024-07-21 14:48 | EDPHYS ---
Physician Documentation [facility] Name: Dyan Guevara Age: 69 yrs Sex: Female : 1955 Arrival Date: 07/21/2024 Time: 14:40 Bed 13 Private MD: ED Physician Alden Soliz HPI: 07/21 14:51 This 69 yrs old Female presents to ER via Unassigned with complaints of ec2 Medication Refill. 14:51 Patient arrives today for evaluation of low back pain. Patient on [place] for back pain. ec2 No new concerns, no falls injuries or trauma, no spinal cord or concerns. Patient has outpatient follow-up with spine surgery in 3 days. Patient is asking for medications for her low back pain. Historical: - Allergies: 14:51 No Known Allergies; ss - PMHx: 14:51 Arthritis; Diabetes - IDDM; GERD; High Cholesterol; Hypertension; ss - PSHx: 14:51 Appendectomy; ss - Immunization history:: Adult Immunizations unknown. - Infectious Disease History:: Denies. - Social history:: Smoking status: Patient denies any tobacco usage or history of. ROS: 14:52 Constitutional: as per hpi ec2 Exam: 14:52 Constitutional: GEN: NAD Head: atraumatic Eyes: EOMI Ears: External ears are ec2 normal. CV: regular rate LUNGS: no respiratory distress ABD: non-distended SKIN: no evidence of rashes MSK: no evidence of trauma. Ambulatory individual who is in no acute distress. Vital Signs: 14:50 BP 145 / 88; Pulse 84; Resp 16; Temp 98(TE); Pulse Ox 100% ; Pain 8/10; ss 14:50 Pain Scale: Adult ss MDM: 14:43 Medical Screening Exam initiated ec2 14:52 Data reviewed: vital signs, nurses notes. ED course: Patient arrives today for chronic ec2 low back pain. Examination is unrevealing. Will give the patient medications have her follow-up with her spine surgeon. Return precautions given. Differential diagnosis considered include processes such as acute fracture, spinal cord pathology, musculoskeletal strain.. Administered Medications: 14:55 Drug: Ketorolac IM 30 mg IM once Route: IM; Site: left deltoid; db 15:10 Follow up: Response: No adverse reaction db 14:55 Drug: Lidoderm Topical Patch 5 % (700 mg/patch) 1 patches Topical once; leave on for 12 db hours; cover most painful area; may cut into smaller pieces Route: Topical; Site: affected area; 15:10 Follow up: Response: No adverse reaction db 14:55 Drug: Acetaminophen PO 1000 mg PO once Route: PO; db 15:10 Follow up: Response: No adverse reaction db 14:55 Drug: Methocarbamol PO 500 mg PO once Route: PO; db 15:10 Follow up: Response: No adverse reaction db Disposition Summary: 07/21/24 14:48 Discharge Ordered Notes: Location: Home ec2 Condition: Stable ec2 Diagnosis - Low back pain ec2 Followup: ec2 - With: Private Physician - When: - Reason: Re-evaluation by your physician Discharge Instructions: - Discharge Summary Sheet ec2 - Chronic Back Pain ec2 Forms: - Medication Reconciliation Form ec2 - Antibiotic Education ec2 - Prescription Opioid Use ec2 - Patient Portal Instructions ec2 - Leadership Thank You Letter ec2 Prescriptions: - acetaminophen-codeine 300-30 mg Oral tablet - take 1 tablet ORAL route every 8 hours; 8 tablet; Refills: 0, Product Selection ec2 Permitted Signatures: Ana Paula Toure RN RN ss Heavenly Frazier RN RN db Alden Soliz MD MD ec2 Corrections: (The following items were deleted from the chart) 14:52 14:51 Patient arrives today for evaluation of low back pain. Patient on [place] for back ec2 pain. No new concerns, no falls injuries or trauma, no spinal cord or concerns.. ec2
[2024-07-21] MEDS ORDERED: KETOROLAC 30 MG/ML INJ ONE (14:58)
[2024-07-21] MEDS ORDERED: methocarbamoL 500 MG TAB ONE (14:58)
[2024-07-21] MEDS ORDERED: ACETAMINOPHEN 500 MG TAB ONE (14:58)
[2024-07-21] MEDS ORDERED: LIDOCAINE 4% PATCH ONE (14:59)
--- NOTE | 2024-07-21 15:19 | ER ---
Nurse's Notes [facility] Name: Dyan Guevara Age: 69 yrs Sex: Female : 1955 Arrival Date: 07/21/2024 Time: 14:40 Bed 13 Private MD: Diagnosis: Low back pain Presentation: 07/21 14:50 Chief complaint: Patient states: Requesting a refill for [place] until her follow up ss appointment on Wednesday. Coronavirus screen: Client denies travel out of the [place] in the last 14 days. Ebola Screen: Patient denies exposure to infectious person. Patient denies travel to an Ebola-affected area in the 21 days before illness onset. Initial Sepsis Screen: Does the patient meet any 2 criteria? No. Patient's initial sepsis screen is negative. Does the patient have a suspected source of infection? No. Patient's initial sepsis screen is negative. Risk Assessment: Do you want to hurt yourself or someone else? Patient reports no desire to harm self or others. Onset of symptoms is unknown. 14:50 Method Of Arrival: Ambulatory ss 14:50 Acuity: DAVID 5 ss Triage Assessment: 15:10 General: Behavior is calm, cooperative. db Historical: - Allergies: 14:51 No Known Allergies; ss - PMHx: 14:51 Arthritis; Diabetes - IDDM; GERD; High Cholesterol; Hypertension; ss - PSHx: 14:51 Appendectomy; ss - Immunization history:: Adult Immunizations unknown. - Infectious Disease History:: Denies. - Social history:: Smoking status: Patient denies any tobacco usage or history of. Screenin:08 [facility] ED Fall Risk Assessment (Adult) History of falling in the last 3 months, db including since admission No falls in past 3 months (0 pts) Confusion or Disorientation No (0 pts) Intoxicated or Sedated No (0 pts) Impaired Gait No (0 pts) Mobility Assist Device Used No (0 pt) Altered Elimination No (0 pt) Score/Fall Risk Level 0 - 2 = Low Risk Oriented to surroundings, Maintained a safe environment. Abuse screen: Denies threats or abuse. Denies injuries from another. Nutritional screening: No deficits noted. Tuberculosis screening: No symptoms or risk factors identified. Assessment: 15:08 Reassessment: Patient appears in no apparent distress at this time. Patient and/or db family updated on plan of care and expected duration. Pain level reassessed. Patient is alert, oriented x 3, equal unlabored respirations, skin warm/dry/pink. General: Appears in no apparent distress. comfortable. Pain: Complains of pain in back. Neuro: Level of Consciousness is awake, alert, obeys commands, Oriented to person, place, time, situation. Respiratory: Airway is patent Respiratory effort is even, unlabored, Respiratory pattern is regular, symmetrical. Vital Signs: 14:50 BP 145 / 88; Pulse 84; Resp 16; Temp 98(TE); Pulse Ox 100% ; Pain 8/10; ss 14:50 Pain Scale: Adult ss ED Course: 14:41 Patient arrived in ED. ec2 14:42 Alden Soliz MD is Attending Physician. ec2 14:51 Heavenly Frazier RN is Primary Nurse. db 14:51 Triage completed. ss 14:51 Arm band placed on right wrist. ss 15:08 Patient has correct armband on for positive identification. Side rails up X 1. Provided db Education on: DISCHARGE AND FOLLOWUP. Pulse ox on. 15:08 No provider procedures requiring assistance completed. Patient did not have IV access db during this emergency room visit. Administered Medications: 14:55 Drug: Ketorolac IM 30 mg IM once Route: IM; Site: left deltoid; db 15:10 Follow up: Response: No adverse reaction db 14:55 Drug: Lidoderm Topical Patch 5 % (700 mg/patch) 1 patches Topical once; leave on for 12 db hours; cover most painful area; may cut into smaller pieces Route: Topical; Site: affected area; 15:10 Follow up: Response: No adverse reaction db 14:55 Drug: Acetaminophen PO 1000 mg PO once Route: PO; db 15:10 Follow up: Response: No adverse reaction db 14:55 Drug: Methocarbamol PO 500 mg PO once Route: PO; db 15:10 Follow up: Response: No adverse reaction db Medication: 15:08 VIS not applicable for this client. db Outcome: 14:48 Discharge ordered by . ec2 15:08 Discharged to home ambulatory, db 15:08 Condition: stable 15:08 Discharge instructions given to patient, Instructed on discharge instructions, follow up and referral plans. Prescriptions given X 1, 15:19 Patient left the ED. eb Signatures: Ana Paula Toure RN RN ss Jolie Lopez Danielle RN RN db Alden Soliz MD MD ec2
[2024-07-21 15:28] VITALS: BP 145/88; TEMP 98; O2SAT 100
== END 2024-07-21 15:19 | disposition home or self-care (01) ==
LOC: ER 14:40
DX: M54.50 Low back pain, unspecified (principal)
CPT/HCPCS: 96372; 99284; J2003

== ENCOUNTER 2024-10-02 12:10 | Emergency (ER) | payer OTHER ==
--- NOTE | 2024-10-02 13:23 | RAD REPORT ---
EXAMINATION: XR LEFT SHOULDER CLINICAL INDICATION: Female, 69 years old. PAIN TECHNIQUE: Internal and external AP view radiograph of the left shoulder were obtained. COMPARISON: No prior exam. FINDINGS: No evidence of fracture or dislocation. Normal alignment. Mild to moderate AC joint degener ative changes. Glenohumeral joint is well aligned. Mild irregularity and sclerosis along the greater tuberosity could relate chronic rotator cuff changes. Soft tissues are unremarkable. IMPRESSION: No acute osseous abnormalities. Chronic findings as above..
--- NOTE | 2024-10-02 13:28 | RAD REPORT ---
EXAMINATION: XR Elbow Right 3 View CLINICAL INDICATION: Female, 69 years old. PAIN RIGHT TECHNIQUE: 3 view radiographs of the right elbow were obtained. COMPARISON: 12/26/2007 FINDINGS: No evidence of fracture or dislocation. Normal alignment. No joint effusion. Mild degenerat chika changes with marginal spurring along the ulnotrochlear articulation. No suspicious focal bone lesion. Soft tissues are unremarkable. IMPRESSION: No acute Osseous abnormalities. Mild degenerative changes of the ulnotrochlear articulation.
--- NOTE | 2024-10-02 13:29 | RAD REPORT ---
EXAMINATION: XR Elbow Left 3 View CLINICAL INDICATION: Female, 69 years old. PAIN TECHNIQUE: 3 view radiographs of the left elbow were obtained. COMPARISON: 12/26/2007 FINDINGS: No evidence of fracture or dislocation. Normal alignment. No joint effusion. No evidence of arthropathy. No suspicious focal bone lesion. Soft tissues show vascular calcifications.. IMPRESSION: No acute or significant abnormalities.
--- NOTE | 2024-10-02 13:30 | RAD REPORT ---
EXAMINATION: XR PELVIS CLINICAL INDICATION: Female, 69 years old. [facility] MAIN BLUNT TRAUMA Bed Name: [id number] TECHNIQUE: AP Pelvis radiograph was obtained. COMPARISON: No prior exam. FINDINGS: No evidence of fracture or dislocation. Normal alignment. No evidence of AVN. Mild degenera tive changes more so along the right hip joint. Mild to moderate SI joint degenerative changes. Soft tissues are unremarkable. IMPRESSION: No acute osseous abnormalities. Degenerative changes as above.
--- NOTE | 2024-10-02 13:38 | RAD REPORT ---
EXAMINATION: XR Femur Right CLINICAL INDICATION: Female, 69 years old. PAIN RIGHT TECHNIQUE: 2 view radiograph of the right femur were obtained. COMPARISON: No prior exam. FINDINGS: No evidence of fracture or dislocation. Normal alignment. Mild right hip joint degenerative changes. Moderate degenerative changes of the knee. Incidentally noted fabella. No other focal bone lesion. Soft tissues are unremarkable. IMPRESSION: No acute osseous abnormalities. Degenerative changes as above.
--- NOTE | 2024-10-02 13:39 | RAD REPORT ---
EXAM: XR Knee Right 3 View HISTORY: [facility] MAIN PAIN Bed Name: [id number] COMPARISON: 01/14/2023 TECHNIQUE: 3 views of the right knee were obtained. FINDINGS: No knee effusion is seen. There is no evidence of acute fracture or dislocation. Moderate degenerative changes, with joint space loss and osseous remodeling most pronounced along the medial weightbearing compartment. Findings are grossly stable. No soft tissue swelling or other soft tissue abnormality is present. IMPRESSION: No evidence of acute osseous abnormality. Stable degenerative changes as above.
--- NOTE | 2024-10-02 13:40 | RAD REPORT ---
EXAMINATION: XR RIGHT SHOUDLER CLINICAL INDICATION: Female, 69 years old. PAIN TECHNIQUE:Two view radiograph of the right shoulder were obtained. COMPARISON: No prior exam. FINDINGS: No acute bone or joint abnormality detected. Moderate AC joint degenerative changes. Advanc ed glenohumeral joint degenerative changes with [id number] appearance and subchondral sclerosis along the inferior aspect of the joint. Surrounding soft tissues are unremarkable. IMPRESSION: No acute osseous abnormalities. Up to advanced degenerative changes as above.
[2024-10-02] MEDS ORDERED: ACETAMINOPHEN 325 MG TABLET ONE (13:48)
--- NOTE | 2024-10-02 14:19 | RAD REPORT ---
EXAM: CT brain without contrast HISTORY: fall, head injury COMPARISON: 10/28/2023 TECHNIQUE: Multiple contiguous axial images were obtained and a CT of the brain without contrast. Sag ittal and coronal reformats were performed. FINDINGS: No evidence of hydrocephalus, intracranial hemorrhage, or extra-axial fluid collection. Left cerebellar foliar, left basal ganglia, and centrum semiovale foci of hypoattenuation, stable, ma y reflect sequelae of remote ischemia. Other nonspecific mild periventricular and deep white matter hypodensities, stable, suggestive of chronic microvascular ischemic changes. The calvarium is intact. The visualized paranasal sinuses and mastoid air cells are essentially clear . IMPRESSION: No evidence of acute intracranial abnormality. Stable chronic appearing findings as above. EXAM: CT of the cervical spine without contrast HISTORY: fall, head injury COMPARISON: None TECHNIQUE: Multiple contiguous axial images were obtained in a CT of the cervical spine without contr ast. Sagittal and coronal reformats were performed. FINDINGS: The vertebral bodies demonstrate normal height and alignment. No evidence of acute fracture or subluxation.. No degenerative changes are present. No prevertebral soft tissue swelling is seen. The posterior facets are well aligned. Normal alignment of the skull base with the cervical spine is seen. The lung apices are unremarkable. Hypoattenuating expansile isthmic 3 cm nodule, appear stable, not w ell evaluated. IMPRESSION: No evidence of acute osseous abnormality of the cervical spine.
--- NOTE | 2024-10-02 14:33 | EDPHYS ---
Physician Documentation [facility] Name: Dyan Guevara Age: 69 yrs Sex: Female : 1955 Arrival Date: 10/02/2024 Time: 12:10 Bed 25 Private MD: ED Physician Nahid Rich HPI: 10/02 12:27 This 69 yrs old Female presents to ER via Ambulatory with complaints of Fall rn Injury, Head Injury-Adult. 12:27 Details of fall: The patient fell from an upright position, while walking. Onset: The rn symptoms/episode began/occurred last night. Associated injuries: The patient sustained injury to the head. Severity of symptoms: At their worst the symptoms were mild, in the emergency department the symptoms are actually worse. Patient reports walking yesterday, tripped, mechanical fall forward, struck right forehead on ground. No LOC. No vomiting. No seizure. Patient reports minimal pain at the fall 2 shoulders elbows and knee. Patient reports woke up this morning with increased pain of the elbows, left shoulder, right knee and noticed bruising to the right posterior thigh. Mild headache. Does not take blood thinners.. Historical: - Allergies: 12:17 No Known Allergies; ld1 - PMHx: 12:17 Arthritis; Diabetes - IDDM; GERD; High Cholesterol; Hypertension; ld1 - PSHx: 12:17 Appendectomy; ld1 - Immunization history:: Adult Immunizations up to date. - Infectious Disease History:: Denies. - Social history:: Smoking status: Patient denies any tobacco usage or history of. - Family history:: not pertinent. - Hospitalizations: : No recent hospitalization is reported. ROS: 12:27 Constitutional: Negative for fever, chills, and weight loss, Eyes: Negative for injury, rn pain, redness, and discharge, Neck: Negative for injury, pain, and swelling, Cardiovascular: Negative for chest pain, palpitations, and edema, Respiratory: Negative for shortness of breath, cough, wheezing, and pleuritic chest pain, Abdomen/GI: Negative for abdominal pain, nausea, vomiting, diarrhea, and constipation, Back: Negative for injury and pain, MS/Extremity: Positive for right elbow pain, left elbow pain, left shoulder pain, right knee pain Skin: Positive for bruising to bilateral elbows Neuro: Positive for mild headache. Negative for focal weakness or numbness. No seizure. Exam: 12:27 Constitutional: This is a well developed, well nourished patient who is awake, alert, rn and in no acute distress. Head/Face: Normocephalic, atraumatic. Neck: Trachea midline, no midline cervical tenderness Chest/axilla: No crepitus or tenderness Cardiovascular: Regular rate and rhythm. No pulse deficits. Respiratory: Speaking full sentences, unlabored. No increased work of breathing, no retractions or nasal flaring. Abdomen/GI: Soft, nontender Back: No midline spinal tenderness MS/ Extremity: Pulses equal, no cyanosis. Neurovascular intact. Full, normal range of motion. No gross deformity but patient reports painful range of motion to bilateral elbows, left shoulder, right knee. Neuro: Awake and alert, GCS 15, oriented to person, place, time, and situation. Motor strength 5/5 in all extremities. Sensory grossly intact. Cerebellar exam normal Vital Signs: 12:16 BP 151 / 87; Pulse 89; Resp 18; Temp 97.5(TE); Pulse Ox 95% on R/A; Height 5 ft. 3 in. ld1 ; Pain 8/10; 13:57 BP 158 / 80; Pulse 79; Resp 15; Pulse Ox 97% ; Pain 10/10; cm10 12:16 Pain Scale: Adult ld1 13:57 Pain Scale: Adult cm10 MDM: 12:14 Medical Screening Exam initiated rn 14:31 Differential diagnosis: closed head injury, contusion, fracture, sprain, strain. Data rn reviewed: vital signs, nurses notes, radiologic studies, CT scan, plain films, and as a result, I will discharge patient. Counseling: I had a detailed discussion with the patient and/or guardian regarding the historical points, exam findings, and any diagnostic results supporting the discharge/admit diagnosis, radiology results, the need for outpatient follow up, to return to the emergency department if symptoms worsen or persist or if there are any questions or concerns that arise at home. Special discussion: I discussed with the patient/guardian in detail that at this point there is no indication for admission to the hospital. It is understood, however, that if the symptoms persist or worsen the patient needs to return immediately for re-evaluation. ED course: No acute findings in CT head or x-rays of extremities. Will discharge home with return precautions.. 10/02 12:20 Order name: CT Head C Spine; Complete Time: 14:23 rn 10/02 12:20 Order name: XRAY Elbow RIGHT 3 view; Complete Time: 13:40 rn 10/02 12:20 Order name: XRAY Elbow LEFT 3 view; Complete Time: 13:40 rn 10/02 12:20 Order name: XRAY Shoulder LEFT 2 view; Complete Time: 13:40 rn 10/02 12:20 Order name: XRAY Pelvis; Complete Time: 13:40 rn 10/02 12:20 Order name: XRAY Femur RIGHT; Complete Time: 13:40 rn 10/02 12:20 Order name: XRAY Knee RIGHT 3 view; Complete Time: 14:23 rn 10/02 12:43 Order name: Shoulder Right 2+ Views; Complete Time: 14:23 EDMS Administered Medications: 13:57 Drug: Acetaminophen PO 650 mg PO once Route: PO; cm10 14:48 Follow up: Response: No adverse reaction cm10 Disposition Summary: 10/02/24 14:32 Discharge Ordered Notes: Location: Home rn Problem: new rn Symptoms: have improved rn Condition: Stable rn Diagnosis - Unspecified injury of head, initial encounter rn - Contusion of left elbow rn - Contusion of right elbow rn Followup: rn - With: Private Physician - When: As needed - Reason: Recheck today's complaints, Re-evaluation by your physician Discharge Instructions: - Discharge Summary Sheet rn - Head Injury, Adult rn - Elbow Contusion rn Forms: - Medication Reconciliation Form rn - Antibiotic overnight cashier - Prescription Opioid Use rn - Patient Portal Instructions rn - Leadership Thank You Letter rn Signatures: Dispatcher [employer] EDNahid River MD MD rn Sims, Lauren RN RN eze1 Kallie Ellison RN RN cm10 Corrections: (The following items were deleted from the chart) 12:18 12:17 Allergies: Aspirin; ld1 ld1 12:21 12:21 Elbow Left 3 View+RAD.RAD.BRZ ordered. EDMS EDMS 12:21 12:21 Shoulder Left 2 View+RAD.RAD.BRZ ordered. EDMS EDMS 12:21 12:21 Pelvis+RAD.RAD.BRZ ordered. EDMS EDMS 12:21 12:21 Femur Right+RAD.RAD.BRZ ordered. EDMS EDMS 12:21 12:21 Knee Right 3 View+RAD.RAD.BRZ ordered. EDMS EDMS
--- NOTE | 2024-10-02 14:33 | ER ---
Nurse's Notes [facility] Name: Dyan Guevara Age: 69 yrs Sex: Female : 1955 Arrival Date: 10/02/2024 Time: 12:10 Bed 25 Private MD: Diagnosis: Unspecified injury of head, initial encounter;Contusion of left elbow;Contusion of right elbow Presentation: 10/02 12:16 Chief complaint: Patient states: Pt reports tripping and falling last night - hit head ld1 on ground. Hit right side of forehead, right shoulder, right arm, right leg. Coronavirus screen: At this time, the client does not indicate any symptoms associated with coronavirus-19. Ebola Screen: No symptoms or risks identified at this time. Initial Sepsis Screen: Does the patient meet any 2 criteria? No. Patient's initial sepsis screen is negative. Does the patient have a suspected source of infection? No. Patient's initial sepsis screen is negative. Risk Assessment: Do you want to hurt yourself or someone else? Patient reports no desire to harm self or others. Onset of symptoms was October 02, 2024 at 12:17. 12:16 Method Of Arrival: Ambulatory ld1 12:16 Acuity: DAVID 2 ld1 Triage Assessment: 12:17 General: Appears in no apparent distress. comfortable, Behavior is calm, cooperative, ld1 appropriate for age. Pain: Complains of pain in face Pain does not radiate. Pain currently is 6 out of 10 on a pain scale. EENT: No signs and/or symptoms were reported regarding the EENT system. Neuro: Level of Consciousness is awake, alert, obeys commands, Oriented to person, place, time, situation. Cardiovascular: Capillary refill < 3 seconds Patient's skin is warm and dry. Respiratory: Airway is patent Respiratory effort is even, unlabored. Historical: - Allergies: 12:17 No Known Allergies; ld1 - PMHx: 12:17 Arthritis; Diabetes - IDDM; GERD; High Cholesterol; Hypertension; ld1 - PSHx: 12:17 Appendectomy; ld1 - Immunization history:: Adult Immunizations up to date. - Infectious Disease History:: Denies. - Social history:: Smoking status: Patient denies any tobacco usage or history of. - Family history:: not pertinent. - Hospitalizations: : No recent hospitalization is reported. Screenin:58 [facility] ED Fall Risk Assessment (Adult) History of falling in the last 3 months, cm10 including since admission Yes- single mechanical fall (1 pt) Confusion or Disorientation No (0 pts) Intoxicated or Sedated No (0 pts) Impaired Gait No (0 pts) Mobility Assist Device Used No (0 pt) Altered Elimination No (0 pt) Score/Fall Risk Level 0 - 2 = Low Risk Oriented to surroundings, Maintained a safe environment, Hourly rounding (assess needs \T\ fall precautionary measures) done. Abuse screen: Denies threats or abuse. Denies injuries from another. Nutritional screening: No deficits noted. Tuberculosis screening: No symptoms or risk factors identified. Assessment: 13:57 General: Appears in no apparent distress. comfortable, Behavior is calm, cooperative, cm10 appropriate for age. Pain: Complains of pain in head Pain currently is 10 out of 10 on a pain scale. Neuro: No deficits noted. Level of Consciousness is awake, alert, obeys commands, Oriented to person, place, time, situation, Appropriate for age. Respiratory: No deficits noted. Airway is patent Respiratory effort is even, unlabored, Respiratory pattern is regular, symmetrical. Musculoskeletal: No deficits noted. Range of motion: intact in all extremities. Vital Signs: 12:16 BP 151 / 87; Pulse 89; Resp 18; Temp 97.5(TE); Pulse Ox 95% on R/A; Height 5 ft. 3 in. ld1 ; Pain 8/10; 13:57 BP 158 / 80; Pulse 79; Resp 15; Pulse Ox 97% ; Pain 10/10; cm10 12:16 Pain Scale: Adult ld1 13:57 Pain Scale: Adult cm10 ED Course: 12:13 Patient arrived in ED. al6 12:13 Nahid Rich MD is Attending Physician. rn 12:17 Triage completed. ld1 12:17 Arm band placed on right wrist. ld1 13:00 XRAY Elbow RIGHT 3 view In Process Unspecified. EDMS 13:00 XRAY Elbow LEFT 3 view In Process Unspecified. EDMS 13:00 XRAY Shoulder LEFT 2 view In Process Unspecified. EDMS 13:00 XRAY Pelvis In Process Unspecified. EDMS 13:00 XRAY Femur RIGHT In Process Unspecified. EDMS 13:00 XRAY Knee RIGHT 3 view In Process Unspecified. EDMS 13:00 Shoulder Right 2+ Views In Process Unspecified. EDMS 13:09 CT Head C Spine In Process Unspecified. EDMS 13:44 Kallie Ellison, RN is Primary Nurse. cm10 13:58 Patient has correct armband on for positive identification. Bed in low position. Call cm10 light in reach. Side rails up X2. Pulse ox on. NIBP on. 13:58 No provider procedures requiring assistance completed. Patient did not have IV access cm10 during this emergency room visit. 14:48 Provided Education on: Follow-up instructions. cm10 Administered Medications: 13:57 Drug: Acetaminophen PO 650 mg PO once Route: PO; cm10 14:48 Follow up: Response: No adverse reaction cm10 Medication: 13:58 VIS not applicable for this client. cm10 Outcome: 14:32 Discharge ordered by . rn 14:48 Discharged to home ambulatory, cm10 14:48 Condition: good 14:48 Discharge instructions given to patient, Instructed on discharge instructions, follow up and referral plans. Demonstrated understanding of instructions, follow-up care, 14:49 Patient left the ED. cm10 Signatures: Dispatcher [employer] EDMS Nahid Rich MD MD rn Sims, Lauren, RN RN ld1 Kallie Ellison, RN RN cm10 [email or web address] [email or web address] Corrections: (The following items were deleted from the chart) 12:18 12:17 Allergies: Aspirin; ld1 ld1
[2024-10-03 17:10] VITALS: TEMP 97.5
[2024-10-03 17:11] VITALS: BP 158/80; O2SAT 97
== END 2024-10-02 14:49 | disposition home or self-care (01) ==
LOC: ER 12:10
DX: S09.90XA Unspecified injury of head, initial encounter (principal); S50.02XA Contusion of left elbow, initial encounter; S50.01XA Contusion of right elbow, initial encounter; M25.561 Pain in right knee; M25.512 Pain in left shoulder; W01.198A Fall on same level from slipping, tripping and stumbling with subsequent striking against other object, initial encounter
CPT/HCPCS: 70450; 72125; 72170; 99283